=== PATIENT | female | born 1950 ===

== ENCOUNTER 2017-06-20 08:51 | Day surgery (SDC) | payer MEDICARE ==
[2016-10-31 09:17] VITALS: BMI 33.6
[2017-06-20] MEDS ORDERED: Lactated Ringer's 500 ML IV ONE (09:17)
[2017-06-20] MEDS ORDERED: Propofol 10 mg/ml Inj (20 ML) ONE (10:55)
[2017-06-20 11:13] VITALS: TEMP 96.9
[2017-06-20 11:24] VITALS: BP 120/70; PULSE 61; RESP 18; O2SAT 99
== END 2017-06-20 15:26 | disposition home or self-care (01) ==
LOC: H.ENDO 08:51
PROVIDERS: ATTEND Internal Medicine Gastroenterology
DX: K21.9 Gastro-esophageal reflux disease without esophagitis (principal); K29.50 Unspecified chronic gastritis without bleeding; K31.9 Disease of stomach and duodenum, unspecified; R10.13 Epigastric pain; R14.0 Abdominal distension (gaseous); E11.9 Type 2 diabetes mellitus without complications; I10 Essential (primary) hypertension
CPT/HCPCS: 43239; 82948; 88305; J2001; J2704; J7120

== ENCOUNTER 2017-07-04 09:11 | Day surgery (SDC) | payer MEDICARE, OTHER ==
[2016-10-31 09:17] VITALS: BMI 33.6
[2017-07-04] MEDS ORDERED: Lactated Ringer's 500 ML IV ONE (10:05)
[2017-07-04] MEDS ORDERED: Propofol 10 mg/ml Inj (20 ML) ONE (11:56)
[2017-07-04 12:29] VITALS: BP 89/48; PULSE 71; RESP 27; TEMP 97; O2SAT 96
== END 2017-07-04 23:00 | disposition home or self-care (01) ==
LOC: H.ENDO 09:11
PROVIDERS: ATTEND Internal Medicine Gastroenterology
DX: Z86.010 Personal history of colon polyps (principal); E78.5 Hyperlipidemia, unspecified; I10 Essential (primary) hypertension; F32.9 Major depressive disorder, single episode, unspecified; M06.9 Rheumatoid arthritis, unspecified; K31.9 Disease of stomach and duodenum, unspecified; R10.13 Epigastric pain
CPT/HCPCS: 43239; 88305; J2001; J2704; J7120

== ENCOUNTER 2018-05-23 14:36 | Inpatient (IN) | payer MEDICARE, OTHER ==
[2018-05-23] MEDS ORDERED: Iodixanol 320 MG/ML 100 ML BOTTLE IV ONE (14:44)
[2018-05-23] MEDS ORDERED: Sodium Chloride 0.9% 100 ML ONE (14:44)
[2018-05-23] MEDS ORDERED: Sodium Chloride 0.9% 1,000 ML IV SCH (14:45)
--- NOTE | 2018-05-23 14:46 | ED PDOC ---
HPI:STROKE - Time Time: 14:37 - Historian Historian: Family (nephew), EMS - Chief Complaint Chief Complaint: Weakness (right sided ), Slurred speech, Facial droop (right sided), Arm weakness (right), Leg weakness (right), Difficulty standing, Difficulty walking - Onset Date: 05/23/18 Time: 13:50 Onset: Hours (x1) - Location Location: Difficult to localize, Mental Status, Speech Locate right:: Face, Upper extremity, Lower extremity - Radiation Radiation: None (right sided) - TPA Positive for Contraindication: No - Notes: Notes:: 67 year old female with a past medical history of rheumatoid arthritis and CVA brought to the ED via EMS for possible stroke, onset one hour ago. According to nephew who lives in the same apartment, patient was doing well at baseline and then fell and screamed. Patient and nephew noticed she had weakness to her right side and slurred speech. Patient is a limited historian due to her physical impairment. History was obtained by EMS and nephew. Nephew reports patient had a CVA in 2017 and has been prescribed Asprin since then. As per nephew: - Business Process Analyst: Dr. Beth - PMD: Dr. Tracy Holbrook - Fur Coat Sewer: Dr. Diane NIHSS Stroke Scale - Date/Time Evaluation Performed Date Performed: 05/23/18 Time Performed: 14:37 When Was NIHSS Performed: Code Stroke - How Severe is the Stroke Level of Consciousness: 0=Alert LOC to Questions: 0=Both comments correct LOC to commands: 0=Obeys both correctly Best Gaze: 0=Normal Visual: 0=No visual loss Facial: 2=Partial (lower face paralysis) Motor Arm - Left: 0=No drift Motor Arm - Right: 3=No effort against gravity (falls immediately) Motor Leg - Left: 0=No drift Motor Leg - Right: 3=No effort against gravity (falls immediately) Limb Ataxia: 0=Absent Sensory: 1=Mild to moderate loss Best Language: 1=Mild to moderate aphasia Dysarthia: 1=Mild to moderate slurring Extinction & Inattention (Neglect): 0=Normal, no object Score: 11 Severity Of Stroke: 5-15 = Moderate Stroke rTPA Inclusion/Exclusion - Refusal of Treatment Patient Refused Treatment: No - Inclusion Criteria for Altepase Patient is 18 years or Older: Yes The Clinical Diagnosis of Ischemic Stroke That is Causing a Potentially Disabling Neurological Deficit: Yes Time of Onset is Well Established to be Less Than 270 Minute Before Treatment Would Begin: Yes Risk/Benefit Discussed With Patient/Family Member Present: Yes - Exclusion Criteria for Altepase Uncontrolled Hypertension at Time of Treatment (Systolic BP above 185 or Diastolic BP above 110 mmHg): No Active Internal Bleeding: No Known Bleeding Diathesis Including but Not Limited to: Platelets Below 100,000/ mm,PTT Above 40 sec After Heparin Use, Current Use of Oral Anitcoagulant With INR Greater Than 1.7 or PT Greater Than 15 secs: No Evidence of an Intracranial Hemorrhage: No Evidence of Major Acute Infarct With Signs Greater Than 1/3 MCA Territory: No Suspicion of Subarachnoid Hemorrhage on Pretreatment Evaluation Even if CT Head Negative For Hemorrhage: No Past Medical History Reviewed: Historical Data, Nursing Documentation, Vital Signs - Medical History PMH: CVA, Diabetes, HTN, Hypercholesterolemia, Rheumatoid Arthritis Denies: COPD (pt denies), Chronic Kidney Disease - Surgical History Surgical History: No Surg Hx - Family History Family History: States: Unknown Family Hx - Living Arrangements Living Arrangements: With Family (nephew) - Immunization History Hx Tetanus Toxoid Vaccination: No Hx Influenza Vaccination: Yes (3 days ago) Hx Pneumococcal Vaccination: Yes (3 days ago) - Home Medications Home Medications: Ambulatory Orders Medication Instructions Recorded Albuterol Sulfate [Ventolin Hfa] 2 puff IH Q12 PRN 05/23/18 Allopurinol [Zyloprim] 100 mg PO DAILY 05/23/18 Alprazolam [Xanax] 0.5 mg PO Q12 PRN 05/23/18 Amlodipine/Valsartan/Hcthiazid 1 tab PO DAILY 05/23/18 [Amiuh-Ifatr-Egzz 10-320-25 mg] Aspirin [Ecotrin] 81 mg PO DAILY 05/23/18 Carvedilol [Coreg] 25 mg PO Q12 05/23/18 Cholecalciferol (Vitamin D3) 2,000 unit PO DAILY 05/23/18 [Vitamin D3] Clopidogrel [Plavix] 75 mg PO DAILY 05/23/18 Colesevelam HCl [Welchol] 3.75 gm PO DAILY 05/23/18 Dulaglutide [Trulicity] 0.75 mg SC QWK 05/23/18 Etanercept [Enbrel] 50 mg SC WE 05/23/18 Gabapentin [Neurontin] 300 mg PO Q8 05/23/18 Montelukast [Singulair] 10 mg PO HS 05/23/18 Multivitamin/Iron/Folic Acid 1 tab PO DAILY 05/23/18 [Centrum Complete Multivit Tab] Eagir-5-Whfb Ethyl Esters 1 GM 1 gm PO DAILY 05/23/18 [Lovaza] Omeprazole [Omeprazole] 40 mg PO DAILY 05/23/18 Oxycodone HCl/Acetaminophen 1 tab PO Q6 PRN 05/23/18 [Endocet 5-325 Tablet] Simvastatin [Zocor] 20 mg PO HS 05/23/18 Sitagliptin Phos/Metformin HCl 1 tab PO BID 05/23/18 [Janumet 50-1,000 mg Tablet] cloNIDine [Catapres] 0.1 mg PO Q6 05/23/18 - Allergies Allergies/Adverse Reactions: Allergies Allergy/AdvReac Type Severity Reaction Status Date / Time No Known Allergies Allergy Verified 07/04/17 10:02 Review of Systems ROS Statement: Except As Marked, All Systems Reviewed And Found Negative Neurological: Positive for: Weakness (right sided weaknes ), Change in Speech ( slurred speech ), Other (right facial droop (possible stroke)) Physical Exam - Reviewed Nursing Documentation Reviewed: Yes Vital Signs Reviewed: Yes - Physical Exam Appears: Positive for: Non-toxic, No Acute Distress (comfortable ) Head Exam: Positive for: ATRAUMATIC, NORMAL INSPECTION, NORMOCEPHALIC Skin: Positive for: Normal Color, Warm, Dry Eye Exam: Positive for: Normal appearance, EOMI, PERRL ENT: Positive for: Normal ENT Inspection Neck: Positive for: Normal, Painless ROM, Supple Cardiovascular/Chest: Positive for: Regular Rate, Rhythm. Negative for: Murmur Respiratory: Positive for: Normal Breath Sounds. Negative for: Crackles, Rales , Rhonchi, Wheezing, Respiratory Distress Gastrointestinal/Abdominal: Positive for: Normal Exam, Soft. Negative for: Tenderness, Mass, Guarding, Rebound Back: Positive for: Normal Inspection. Negative for: L CVA Tenderness, R CVA Tenderness, Vertebral Tenderness Extremity: Positive for: Normal ROM, Swelling (right elbow swelling at the lateral aspect of arm and echhymosis ). Negative for: Pedal Edema, Deformity Neurologic/Psych: Positive for: Alert, Oriented (x3), Motor/Sensory Deficits ( in right arm and leg), Aphasia (present), Facial Droop (right sided, facial assymetry), Other (weakness of right arm and leg. ) - Laboratory Results Result Diagrams: 05/26/18 04:40 05/26/18 04:40 Medical Decision Making Medical Decision Making: Time: 1447 Impression: acute CVA, fall with R elbow injury Differentials ischemic stroke vs hemorrhagic stroke Plan: -- CTA Head/Neck CODE STROKE -- CT Head w/o (CODE STROKE) -- EKG -- Stroke Team Consult -- CXR Portable -- sodium Chloride IV 100 mls/hr -- Tail Worker -- IV Insertion -- Call Stroke Team Consult -- ED Obtain Labs STAT -- Glucose, Blood, POC -- Nursing Swallow Screen -- Vital Signs Q15MIN -- Upon arrival, code stroke was activated. Patient was sent directly to CT for scans. Time: 1447 Plan: -- At this time, neurologist, Dr. Hamilton, arrived at bedside. After discussion with Dr. Hamilton, patient is a TPA candidate. Time: [address] RESULTS FINDINGS: HEMORRHAGE: No intracranial hemorrhage. BRAIN: Good corticomedullary differentiation is seen. Proportional, minimal diffuse expansion of the ventriculosulcal and cisternal spaces is appreciated with white matter lucency compatible with diffuse cerebral atrophy and chronic microangiopathy. No suspicious extra-axial fluid collection is identified and the midline brain anatomy appears grossly nonfocal as imaged. There is no mass effect throughout. VENTRICLES: Unremarkable. No hydrocephalus. CALVARIUM: Unremarkable. PARANASAL SINUSES: Unremarkable as visualized. No significant inflammatory changes. MASTOID AIR CELLS: Unremarkable as visualized. No inflammatory changes. OTHER FINDINGS: None. IMPRESSION: Minimal age related neuro degenerative findings are encountered in this patient which appear age-appropriate. No definite acute intracranial findings are identified at this time to indicate an acute or subacute brain infarction, however, follow-up CT or MRI are available as clinically warranted. Findings discussed with Dr. Yang with written down and read back verification 05/23/2018, 2:47 p.m.. Time: 1500 Plan: -- CMP -- Hemoglobin A1C -- Lipid Panel -- Troponin I -- CBC with differentials -- Glucose, POC -- Labetalol [Trandate] 10 mg IVP Time: 1513 HEAD CTA RESULTS FINDINGS: INTERNAL CEREBRAL ARTERIES: Unremarkable. The skull base, petrous, cavernous and supraclinoid segments are bilaterally widely patent. ANTERIOR CEREBRAL ARTERIES: Unremarkable. A1 and A2 segments are widely patent. Smaller distal branches unremarkable, as visualized. MIDDLE CEREBRAL ARTERIES: Unremarkable. M1 and M2 segments are widely patent. Perisylvian branches grossly symmetric. POSTERIOR CIRCULATION: Basilar Artery: Unremarkable. Distal Vertebral Arteries: Unremarkable. Posterior Cerebral Arteries: Unremarkable. Posterior Inferior Cerebellar Arteries: Unremarkable. NECK CTA: Common Carotid arteries: The bilateral common carotid appear widely patent from their origins to their bifurcations with no significant stenosis appreciated. No evidence to suggest common carotid artery dissection. Limited bilateral carotid bulbar atherosclerosis appreciate without significant stenosis resulting. Internal Carotid arteries: No significant stenosis is appreciated throughout the cervical internal carotid artery segments bilaterally and there is no evidence of dissection either. External Carotid arteries: Appear unremarkable bilaterally. Vertebral arteries: The bilateral vertebral arteries appear normal in caliber from their origins to their junction with the basilar artery. No significant stenosis or definite pattern of dissection. ANEURYSM/ VASCULAR MALFORMATIONS: None. OTHER FINDINGS: None. IMPRESSION: Unremarkable CT Angiography of the Brain. CT angiography of the neck reveals limited bilateral carotid bulbar atherosclerosis without significant stenosis involving the bilateral common or internal carotid arteries. Time: 1515 Plan: -- First bolus of tPA administered at this time by me. -- Dr. Hamilton recommended patient to be admitted to ICU, blood pressure control, to hold off on any anti-platelet medications, and to order a Head CT for tomorrow morning. There are no indications for tramnsfer or endovascular treatment. Time: 152 Plan: -- Neuro Check Q15M -- [Activase 100 mg Inj] 74.9925 mg IV -- Tail Worker -- Vital Signs Q15M -- admit to hospital ICU -- Swallow Eval & Treatment Time: 1545 Plan: -- Upon re-evaluation, patient gained improvement in speech and able to lift limbs. Time: 160 Plan: -- Call Critical care Consult Discussed with Dr Vo for admission. to ICU Time: 161 Plan: -- Elbow XR Two Views 1750 Elbow xray reviewed. Possible epicondilar fracture. Discussed with with Robb. Scribe Attestation: Documented by Rajendra Jerez, acting as a scribe for Dr. Inez Yang MD. Provider Scribe Attestation: All medical record entries made by the Scribe were at my direction and personally dictated by me. I have reviewed the chart and agree that the record accurately reflects my personal performance of the history, physical exam, medical decision making, and the department course for this patient. I have also personally directed, reviewed, and agree with the discharge instructions and disposition. Disposition - Clinical Impression Clinical Impression: Ischemic stroke - Patient ED Disposition Is Patient to be Admitted: Yes Discussed With Dr.: Nicolas Palmer Doctor Will See Patient In The: ED Counseled Patient/Family Regarding: Studies Performed, Diagnosis - Disposition Disposition Time: 15:00 Condition: GUARDED - Pt Status Changed To: Hospital Disposition Of: Inpatient - Admit Certification Admit to Inpatient:: After my assessment, the patient will require hospitalization for at least two midnights. This is because of the severity of symptoms shown, intensity of services needed, and/or the medical risk in this patient being treated as an outpatient. - POA Present On Arrival: Falls Or Trauma Core Measure Indicators: Code Stroke Critical Care Time - Critical Care Note Total Time (in mins): 60 Documented critical care: time excludes all time spent performing seperately billable procedures.
--- NOTE | 2018-05-23 14:52 | CT ---
PROCEDURE: CT HEAD WITHOUT CONTRAST. HISTORY: code stroke COMPARISON: None available. TECHNIQUE: Axial computed tomography images were obtained through the head/brain without intravenous contrast. Radiation dose: Total exam DLP = 1151.34 mGy-cm. This CT exam was performed using one or more of the following dose reduction techniques: Automated exposure control, adjustment of the mA and/or kV according to patient size, and/or use of iterative reconstruction technique. FINDINGS: HEMORRHAGE: No intracranial hemorrhage. BRAIN: Good corticomedullary differentiation is seen. Proportional, minimal diffuse expansion of the ventriculosulcal and cisternal spaces is appreciated with white matter lucency compatible with diffuse cerebral atrophy and chronic microangiopathy. No suspicious extra-axial fluid collection is identified and the midline brain anatomy appears grossly nonfocal as imaged. There is no mass effect throughout. VENTRICLES: Unremarkable. No hydrocephalus. CALVARIUM: Unremarkable. PARANASAL SINUSES: Unremarkable as visualized. No significant inflammatory changes. MASTOID AIR CELLS: Unremarkable as visualized. No inflammatory changes. OTHER FINDINGS: None. IMPRESSION: Minimal age related neuro degenerative findings are encountered in this patient which appear age-appropriate. No definite acute intracranial findings are identified at this time to indicate an acute or subacute brain infarction, however, follow-up CT or MRI are available as clinically warranted. Findings discussed with Dr. Yang with written down and read back verification 05/23/2018, 2:47 p.m..
[2018-05-23] MEDS ORDERED: Labetalol 5 mg/ml Inj 20ML IVP STA (15:03)
--- NOTE | 2018-05-23 15:15 | CT ---
PROCEDURE: CT Angiography of the Brain and Neck. HISTORY: stroke COMPARISON: None available. TECHNIQUE: CT angiography of the intracranial and neck arteries was performed. Coronal and sagittal maximum intensity projection reformatted images were generated. Contrast Dose: Visipaque 320, 99 cc Radiation dose:Total exam DLP = 795.85 mGy-cm. This CT exam was performed using one or more of the following dose reduction techniques: Automated exposure control, adjustment of the mA and/or kV according to patient size, and/or use of iterative reconstruction technique. FINDINGS: INTERNAL CEREBRAL ARTERIES: Unremarkable. The skull base, petrous, cavernous and supraclinoid segments are bilaterally widely patent. ANTERIOR CEREBRAL ARTERIES: Unremarkable. A1 and A2 segments are widely patent. Smaller distal branches unremarkable, as visualized. MIDDLE CEREBRAL ARTERIES: Unremarkable. M1 and M2 segments are widely patent. Perisylvian branches grossly symmetric. POSTERIOR CIRCULATION: Basilar Artery: Unremarkable. Distal Vertebral Arteries: Unremarkable. Posterior Cerebral Arteries: Unremarkable. Posterior Inferior Cerebellar Arteries: Unremarkable. NECK CTA: Common Carotid arteries: The bilateral common carotid appear widely patent from their origins to their bifurcations with no significant stenosis appreciated. No evidence to suggest common carotid artery dissection. Limited bilateral carotid bulbar atherosclerosis appreciate without significant stenosis resulting. Internal Carotid arteries: No significant stenosis is appreciated throughout the cervical internal carotid artery segments bilaterally and there is no evidence of dissection either. External Carotid arteries: Appear unremarkable bilaterally. Vertebral arteries: The bilateral vertebral arteries appear normal in caliber from their origins to their junction with the basilar artery. No significant stenosis or definite pattern of dissection. ANEURYSM/ VASCULAR MALFORMATIONS: None. OTHER FINDINGS: None. IMPRESSION: Unremarkable CT Angiography of the Brain. CT angiography of the neck reveals limited bilateral carotid bulbar atherosclerosis without significant stenosis involving the bilateral common or internal carotid arteries.
[2018-05-23 15:18] LABS: BASO # 0.1 K/uL (0.0-0.2); EOS # 0.2 K/uL (0.0-0.7); EOS % 1.7 % (0.0-4.0); HEMOGLOBIN 12.3 g/dL (12.0-16.0); LYMPH # 1.8 K/uL (1.0-4.3); LYMPH % 15.1 % (20.0-40.0); MEAN CELL VOLUME 93.6 fl (81.0-99.0); MEAN CORPUSCULAR HEMOGLOBIN 32.2 pg (27.0-31.0); MEAN CORPUSCULAR HGB CONC 34.4 g/dL (33.0-37.0); MEAN PLATELET VOLUME 7.6 fl (7.2-11.7); MONO # 0.8 K/uL (0.0-0.8); MONO % 6.6 % (0.0-10.0); NEUT % 75.6 % (50.0-75.0); RBC 3.81 Mil/uL (3.80-5.20); RED CELL DISTRIBUTION WIDTH 14.3 % (11.5-14.5); WHITE BLOOD COUNT 11.9 K/uL (4.8-10.8)
[2018-05-23 15:22] LABS: ALB/GLOB RATIO 1.1 (1.0-2.1); ALBUMIN 4.3 g/dL (3.5-5.0); CALCIUM 9.8 mg/dL (8.4-10.2)
[2018-05-23 15:48] LABS: TROPONIN I 0.032 ng/mL (0.00-0.120)
--- NOTE | 2018-05-23 16:00 | CP.PCM.CON ---
History of Present Illness - History of Present Illness History of Present Illness: 67 yr old woman who was found by her nephew to be dysarthric, aphasic and with right sided weakness about an hour before presenting to the ER, at roughly 2:00 Pm. Patient came to hospital as code stroke, and was found to be unchanged from initial exam, slightly hypertensive at 180/100 and with no contraindications to tpa. Her NIH stroke scale was 8, and she was given tpA at 3 :11 pm, after labetalol 10 mg IV brought her bp down to 150/100. She was then transferred to the ICU and is now being monitored. MIss hurst has a pmh of rheumatoid arthritis, and prior stroke for which she is on aspirin. Patient improved after TPA was given minimally on my exam with minimal movement of right toes. PMH/PSH: as above. FH/SH: no tobacco, no etoh. All: nkda. On exam; Right sided facial droop. +ptosis. PERRL. EOMI. Appears to have right sided neglect. Cannot name objects, but does speak full sentences. Can follow commands. Right arm and leg are plegic. left arm is 5/5, left leg is 5/5. sensory exam; not accurate. +2 dtr ul and ll bl. Toes downgoing. no clonus. Past Patient History - Past Medical History & Family History Past Medical History?: Yes - Past Social History Smoking Status: Heavy Smoker > 10 Cigarettes Daily - CARDIAC Hx Hypercholesterolemia: Yes Hx Hypertension: Yes - PULMONARY Hx Chronic Obstructive Pulmonary Disease (COPD): No (pt denies) - NEUROLOGICAL Hx Neurological Disorder: No - HEENT Hx HEENT Problems: No - RENAL Hx Chronic Kidney Disease: No - ENDOCRINE/METABOLIC Hx Endocrine Disorders: Yes Hx Diabetes Mellitus Type 2: Yes - HEMATOLOGICAL/ONCOLOGICAL Hx Blood Disorders: No - INTEGUMENTARY Hx Dermatological Problems: No - MUSCULOSKELETAL/RHEUMATOLOGICAL Hx Rheumatoid Arthritis: Yes - GASTROINTESTINAL Hx Gastrointestinal Disorders: No - GENITOURINARY/GYNECOLOGICAL Hx Genitourinary Disorders: No - PSYCHIATRIC Hx Substance Use: No - SURGICAL HISTORY Hx Surgeries: Yes Hx Hysterectomy: Yes Hx Orthopedic Surgery: Yes - ANESTHESIA Hx Anesthesia: Yes Hx Anesthesia Reactions: No Hx Malignant Hyperthermia: No Meds Allergies/Adverse Reactions: Allergies Allergy/AdvReac Type Severity Reaction Status Date / Time No Known Allergies Allergy Verified 07/04/17 10:02 - Medications Medications: Current Medications Sodium Chloride (Sodium Chloride 0.9%) 1,000 mls @ 100 mls/hr IV .Q10H NATALIE Results - Vital Signs Recent Vital Signs: Last Vital Signs Temp Pulse 69 05/23/18 15:50 Resp 16 05/23/18 15:50 BP 141/91 H 05/23/18 15:50 Pulse Ox 98 05/23/18 15:50 - Labs Result Diagrams: 05/23/18 15:00 05/23/18 15:00 Labs: Laboratory Results - last 24 hr 05/23/18 05/23/18 05/23/18 15:00 15:00 15:02 WBC 11.9 H RBC 3.81 Hgb 12.3 Hct 35.7 MCV 93.6 MCH 32.2 H MCHC 34.4 RDW 14.3 Plt Count 368 MPV 7.6 Neut % (Auto) 75.6 H Lymph % (Auto) 15.1 L [place] % (Auto) 6.6 Eos % (Auto) 1.7 Baso % (Auto) 1.0 Neut # (Auto) 9.0 H Lymph # (Auto) 1.8 [place] # (Auto) 0.8 Eos # (Auto) 0.2 Baso # (Auto) 0.1 Sodium 138 Potassium 4.3 Chloride 99 Carbon Dioxide 28 Anion Gap 15 BUN 36 H Creatinine 1.6 H Est GFR ( Amer) 39 Est GFR (Non-Af Amer) 32 POC Glucose (mg/dL) 130 H Random Glucose 135 H Calcium 9.8 Total Bilirubin 0.7 AST 24 ALT 21 Alkaline Phosphatase 71 Troponin I 0.0320 Total Protein 8.2 Albumin 4.3 Globulin 3.9 Albumin/Globulin Ratio 1.1 Triglycerides 178 H Cholesterol 200 H LDL Cholesterol Direct 119 HDL Cholesterol 29 L - Imaging and Cardiology CT scan - head Status: Image reviewed by me, Report reviewed by me (ct and cta are normal without occlusion. ) Assessment & Plan - Assessment and Plan (Free Text) Assessment: 67 yr old woman who most likely has M1 distribution stroke, affecting Brocas area and internal capsule, now s/p TPA. plan: 1. Admit to ICU 2. Telemetry and neuro checks q 2 hours. 3. No antiplatelets. 4. CT head tonight. and tomorrow morning. 5. MRI Brain when stable. 6. DVT prophylaxis on SCDS 7. PLease keep bp within normal parameters, around 150/80 8. PT/ST/OT Thank you Dr. Hamilton
[2018-05-23] MEDS ORDERED: Albuterol HFA 90 mcg/actuation (8 g) IH PRN (16:08)
--- NOTE | 2018-05-23 16:46 | CP.PCM.HP ---
History of Present Illness - History of Present Illness History of Present Illness: CC: Acute CVA This is a 67 year old female with pmh of CVA in 2017, rheumatoid arthritis, hypertension, hypercholesterolemia, cellulitis of the right lower extremity in 2015, obesity, Type 2 diabetes mellitus, who presents to the ED today via EMS for stroke eval. The nephew, who lives with the patient, was noted to abruptly fall and scream at 13:50. She was noticed to have acute right sided upper and lower extremity weakness, slurred speech, and dysarthria. The patient was brought to the ED within an hour, Code stroke was called, and pt was administered tPA. Dr. Hamilton, neurologist, was at bedside and examined the patient. CT head was performed and revealed no definite acute intracranial findings. Similarly CTA head was also performed and showed no significant stenosis. The patient is being admitted to ICU post tPA and post CVA for close monitoring and further workup. Patient did improve after tPA with better cognition as well as regained the ability to left her right leg against gravity. She however is unable to give an accurate review of systems at this time as she is still confused. Present on Admission - Present on Admission Any Indicators Present on Admission: No History of DVT/PE: No Review of Systems - Review of Systems Systems not reviewed;Unavailable: Altered Mental Status Past Patient History - Infectious Disease Hx of Infectious Diseases: None - Past Medical History & Family History Past Medical History?: Yes Past Family History: Reviewed and not pertinent - Past Social History Smoking Status: Heavy Smoker > 10 Cigarettes Daily Alcohol: None Drugs: Denies Home Situation {Lives}: With Family - CARDIAC Hx Hypercholesterolemia: Yes Hx Hypertension: Yes - PULMONARY Hx Chronic Obstructive Pulmonary Disease (COPD): No (pt denies) - NEUROLOGICAL Hx Neurological Disorder: No - HEENT Hx HEENT Problems: No - RENAL Hx Chronic Kidney Disease: No - ENDOCRINE/METABOLIC Hx Endocrine Disorders: Yes Hx Diabetes Mellitus Type 2: Yes - HEMATOLOGICAL/ONCOLOGICAL Hx Blood Disorders: No - INTEGUMENTARY Hx Dermatological Problems: No - MUSCULOSKELETAL/RHEUMATOLOGICAL Hx Rheumatoid Arthritis: Yes - GASTROINTESTINAL Hx Gastrointestinal Disorders: No - GENITOURINARY/GYNECOLOGICAL Hx Genitourinary Disorders: No - PSYCHIATRIC Hx Psychophysiologic Disorder: No Hx Emotional Abuse: No Hx Physical Abuse: No Hx Substance Use: No - SURGICAL HISTORY Hx Surgeries: Yes Hx Hysterectomy: Yes Hx Orthopedic Surgery: Yes - ANESTHESIA Hx Anesthesia: Yes Hx Anesthesia Reactions: No Hx Malignant Hyperthermia: No Meds Allergies/Adverse Reactions: Allergies Allergy/AdvReac Type Severity Reaction Status Date / Time No Known Allergies Allergy Verified 07/04/17 10:02 Physical Exam - Additional Findings Additional findings: Physical exam: Constitutional- cooperative, awake, alert, but confused Head- NCAT, PERRL Eye- PERRL, EOMI ENT- + Right sided facial droop, MMM Neck- normal inspection, supple, no JVD Respiratory- CTAB, occ wheezing, no rales or rhonchi. Cardiovascular- RRR, +S1, +S2 no MRG GI/Abdominal- obese, normal bowel sounds, soft, no mass, no hsm Skin- warm, dry Extremities Exam- normal capillary refill, normal inspection Neurological Exam- alert, awake, oriented. + Right sided facial droop. 0/5 muscle strength to RUE, 5/5 muscle strength to LUE, 2/5 muscle strength to RLE, 5/5 muscle strength LLE Psych- not assessed. Results - Vital Signs Recent Vital Signs: Last Vital Signs Temp Pulse 73 05/23/18 15:55 Resp 16 05/23/18 15:55 BP 137/76 05/23/18 15:55 Pulse Ox 100 05/23/18 15:55 - Labs Result Diagrams: 05/23/18 15:00 05/23/18 15:00 Labs: Laboratory Results - last 24 hr 05/23/18 05/23/18 05/23/18 15:00 15:00 15:02 WBC 11.9 H RBC 3.81 Hgb 12.3 Hct 35.7 MCV 93.6 MCH 32.2 H MCHC 34.4 RDW 14.3 Plt Count 368 MPV 7.6 Neut % (Auto) 75.6 H Lymph % (Auto) 15.1 L [place] % (Auto) 6.6 Eos % (Auto) 1.7 Baso % (Auto) 1.0 Neut # (Auto) 9.0 H Lymph # (Auto) 1.8 [place] # (Auto) 0.8 Eos # (Auto) 0.2 Baso # (Auto) 0.1 Sodium 138 Potassium 4.3 Chloride 99 Carbon Dioxide 28 Anion Gap 15 BUN 36 H Creatinine 1.6 H Est GFR ( Amer) 39 Est GFR (Non-Af Amer) 32 POC Glucose (mg/dL) 130 H Random Glucose 135 H Calcium 9.8 Total Bilirubin 0.7 AST 24 ALT 21 Alkaline Phosphatase 71 Troponin I 0.0320 Total Protein 8.2 Albumin 4.3 Globulin 3.9 Albumin/Globulin Ratio 1.1 Triglycerides 178 H Cholesterol 200 H LDL Cholesterol Direct 119 HDL Cholesterol 29 L Assessment & Plan - Assessment and Plan (Free Text) Plan: ASSESSMENT/PLAN This is a 67 year old female with pmh of CVA in 2016, rheumatoid arthritis, hypertension, hypercholesterolemia, cellulitis of the right lower extremity in 2014, obesity, Type 2 diabetes mellitus, who presents to the ED today via EMS for stroke eval. The nephew, who lives with the patient, was noted to abruptly fall and scream at 13:50. She was noticed to have acute right sided upper and lower extremity weakness, slurred speech, and dysarthria. The patient was brought to the ED within an hour, Code stroke was called, and pt was administered tPA. Dr. Hamilton, neurologist, was at bedside and examined the patient. CT head was performed and revealed no definite acute intracranial findings. Similarly CTA head was also performed and showed no significant stenosis. The patient is being admitted to ICU post tPA and post CVA for close monitoring and further workup. 1) Acute CVA, s/p tPA - Admit to ICU - Critical care consultation with Dr. Vo appreciated - Neurology consultation with Dr. Hamilton appreciated - Neuro checks q hour - Elevate HOB - Echocardiogram - NPO status until former speech evaluation - PT eval - NS at 100 cc/hour - Allow permissive htn, but keep SBP < 180 and DBP < 105 due to tPA administration 2) Hypertension - Holding antihypertensives for now due to acute CVA - Will restart patients home BP medications when out of acute phase 3) Hypercholesterolemia - Lipitor 80 mg po HS advised when patient able to take PO - chronic 4) Type 2 DM - Lispro sliding scale with accuchecks q 4 hours 5) Asthma - Continue Albuterol PRN for SOB - chronic 6) GERD - Protonix 40 mg IV daily for prophylaxis - chronic 7) RA - restart Zyloprim when able to take po - chronic, no evidence of acute attack 8) CKD stage III - Given previous labwork, likely has Stage III chronic kidney disease most likely due to diabetic nephropathy and/or uncontrolled hypertension - NS at 100 cc/hour 9) DVT prophylaxis - SCDs (Holding anticoagulation due to tPA being given)
--- NOTE | 2018-05-23 17:27 | RAD ---
PROCEDURE: Radiographs of the right elbow. HISTORY: elbow injury pain COMPARISON: No prior. FINDINGS: BONES: No acute fracture. JOINTS: Unremarkable. SOFT TISSUES: Soft tissue injury/ possible hematoma along the posterolateral elbow. JOINT EFFUSION: None. OTHER FINDINGS: None. IMPRESSION: Soft tissue injury/ possible hematoma along the posterolateral elbow. No demonstrated fracture or dislocation.
--- NOTE | 2018-05-23 17:28 | RAD ---
HISTORY: Code Stroke COMPARISON: No prior. FINDINGS: LUNGS: No active pulmonary disease. PLEURA: No significant pleural effusion identified, no pneumothorax apparent. CARDIOVASCULAR: Atherosclerotic aortic calcifications. Cardiomediastinal silhouette enlarged. OSSEOUS STRUCTURES: Degenerative changes. VISUALIZED UPPER ABDOMEN: Normal. OTHER FINDINGS: None. IMPRESSION: No active disease.
--- NOTE | 2018-05-23 17:44 | CP.PCM.CON ---
<RinkuJaime - Last Filed: 05/23/18 18:02> History of Present Illness - History of Present Illness History of Present Illness: ICU Consult Note 67 y/o F with PMhx of HTN and NIDDM was brought with c/o R/side weakness and facial droop. As per patient's nephew, they were at home but in different rooms when he heard a noise and went to check her, only to find her lying in the floor and noticed a facial droop and R/side weakness. He moved her to a chair to call for help but she felt to the floor again to the right side and a new onset R/elbow swelling was noted at the time. Patient presented to ED approximately 1 hour after the event , CT and CTA were neg and patient was started on TPA. She was evaluated by Neurology and the patient is decided to transfer to ICU for further monitoring and treatment. At the time of exam patient is alert, responds to verbal commands, sleepy, denies CP, palpitations, SOB, headache. Review of Systems - Review of Systems All systems: reviewed and no additional remarkable complaints except (Those described on HPI) Past Patient History - Infectious Disease Hx of Infectious Diseases: None - Past Medical History & Family History Past Medical History?: Yes - Past Social History Smoking Status: Heavy Smoker > 10 Cigarettes Daily Alcohol: None Drugs: Denies - CARDIAC Hx Hypercholesterolemia: Yes Hx Hypertension: Yes - PULMONARY Hx Chronic Obstructive Pulmonary Disease (COPD): No (pt denies) - NEUROLOGICAL Hx Neurological Disorder: No - HEENT Hx HEENT Problems: No - RENAL Hx Chronic Kidney Disease: No - ENDOCRINE/METABOLIC Hx Endocrine Disorders: Yes Hx Diabetes Mellitus Type 2: Yes - HEMATOLOGICAL/ONCOLOGICAL Hx Blood Disorders: No - INTEGUMENTARY Hx Dermatological Problems: No - MUSCULOSKELETAL/RHEUMATOLOGICAL Hx Rheumatoid Arthritis: Yes - GASTROINTESTINAL Hx Gastrointestinal Disorders: No - GENITOURINARY/GYNECOLOGICAL Hx Genitourinary Disorders: No - PSYCHIATRIC Hx Substance Use: No - SURGICAL HISTORY Hx Surgeries: Yes Hx Hysterectomy: Yes Hx Orthopedic Surgery: Yes - ANESTHESIA Hx Anesthesia: Yes Hx Anesthesia Reactions: No Hx Malignant Hyperthermia: No Meds Allergies/Adverse Reactions: Allergies Allergy/AdvReac Type Severity Reaction Status Date / Time No Known Allergies Allergy Verified 07/04/17 10:02 - Medications Medications: Current Medications Albuterol (Ventolin Hfa 90 Mcg/Actuation (8 G)) 2 puff IH Q12 PRN PRN Reason: Shortness of Breath Sodium Chloride (Sodium Chloride 0.9%) 1,000 mls @ 100 mls/hr IV .Q10H [facility] Insulin Human Lispro (Humalog) 0 units SC Q4H NATALIE PRN Reason: Protocol Ondansetron HCl (Zofran Inj) 4 mg IVP Q6H PRN PRN Reason: Nausea/Vomiting Pantoprazole Sodium (Protonix Inj) [address] [facility] Physical Exam - Constitutional Appears: Confused - Head Exam Head Exam: ATRAUMATIC - Eye Exam Eye Exam: EOMI, PERRL - ENT Exam ENT Exam: Mucous Membranes Moist - Neck Exam Neck exam: Negative for: Lymphadenopathy, Tenderness - Respiratory Exam Respiratory Exam: Clear to Auscultation Bilateral, NORMAL BREATHING PATTERN. absent: Rales, Rhonchi, Wheezes, Respiratory Distress - Cardiovascular Exam Cardiovascular Exam: REGULAR RHYTHM, +S1, +S2. absent: Tachycardia, Gallop - GI/Abdominal Exam GI & Abdominal Exam: Normal Bowel Sounds, Soft. absent: Diminished Bowel Sounds , Guarding, Rebound, Rigid, Tenderness - Extremities Exam Extremities exam: Positive for: normal capillary refill. Negative for: pedal edema, tenderness - Neurological Exam Neurological exam: Alert, Motor Sensory Deficit Additional comments: R/side hemiplegia, R/side neglect. R/side sensation seems impaired. - Skin Skin Exam: Normal Color, Warm Results - Vital Signs Recent Vital Signs: Last Vital Signs Temp 98.0 F 05/23/18 15:05 Pulse 73 05/23/18 16:30 Resp 16 05/23/18 16:30 BP 137/76 05/23/18 16:30 Pulse Ox 100 05/23/18 15:55 - Labs Result Diagrams: 05/23/18 15:00 05/23/18 15:00 Labs: Laboratory Results - last 24 hr 05/23/18 05/23/18 05/23/18 15:00 15:00 15:02 WBC 11.9 H RBC 3.81 Hgb 12.3 Hct 35.7 MCV 93.6 MCH 32.2 H MCHC 34.4 RDW 14.3 Plt Count 368 MPV 7.6 Neut % (Auto) 75.6 H Lymph % (Auto) 15.1 L [place] % (Auto) 6.6 Eos % (Auto) 1.7 Baso % (Auto) 1.0 Neut # (Auto) 9.0 H Lymph # (Auto) 1.8 [place] # (Auto) 0.8 Eos # (Auto) 0.2 Baso # (Auto) 0.1 Sodium 138 Potassium 4.3 Chloride 99 Carbon Dioxide 28 Anion Gap 15 BUN 36 H Creatinine 1.6 H Est GFR ( Amer) 39 Est GFR (Non-Af Amer) 32 POC Glucose (mg/dL) 130 H Random Glucose 135 H Calcium 9.8 Total Bilirubin 0.7 AST 24 ALT 21 Alkaline Phosphatase 71 Troponin I 0.0320 Total Protein 8.2 Albumin 4.3 Globulin 3.9 Albumin/Globulin Ratio 1.1 Triglycerides 178 H Cholesterol 200 H LDL Cholesterol Direct 119 HDL Cholesterol 29 L Assessment & Plan - Assessment and Plan (Free Text) Assessment: 67 y/o F admitted for ischemic CVA Ischemic CVA Acute, suspected R/side hemiplegia S/P TPA given at ED Initial CT/CTA Head neg for hemorrhagic or ischemic infarct Neurology consulted Permissive hypertension: MAP <120 Neurochecks Q2h Consider swallow eval PT/OT R/elbow contusion XRay neg for Fx or dislocations. + for hematoma Monitor Fall Xray of elbow as above R/hip Xray ordered NIDDM Chronic Monitor accuchecks Rec hold PO meds for now Adjust as needed DVT prophylaxis SCDs for now <Neel Vo - Last Filed: 05/23/18 18:34> History of Present Illness - History of Present Illness History of Present Illness: Attestation: Patient seen and examined at the bedside with Resident Dr. Anderson Dobbs; and I agree with his outline of plans and management documented below, reflecting my review of all applicable clinical data, and participation in the care of the patient throughout the day in ICU; today, May 23, 2018. Results - Labs Result Diagrams: 05/23/18 15:00 05/23/18 15:00
[2018-05-23] MEDS: Insulin Lispro (humaLOG) 100 Units/ml Inj SC SCH (20:40)
[2018-05-23] MEDS: Labetalol 5 mg/ml Inj 20ML IVP PRN (22:02)
[2018-05-24] MEDS: Insulin Lispro (humaLOG) 100 Units/ml Inj SC SCH ×6 (00:10→21:24)
[2018-05-24] MEDS: Labetalol 5 mg/ml Inj 20ML IVP PRN ×2 (08:36→13:17)
--- NOTE | 2018-05-24 08:47 | CARD ---
APPROVED REPORT EKG Measurement Heart [id number] <Conclusion> Normal sinus rhythm Minimal voltage criteria for LVH, may be normal variant T wave abnormality, consider lateral ischemia Abnormal ECG
[2018-05-24 10:35] LABS: PARTIAL THROMBOPLASTIN TIME 25.7 Seconds (25.6-37.1); PROTHROMBIN TIME 10.8 Seconds (9.8-13.1)
[2018-05-24] MEDS: Omega-3-Acid Ethyl Esters 1 GM Cap PO SCH ×2 (11:39→12:45)
[2018-05-24] MEDS: Multivitamin With Minerals Tab PO SCH (11:49)
--- NOTE | 2018-05-24 12:49 | CP.PCM.PN ---
Subjective - Date & Time of Evaluation Date of Evaluation: 05/24/18 Time of Evaluation: 10:00 - Subjective Subjective: Pt seen and examined rpt CT of head shows Acute CVA, no bleed Pt passed swallow eval by Speech + Dysarthria , follows commands Right sided weakness Objective - Vital Signs/Intake and Output Vital Signs (last 24 hours): Temp Pulse Resp BP Pulse Ox 97.5 F L 79 20 181/80 H 94 L 05/24/18 00:00 05/24/18 06:00 05/24/18 06:00 05/24/18 06:00 05/24/18 06:00 - Medications Medications: Current Medications Albuterol (Ventolin Hfa 90 Mcg/Actuation (8 G)) 2 puff IH Q12 PRN PRN Reason: Shortness of Breath Allopurinol (Zyloprim) 100 mg PO DAILY [facility] Last Admin: 05/24/18 11:49 Dose: 100 mg Atorvastatin Calcium (Lipitor) 40 mg PO DAILY NATALIE Last Admin: 05/24/18 11:39 Dose: 40 mg Sodium Chloride (Sodium Chloride 0.9%) 1,000 mls @ 100 mls/hr IV .Q10H NATALIE Last Admin: 05/24/18 11:39 Dose: 100 mls/hr Insulin Human Lispro (Humalog) 0 units SC Q4H NATALIE PRN Reason: Protocol Last Admin: 05/24/18 08:48 Dose: Not Given Labetalol HCl (Trandate) 20 mg IVP Q6H PRN PRN Reason: sbp>170 Last Admin: 05/24/18 08:36 Dose: 20 mg Multivitamins/Minerals (Therapeutic-M Tab) 1 tab PO DAILY NATALIE Last Admin: 05/24/18 11:49 Dose: 1 tab [id number] Ethyl Esters (Lovaza) 1 gm PO DAILY [facility] Last Admin: 05/24/18 12:45 Dose: Not Given Ondansetron HCl (Zofran Inj) 4 mg IVP Q6H PRN PRN Reason: Nausea/Vomiting Pantoprazole Sodium (Protonix Inj) 40 mg IVP DAILY [facility] Last Admin: 05/24/18 08:35 Dose: 40 mg - Labs Labs: 05/23/18 15:00 05/23/18 15:00 PT 10.8 Seconds (9.8-13.1) 05/24/18 10:00 INR 1.0 (0.9-1.2) 05/24/18 10:00 APTT 25.7 Seconds (25.6-37.1) 05/24/18 10:00 - Constitutional Appears: No Acute Distress - Head Exam Head Exam: NORMAL INSPECTION, NORMOCEPHALIC - Eye Exam Eye Exam: EOMI, Normal appearance Pupil Exam: NORMAL ACCOMODATION - ENT Exam ENT Exam: Mucous Membranes Dry, Normal External Ear Exam - Neck Exam Neck Exam: Full ROM. absent: Meningismus - Respiratory Exam Respiratory Exam: NORMAL BREATHING PATTERN. absent: Wheezes, Respiratory Distress - Cardiovascular Exam Cardiovascular Exam: REGULAR RHYTHM, +S1, +S2 - GI/Abdominal Exam GI & Abdominal Exam: Soft, Normal Bowel Sounds. absent: Tenderness - Extremities Exam Extremities Exam: Normal Capillary Refill. absent: Pedal Edema Additional comments: right elbow with splint - Back Exam Back Exam: absent: CVA tenderness (L) - Neurological Exam Neurological Exam: Awake Neuro motor strength exam: Left Upper Extremity: 5, Right Upper Extremity: 0, Left Lower Extremity: 5, Right Lower Extremity: 0 Additional comments: oriented to person and place Facial droop Right hemiparesis - Psychiatric Exam Psychiatric exam: Flat Affect - Skin Skin Exam: Dry, Normal Color, Warm Assessment and Plan - Assessment and Plan (Free Text) Assessment: This is a 67 year old female with pmh of CVA in 2017, rheumatoid arthritis, hypertension, hypercholesterolemia, cellulitis of the right lower extremity in 2014, obesity, Type 2 diabetes mellitus, who presents to the ED today via EMS for stroke eval. The nephew, who lives with the patient, noted pt to abruptly fall and scream at 13:50. She was noticed to have acute right sided upper and lower extremity weakness, slurred speech, and dysarthria. The patient was brought to the ED within an hour, Code stroke was called, and pt was administered tPA. Dr. Hamilton, neurologist, was at bedside and examined the patient. CT head was performed and revealed no definite acute intracranial findings. Similarly CTA head was also performed and showed no significant stenosis. The patient is being admitted to ICU post tPA and post CVA for close monitoring and further workup. 1) Acute CVA, s/p tPA -Pt in ICU - Neurology consultation with Dr. Hamilton appreciated - Neuro checks q hour - Elevate HOB - Echocardiogram - PT eval - NS at 100 cc/hour - Allow permissive htn, but keep SBP < 180 and DBP < 105 due to tPA administration - no ASA , anticoag for now -start Statin -May start Pureed , Nectart thickened as rec by Speech 2) Hypertension - Holding antihypertensives for now due to acute CVA - Will restart patients home BP medications when out of acute phase 3) Hypercholesterolemia - start Lipitor 4) Type 2 DM - Lispro sliding scale with accuchecks q 4 hours 5) Asthma, mild intermittent - Continue Albuterol PRN for SOB - chronic 6) GERD - Protonix 40 mg IV daily for prophylaxis - chronic 7) RA - chronic, no evidence of acute attack 8) CKD stage III - Given previous labwork, likely has Stage III chronic kidney disease most likely due to diabetic nephropathy and/or uncontrolled hypertension - NS at 100 cc/hour 9. Fall some right sided trauma -Elbow xray : no fracture -Hip xray 10) DVT prophylaxis - SCDs (Holding anticoagulation due to tPA being given)
--- NOTE | 2018-05-24 12:59 | CT ---
PROCEDURE: CT HEAD WITHOUT CONTRAST. HISTORY: f/u acute CVA COMPARISON: None available. TECHNIQUE: Axial computed tomography images were obtained through the head/brain without intravenous contrast. Radiation dose: Total exam DLP = 813.66 mGy-cm. This CT exam was performed using one or more of the following dose reduction techniques: Automated exposure control, adjustment of the mA and/or kV according to patient size, and/or use of iterative reconstruction technique. FINDINGS: HEMORRHAGE: No intracranial hemorrhage. BRAIN: There is cytotoxic edema identified at the posterior left frontal temporal distribution abutting the margins of the anterior left parietal lobe. Limited local mass effect is identified with limited edema extending into the left basal ganglia as well. Limited rightward midline shift of 3 mm is encountered at this time. The remaining brain is normal in an density otherwise including the brainstem and posterior fossa contents. VENTRICLES: Unremarkable. No hydrocephalus. CALVARIUM: Unremarkable. PARANASAL SINUSES: Unremarkable as visualized. No significant inflammatory changes. MASTOID AIR CELLS: Unremarkable as visualized. No inflammatory changes. OTHER FINDINGS: None. IMPRESSION: Acute or subacute infarct now identified at the left frontal temporal distribution with basal ganglia also affected. Minimal rightward midline shift. Clinical and CT follow-up are advised. Findings discussed with Nurse Flores from ICU with written down and read back verification 05/24/2018 10:52 a.m..
[2018-05-24 13:10] LABS: CALCIUM 10.1 mg/dL (8.4-10.2)
--- NOTE | 2018-05-24 13:15 | CP.CCUPN ---
CCU Subjective - Physician Review Events Since Last Encounter (Free Text): 05/24/18 13:12 alert and awake, Rt arm is swallon, ortho following, CCU Objective - Physical Exam Narrative Physical Exam (Free Text): 05/24/18 13:12 P/E Neck: No JVD Neck: No JVD Lungs: no ronchi, crackles abdomen: soft, not tender Ext: Rt elbow , hematma, no Fx, perfusion and pulses intact, arm is warm - Medications Active Medications: Active Medications Generic Name Dose Route Start Last Admin Trade Name Freq PRN Reason Stop Dose Admin Albuterol 2 puff 05/23/18 16:08 Ventolin Hfa 90 Mcg/Actuation (8 G) IH Q12 PRN Shortness of Breath Allopurinol 100 mg 05/24/18 09:00 05/24/18 11:49 Zyloprim PO 100 mg DAILY NATALIE Administration Amlodipine Besylate 5 mg 05/24/18 13:15 Norvasc PO DAILY NATALIE Atorvastatin Calcium 40 mg 05/24/18 09:00 05/24/18 11:39 Lipitor PO 40 mg DAILY NATALIE Administration Sodium Chloride 1,000 mls @ 100 mls/hr 05/23/18 14:45 05/24/18 11:39 Sodium Chloride 0.9% IV 100 mls/hr .Q10H NATALIE Administration Insulin Human Lispro 0 units 05/23/18 16:15 05/24/18 08:48 Humalog SC Not Given Q4H NATALIE Protocol Labetalol HCl 20 mg 05/23/18 20:43 05/24/18 08:36 Trandate IVP 20 mg Q6H PRN Administration sbp>170 Multivitamins/Minerals 1 tab 05/24/18 09:00 05/24/18 11:49 Therapeutic-M Tab PO 1 tab DAILY NATALIE Administration Wnphs-4-Vuxt Ethyl Esters 1 gm 05/24/18 09:00 05/24/18 12:45 Lovaza PO Not Given DAILY NATALIE Ondansetron HCl 4 mg 05/23/18 16:01 Zofran Inj IVP Q6H PRN Nausea/Vomiting Pantoprazole Sodium 40 mg 05/24/18 09:00 05/24/18 08:35 Protonix Inj IVP 40 mg DAILY NATALIE Administration - Patient Studies Lab Studies: Lab Studies 05/24/18 05/24/18 05/24/18 Range/Units 10:33 10:00 10:00 WBC (4.8-10.8) K/uL RBC (3.80-5.20) Mil/uL Hgb (12.0-16.0) g/dL Hct (34.0-47.0) % MCV (81.0-99.0) fl MCH (27.0-31.0) pg MCHC (33.0-37.0) g/dL RDW (11.5-14.5) % Plt Count (130-400) K/uL MPV (7.2-11.7) fl Neut % (Auto) (50.0-75.0) % Lymph % (Auto) (20.0-40.0) % Parmer % (Auto) (0.0-10.0) % Eos % (Auto) (0.0-4.0) % Baso % (Auto) (0.0-2.0) % Neut # (Auto) (1.8-7.0) K/uL Lymph # (Auto) (1.0-4.3) K/uL Parmer # (Auto) (0.0-0.8) K/uL Eos # (Auto) (0.0-0.7) K/uL Baso # (Auto) (0.0-0.2) K/uL PT 10.8 (9.8-13.1) Seconds INR 1.0 (0.9-1.2) APTT 25.7 (25.6-37.1) Seconds Sodium 140 (132-148) mmol/l Potassium 3.9 (3.6-5.0) MMOL/L Chloride 101 (98-107) mmol/L Carbon Dioxide 25 (22-30) mmol/L Anion Gap 18 (10-20) BUN 31 H (7-17) mg/dl Creatinine 1.5 H (0.7-1.2) mg/dl Est GFR ( Amer) 42 Est GFR (Non-Af Amer) 35 POC Glucose (mg/dL) (65-110) mg/dL Random Glucose 157 H (65-105) mg/dL Hemoglobin A1c (4.2-6.5) % Calcium 10.1 (8.4-10.2) mg/dL Phosphorus (2.5-4.5) mg/dl Magnesium (1.6-2.3) MG/DL Total Bilirubin (0.2-1.3) mg/dl AST (14-36) U/L ALT (9-52) U/L Alkaline Phosphatase (38-126) U/L Troponin I (0.00-0.120) ng/mL Total Protein (6.3-8.2) G/DL Albumin (3.5-5.0) g/dL Globulin (2.2-3.9) gm/dL Albumin/Globulin Ratio (1.0-2.1) Triglycerides (0-149) mg/DL Cholesterol (0-199) mg/dL LDL Cholesterol Direct (0-129) mg/dL HDL Cholesterol (30-70) MG/DL TSH 3rd Generation (0.46-4.68) mIU/ML Blood Type Cancelled Antibody Screen Cancelled BBK History Checked Cancelled 05/24/18 05/24/18 05/24/18 Range/Units 10:00 08:46 03:59 WBC (4.8-10.8) K/uL RBC (3.80-5.20) Mil/uL Hgb (12.0-16.0) g/dL Hct (34.0-47.0) % MCV (81.0-99.0) fl MCH (27.0-31.0) pg MCHC (33.0-37.0) g/dL RDW (11.5-14.5) % Plt Count (130-400) K/uL MPV (7.2-11.7) fl Neut % (Auto) (50.0-75.0) % Lymph % (Auto) (20.0-40.0) % Parmer % (Auto) (0.0-10.0) % Eos % (Auto) (0.0-4.0) % Baso % (Auto) (0.0-2.0) % Neut # (Auto) (1.8-7.0) K/uL Lymph # (Auto) (1.0-4.3) K/uL Parmer # (Auto) (0.0-0.8) K/uL Eos # (Auto) (0.0-0.7) K/uL Baso # (Auto) (0.0-0.2) K/uL PT (9.8-13.1) Seconds INR (0.9-1.2) APTT (25.6-37.1) Seconds Sodium (132-148) mmol/l Potassium (3.6-5.0) MMOL/L Chloride (98-107) mmol/L Carbon Dioxide (22-30) mmol/L Anion Gap (10-20) BUN (7-17) mg/dl Creatinine (0.7-1.2) mg/dl Est GFR ( Amer) Est GFR (Non-Af Amer) POC Glucose (mg/dL) 166 H 160 H (65-110) mg/dL Random Glucose (65-105) mg/dL Hemoglobin A1c (4.2-6.5) % Calcium (8.4-10.2) mg/dL Phosphorus 4.0 (2.5-4.5) mg/dl Magnesium 1.9 (1.6-2.3) MG/DL Total Bilirubin (0.2-1.3) mg/dl AST (14-36) U/L ALT (9-52) U/L Alkaline Phosphatase (38-126) U/L Troponin I (0.00-0.120) ng/mL Total Protein (6.3-8.2) G/DL Albumin (3.5-5.0) g/dL Globulin (2.2-3.9) gm/dL Albumin/Globulin Ratio (1.0-2.1) Triglycerides (0-149) mg/DL Cholesterol (0-199) mg/dL LDL Cholesterol Direct (0-129) mg/dL HDL Cholesterol (30-70) MG/DL TSH 3rd Generation 1.82 (0.46-4.68) mIU/ML Blood Type Antibody Screen BBK History Checked 05/24/18 05/23/18 05/23/18 Range/Units 00:09 20:26 15:02 WBC (4.8-10.8) K/uL RBC (3.80-5.20) Mil/uL Hgb (12.0-16.0) g/dL Hct (34.0-47.0) % MCV (81.0-99.0) fl MCH (27.0-31.0) pg MCHC (33.0-37.0) g/dL RDW (11.5-14.5) % Plt Count (130-400) K/uL MPV (7.2-11.7) fl Neut % (Auto) (50.0-75.0) % Lymph % (Auto) (20.0-40.0) % Parmer % (Auto) (0.0-10.0) % Eos % (Auto) (0.0-4.0) % Baso % (Auto) (0.0-2.0) % Neut # (Auto) (1.8-7.0) K/uL Lymph # (Auto) (1.0-4.3) K/uL Parmer # (Auto) (0.0-0.8) K/uL Eos # (Auto) (0.0-0.7) K/uL Baso # (Auto) (0.0-0.2) K/uL PT (9.8-13.1) Seconds INR (0.9-1.2) APTT (25.6-37.1) Seconds Sodium (132-148) mmol/l Potassium (3.6-5.0) MMOL/L Chloride (98-107) mmol/L Carbon Dioxide (22-30) mmol/L Anion Gap (10-20) BUN (7-17) mg/dl Creatinine (0.7-1.2) mg/dl Est GFR ( Amer) Est GFR (Non-Af Amer) POC Glucose (mg/dL) 131 H 139 H 130 H (65-110) mg/dL Random Glucose (65-105) mg/dL Hemoglobin A1c (4.2-6.5) % Calcium (8.4-10.2) mg/dL Phosphorus (2.5-4.5) mg/dl Magnesium (1.6-2.3) MG/DL Total Bilirubin (0.2-1.3) mg/dl AST (14-36) U/L ALT (9-52) U/L Alkaline Phosphatase (38-126) U/L Troponin I (0.00-0.120) ng/mL Total Protein (6.3-8.2) G/DL Albumin (3.5-5.0) g/dL Globulin (2.2-3.9) gm/dL Albumin/Globulin Ratio (1.0-2.1) Triglycerides (0-149) mg/DL Cholesterol (0-199) mg/dL LDL Cholesterol Direct (0-129) mg/dL HDL Cholesterol (30-70) MG/DL TSH 3rd Generation (0.46-4.68) mIU/ML Blood Type Antibody Screen BBK History Checked 05/23/18 05/23/18 05/23/18 Range/Units 15:00 15:00 15:00 WBC 11.9 H (4.8-10.8) K/uL RBC 3.81 (3.80-5.20) Mil/uL Hgb 12.3 (12.0-16.0) g/dL Hct 35.7 (34.0-47.0) % MCV 93.6 (81.0-99.0) fl MCH 32.2 H (27.0-31.0) pg MCHC 34.4 (33.0-37.0) g/dL RDW 14.3 (11.5-14.5) % Plt Count 368 (130-400) K/uL MPV 7.6 (7.2-11.7) fl Neut % (Auto) 75.6 H (50.0-75.0) % Lymph % (Auto) 15.1 L (20.0-40.0) % Parmer % (Auto) 6.6 (0.0-10.0) % Eos % (Auto) 1.7 (0.0-4.0) % Baso % (Auto) 1.0 (0.0-2.0) % Neut # (Auto) 9.0 H (1.8-7.0) K/uL Lymph # (Auto) 1.8 (1.0-4.3) K/uL Parmer # (Auto) 0.8 (0.0-0.8) K/uL Eos # (Auto) 0.2 (0.0-0.7) K/uL Baso # (Auto) 0.1 (0.0-0.2) K/uL PT (9.8-13.1) Seconds INR (0.9-1.2) APTT (25.6-37.1) Seconds Sodium 138 (132-148) mmol/l Potassium 4.3 (3.6-5.0) MMOL/L Chloride 99 (98-107) mmol/L Carbon Dioxide 28 (22-30) mmol/L Anion Gap 15 (10-20) BUN 36 H (7-17) mg/dl Creatinine 1.6 H (0.7-1.2) mg/dl Est GFR ( Amer) 39 Est GFR (Non-Af Amer) 32 POC Glucose (mg/dL) (65-110) mg/dL Random Glucose 135 H (65-105) mg/dL Hemoglobin A1c 6.8 H (4.2-6.5) % Calcium 9.8 (8.4-10.2) mg/dL Phosphorus (2.5-4.5) mg/dl Magnesium (1.6-2.3) MG/DL Total Bilirubin 0.7 (0.2-1.3) mg/dl AST 24 (14-36) U/L ALT 21 (9-52) U/L Alkaline Phosphatase 71 (38-126) U/L Troponin I 0.0320 (0.00-0.120) ng/mL Total Protein 8.2 (6.3-8.2) G/DL Albumin 4.3 (3.5-5.0) g/dL Globulin 3.9 (2.2-3.9) gm/dL Albumin/Globulin Ratio 1.1 (1.0-2.1) Triglycerides 178 H (0-149) mg/DL Cholesterol 200 H (0-199) mg/dL LDL Cholesterol Direct 119 (0-129) mg/dL HDL Cholesterol 29 L (30-70) MG/DL TSH 3rd Generation (0.46-4.68) mIU/ML Blood Type Antibody Screen BBK History Checked Laboratory Results - last 24 hr 05/23/18 05/23/18 05/23/18 15:00 15:00 15:00 WBC 11.9 H RBC 3.81 Hgb 12.3 Hct 35.7 MCV 93.6 MCH 32.2 H MCHC 34.4 RDW 14.3 Plt Count 368 MPV 7.6 Neut % (Auto) 75.6 H Lymph % (Auto) 15.1 L Parmer % (Auto) 6.6 Eos % (Auto) 1.7 Baso % (Auto) 1.0 Neut # (Auto) 9.0 H Lymph # (Auto) 1.8 Parmer # (Auto) 0.8 Eos # (Auto) 0.2 Baso # (Auto) 0.1 PT INR APTT Sodium 138 Potassium 4.3 Chloride 99 Carbon Dioxide 28 Anion Gap 15 BUN 36 H Creatinine 1.6 H Est GFR ( Amer) 39 Est GFR (Non-Af Amer) 32 POC Glucose (mg/dL) Random Glucose 135 H Hemoglobin A1c 6.8 H Calcium 9.8 Phosphorus Magnesium Total Bilirubin 0.7 AST 24 ALT 21 Alkaline Phosphatase 71 Troponin I 0.0320 Total Protein 8.2 Albumin 4.3 Globulin 3.9 Albumin/Globulin Ratio 1.1 Triglycerides 178 H Cholesterol 200 H LDL Cholesterol Direct 119 HDL Cholesterol 29 L TSH 3rd Generation Blood Type Antibody Screen BBK History Checked 05/23/18 05/23/18 05/24/18 15:02 20:26 00:09 WBC RBC Hgb Hct MCV MCH MCHC RDW Plt Count MPV Neut % (Auto) Lymph % (Auto) Parmer % (Auto) Eos % (Auto) Baso % (Auto) Neut # (Auto) Lymph # (Auto) Parmer # (Auto) Eos # (Auto) Baso # (Auto) PT INR APTT Sodium Potassium Chloride Carbon Dioxide Anion Gap BUN Creatinine Est GFR ( Amer) Est GFR (Non-Af Amer) POC Glucose (mg/dL) 130 H 139 H 131 H Random Glucose Hemoglobin A1c Calcium Phosphorus Magnesium Total Bilirubin AST ALT Alkaline Phosphatase Troponin I Total Protein Albumin Globulin Albumin/Globulin Ratio Triglycerides Cholesterol LDL Cholesterol Direct HDL Cholesterol TSH 3rd Generation Blood Type Antibody Screen BBK History Checked 05/24/18 05/24/18 05/24/18 03:59 08:46 10:00 WBC RBC Hgb Hct MCV MCH MCHC RDW Plt Count MPV Neut % (Auto) Lymph % (Auto) Parmer % (Auto) Eos % (Auto) Baso % (Auto) Neut # (Auto) Lymph # (Auto) Parmer # (Auto) Eos # (Auto) Baso # (Auto) PT INR APTT Sodium Potassium Chloride Carbon Dioxide Anion Gap BUN Creatinine Est GFR ( Amer) Est GFR (Non-Af Amer) POC Glucose (mg/dL) 160 H 166 H Random Glucose Hemoglobin A1c Calcium Phosphorus 4.0 Magnesium 1.9 Total Bilirubin AST ALT Alkaline Phosphatase Troponin I Total Protein Albumin Globulin Albumin/Globulin Ratio Triglycerides Cholesterol LDL Cholesterol Direct HDL Cholesterol TSH 3rd Generation 1.82 Blood Type Antibody Screen BBK History Checked 05/24/18 05/24/18 05/24/18 10:00 10:00 10:33 WBC RBC Hgb Hct MCV MCH MCHC RDW Plt Count MPV Neut % (Auto) Lymph % (Auto) Parmer % (Auto) Eos % (Auto) Baso % (Auto) Neut # (Auto) Lymph # (Auto) Parmer # (Auto) Eos # (Auto) Baso # (Auto) PT 10.8 INR 1.0 APTT 25.7 Sodium 140 Potassium 3.9 Chloride 101 Carbon Dioxide 25 Anion Gap 18 BUN 31 H Creatinine 1.5 H Est GFR ( Amer) 42 Est GFR (Non-Af Amer) 35 POC Glucose (mg/dL) Random Glucose 157 H Hemoglobin A1c Calcium 10.1 Phosphorus Magnesium Total Bilirubin AST ALT Alkaline Phosphatase Troponin I Total Protein Albumin Globulin Albumin/Globulin Ratio Triglycerides Cholesterol LDL Cholesterol Direct HDL Cholesterol TSH 3rd Generation Blood Type Cancelled Antibody Screen Cancelled BBK History Checked Cancelled EKG/Cardiology Studies: Cardiology / EKG Studies 05/23/18 14:37 ELECTROCARDIOGRAM Stat Comment: Mode Of Transportation: Reason For Exam: stroke Fingerstick Blood Sugar Results: 160 Critical Care Progress Note - Nutrition Nutrition: Nutrition Category Date Time Status Dysphagia/Modified Consistency Diet [DIET] Diets 05/24/18 Lunch Active Assessment/Plan - Assessment and Plan (Free Text) Assessment: 67 y/o F admitted for ischemic CVA Acute Ischemic CVA R/side hemiplegia S/P TPA given at ED Initial CT/CTA Head neg for hemorrhagic or ischemic infarct Neurology following Will avoid SBO > 180, will start amlodipine 5 mg and Labetalol IV prn for SBP > 180 Neurochecks Q2h PT/OT R/elbow fall and hematma XRay neg for Fx or dislocations. + for hematoma Othro following Monitor NIDDM Chronic Monitor accuchecks Rec hold PO meds for now Adjust as needed DVT prophylaxis SCDs for now
[2018-05-24 13:46] LABS: MEAN CORPUSCULAR HEMOGLOBIN 31.9 pg (27.0-31.0); RBC 3.77 Mil/uL (3.80-5.20); RED CELL DISTRIBUTION WIDTH 14.6 % (11.5-14.5); WHITE BLOOD COUNT 11.4 K/uL (4.8-10.8)
--- NOTE | 2018-05-24 15:14 | CP.PCM.PN ---
Subjective - Date & Time of Evaluation Date of Evaluation: 05/24/18 Time of Evaluation: 15:00 - Subjective Subjective: 67 yr old woman s/p tpa day 1 who is still dysarthric and is eating puree diet. She has no headache, is responsive and following commands. PERRL. Cn 2-12 normal. Speech fluent, but still aphasic. Right sided plegia is slightly improved at 4/5, right leg is 4+/5 left arm and left leg 5/5 +2 dtr ul and ll bl. Toes downgoing. No clonus. Objective - Vital Signs/Intake and Output Vital Signs (last 24 hours): Temp Pulse Resp BP Pulse Ox 97.5 F L 68 20 189/101 H 94 L 05/24/18 00:00 05/24/18 13:21 05/24/18 06:00 05/24/18 13:21 05/24/18 06:00 - Medications Medications: Current Medications Albuterol (Ventolin Hfa 90 Mcg/Actuation (8 G)) 2 puff IH Q12 PRN PRN Reason: Shortness of Breath Allopurinol (Zyloprim) 100 mg PO DAILY [facility] Last Admin: 05/24/18 11:49 Dose: 100 mg Amlodipine Besylate (Norvasc) 5 mg PO DAILY [facility] Last Admin: 05/24/18 13:21 Dose: 5 mg Atorvastatin Calcium (Lipitor) 40 mg PO DAILY [facility] Last Admin: 05/24/18 11:39 Dose: 40 mg Sodium Chloride (Sodium Chloride 0.9%) 1,000 mls @ 100 mls/hr IV .Q10H [facility] Last Admin: 05/24/18 11:39 Dose: 100 mls/hr Insulin Human Lispro (Humalog) 0 units SC Q4H NATALIE PRN Reason: Protocol Last Admin: 05/24/18 14:49 Dose: Not Given Labetalol HCl (Trandate) 20 mg IVP Q6H PRN PRN Reason: sbp>170 Last Admin: 05/24/18 13:17 Dose: 20 mg Multivitamins/Minerals (Therapeutic-M Tab) 1 tab PO DAILY [facility] Last Admin: 05/24/18 11:49 Dose: 1 tab Magtk-7-Oqui Ethyl Esters (Lovaza) 1 gm PO DAILY [facility] Last Admin: 05/24/18 12:45 Dose: Not Given Ondansetron HCl (Zofran Inj) 4 mg IVP Q6H PRN PRN Reason: Nausea/Vomiting Pantoprazole Sodium (Protonix Inj) 40 mg IVP DAILY NATALIE Last Admin: 05/24/18 08:35 Dose: 40 mg - Labs Labs: 05/24/18 13:38 05/24/18 10:00 PT 10.8 Seconds (9.8-13.1) 05/24/18 10:00 INR 1.0 (0.9-1.2) 05/24/18 10:00 APTT 25.7 Seconds (25.6-37.1) 05/24/18 10:00 Assessment and Plan - Assessment and Plan (Free Text) Assessment: 67 yr old woman with new stroke left mca, s/p tpa and now stable, with improvement in level of consciousness, and now following commands and able to eat a pureed diet. Plan: 1. Start keppra at 500 mg iv bid. 2. repeat ct head am 3. continue stroke workup. Thank you dr. saldaña
--- NOTE | 2018-05-24 16:49 | CP.PCM.CON ---
History of Present Illness - History of Present Illness History of Present Illness: Consult note for Dr. Zamudio 67 yo patient with PMH of CVA, RA, hypertension, type 2 DM, presented to ED 05/23 after she fell. She sustained an injury to her right arm when she fell. X- rays were taken and there was no evidence of fracture or dislocation at the elbow. She presents in the ICU with limited cognitive abilities and cannot review systems. Her family is present bedside. She has a superficial blister present on the lateral aspect of the right elbow. PMH: CVA RA DM 2 cellulitis hypertension hypercholesterolemia PSH: hysterectomy orthopedic surgery All: NKDA Review of Systems - Review of Systems All systems: reviewed and no additional remarkable complaints except Review of Systems: as per HPI Past Patient History - Infectious Disease Hx of Infectious Diseases: None - Past Medical History & Family History Past Medical History?: Yes - Past Social History Smoking Status: Heavy Smoker > 10 Cigarettes Daily - CARDIAC Hx Cardiac Disorders: Yes Hx Hypercholesterolemia: Yes Hx Hypertension: Yes - PULMONARY Hx Chronic Obstructive Pulmonary Disease (COPD): No - NEUROLOGICAL Hx Neurological Disorder: No - HEENT Hx HEENT Problems: No - RENAL Hx Chronic Kidney Disease: No - ENDOCRINE/METABOLIC Hx Endocrine Disorders: Yes Hx Diabetes Mellitus Type 2: Yes - HEMATOLOGICAL/ONCOLOGICAL Hx Blood Disorders: No - INTEGUMENTARY Hx Dermatological Problems: No - MUSCULOSKELETAL/RHEUMATOLOGICAL Hx Musculoskeletal Disorders: Yes Hx Falls: Yes - GASTROINTESTINAL Hx Gastrointestinal Disorders: No - GENITOURINARY/GYNECOLOGICAL Hx Genitourinary Disorders: No - PSYCHIATRIC Hx Substance Use: No - SURGICAL HISTORY Hx Surgeries: Yes Hx Hysterectomy: Yes Hx Orthopedic Surgery: Yes (B/L foot) - ANESTHESIA Hx Anesthesia: Yes Hx Anesthesia Reactions: No Hx Malignant Hyperthermia: No Has any member of the family had a problem w/ anesthesia?: No Meds Allergies/Adverse Reactions: Allergies Allergy/AdvReac Type Severity Reaction Status Date / Time No Known Allergies Allergy Verified 07/04/17 10:02 - Medications Medications: Current Medications Albuterol (Ventolin Hfa 90 Mcg/Actuation (8 G)) 2 puff IH Q12 PRN PRN Reason: Shortness of Breath Allopurinol (Zyloprim) 100 mg PO DAILY [facility] Last Admin: 05/24/18 11:49 Dose: 100 mg Amlodipine Besylate (Norvasc) 5 mg PO DAILY [facility] Last Admin: 05/24/18 13:21 Dose: 5 mg Atorvastatin Calcium (Lipitor) 40 mg PO DAILY [facility] Last Admin: 05/24/18 11:39 Dose: 40 mg Sodium Chloride (Sodium Chloride 0.9%) 1,000 mls @ 100 mls/hr IV .Q10H [facility] Last Admin: 05/24/18 11:39 Dose: 100 mls/hr Levetiracetam 500 mg/ Sodium (Chloride) 105 mls @ 210 mls/hr IVPB Q12 [facility] Insulin Human Lispro (Humalog) 0 units SC Q4H NATALIE PRN Reason: Protocol Last Admin: 05/24/18 14:49 Dose: Not Given Labetalol HCl (Trandate) 20 mg IVP Q6H PRN PRN Reason: sbp>170 Last Admin: 05/24/18 13:17 Dose: 20 mg Multivitamins/Minerals (Therapeutic-M Tab) 1 tab PO DAILY [facility] Last Admin: 05/24/18 11:49 Dose: 1 tab Aolqw-3-Vpjy Ethyl Esters (Lovaza) 1 gm PO DAILY [facility] Last Admin: 05/24/18 12:45 Dose: Not Given Ondansetron HCl (Zofran Inj) 4 mg IVP Q6H PRN PRN Reason: Nausea/Vomiting Pantoprazole Sodium (Protonix Inj) 40 mg IVP DAILY [facility] Last Admin: 05/24/18 08:35 Dose: 40 mg Physical Exam - Constitutional Appears: Non-toxic, No Acute Distress, Confused - Head Exam Head Exam: ATRAUMATIC, NORMOCEPHALIC - Extremities Exam Additional comments: Vascular: status intact Neuro: unable to assess due to mental status Derm: hermatoma blister formation superficially at the lateral aspect of the elbow MSK: unable to move right arm or demonstrate results of physical examination due to mental status, mild edema present at the elbow joint. Results - Vital Signs Recent Vital Signs: Last Vital Signs Temp 98.8 F 05/24/18 08:00 Pulse 76 05/24/18 15:44 Resp 14 05/24/18 10:00 BP 176/89 H 05/24/18 15:44 Pulse Ox 100 05/24/18 10:00 - Labs Result Diagrams: 05/24/18 13:38 05/24/18 10:00 Labs: Laboratory Results - last 24 hr 05/23/18 05/23/18 05/24/18 15:00 20:26 00:09 WBC RBC Hgb Hct MCV MCH MCHC RDW Plt Count PT INR APTT Sodium Potassium Chloride Carbon Dioxide Anion Gap BUN Creatinine Est GFR ( Amer) Est GFR (Non-Af Amer) POC Glucose (mg/dL) 139 H 131 H Random Glucose Hemoglobin A1c 6.8 H Calcium Phosphorus Magnesium TSH 3rd Generation Blood Type Antibody Screen BBK History Checked 05/24/18 05/24/18 05/24/18 03:59 08:46 10:00 WBC RBC Hgb Hct MCV MCH MCHC RDW Plt Count PT INR APTT Sodium Potassium Chloride Carbon Dioxide Anion Gap BUN Creatinine Est GFR ( Amer) Est GFR (Non-Af Amer) POC Glucose (mg/dL) 160 H 166 H Random Glucose Hemoglobin A1c Calcium Phosphorus 4.0 Magnesium 1.9 TSH 3rd Generation 1.82 Blood Type Antibody Screen BBK History Checked 05/24/18 05/24/18 05/24/18 10:00 10:00 10:33 WBC RBC Hgb Hct MCV MCH MCHC RDW Plt Count PT 10.8 INR 1.0 APTT 25.7 Sodium 140 Potassium 3.9 Chloride 101 Carbon Dioxide 25 Anion Gap 18 BUN 31 H Creatinine 1.5 H Est GFR ( Amer) 42 Est GFR (Non-Af Amer) 35 POC Glucose (mg/dL) Random Glucose 157 H Hemoglobin A1c Calcium 10.1 Phosphorus Magnesium TSH 3rd Generation Blood Type Cancelled Antibody Screen Cancelled BBK History Checked Cancelled 05/24/18 05/24/18 05/24/18 13:09 13:20 13:38 WBC 11.4 H RBC 3.77 L Hgb 12.0 Hct 35.4 MCV 94.0 MCH 31.9 H MCHC 34.0 RDW 14.6 H Plt Count 358 PT INR APTT Sodium Potassium Chloride Carbon Dioxide Anion Gap BUN Creatinine Est GFR ( Amer) Est GFR (Non-Af Amer) POC Glucose (mg/dL) 170 H Random Glucose Hemoglobin A1c Calcium Phosphorus Magnesium TSH 3rd Generation Blood Type O POSITIVE Antibody Screen Negative BBK History Checked Patient has bt Assessment & Plan - Assessment and Plan (Free Text) Assessment: 67 yo patient with history of CVA and fall presents for examination and drainage of superficial blister on lateral right elbow Plan: Patient seen and examined Discussed with Dr. Zamudio X-ray reviewed - soft tissue injury/possible hematoma along posterolateral elbow ; no demonstrated fracture or dislocation Blister drained bedside with <1cc of clear fluid expressed DSD applied to blister site Will follow while patient in house - Date & Time Date: 05/24/18 Time: 16:59
--- NOTE | 2018-05-24 17:05 | RAD ---
PROCEDURE: RIGHT HIP WITH PELVIS RADIOGRAPHS HISTORY: Fall COMPARISON: None available. TECHNIQUE: Frontal views of the right hip and pelvis have been submitted frog-leg lateral right hip. FINDINGS: Pelvic ring appears intact without fracture or destructive bony lesion evident. The pubic symphysis is intact. There is no fracture dislocation of the right hip joint either. Symmetric bilateral sacroiliac and hip joint degenerative change are identified. Vascular calcifications seen the pelvic soft tissues. IMPRESSION: No acute fracture dislocation right hip or the pelvic ring. Degenerative change are symmetric in the bilateral hip and sacroiliac joints.
[2018-05-24] MEDS: levETIRAcetam 500 MG in Sodium Chloride 0.9% 100 ML IVPB SCH (21:27)
[2018-05-25] MEDS: Insulin Lispro (humaLOG) 100 Units/ml Inj SC SCH ×6 (04:35→20:45)
[2018-05-25 07:19] LABS: HEMOGLOBIN 11.2 g/dL (12.0-16.0); MEAN CELL VOLUME 93.9 fl (81.0-99.0); MEAN CORPUSCULAR HEMOGLOBIN 31.8 pg (27.0-31.0); MEAN CORPUSCULAR HGB CONC 33.9 g/dL (33.0-37.0); RBC 3.51 Mil/uL (3.80-5.20); RED CELL DISTRIBUTION WIDTH 14.9 % (11.5-14.5); WHITE BLOOD COUNT 12.6 K/uL (4.8-10.8)
[2018-05-25 07:21] LABS: CALCIUM 9.1 mg/dL (8.4-10.2)
--- NOTE | 2018-05-25 07:44 | CP.CCUPN ---
CCU Subjective - Physician Review Events Since Last Encounter (Free Text): 05/25/18 07:42 sleepy , but responsive BP has been controlled , high at the moment, will give IV hydralazine and will re-start PO Amlodipine Has very brief episode of 2nd degree HB after she was given IV Labetalol, now DCed and has been on Hydralzine a Rt elbow swelling is not increasing, stable / CCU Objective - Vital Signs / Intake & Output Vital Signs (Last 4 hours): Vital Signs Temp Pulse Resp BP Pulse Ox 05/25/18 06:00 76 20 121/93 H 100 05/25/18 04:18 79 216/101 H 05/25/18 04:00 97.9 F 111 H 29 H 216/101 H 100 Intake and Output (Last 8hrs): Intake & Output 05/24/18 05/25/18 05/25/18 22:59 06:59 14:59 Intake Total 850 800 Output Total 400 850 Balance 450 -50 Intake: IV 700 800 Intake, Piggyback 100 Oral 50 Output: Urine 400 850 Urethral (Pagan) 400 850 Other: # Bowel Movements 0 - Physical Exam Narrative Physical Exam (Free Text): 05/25/18 07:45 P/E Neck: No JVD Lungs: No ronch, crackles Abdomen: soft, non-tender Heart: no gallop Ext: Rt elbow hematmo: stable - Medications Active Medications: Active Medications Generic Name Dose Route Start Last Admin Trade Name Freq PRN Reason Stop Dose Admin Albuterol 2 puff 05/23/18 16:08 Ventolin Hfa 90 Mcg/Actuation (8 G) IH Q12 PRN Shortness of Breath Allopurinol 100 mg 05/24/18 09:00 05/24/18 11:49 Zyloprim PO 100 mg DAILY NATALIE Administration Aspirin 81 mg 05/25/18 09:00 Aspirin Chewable PO DAILY [facility] Atorvastatin Calcium 40 mg 05/24/18 09:00 05/24/18 11:39 Lipitor PO 40 mg DAILY NATALIE Administration Clopidogrel Bisulfate 75 mg 05/25/18 09:00 Plavix PO DAILY [facility] Hydralazine HCl 10 mg 05/24/18 16:55 05/25/18 04:18 Apresoline IV 10 mg Q4 PRN Administration for SBP > 170 Levetiracetam 500 mg/ Sodium 105 mls @ 210 mls/hr 05/24/18 21:00 05/24/18 21: 27 Chloride IVPB 210 mls/hr Q12 NATALIE Administration Sodium Chloride 1,000 mls @ 50 mls/hr 05/25/18 07:45 Sodium Chloride 0.9% IV .Q20H NATALIE Insulin Human Lispro 0 units 05/23/18 16:15 05/25/18 04:35 Humalog SC Not Given Q4H [facility] Protocol Multivitamins/Minerals 1 tab 05/24/18 09:00 05/24/18 11:49 Therapeutic-M Tab PO 1 tab DAILY NATALIE Administration [id number]-[id number] Ethyl Esters 1 gm 05/24/18 09:00 05/24/18 12:45 Lovaza PO Not Given DAILY NATALIE Ondansetron HCl 4 mg 05/23/18 16:01 Zofran Inj IVP Q6H PRN Nausea/Vomiting Pantoprazole Sodium 40 mg 05/24/18 09:00 05/24/18 08:35 Protonix Inj IVP 40 mg DAILY NATALIE Administration - Patient Studies Lab Studies: Lab Studies 05/25/18 05/25/18 05/25/18 Range/Units 07:00 07:00 04:27 WBC 12.6 H (4.8-10.8) K/uL RBC 3.51 L (3.80-5.20) Mil/uL Hgb 11.2 L (12.0-16.0) g/dL Hct 33.0 L (34.0-47.0) % MCV 93.9 (81.0-99.0) fl MCH 31.8 H (27.0-31.0) pg MCHC 33.9 (33.0-37.0) g/dL RDW 14.9 H (11.5-14.5) % Plt Count 341 (130-400) K/uL PT (9.8-13.1) Seconds INR (0.9-1.2) APTT (25.6-37.1) Seconds Sodium 145 (132-148) mmol/l Potassium 3.5 L (3.6-5.0) MMOL/L Chloride 107 (98-107) mmol/L Carbon Dioxide 26 (22-30) mmol/L Anion Gap 16 (10-20) BUN 30 H (7-17) mg/dl Creatinine 1.9 H (0.7-1.2) mg/dl Est GFR ( Amer) 32 Est GFR (Non-Af Amer) 27 POC Glucose (mg/dL) 138 H (65-110) mg/dL Random Glucose 141 H (65-105) mg/dL Calcium 9.1 (8.4-10.2) mg/dL Phosphorus (2.5-4.5) mg/dl Magnesium (1.6-2.3) MG/DL TSH 3rd Generation (0.46-4.68) mIU/ML Blood Type Antibody Screen BBK History Checked 05/24/18 05/24/18 05/24/18 Range/Units 20:50 17:08 13:38 WBC 11.4 H (4.8-10.8) K/uL RBC 3.77 L (3.80-5.20) Mil/uL Hgb 12.0 (12.0-16.0) g/dL Hct 35.4 (34.0-47.0) % MCV 94.0 (81.0-99.0) fl MCH 31.9 H (27.0-31.0) pg MCHC 34.0 (33.0-37.0) g/dL RDW 14.6 H (11.5-14.5) % Plt Count 358 (130-400) K/uL PT (9.8-13.1) Seconds INR (0.9-1.2) APTT (25.6-37.1) Seconds Sodium (132-148) mmol/l Potassium (3.6-5.0) MMOL/L Chloride (98-107) mmol/L Carbon Dioxide (22-30) mmol/L Anion Gap (10-20) BUN (7-17) mg/dl Creatinine (0.7-1.2) mg/dl Est GFR ( Amer) Est GFR (Non-Af Amer) POC Glucose (mg/dL) 175 H 150 H (65-110) mg/dL Random Glucose (65-105) mg/dL Calcium (8.4-10.2) mg/dL Phosphorus (2.5-4.5) mg/dl Magnesium (1.6-2.3) MG/DL TSH 3rd Generation (0.46-4.68) mIU/ML Blood Type Antibody Screen BBK History Checked 05/24/18 05/24/18 05/24/18 Range/Units 13:20 13:09 10:33 WBC (4.8-10.8) K/uL RBC (3.80-5.20) Mil/uL Hgb (12.0-16.0) g/dL Hct (34.0-47.0) % MCV (81.0-99.0) fl MCH (27.0-31.0) pg MCHC (33.0-37.0) g/dL RDW (11.5-14.5) % Plt Count (130-400) K/uL PT (9.8-13.1) Seconds INR (0.9-1.2) APTT (25.6-37.1) Seconds Sodium (132-148) mmol/l Potassium (3.6-5.0) MMOL/L Chloride (98-107) mmol/L Carbon Dioxide (22-30) mmol/L Anion Gap (10-20) BUN (7-17) mg/dl Creatinine (0.7-1.2) mg/dl Est GFR ( Amer) Est GFR (Non-Af Amer) POC Glucose (mg/dL) 170 H (65-110) mg/dL Random Glucose (65-105) mg/dL Calcium (8.4-10.2) mg/dL Phosphorus (2.5-4.5) mg/dl Magnesium (1.6-2.3) MG/DL TSH 3rd Generation (0.46-4.68) mIU/ML Blood Type O POSITIVE Cancelled Antibody Screen Negative Cancelled BBK History Checked Patient has bt Cancelled 05/24/18 05/24/18 05/24/18 Range/Units 10:00 10:00 10:00 WBC (4.8-10.8) K/uL RBC (3.80-5.20) Mil/uL Hgb (12.0-16.0) g/dL Hct (34.0-47.0) % MCV (81.0-99.0) fl MCH (27.0-31.0) pg MCHC (33.0-37.0) g/dL RDW (11.5-14.5) % Plt Count (130-400) K/uL PT 10.8 (9.8-13.1) Seconds INR 1.0 (0.9-1.2) APTT 25.7 (25.6-37.1) Seconds Sodium 140 (132-148) mmol/l Potassium 3.9 (3.6-5.0) MMOL/L Chloride 101 (98-107) mmol/L Carbon Dioxide 25 (22-30) mmol/L Anion Gap 18 (10-20) BUN 31 H (7-17) mg/dl Creatinine 1.5 H (0.7-1.2) mg/dl Est GFR ( Amer) 42 Est GFR (Non-Af Amer) 35 POC Glucose (mg/dL) (65-110) mg/dL Random Glucose 157 H (65-105) mg/dL Calcium 10.1 (8.4-10.2) mg/dL Phosphorus 4.0 (2.5-4.5) mg/dl Magnesium 1.9 (1.6-2.3) MG/DL TSH 3rd Generation 1.82 (0.46-4.68) mIU/ML Blood Type Antibody Screen BBK History Checked 05/24/18 05/24/18 05/24/18 Range/Units 08:46 03:59 00:09 WBC (4.8-10.8) K/uL RBC (3.80-5.20) Mil/uL Hgb (12.0-16.0) g/dL Hct (34.0-47.0) % MCV (81.0-99.0) fl MCH (27.0-31.0) pg MCHC (33.0-37.0) g/dL RDW (11.5-14.5) % Plt Count (130-400) K/uL PT (9.8-13.1) Seconds INR (0.9-1.2) APTT (25.6-37.1) Seconds Sodium (132-148) mmol/l Potassium (3.6-5.0) MMOL/L Chloride (98-107) mmol/L Carbon Dioxide (22-30) mmol/L Anion Gap (10-20) BUN (7-17) mg/dl Creatinine (0.7-1.2) mg/dl Est GFR ( Amer) Est GFR (Non-Af Amer) POC Glucose (mg/dL) 166 H 160 H 131 H (65-110) mg/dL Random Glucose (65-105) mg/dL Calcium (8.4-10.2) mg/dL Phosphorus (2.5-4.5) mg/dl Magnesium (1.6-2.3) MG/DL TSH 3rd Generation (0.46-4.68) mIU/ML Blood Type Antibody Screen BBK History Checked Laboratory Results - last 24 hr 05/24/18 05/24/18 05/24/18 00:09 03:59 08:46 WBC RBC Hgb Hct MCV MCH MCHC RDW Plt Count PT INR APTT Sodium Potassium Chloride Carbon Dioxide Anion Gap BUN Creatinine Est GFR ( Amer) Est GFR (Non-Af Amer) POC Glucose (mg/dL) 131 H 160 H 166 H Random Glucose Calcium Phosphorus Magnesium TSH 3rd Generation Blood Type Antibody Screen BBK History Checked 05/24/18 05/24/18 05/24/18 10:00 10:00 10:00 WBC RBC Hgb Hct MCV MCH MCHC RDW Plt Count PT 10.8 INR 1.0 APTT 25.7 Sodium 140 Potassium 3.9 Chloride 101 Carbon Dioxide 25 Anion Gap 18 BUN 31 H Creatinine 1.5 H Est GFR ( Amer) 42 Est GFR (Non-Af Amer) 35 POC Glucose (mg/dL) Random Glucose 157 H Calcium 10.1 Phosphorus 4.0 Magnesium 1.9 TSH 3rd Generation 1.82 Blood Type Antibody Screen BBK History Checked 05/24/18 05/24/18 05/24/18 10:33 13:09 13:20 WBC RBC Hgb Hct MCV MCH MCHC RDW Plt Count PT INR APTT Sodium Potassium Chloride Carbon Dioxide Anion Gap BUN Creatinine Est GFR ( Amer) Est GFR (Non-Af Amer) POC Glucose (mg/dL) 170 H Random Glucose Calcium Phosphorus Magnesium TSH 3rd Generation Blood Type Cancelled O POSITIVE Antibody Screen Cancelled Negative BBK History Checked Cancelled Patient has bt 05/24/18 05/24/18 05/24/18 13:38 17:08 20:50 WBC 11.4 H RBC 3.77 L Hgb 12.0 Hct 35.4 MCV 94.0 MCH 31.9 H MCHC 34.0 RDW 14.6 H Plt Count 358 PT INR APTT Sodium Potassium Chloride Carbon Dioxide Anion Gap BUN Creatinine Est GFR ( Amer) Est GFR (Non-Af Amer) POC Glucose (mg/dL) 150 H 175 H Random Glucose Calcium Phosphorus Magnesium TSH 3rd Generation Blood Type Antibody Screen BBK History Checked 05/25/18 05/25/18 05/25/18 04:27 07:00 07:00 WBC 12.6 H RBC 3.51 L Hgb 11.2 L Hct 33.0 L MCV 93.9 MCH 31.8 H MCHC 33.9 RDW 14.9 H Plt Count 341 PT INR APTT Sodium 145 Potassium 3.5 L Chloride 107 Carbon Dioxide 26 Anion Gap 16 BUN 30 H Creatinine 1.9 H Est GFR ( Amer) 32 Est GFR (Non-Af Amer) 27 POC Glucose (mg/dL) 138 H Random Glucose 141 H Calcium 9.1 Phosphorus Magnesium TSH 3rd Generation Blood Type Antibody Screen BBK History Checked Fingerstick Blood Sugar Results: 135 Critical Care Progress Note - Nutrition Nutrition: Nutrition Category Date Time Status Dysphagia/Modified Consistency Diet [DIET] Diets 05/24/18 Lunch Active Assessment/Plan - Assessment and Plan (Free Text) Assessment: 67 y/o F admitted for ischemic CVA Acute Ischemic CVA R/side hemiplegia S/P TPA given at ED Initial CT/CTA Head neg for hemorrhagic or ischemic infarct Neurology following Will avoid SBP > 180, Will restart Amlodipine 5 mg PO and Hydralzine 10 mg IV PRN Q 4 H for SBP > 170 Avoid BB Neurochecks Q2h Neuology starting dual ant-platles Rx, ASA and Plavix PT/OT R/elbow fall and hematma XRay neg for Fx or dislocations. + for hematoma Othro following Monitor SHONNA: Pre-renal/ATN from acute stroke: continue slow IVF NIDDM Chronic Monitor accuchecks Rec hold PO meds for now Adjust as needed DVT prophylaxis SCDs for now
--- NOTE | 2018-05-25 08:05 | CP.PCM.PN ---
Subjective - Date & Time of Evaluation Date of Evaluation: 05/25/18 Time of Evaluation: 07:58 - Subjective Subjective: Ms. Solo was seen and examined at the bedside ICU. She is awake, opens her eyes spontaneously, mumbles words, pupils are sluggish to react with 2 mm in size bilaterally. She remains with right facial droop, right paraplegia, asymmetrical sensation. She is able to follow few commands such as opening her mouth, and raising her left upper and lower extremities. Her systolic blood pressure has been above 160's. She has been receiving IV anti- hypertensive.There was a decline of mental status last night, which CT scan of the head was done. Objective - Vital Signs/Intake and Output Vital Signs (last 24 hours): Temp Pulse Resp BP Pulse Ox 97.9 F 76 20 121/93 H 100 05/25/18 04:00 05/25/18 06:00 05/25/18 06:00 05/25/18 06:00 05/25/18 06:00 Intake and Output: 05/25/18 05/25/18 06:59 18:59 Intake Total 1200 Output Total 850 Balance 350 - Medications Medications: Current Medications Albuterol (Ventolin Hfa 90 Mcg/Actuation (8 G)) 2 puff IH Q12 PRN PRN Reason: Shortness of Breath Allopurinol (Zyloprim) 100 mg PO DAILY [facility] Last Admin: 05/24/18 11:49 Dose: 100 mg Amlodipine Besylate (Norvasc) 5 mg PO DAILY [facility] Aspirin (Aspirin Chewable) 81 mg PO DAILY [facility] Atorvastatin Calcium (Lipitor) 40 mg PO DAILY [facility] Last Admin: 05/24/18 11:39 Dose: 40 mg Clopidogrel Bisulfate (Plavix) 75 mg PO DAILY [facility] Hydralazine HCl (Apresoline) 10 mg IV Q4 PRN PRN Reason: for SBP > 170 Last Admin: 05/25/18 04:18 Dose: 10 mg Hydralazine HCl (Apresoline) 10 mg IV ONCE ONE Stop: 05/25/18 07:55 Levetiracetam 500 mg/ Sodium (Chloride) 105 mls @ 210 mls/hr IVPB Q12 [facility] Last Admin: 05/24/18 21:27 Dose: 210 mls/hr Sodium Chloride (Sodium Chloride 0.9%) 1,000 mls @ 50 mls/hr IV .Q20H [facility] Insulin Human Lispro (Humalog) 0 units SC Q4H NATALIE PRN Reason: Protocol Last Admin: 05/25/18 04:35 Dose: Not Given Multivitamins/Minerals (Therapeutic-M Tab) 1 tab PO DAILY [facility] Last Admin: 05/24/18 11:49 Dose: 1 tab [id number] Ethyl Esters (Lovaza) 1 gm PO DAILY [facility] Last Admin: 05/24/18 12:45 Dose: Not Given Ondansetron HCl (Zofran Inj) 4 mg IVP Q6H PRN PRN Reason: Nausea/Vomiting Pantoprazole Sodium (Protonix Inj) 40 mg IVP DAILY [facility] Last Admin: 05/24/18 08:35 Dose: 40 mg - Labs Labs: 05/25/18 07:00 05/25/18 07:00 PT 10.8 Seconds (9.8-13.1) 05/24/18 10:00 INR 1.0 (0.9-1.2) 05/24/18 10:00 APTT 25.7 Seconds (25.6-37.1) 05/24/18 10:00 - Constitutional Appears: No Acute Distress - Head Exam Head Exam: NORMAL INSPECTION - Eye Exam Pupil Exam: Miosis, PERRL - Neurological Exam Neurological Exam: Awake Neuro motor strength exam: Left Upper Extremity: 3, Right Upper Extremity: 0, Left Lower Extremity: 3, Right Lower Extremity: 0 Additional comments: awake, with right facial droop, right paraplegia, asymmetrical sensation. Assessment and Plan (1) Ischemic stroke Assessment & Plan: Case discussed with Dr. Hamilton, continue all current medical, physical, occupational, and speech therapies. Pending CT scan of the head, echocardiogram results. Recommend hypercoagulability studies, to start aspirin 81 mg PO daily and plavix 75 mg PO daily, statin ( lipitor 40 mg PO daily) to keep LDL < 70, blood pressure control with parameters of 150/80, treat any electrolyte abnormalities, keep head of bed elevated at least 40 degrees, and acute rehab for discharge planning. Status: Acute
[2018-05-25] MEDS: levETIRAcetam 500 MG in Sodium Chloride 0.9% 100 ML IVPB SCH ×2 (08:39→21:52)
[2018-05-25] MEDS: Omega-3-Acid Ethyl Esters 1 GM Cap PO SCH (08:40)
[2018-05-25] MEDS: Sodium Chloride 0.9% 1,000 ML IV SCH (08:43)
[2018-05-25] MEDS: Multivitamin With Minerals Tab PO SCH (08:44)
[2018-05-25] MEDS ORDERED: Potassium Chloride 20 mEq ER Tab PO ONE (09:42)
--- NOTE | 2018-05-25 10:28 | CP.PCM.PN ---
Subjective - Date & Time of Evaluation Date of Evaluation: 05/25/18 Time of Evaluation: 10:15 - Subjective Subjective: Pt is more lethargic compared to yesterday but easily arousable - stat CT of head done shows no change per RN, tolerated PO diet With help of RN who speaks Kyrgyz -follows simple commands, answers simple question appropriately however speech is slurred Right facial droop and Right sided weakness no fever BP very labile- on IV Hydralazine Objective - Vital Signs/Intake and Output Vital Signs (last 24 hours): Temp Pulse Resp BP Pulse Ox 99.1 F 106 H 24 160/100 H 100 05/25/18 08:00 05/25/18 09:01 05/25/18 09:01 05/25/18 09:01 05/25/18 09:01 Intake and Output: 05/25/18 05/25/18 06:59 18:59 Intake Total 1200 100 Output Total 850 Balance 350 100 - Medications Medications: Current Medications Albuterol (Ventolin Hfa 90 Mcg/Actuation (8 G)) 2 puff IH Q12 PRN PRN Reason: Shortness of Breath Allopurinol (Zyloprim) 100 mg PO DAILY [facility] Last Admin: 05/25/18 08:44 Dose: 100 mg Amlodipine Besylate (Norvasc) 5 mg PO DAILY [facility] Last Admin: 05/25/18 08:40 Dose: 5 mg Aspirin (Aspirin Chewable) 81 mg PO DAILY [facility] Last Admin: 05/25/18 08:32 Dose: 81 mg Atorvastatin Calcium (Lipitor) 40 mg PO DAILY [facility] Last Admin: 05/25/18 08:39 Dose: 40 mg Clopidogrel Bisulfate (Plavix) 75 mg PO DAILY [facility] Last Admin: 05/25/18 08:41 Dose: 75 mg Hydralazine HCl (Apresoline) 10 mg IV Q4 PRN PRN Reason: for SBP > 170 Last Admin: 05/25/18 04:18 Dose: 10 mg Levetiracetam 500 mg/ Sodium (Chloride) 105 mls @ 210 mls/hr IVPB Q12 [facility] Last Admin: 05/25/18 08:39 Dose: 210 mls/hr Sodium Chloride (Sodium Chloride 0.9%) 1,000 mls @ 50 mls/hr IV .Q20H [facility] Last Admin: 06/24/18 08:43 Dose: 50 mls/hr Insulin Human Lispro (Humalog) 0 units SC Q4H NATALIE PRN Reason: Protocol Last Admin: 05/25/18 08:37 Dose: 2 units Multivitamins/Minerals (Therapeutic-M Tab) 1 tab PO DAILY [facility] Last Admin: 05/25/18 08:44 Dose: 1 tab [id number] Ethyl Esters (Lovaza) 1 gm PO DAILY [facility] Last Admin: 05/25/18 08:40 Dose: 1 gm Ondansetron HCl (Zofran Inj) 4 mg IVP Q6H PRN PRN Reason: Nausea/Vomiting Pantoprazole Sodium (Protonix Inj) 40 mg IVP DAILY [facility] Last Admin: 05/25/18 08:41 Dose: 40 mg - Labs Labs: 05/25/18 07:00 05/25/18 07:00 PT 10.8 Seconds (9.8-13.1) 05/24/18 10:00 INR 1.0 (0.9-1.2) 05/24/18 10:00 APTT 25.7 Seconds (25.6-37.1) 05/24/18 10:00 - Constitutional Appears: No Acute Distress - Head Exam Head Exam: NORMAL INSPECTION, NORMOCEPHALIC - Eye Exam Eye Exam: EOMI, Normal appearance Pupil Exam: NORMAL ACCOMODATION - ENT Exam ENT Exam: Mucous Membranes Dry, Normal External Ear Exam - Neck Exam Neck Exam: Full ROM. absent: Meningismus - Respiratory Exam Respiratory Exam: NORMAL BREATHING PATTERN. absent: Wheezes, Respiratory Distress - Cardiovascular Exam Cardiovascular Exam: REGULAR RHYTHM, +S1, +S2 - GI/Abdominal Exam GI & Abdominal Exam: Soft, Normal Bowel Sounds. absent: Tenderness - Extremities Exam Extremities Exam: Normal Capillary Refill. absent: Pedal Edema Additional comments: right arm swollen, noted small blister - Back Exam Back Exam: absent: CVA tenderness (L) - Neurological Exam Neurological Exam: Awake Neuro motor strength exam: Left Upper Extremity: 5, Right Upper Extremity: 0, Left Lower Extremity: 5, Right Lower Extremity: 0 Additional comments: lethargic but easily arousable oriented to person and place follows simple commands R Facial droop Right hemiparesis - Psychiatric Exam Psychiatric exam: Flat Affect - Skin Skin Exam: Dry, Normal Color, Warm Assessment and Plan - Assessment and Plan (Free Text) Assessment: This is a 67 year old female with pmh of CVA in 2017, rheumatoid arthritis, hypertension, hypercholesterolemia, Obesity, Type 2 diabetes mellitus, who presented to the ED via EMS for stroke eval. The nephew, who lives with the patient, noted pt to abruptly fall and scream and noticed acute right sided upper and lower extremity weakness, slurred speech, and dysarthria. The patient was brought to the ED within an hour, Code stroke was called, and TPA administered. Dr. Hamilton, neurologist, was at bedside and examined the patient. CT head was performed and revealed no definite acute intracranial findings. Similarly CTA head was also performed and showed no significant stenosis. The patient was admitted to ICU post tPA for close monitoring and further workup. Repeat CT of head done 05/25 at 1:00am did not show any hemorrhage. 1) Acute CVA, s/p TPA -Pt in ICU - Neurology consultation with Dr. Hamilton - following pt - Neuro checks q hour - Elevate HOB - Echocardiogram: normal - PT , OT and Speech consulted - NS at 100 cc/hour - Allow permissive HTN, but keep SBP < 180 and DBP < 105 due to tPA administration - ASA and Plavix was started by Neurology today 05/25 , Keppra also started -cont Statin -Tolerating Pureed , [place] thickened as rec by Speech 2) Hypertension - allow permissive HTN - HYdralazine IV for BP greater than 180 systolic 3) Hypercholesterolemia - start Lipitor 4) Type 2 DM - Lispro sliding scale with accuchecks q 4 hours 5) Asthma, mild intermittent - Continue Albuterol PRN for SOB - chronic 6) GERD - Protonix 40 mg IV daily for prophylaxis - chronic 7) RA - chronic, no evidence of acute attack 8) CKD stage III - Given previous labwork, likely has Stage III chronic kidney disease most likely due to diabetic nephropathy and/or uncontrolled hypertension - NS at 100 cc/hour 9. Fall some right sided trauma -Elbow xray : no fracture -Hip xray -Ortho consulted for R arm/elbow swelling 10) DVT prophylaxis - SCDs (Holding anticoagulation due to tPA being given)
--- NOTE | 2018-05-25 11:11 | CARD ---
APPROVED REPORT EXAM: Two-dimensional and M-mode echocardiogram with Doppler and color Doppler. Other Information Quality : FairRhythm : INDICATION Cardiac Disease: CVD 2D DIMENSIONS IVSd1.65 (0.7-1.1cm)LVDd4.42 (3.9-5.9cm) PWd1.48 (0.7-1.1cm)LVDs2.50 (2.5-4.0cm) FS (%) 43.4 % M-Mode DIMENSIONS Left Atrium (MM)4.13 (2.5-4.0cm)IVSd1.43 (0.7-1.1cm) Aortic Root2.30 (2.2-3.7cm)LVDd4.50 (4.0-5.6cm) Aortic Cusp Exc.2.00 (1.5-2.0cm)PWd1.23 (0.7-1.1cm) FS (%) 36 %LVDs2.90 (2.0-3.8cm) Mitral Valve MV E Cgqkmwpm24.3cm/sMV DECEL [id number] A Elhulhof36.8cm/s MV SPU98gvX/A ratio0.6MVA (PHT)3.13cm2 TDI Lateral E' Peak V5.21cm/sMedial E' Peak V6.36cm/sE/Lateral E'12.1 E/Medial E'10.0 Pulmonary Valve PV Peak Rodcegbc860.0cm/s Tricuspid Valve TR Peak Uiuckraw756qf/sTR Peak Gr.11mmHg LEFT VENTRICLE The left ventricle is normal size. There is mild to moderate concentric left ventricular hypertrophy. Left ventricle systolic function is normal. The Ejection Fraction is 65-70%. There is normal LV segmental wall motion. Transmitral Doppler flow pattern is Grade I-abnormal relaxation pattern. RIGHT VENTRICLE The right ventricle is normal size. There is normal right ventricular wall thickness. The right ventricular systolic function is normal. ATRIA The left atrium size is normal. The right atrium size is normal. AORTIC VALVE The aortic valve is normal in structure. No aortic regurgitation is present. There is no aortic valvular stenosis. MITRAL VALVE The mitral valve is normal in structure. There is no evidence of mitral valve prolapse. There is no mitral valve stenosis. There is no mitral valve regurgitation noted. TRICUSPID VALVE The tricuspid valve is normal in structure. There is no tricuspid valve regurgitation noted. PULMONIC VALVE The pulmonary valve is normal in structure. There is no pulmonic valvular regurgitation. GREAT VESSELS The aortic root is normal in size. The IVC is normal in size and collapses >50% with inspiration. PERICARDIAL EFFUSION The pericardium appears normal. <Conclusion> The left ventricle is normal size. There is mild to moderate concentric left ventricular hypertrophy. There is normal LV segmental wall motion. Left ventricle systolic function is normal. The Ejection Fraction is 65-70%. Transmitral Doppler flow pattern is Grade I-abnormal relaxation pattern.
--- NOTE | 2018-05-25 11:19 | CARD ---
APPROVED REPORT EKG Measurement Heart [id number] <Conclusion> Normal sinus rhythm Minimal voltage criteria for LVH, may be normal variant Nonspecific T wave abnormality Abnormal ECG
--- NOTE | 2018-05-25 11:45 | CT ---
PROCEDURE: CT HEAD WITHOUT CONTRAST. HISTORY: follow up cerebral infarct/ TPA COMPARISON: Noncontrast head CT 05/24/2018. TECHNIQUE: Axial computed tomography images were obtained through the head/brain without intravenous contrast. Radiation dose: Total exam DLP = 835.85 mGy-cm. This CT exam was performed using one or more of the following dose reduction techniques: Automated exposure control, adjustment of the mA and/or kV according to patient size, and/or use of iterative reconstruction technique. FINDINGS: HEMORRHAGE: No intracranial hemorrhage. BRAIN: There is been interval progression of cytotoxic edema in toe larger left middle cerebral artery distribution affecting the majority left temporal lobe now and extending into the inferior margins of the left parietal lobe as well. Left basal ganglia is further affected with a minimal rightward midline shift of 3 mm appreciated at this time. The left lateral ventricle is partially effaced but the basilar cisterns are not threatened at this time. The right cerebral hemisphere appears grossly nonfocal at this time as well as the cerebellum and brainstem. VENTRICLES: Unremarkable. No hydrocephalus. CALVARIUM: Unremarkable. PARANASAL SINUSES: Unremarkable as visualized. No significant inflammatory changes. MASTOID AIR CELLS: Unremarkable as visualized. No inflammatory changes. OTHER FINDINGS: None. IMPRESSION: Interval progression of the acute to subacute left-sided infarct now affecting a larger left middle cerebral artery distribution than previously identified without intracranial hemorrhage or affecting the basilar cisterns. Nevertheless, there is a minimal sub fall seen herniation toward the right of 3 mm and partial effacement of the left lateral ventricle. Mass effect attenuates most of the left cerebral sulci as well. Continued clinical and CT follow-up are advised. Concordant preliminary report from [facility], 05/25/2018.
[2018-05-26] MEDS: Insulin Lispro (humaLOG) 100 Units/ml Inj SC SCH ×6 (01:04→20:19)
[2018-05-26 06:13] LABS: ALB/GLOB RATIO 1.1 (1.0-2.1); ALBUMIN 4.3 g/dL (3.5-5.0); ALT/SGPT 22 U/L (9-52); AST/SGOT 31 U/L (14-36); BLOOD UREA NITROGEN 28 mg/dl (7-17); CALCIUM 9.7 mg/dL (8.4-10.2); GFR AFRICAN-AMERICAN 39; GFR NON-AFRICAN AMERICAN 32
[2018-05-26 06:17] LABS: BASO # 0.1 K/uL (0.0-0.2); BASO % 0.6 % (0.0-2.0); EOS # 0.1 K/uL (0.0-0.7); EOS % 0.4 % (0.0-4.0); HEMOGLOBIN 11.9 g/dL (12.0-16.0); LYMPH # 2.7 K/uL (1.0-4.3); LYMPH % 20.1 % (20.0-40.0); MEAN CELL VOLUME 94.4 fl (81.0-99.0); MEAN CORPUSCULAR HEMOGLOBIN 32.2 pg (27.0-31.0); MEAN CORPUSCULAR HGB CONC 34.1 g/dL (33.0-37.0); MEAN PLATELET VOLUME 8.2 fl (7.2-11.7); MONO # 1.1 K/uL (0.0-0.8); MONO % 8.3 % (0.0-10.0); NEUT # 9.6 K/uL (1.8-7.0); NEUT % 70.6 % (50.0-75.0); RBC 3.71 Mil/uL (3.80-5.20); WHITE BLOOD COUNT 13.5 K/uL (4.8-10.8)
[2018-05-26] MEDS: Omega-3-Acid Ethyl Esters 1 GM Cap PO SCH (08:16)
[2018-05-26] MEDS: levETIRAcetam 500 MG in Sodium Chloride 0.9% 100 ML IVPB SCH ×2 (08:16→20:22)
[2018-05-26] MEDS: Sodium Chloride 0.9% 1,000 ML IV SCH (08:18)
[2018-05-26] MEDS: Multivitamin With Minerals Tab PO SCH (08:18)
--- NOTE | 2018-05-26 09:33 | CP.PCM.PN ---
Subjective - Date & Time of Evaluation Date of Evaluation: 05/26/18 Time of Evaluation: 09:33 - Subjective Subjective: Ms. Solo was seen and examined at the bedside in ICU. She is more alert today in comparison from yesterday. She is able to tolerate PO intake with assistance. She has right facial droop and right side paraplegia. She is able to follow some commands such as raising her bilateral left extremities. She has bilateral lower SCD's. Her blood pressure is more control this morning.There was no untoward events overnight. Objective - Vital Signs/Intake and Output Vital Signs (last 24 hours): Temp Pulse Resp BP Pulse Ox 99 F 80 18 154/74 H 100 05/26/18 07:58 05/26/18 08:16 05/26/18 07:58 05/26/18 08:16 05/26/18 07:58 Intake and Output: 05/26/18 05/26/18 06:59 18:59 Intake Total 600 100 Output Total 1300 Balance -700 100 - Medications Medications: Current Medications Albuterol (Ventolin Hfa 90 Mcg/Actuation (8 G)) 2 puff IH Q12 PRN PRN Reason: Shortness of Breath Allopurinol (Zyloprim) 100 mg PO DAILY REPLACED BY [facility] Last Admin: 05/26/18 08:18 Dose: 100 mg Amlodipine Besylate (Norvasc) 5 mg PO DAILY REPLACED BY [facility] Last Admin: 05/26/18 08:16 Dose: 5 mg Aspirin (Aspirin Chewable) 81 mg PO DAILY REPLACED BY [facility] Last Admin: 05/26/18 08:15 Dose: 81 mg Atorvastatin Calcium (Lipitor) 40 mg PO DAILY REPLACED BY [facility] Last Admin: 05/26/18 08:16 Dose: 40 mg Clopidogrel Bisulfate (Plavix) 75 mg PO DAILY REPLACED BY [facility] Last Admin: 05/26/18 08:17 Dose: 75 mg Hydralazine HCl (Apresoline) 10 mg IV Q4 PRN PRN Reason: for SBP > 170 Last Admin: 05/26/18 05:27 Dose: 10 mg Levetiracetam 500 mg/ Sodium (Chloride) 105 mls @ 210 mls/hr IVPB Q12 REPLACED BY [facility] Last Admin: 05/26/18 08:16 Dose: 210 mls/hr Sodium Chloride (Sodium Chloride 0.9%) 1,000 mls @ 50 mls/hr IV .Q20H REPLACED BY [facility] Last Admin: 05/26/18 08:18 Dose: 50 mls/hr Insulin Human Lispro (Humalog) 0 units SC Q4H [facility] PRN Reason: Protocol Last Admin: 05/26/18 08:15 Dose: Not Given Multivitamins/Minerals (Therapeutic-M Tab) 1 tab PO DAILY REPLACED BY [facility] Last Admin: 05/26/18 08:18 Dose: 1 tab [id number]-[id number] Ethyl Esters (Lovaza) 1 gm PO DAILY REPLACED BY [facility] Last Admin: 05/26/18 08:16 Dose: 1 gm Ondansetron HCl (Zofran Inj) 4 mg IVP Q6H PRN PRN Reason: Nausea/Vomiting Pantoprazole Sodium (Protonix Inj) 40 mg IVP DAILY REPLACED BY [facility] Last Admin: 05/26/18 08:17 Dose: 40 mg - Labs Labs: 05/26/18 04:40 05/26/18 04:40 PT 10.8 Seconds (9.8-13.1) 05/24/18 10:00 INR 1.0 (0.9-1.2) 05/24/18 10:00 APTT 25.7 Seconds (25.6-37.1) 05/24/18 10:00 - Constitutional Appears: No Acute Distress - Head Exam Head Exam: NORMAL INSPECTION - Eye Exam Pupil Exam: Miosis - Neurological Exam Neurological Exam: Awake Neuro motor strength exam: Left Upper Extremity: 4, Right Upper Extremity: 0, Left Lower Extremity: 4, Right Lower Extremity: 0 Additional comments: awake, follows simple commands with right side paraplegia Assessment and Plan (1) Ischemic stroke Assessment & Plan: Case discussed with Dr. Brumfield, continue all current medical,physical, occupational, and speech therapies. Pending MRI of the brain without contrast. If MRI is not possible to do a repeat CT scan of the head without contrast. Recommend blood pressure and glycemic control, treat any electrolyte abnormalities, keep head of bed elevated at least 40 degrees, and acute rehab for discharge planning. Status: Acute
[2018-05-26] MEDS ORDERED: Potassium Chloride 20 MEQ in Sodium Chloride 0.45% 1,000 ML IV SCH (09:45)
--- NOTE | 2018-05-26 10:42 | CT ---
PROCEDURE: CT HEAD WITHOUT CONTRAST. HISTORY: CVA COMPARISON: Noncontrast head CT 05/25/2018. TECHNIQUE: Axial computed tomography images were obtained through the head/brain without intravenous contrast. Radiation dose: Total exam DLP = 783.53 mGy-cm. This CT exam was performed using one or more of the following dose reduction techniques: Automated exposure control, adjustment of the mA and/or kV according to patient size, and/or use of iterative reconstruction technique. FINDINGS: HEMORRHAGE: No intracranial hemorrhage. BRAIN: Increasing lucency is appreciated in the previously demonstrated large left MCA distribution infarct reflecting normal evolution. Mass-effect is only minimally increased to 4.2 mm as compared to 3 mm previously. No significant interval change in limited effacement of the left lateral ventricle is noted with the basilar cisterns remaining widely patent. There is a stable loss of sulcation at the majority of the left cerebral hemisphere. No definite new infarcted territory appreciable at this time. The remainder the brain appears unremarkable. VENTRICLES: Unremarkable. No hydrocephalus. CALVARIUM: Unremarkable. PARANASAL SINUSES: Unremarkable as visualized. No significant inflammatory changes. MASTOID AIR CELLS: Unremarkable as visualized. No inflammatory changes. OTHER FINDINGS: None. IMPRESSION: Large left MCA infarct in evolution with increasing lucency appreciated and a marginal increase in rightward midline shift up to 4.2 mm compared to 3 mm previously. No interval intracranial hemorrhage or separate acute or subacute infarct appreciable at this time. Basilar cisterns remain widely patent. No hydrocephalus.
--- NOTE | 2018-05-26 12:18 | CP.PCM.PN ---
Subjective - Date & Time of Evaluation Date of Evaluation: 05/26/18 Time of Evaluation: 11:30 - Subjective Subjective: Pt is mor awake today than yesterday looks weak and drowsy however responds to verbal stimuli Speech slurred but comprehensible Right hemiparesis tolerating PO diet denies CP, no SOB, no MILLAN Objective - Vital Signs/Intake and Output Vital Signs (last 24 hours): Temp Pulse Resp BP Pulse Ox 99 F 78 18 168/98 H 100 05/26/18 12:00 05/26/18 12:00 05/26/18 12:00 05/26/18 12:00 05/26/18 12:00 Intake and Output: 05/26/18 05/26/18 06:59 18:59 Intake Total 600 310 Output Total 1300 Balance -700 310 - Medications Medications: Current Medications Albuterol (Ventolin Hfa 90 Mcg/Actuation (8 G)) 2 puff IH Q12 PRN PRN Reason: Shortness of Breath Allopurinol (Zyloprim) 100 mg PO DAILY [facility] Last Admin: 05/26/18 08:18 Dose: 100 mg Amlodipine Besylate (Norvasc) 5 mg PO DAILY [facility] Last Admin: 05/26/18 08:16 Dose: 5 mg Aspirin (Aspirin Chewable) 81 mg PO DAILY [facility] Last Admin: 05/26/18 08:15 Dose: 81 mg Atorvastatin Calcium (Lipitor) 40 mg PO DAILY [facility] Last Admin: 05/26/18 08:16 Dose: 40 mg Clopidogrel Bisulfate (Plavix) 75 mg PO DAILY [facility] Last Admin: 05/26/18 08:17 Dose: 75 mg Hydralazine HCl (Apresoline) 10 mg IV Q4 PRN PRN Reason: for SBP > 170 Last Admin: 05/26/18 05:27 Dose: 10 mg Levetiracetam 500 mg/ Sodium (Chloride) 105 mls @ 210 mls/hr IVPB Q12 [facility] Last Admin: 05/26/18 08:16 Dose: 210 mls/hr Potassium Chloride 20 meq/ (Sodium Chloride) 1,010 mls @ 30 mls/hr IV .Q24H [facility] Stop: 05/27/18 09:41 Last Admin: 05/26/18 12:15 Dose: Not Given Insulin Human Lispro (Humalog) 0 units SC Q4H [facility] PRN Reason: Protocol Last Admin: 05/26/18 12:12 Dose: Not Given Multivitamins/Minerals (Therapeutic-M Tab) 1 tab PO DAILY [facility] Last Admin: 05/26/18 08:18 Dose: 1 tab [id number]-[id number] Ethyl Esters (Lovaza) 1 gm PO DAILY [facility] Last Admin: 05/26/18 08:16 Dose: 1 gm Ondansetron HCl (Zofran Inj) 4 mg IVP Q6H PRN PRN Reason: Nausea/Vomiting Pantoprazole Sodium (Protonix Inj) 40 mg IVP DAILY [facility] Last Admin: 05/26/18 08:17 Dose: 40 mg - Labs Labs: 05/26/18 04:40 05/26/18 04:40 PT 10.8 Seconds (9.8-13.1) 05/24/18 10:00 INR 1.0 (0.9-1.2) 05/24/18 10:00 APTT 25.7 Seconds (25.6-37.1) 05/24/18 10:00 - Constitutional Appears: No Acute Distress - Head Exam Head Exam: NORMAL INSPECTION, NORMOCEPHALIC - Eye Exam Eye Exam: EOMI, Normal appearance Pupil Exam: NORMAL ACCOMODATION - ENT Exam ENT Exam: Mucous Membranes Dry, Normal External Ear Exam - Neck Exam Neck Exam: Full ROM. absent: Meningismus - Respiratory Exam Respiratory Exam: NORMAL BREATHING PATTERN. absent: Wheezes, Respiratory Distress - Cardiovascular Exam Cardiovascular Exam: REGULAR RHYTHM, +S1, +S2 - GI/Abdominal Exam GI & Abdominal Exam: Soft, Normal Bowel Sounds. absent: Tenderness - Extremities Exam Extremities Exam: Normal Capillary Refill. absent: Pedal Edema Additional comments: right arm swollen, noted small blister - Back Exam Back Exam: absent: CVA tenderness (L) - Neurological Exam Neurological Exam: Awake Neuro motor strength exam: Left Upper Extremity: 5, Right Upper Extremity: 0, Left Lower Extremity: 5, Right Lower Extremity: 0 Additional comments: drowsy easily arousable- better than yesterday speech slurred oriented to person and place follows simple commands R Facial droop Right hemiparesis - Psychiatric Exam Psychiatric exam: Flat Affect - Skin Skin Exam: Dry, Normal Color, Warm Assessment and Plan - Assessment and Plan (Free Text) Assessment: This is a 67 year old female with pmh of CVA in 2017, rheumatoid arthritis, hypertension, hypercholesterolemia, Obesity, Type 2 diabetes mellitus, who presented to the ED via EMS for stroke eval. The nephew, who lives with the patient, noted pt to abruptly fall and scream and noticed acute right sided upper and lower extremity weakness, slurred speech, and dysarthria. The patient was brought to the ED within an hour, Code stroke was called, and TPA administered. Dr. Hamilton, neurologist, was at bedside and examined the patient. CT head was performed and revealed no definite acute intracranial findings. Similarly CTA head was also performed and showed no significant stenosis. The patient was admitted to ICU post tPA for close monitoring and further workup. Repeat CT of head done 05/25 at 1:00am did not show any hemorrhage. 1) Acute CVA, s/p TPA -Pt in ICU - Neurology consultation - following pt - Neuro checks q hour - Elevate HOB - Echocardiogram: normal - PT , OT and Speech consulted - Allow permissive HTN, but keep SBP < 180 and DBP < 105 due to tPA administration - ASA was started by Neurology 05/25 , Keppra also started -cont Statin -Tolerating Pureed , [place] thickened as rec by Speech - rpt CT of head and MRI of brain - done today - ff up result 2) Hypertension - allow permissive HTN - Hydralazine IV for BP greater than 180 systolic 3) Hypercholesterolemia - start Lipitor 4) Type 2 DM - Lispro sliding scale with accuchecks q 4 hours 5) Asthma, mild intermittent - Continue Albuterol PRN for SOB - chronic 6) GERD - Protonix 40 mg IV daily for prophylaxis - chronic 7) RA - chronic, no evidence of acute attack 8) CKD stage III - likely has Stage III chronic kidney disease most likely due to diabetic nephropathy and/or uncontrolled hypertension - IVF hydration 9. Fall - right sided trauma -Elbow xray : no fracture -Hip xray: no fracture -Ortho consulted for R arm/elbow swelling- rec CT scan of the RUE to r/o fracture 10) DVT prophylaxis - SCDs (Holding anticoagulation due to tPA being given)
[2018-05-26] MEDS ORDERED: Sodium Chloride 0.45% 1,000 ML IV SCH (12:30)
[2018-05-26 12:50] LABS: FOLATE > 20.0 ng/mL
[2018-05-26] MEDS: Potassium Chloride 10 mEq ER Tab PO SCH (13:12)
--- NOTE | 2018-05-26 14:16 | MRI ---
PROCEDURE: MRI BRAIN WITHOUT CONTRAST HISTORY: CVA COMPARISON: Noncontrast head CT 05/26/2018. TECHNIQUE: Multiplanar, multisequence MR images of the brain were obtained without intravenous contrast enhancement. FINDINGS: HEMORRHAGE: Trace hemosiderin is associated within the anterior left basal ganglia segment of the large left MCA infarct indicating limited hemorrhage. DWI: Restricted diffusion is identified defining the same left middle cerebral artery territory infarction as seen in the head CT 05/26/2018. There are smaller areas of restricted diffusion identified, however, seen more anteriorly at the same distribution in the left frontal lobe is slightly more poor posteriorly in the periphery of the upper right parietal lobe not is easily seen in the prior CT. BRAIN PARENCHYMA: Loss of sulcation of numerous left cerebral sulci is reiterated as well as partial effacement of the left lateral ventricle, particularly at the left frontal horn region. Rightward midline shift of approximately 4 mm is reiterated as well. Limited chronic microangiopathy is identified at the right cerebral subcortical white matter and centrum semiovale. Posterior fossa contents reflect a chronic lacune inferior right cerebellar hemisphere. Basilar cisterns remain widely patent. VENTRICLES: No hydrocephalus. CRANIUM: Unremarkable. ORBITS: Grossly unremarkable. PARANASAL SINUSES/MASTOIDS: Clear VASCULAR SYSTEM: Skull base flow voids intact. OTHER FINDINGS: None. IMPRESSION: 1. Large left MCA acute to subacute infarct is reiterated with small areas of restricted diffusion identified corresponding to the same distribution but more anteriorly at the left frontal lobe and more superiorly at the right parietal lobe. Stable mass effect. Trace hemorrhage is seen the left basal ganglia anteriorly potentially reflecting minimal hemorrhagic conversion. 2. Stable age related neuro degenerative change. Findings discussed with Dr. Akers 05/26/2018 1:45 p.m..
--- NOTE | 2018-05-26 15:55 | CP.PCM.PN ---
Subjective - Date & Time of Evaluation Date of Evaluation: 05/26/18 Time of Evaluation: 15:43 - Subjective Subjective: Patient seen and examined at bedside. Arousable and answers cues but drowsy. No complaints of pain to right elbow. Objective - Vital Signs/Intake and Output Vital Signs (last 24 hours): Temp Pulse Resp BP Pulse Ox 99 F 78 22 152/91 H 99 05/26/18 12:00 05/26/18 14:00 05/26/18 14:00 05/26/18 14:00 05/26/18 14:00 Intake and Output: 05/26/18 05/26/18 06:59 18:59 Intake Total 600 430 Output Total 1300 Balance -700 430 - Medications Medications: Current Medications Albuterol (Ventolin Hfa 90 Mcg/Actuation (8 G)) 2 puff IH Q12 PRN PRN Reason: Shortness of Breath Allopurinol (Zyloprim) 100 mg PO DAILY [facility] Last Admin: 05/26/18 08:18 Dose: 100 mg Amlodipine Besylate (Norvasc) 5 mg PO DAILY [facility] Last Admin: 05/26/18 08:16 Dose: 5 mg Aspirin (Aspirin Chewable) 81 mg PO DAILY [facility] Last Admin: 05/26/18 08:15 Dose: 81 mg Atorvastatin Calcium (Lipitor) 40 mg PO DAILY [facility] Last Admin: 05/26/18 08:16 Dose: 40 mg Clopidogrel Bisulfate (Plavix) 75 mg PO DAILY [facility] Last Admin: 05/26/18 08:17 Dose: 75 mg Hydralazine HCl (Apresoline) 10 mg IV Q4 PRN PRN Reason: for SBP > 170 Last Admin: 05/26/18 05:27 Dose: 10 mg Levetiracetam 500 mg/ Sodium (Chloride) 105 mls @ 210 mls/hr IVPB Q12 [facility] Last Admin: 05/26/18 08:16 Dose: 210 mls/hr Sodium Chloride (Sodium Chloride 0.45%) 1,000 mls @ 30 mls/hr IV .Q24H [facility] Stop: 05/27/18 12:19 Last Admin: 05/26/18 13:13 Dose: 30 mls/hr Insulin Human Lispro (Humalog) 0 units SC Q4H [facility] PRN Reason: Protocol Last Admin: 05/26/18 12:12 Dose: Not Given Multivitamins/Minerals (Therapeutic-M Tab) 1 tab PO DAILY [facility] Last Admin: 05/26/18 08:18 Dose: 1 tab Enqoe-1-Ejnt Ethyl Esters (Lovaza) 1 gm PO DAILY [facility] Last Admin: 05/26/18 08:16 Dose: 1 gm Ondansetron HCl (Zofran Inj) 4 mg IVP Q6H PRN PRN Reason: Nausea/Vomiting Pantoprazole Sodium (Protonix Inj) 40 mg IVP DAILY [facility] Last Admin: 05/26/18 08:17 Dose: 40 mg Potassium Chloride (Klor-Con 10) 10 meq PO DAILY [facility] Last Admin: 05/26/18 13:12 Dose: 10 meq - Labs Labs: 05/26/18 04:40 05/26/18 04:40 PT 10.8 Seconds (9.8-13.1) 05/24/18 10:00 INR 1.0 (0.9-1.2) 05/24/18 10:00 APTT 25.7 Seconds (25.6-37.1) 05/24/18 10:00 - Extremities Exam Additional comments: R elbow: moderate swelling, large blister laterally and healing blister posteriorly sensation intact MN/UN/RN radial pulse intact Assessment and Plan - Assessment and Plan (Free Text) Assessment: Right elbow contusion possible occult fracture of the radial head -recommend CT of R elbow to evaluate for fx -NWB, RUE placed in sling for immobilization -will follow -above d/w Dr. Zamudio in agreement
--- NOTE | 2018-05-27 01:46 | PN ---
DATE: 05/26/2018 CRITICAL CARE PROGRESS NOTE LOCATION: The patient in ICU bed 433. TIME SPENT: 35 minutes. The patient is seen and evaluated at the bedside. Case was discussed in ICU multidisciplinary rounds in the morning. Past medical, surgical, social and family history reviewed as noted in the H and P. SUBJECTIVE: A 67-year-old female with a history significant for rheumatoid arthritis, hypertension, hyperlipidemia, type 2 diabetes was admitted through emergency room on 05/23/2018 after she sustained weakness of her right arm, right leg with right facial droop. CT head on admission revealed no acute infarct; however, subsequent CT showed large left MCA infarct with slight midline shift, status post tPA, remains with hemiparesis involving the right arm and right leg and right facial droop. Overnight telemetry showed sinus rhythm, blood pressure fluctuating, improved and controlled on current antihypertensive medications. The patient was reportedly lethargic until yesterday. This morning, alert and awake, follows commands appropriate, able to communicate with sister with some slurring of speech. Denies previous history of CVA. Able to tolerate n.p.o. feeds. No sign of aspiration noted. Currently undergoing bedside PT evaluation. PHYSICAL EXAMINATION: VITAL SIGNS: Temperature 99, heart rate 80 and regular, blood pressure 157/91 oxygen saturation 100%. Intake 1420, output 2100,negative balance 680. Weight 183 pounds. HEAD, EYES, EARS, NOSE AND THROAT: Pupils are reactive. Conjunctivae are pink. Sclerae are white. Neck is supple. Trachea central. CHEST: Bilateral breath sounds. Clear to auscultation. HEART: Rhythm regular. S1, S2 normal intensity. No S3, S4 gallop. No audible murmur. ABDOMEN: Bowel sounds are present. Soft. Liver and spleen not palpable. Bladder not distended. EXTREMITIES: No clubbing, cyanosis. NEURO EXAMINATION: Right facial droop, right hemiparesis. Able to move left arm and left leg. DP palpable. SKIN: Without rash. No sacral breakdown. CURRENT MEDICATIONS: Include albuterol HFA two puffs every 12 hours p.r.n., Zyloprim 100 mg p.o. daily, Norvasc 5 mg p.o. daily, aspirin 81 mg daily, Lipitor 40 mg daily, Plavix 75 mg daily, hydralazine 10 mg IV every 4 hours p.r.n. for systolic pressure more than 170, Humalog 10 units subcu every 4 hours, Keppra 500 mg IV every 12 hours, multivitamin tablet daily, Lovaza 1 gm p.o. daily, Zofran 4 mg IV every 6 hours p.r.n., Protonix 40 IV daily, potassium chloride 10 mEq p.o. daily, half normal saline at 30 mL per hour. LABORATORY DATA: WBC 13.5, hemoglobin 11.9, hematocrit 35, platelet count 353, neutrophils 70.6, lymphocytes 20.1, monocytes 20.1. PT 10.8, INR 1, PTT 25.7. SMA-7: Sodium 146, potassium 3.8, chloride 109, CO2 of 27, blood urea nitrogen 28, creatinine 1.6, random glucose 126 to 145, calcium 9.7. Phosphorus 3.7, magnesium 2.4. Total bilirubin 0.7, AST 31, ALT 22, alkaline phosphatase 71, total protein 8.2, albumin 4.3, A/G ratio 1.1. Triglycerides to be repeated. Vitamin B12 is 918. MICROBIOLOGY: No growth reported. IMAGING: CAT scan of the chest repeated this morning shows large left MCA infarct in evolution with increasing lucency appreciated and a marginal increase in right toward midline shift up to 4.2 mm is compared to 3 mm previously. IMPRESSION: 1. Neuro: Admitted with large left middle cerebral artery infarct with mild midline shift. The patient is more wakeful than yesterday. Residual right hemiparesis, right facial droop. Status post swallow evaluation. Able to tolerate p.o. without signs, symptoms and aspiration. Currently being evaluated by Occupational Therapy and Physical Therapy. Status post thrombolysis. No significant improvement in right hemiparesis. Continue aspirin, Plavix, Lipitor 40 mg daily. Maintain systolic pressure 140 to 160. 2. Cardiac: History of hypertension, currently within acceptable range for immediate severe maintain. Continue Norvasc, hydralazine as needed. 3. Hyperlipidemia, on Lipitor. 4. History of diabetes mellitus type 2, currently continue maintenance Accu-Chek with regular insulin coverage. Blood sugar to keep below 180 mg. 5. Deep venous thrombosis and gastrointestinal prophylaxis. Potassium supplement. Continue to increase feeding as tolerated. Pollo Akers MD MTDD
[2018-05-27] MEDS: Insulin Lispro (humaLOG) 100 Units/ml Inj SC SCH ×3 (05:00→09:47)
[2018-05-27 05:40] LABS: HEMOGLOBIN 11.9 g/dL (12.0-16.0); MEAN CELL VOLUME 95.1 fl (81.0-99.0); MEAN CORPUSCULAR HGB CONC 33.7 g/dL (33.0-37.0); RBC 3.72 Mil/uL (3.80-5.20); RED CELL DISTRIBUTION WIDTH 15.3 % (11.5-14.5)
[2018-05-27 05:48] LABS: CALCIUM 9.8 mg/dL (8.4-10.2)
--- NOTE | 2018-05-27 09:01 | CP.PCM.PN ---
Subjective - Date & Time of Evaluation Date of Evaluation: 05/27/18 Time of Evaluation: 08:00 - Subjective Subjective: Patient seen and examined at bedside comfortable. Arousable and responds to cues. No acute events overnight. Objective - Vital Signs/Intake and Output Vital Signs (last 24 hours): Temp Pulse Resp BP Pulse Ox 98.5 F 85 28 H 166/95 H 100 05/27/18 08:00 05/27/18 08:00 05/27/18 08:00 05/27/18 08:00 05/27/18 08:00 Intake and Output: 05/27/18 05/27/18 06:59 18:59 Intake Total 460 Output Total 1400 Balance -940 - Medications Medications: Current Medications Albuterol (Ventolin Hfa 90 Mcg/Actuation (8 G)) 2 puff IH Q12 PRN PRN Reason: Shortness of Breath Allopurinol (Zyloprim) 100 mg PO DAILY [facility] Last Admin: 05/26/18 08:18 Dose: 100 mg Amlodipine Besylate (Norvasc) 5 mg PO DAILY [facility] Last Admin: 05/26/18 08:16 Dose: 5 mg Aspirin (Aspirin Chewable) 81 mg PO DAILY [facility] Last Admin: 05/26/18 08:15 Dose: 81 mg Atorvastatin Calcium (Lipitor) 40 mg PO DAILY [facility] Last Admin: 05/26/18 08:16 Dose: 40 mg Clopidogrel Bisulfate (Plavix) 75 mg PO DAILY [facility] Last Admin: 05/26/18 08:17 Dose: 75 mg Hydralazine HCl (Apresoline) 10 mg IV Q4 PRN PRN Reason: for SBP > 170 Last Admin: 05/26/18 16:14 Dose: 10 mg Levetiracetam 500 mg/ Sodium (Chloride) 105 mls @ 210 mls/hr IVPB Q12 [facility] Last Admin: 05/26/18 20:22 Dose: 210 mls/hr Sodium Chloride (Sodium Chloride 0.45%) 1,000 mls @ 30 mls/hr IV .Q24H [facility] Stop: 05/27/18 12:19 Last Admin: 05/26/18 13:13 Dose: 30 mls/hr Insulin Human Lispro (Humalog) 0 units SC Q4H [facility] PRN Reason: Protocol Last Admin: 05/27/18 05:00 Dose: Not Given Multivitamins/Minerals (Therapeutic-M Tab) 1 tab PO DAILY [facility] Last Admin: 05/26/18 08:18 Dose: 1 tab [id number] Ethyl Esters (Lovaza) 1 gm PO DAILY [facility] Last Admin: 05/26/18 08:16 Dose: 1 gm Ondansetron HCl (Zofran Inj) 4 mg IVP Q6H PRN PRN Reason: Nausea/Vomiting Pantoprazole Sodium (Protonix Inj) 40 mg IVP DAILY [facility] Last Admin: 05/26/18 08:17 Dose: 40 mg Potassium Chloride (Klor-Con 10) 10 meq PO DAILY [facility] Last Admin: 05/26/18 13:12 Dose: 10 meq - Labs Labs: 05/27/18 04:35 05/27/18 04:35 PT 10.8 Seconds (9.8-13.1) 05/24/18 10:00 INR 1.0 (0.9-1.2) 05/24/18 10:00 APTT 25.7 Seconds (25.6-37.1) 05/24/18 10:00 - Extremities Exam Additional comments: R elbow: moderate swelling, healing blister laterally and blister posteriorly sensation diminished MN/UN/RN due to past CVA no motor MN/UN/RN due to past CVA radial pulse intact Assessment and Plan (1) Elbow contusion Assessment & Plan: Patient is a 67 y/o F with right elbow contusion, CT negative for fracture/ dislocation -pain control -ice and elevate -d/c sling -OT WBAT, P/AROM as tolerated -orthopedically stable -please reconsult as needed -above d/w Dr. Zamudio in agreement Status: Acute - Assessment and Plan (Free Text) Assessment: Right elbow contusion possible occult fracture of the radial head Radiology Interpretation - Notes: Notes:: Accession No. : [id number] Patient Name / ID : CELSO JAY [id number] / [id number] Exam Date : 05/27/2018 08:39:03 ( Approved ) Study Comment : Sex / Age : F / 67Y Creator : John Calix MD Dictator : John Calix MD Brick Pointer : Senior Sustainability Consultant : John Calix MD Approver2 : Report Date : 05/27/2018 12:17:49 My Comment : PROCEDURE: RIGHT ELBOW CT WITHOUT CONTRAST HISTORY: possible right radial head occult fracture COMPARISON: Right elbow radiographs 05/23/2018. TECHNIQUE: A volumetric CT acquisition through the right elbow was performed without intravenous contrast as requested. Multiplanar reformatted datasets provided for interpretation. Contrast Dose: None Radiation dose:Total exam DLP = 428.07 mGy-cm. This CT exam was performed using one or more of the following dose reduction techniques: Automated exposure control, adjustment of the mA and/or kV according to patient size, and/or use of iterative reconstruction technique. FINDINGS: No fracture, subluxation or dislocation is appreciate throughout the right elbow osseous elements. Cortex is intact throughout. This includes the right radial head. No destructive bony lesion appreciated There is a likely hematoma in the dorsal lateral subcutaneous soft tissues of the elbow with additional potentially postoperative cellulitis overlying the olecranon process extending inferiorly into the upper forearm dorsal soft tissues IMPRESSION: No fracture, subluxation or dislocation at the right elbow. Posttraumatic cellulitis changes are appreciated well as a small hematoma in the subcutaneous soft tissues dorsal laterally. No retained radiodense foreign body or emphysema soft tissue change is encountered.
--- NOTE | 2018-05-27 09:25 | CP.PCM.PN ---
Subjective - Date & Time of Evaluation Date of Evaluation: 05/27/18 Time of Evaluation: 09:00 - Subjective Subjective: Patient responds to verbal stimuli. Tolerating po diet. Right sided hemiparesis. Patient still with slurred speech but is comprehensible. Denies chest pain, sob, headache. Objective - Vital Signs/Intake and Output Vital Signs (last 24 hours): Temp Pulse Resp BP Pulse Ox 98.5 F 85 28 H 166/95 H 100 05/27/18 08:00 05/27/18 08:00 05/27/18 08:00 05/27/18 08:00 05/27/18 08:00 Intake and Output: 05/27/18 05/27/18 06:59 18:59 Intake Total 460 Output Total 1400 Balance -940 - Medications Medications: Current Medications Albuterol (Ventolin Hfa 90 Mcg/Actuation (8 G)) 2 puff IH Q12 PRN PRN Reason: Shortness of Breath Allopurinol (Zyloprim) 100 mg PO DAILY [facility] Last Admin: 05/26/18 08:18 Dose: 100 mg Amlodipine Besylate (Norvasc) 5 mg PO DAILY [facility] Last Admin: 05/26/18 08:16 Dose: 5 mg Aspirin (Aspirin Chewable) 81 mg PO DAILY [facility] Last Admin: 05/26/18 08:15 Dose: 81 mg Atorvastatin Calcium (Lipitor) 40 mg PO DAILY [facility] Last Admin: 05/26/18 08:16 Dose: 40 mg Clopidogrel Bisulfate (Plavix) 75 mg PO DAILY [facility] Last Admin: 05/26/18 08:17 Dose: 75 mg Hydralazine HCl (Apresoline) 10 mg IV Q4 PRN PRN Reason: for SBP > 170 Last Admin: 05/26/18 16:14 Dose: 10 mg Levetiracetam 500 mg/ Sodium (Chloride) 105 mls @ 210 mls/hr IVPB Q12 [facility] Last Admin: 05/26/18 20:22 Dose: 210 mls/hr Sodium Chloride (Sodium Chloride 0.45%) 1,000 mls @ 30 mls/hr IV .Q24H [facility] Stop: 05/27/18 12:19 Last Admin: 05/26/18 13:13 Dose: 30 mls/hr Insulin Human Lispro (Humalog) 0 units SC Q4H [facility] PRN Reason: Protocol Last Admin: 05/27/18 05:00 Dose: Not Given Multivitamins/Minerals (Therapeutic-M Tab) 1 tab PO DAILY [facility] Last Admin: 05/26/18 08:18 Dose: 1 tab [id number] Ethyl Esters (Lovaza) 1 gm PO DAILY [facility] Last Admin: 05/26/18 08:16 Dose: 1 gm Ondansetron HCl (Zofran Inj) 4 mg IVP Q6H PRN PRN Reason: Nausea/Vomiting Pantoprazole Sodium (Protonix Inj) 40 mg IVP DAILY [facility] Last Admin: 05/26/18 08:17 Dose: 40 mg Potassium Chloride (Klor-Con 10) 10 meq PO DAILY [facility] Last Admin: 05/26/18 13:12 Dose: 10 meq - Labs Labs: 05/27/18 04:35 05/27/18 04:35 PT 10.8 Seconds (9.8-13.1) 05/24/18 10:00 INR 1.0 (0.9-1.2) 05/24/18 10:00 APTT 25.7 Seconds (25.6-37.1) 05/24/18 10:00 - Additional Findings Additional findings: Physical exam: Constitutional- cooperative, awake, alert Head- NCAT, PERRL Eye- PERRL, EOMI ENT- normal exam, MMM. Neck- normal inspection, supple, no JVD Respiratory- CTAB, no wheezes rales rhonchi Cardiovascular- RRR, +S1, +S2 no MRG GI/Abdominal- normal bowel sounds, soft, no mass, no hsm Skin- warm, dry Extremities Exam- normal capillary refill, normal inspection Neurological Exam- Easily arousable, neuro motor strength exam: LUE 5, RUE 0, LLE 5, RLE 0. + Right facial droop. + Right sided hemiparesis. Psych- normal mood, normal affect Assessment and Plan - Assessment and Plan (Free Text) Plan: This is a 67 year old female with pmh of CVA in 2017, rheumatoid arthritis, hypertension, hypercholesterolemia, Obesity, Type 2 diabetes mellitus, who presented to the ED via EMS for stroke eval. The nephew, who lives with the patient, noted pt to abruptly fall and scream and noticed acute right sided upper and lower extremity weakness, slurred speech, and dysarthria. The patient was brought to the ED within an hour, Code stroke was called, and TPA administered. Dr. Hamilton, neurologist, was at bedside and examined the patient. CT head was performed and revealed no definite acute intracranial findings. Similarly CTA head was also performed and showed no significant stenosis. The patient was admitted to ICU post tPA for close monitoring and further workup. Repeat CT of head done 05/25 at 1:00am did not show any hemorrhage. 1) Acute CVA, s/p TPA -Pt in ICU - Neurology consultation - following pt - Neuro checks q hour - Elevate HOB - Echocardiogram: normal - PT , OT and Speech consulted - Allow permissive HTN, but keep SBP < 180 and DBP < 105 due to tPA administration - ASA was started by Neurology 05/25 , Keppra also started -cont Statin -Tolerating Pureed , Crossnore thickened as rec by Speech - Repeat CT head done today, awaiting report. 2) Hypertension - allow permissive HTN - Hydralazine IV for BP greater than 180 systolic 3) Hypercholesterolemia - start Lipitor 4) Type 2 DM d/c accuchecks as patient has been well controlled since admission Monitor 5) Asthma, mild intermittent - Continue Albuterol PRN for SOB - chronic 6) GERD - Protonix 40 mg IV daily for prophylaxis - chronic 7) RA - chronic, no evidence of acute attack 8) CKD stage III - likely has Stage III chronic kidney disease most likely due to diabetic nephropathy and/or uncontrolled hypertension - IVF hydration 9. Fall - right sided trauma -Elbow xray : no fracture -Hip xray: no fracture -Ortho consulted for R arm/elbow swelling- rec CT scan of the RUE to r/o fracture, awaiting report 10) DVT prophylaxis - SCDs (Holding anticoagulation due to tPA being given)
[2018-05-27] MEDS: levETIRAcetam 500 MG in Sodium Chloride 0.9% 100 ML IVPB SCH ×2 (09:47→20:05)
[2018-05-27] MEDS: Potassium Chloride 10 mEq ER Tab PO SCH (09:48)
[2018-05-27] MEDS: Omega-3-Acid Ethyl Esters 1 GM Cap PO SCH (09:49)
[2018-05-27] MEDS: Multivitamin With Minerals Tab PO SCH (09:50)
--- NOTE | 2018-05-27 09:55 | CP.CCUPN ---
<RinkuJaime - Last Filed: 05/27/18 11:32> CCU Subjective - Physician Review Subjective (Free Text): 05/27/18 10:46 67 y/o F admitted for acute CVA, seen at bedside today. Patient is more alert than on admission. She responds to verbal commands and expresses concerns about unable to move her R/leg. She is tolerating PO pureed diet. Denies pain. Afebrile. Underwent repeat head CT and CT elbow this AM. CCU Objective - Vital Signs / Intake & Output Vital Signs (Last 4 hours): Vital Signs Temp Pulse Resp BP Pulse Ox 05/27/18 09:49 86 168/93 H 05/27/18 09:20 84 177/94 H 05/27/18 08:00 98.5 F 85 28 H 166/95 H 100 05/27/18 06:31 71 16 150/74 100 Intake and Output (Last 8hrs): Intake & Output 05/26/18 05/27/18 05/27/18 22:59 06:59 14:59 Intake Total 500 270 Output Total 800 1400 Balance -300 -1130 Intake: IV 270 270 Intake, Piggyback 100 Oral 130 0 Output: Urine 800 1400 Urethral (Pagan) 800 1400 - Physical Exam Head: Positive for: Atraumatic. Negative for: Tenderness, Contusion, Swelling Pupils: Positive for: PERRL Conjunctiva: Positive for: Normal Mouth: Positive for: Dry (Mild) Nose (Internal): Positive for: No Active Bleeding Neck: Positive for: Normal Range of Motion. Negative for: JVD, Lymphadenopathy Respiratory/Chest: Positive for: Clear to Auscultation. Negative for: Respiratory Distress, Accessory Muscle Use, Wheezes, Rales Cardiovascular: Positive for: Regular Rate and Rhythm, Normal S1, S2. Negative for: Gallop Abdomen: Positive for: Normal Bowel Sounds. Negative for: Tenderness, Distention, Rebound, Guarding Upper Extremity: Positive for: Swelling, Capillary Refill < 2s. Negative for: Normal Inspection (R/elbow swelling), Tenderness, Erythema Lower Extremity: Positive for: Capillary Refill < 2 s. Negative for: Edema, Swelling Neurological: Negative for: Speech Normal (slurred), Motor Func Grossly Intact ( R/side hemiplegia. R/side neglect.), Normal Sensory Function (R/side impaired sensation), Gait Normal Skin: Positive for: Warm. Negative for: Rashes Psychiatric: Positive for: Alert. Negative for: Oriented x 3 - Medications Active Medications: Active Medications Generic Name Dose Route Start Last Admin Trade Name Freq PRN Reason Stop Dose Admin Albuterol 2 puff 05/23/18 16:08 Ventolin Hfa 90 Mcg/Actuation (8 G) IH Q12 PRN Shortness of Breath Allopurinol 100 mg 05/24/18 09:00 05/27/18 09:50 Zyloprim PO 100 mg DAILY NATALIE Administration Amlodipine Besylate 5 mg 05/25/18 09:00 05/27/18 09:49 Norvasc PO 5 mg DAILY NATALIE Administration Aspirin 81 mg 05/25/18 09:00 05/27/18 09:46 Aspirin Chewable PO 81 mg DAILY NATALIE Administration Atorvastatin Calcium 40 mg 05/24/18 09:00 05/27/18 09:48 Lipitor PO 40 mg DAILY NATALIE Administration Clopidogrel Bisulfate 75 mg 05/25/18 09:00 05/26/18 08:17 Plavix PO 75 mg DAILY NATALIE Administration Hydralazine HCl 10 mg 05/24/18 16:55 05/27/18 09:20 Apresoline IV 10 mg Q4 PRN Administration for SBP > 170 Levetiracetam 500 mg/ Sodium 105 mls @ 210 mls/hr 05/24/18 21:00 05/27/18 09: 47 Chloride IVPB 210 mls/hr Q12 NATALIE Administration Sodium Chloride 1,000 mls @ 30 mls/hr 05/26/18 12:30 05/26/18 13:13 Sodium Chloride 0.45% IV 05/27/18 12:19 30 mls/hr .Q24H NATALIE Administration Insulin Human Lispro 0 units 05/23/18 16:15 05/27/18 09:47 Humalog SC Not Given Q4H [facility] Protocol Multivitamins/Minerals 1 tab 05/24/18 09:00 05/27/18 09:50 Therapeutic-M Tab PO 1 tab DAILY NATALIE Administration Cfxgb-2-Knea Ethyl Esters 1 gm 05/24/18 09:00 05/27/18 09:49 Lovaza PO 1 gm DAILY NATALIE Administration Ondansetron HCl 4 mg 05/23/18 16:01 Zofran Inj IVP Q6H PRN Nausea/Vomiting Pantoprazole Sodium 40 mg 05/24/18 09:00 05/27/18 09:49 Protonix Inj IVP 40 mg DAILY NATALIE Administration Potassium Chloride 10 meq 05/26/18 12:30 05/27/18 09:48 Klor-Con 10 PO 10 meq DAILY NATALIE Administration - Patient Studies Lab Studies: Microbiology Studies 05/23/18 23:45 MRSA Culture (Admit) - Final Naris MRSA NOT DETECTED Lab Studies 05/27/18 05/27/18 05/27/18 Range/Units 07:59 04:41 04:35 WBC (4.8-10.8) K/uL RBC (3.80-5.20) Mil/uL Hgb (12.0-16.0) g/dL Hct (34.0-47.0) % MCV (81.0-99.0) fl MCH (27.0-31.0) pg MCHC (33.0-37.0) g/dL RDW (11.5-14.5) % Plt Count (130-400) K/uL Sodium 145 (132-148) mmol/l Potassium 4.0 (3.6-5.0) MMOL/L Chloride 109 H (98-107) mmol/L Carbon Dioxide 22 (22-30) mmol/L Anion Gap 18 (10-20) BUN 31 H (7-17) mg/dl Creatinine 1.5 H (0.7-1.2) mg/dl Est GFR ( Amer) 42 Est GFR (Non-Af Amer) 35 POC Glucose (mg/dL) 135 H 143 H (65-110) mg/dL Random Glucose 154 H (65-105) mg/dL Calcium 9.8 (8.4-10.2) mg/dL C-React Prot High Sens (1.00-3.00) mg/L 25-OH Vitamin D Total (30.0-100.0) NG/ML Folate ng/mL 05/27/18 05/26/18 05/26/18 Range/Units 04:35 23:36 20:09 WBC 15.0 H (4.8-10.8) K/uL RBC 3.72 L (3.80-5.20) Mil/uL Hgb 11.9 L (12.0-16.0) g/dL Hct 35.4 (34.0-47.0) % MCV 95.1 (81.0-99.0) fl MCH 32.0 H (27.0-31.0) pg MCHC 33.7 (33.0-37.0) g/dL RDW 15.3 H (11.5-14.5) % Plt Count 341 (130-400) K/uL Sodium (132-148) mmol/l Potassium (3.6-5.0) MMOL/L Chloride (98-107) mmol/L Carbon Dioxide (22-30) mmol/L Anion Gap (10-20) BUN (7-17) mg/dl Creatinine (0.7-1.2) mg/dl Est GFR ( Amer) Est GFR (Non-Af Amer) POC Glucose (mg/dL) 122 H 187 H (65-110) mg/dL Random Glucose (65-105) mg/dL Calcium (8.4-10.2) mg/dL C-React Prot High Sens (1.00-3.00) mg/L 25-OH Vitamin D Total (30.0-100.0) NG/ML Folate ng/mL 05/26/18 05/26/18 05/26/18 Range/Units 16:12 11:56 04:40 WBC (4.8-10.8) K/uL RBC (3.80-5.20) Mil/uL Hgb (12.0-16.0) g/dL Hct (34.0-47.0) % MCV (81.0-99.0) fl MCH (27.0-31.0) pg MCHC (33.0-37.0) g/dL RDW (11.5-14.5) % Plt Count (130-400) K/uL Sodium (132-148) mmol/l Potassium (3.6-5.0) MMOL/L Chloride (98-107) mmol/L Carbon Dioxide (22-30) mmol/L Anion Gap (10-20) BUN (7-17) mg/dl Creatinine (0.7-1.2) mg/dl Est GFR ( Amer) Est GFR (Non-Af Amer) POC Glucose (mg/dL) 140 H 126 H (65-110) mg/dL Random Glucose (65-105) mg/dL Calcium (8.4-10.2) mg/dL C-React Prot High Sens (1.00-3.00) mg/L 25-OH Vitamin D Total 32.5 (30.0-100.0) NG/ML Folate ng/mL 05/26/18 05/26/18 Range/Units 04:40 04:40 WBC (4.8-10.8) K/uL RBC (3.80-5.20) Mil/uL Hgb (12.0-16.0) g/dL Hct (34.0-47.0) % MCV (81.0-99.0) fl MCH (27.0-31.0) pg MCHC (33.0-37.0) g/dL RDW (11.5-14.5) % Plt Count (130-400) K/uL Sodium (132-148) mmol/l Potassium (3.6-5.0) MMOL/L Chloride (98-107) mmol/L Carbon Dioxide (22-30) mmol/L Anion Gap (10-20) BUN (7-17) mg/dl Creatinine (0.7-1.2) mg/dl Est GFR ( Amer) Est GFR (Non-Af Amer) POC Glucose (mg/dL) (65-110) mg/dL Random Glucose (65-105) mg/dL Calcium (8.4-10.2) mg/dL C-React Prot High Sens > 15.00 H (1.00-3.00) mg/L 25-OH Vitamin D Total (30.0-100.0) NG/ML Folate > 20.0 ng/mL Laboratory Results - last 24 hr 05/26/18 05/26/18 05/26/18 04:40 04:40 04:40 WBC RBC Hgb Hct MCV MCH MCHC RDW Plt Count Sodium Potassium Chloride Carbon Dioxide Anion Gap BUN Creatinine Est GFR ( Amer) Est GFR (Non-Af Amer) POC Glucose (mg/dL) Random Glucose Calcium C-React Prot High Sens > 15.00 H 25-OH Vitamin D Total 32.5 Folate > 20.0 05/26/18 05/26/18 05/26/18 11:56 16:12 20:09 WBC RBC Hgb Hct MCV MCH MCHC RDW Plt Count Sodium Potassium Chloride Carbon Dioxide Anion Gap BUN Creatinine Est GFR ( Amer) Est GFR (Non-Af Amer) POC Glucose (mg/dL) 126 H 140 H 187 H Random Glucose Calcium C-React Prot High Sens 25-OH Vitamin D Total Folate 05/26/18 05/27/18 05/27/18 23:36 04:35 04:35 WBC 15.0 H RBC 3.72 L Hgb 11.9 L Hct 35.4 MCV 95.1 MCH 32.0 H MCHC 33.7 RDW 15.3 H Plt Count 341 Sodium 145 Potassium 4.0 Chloride 109 H Carbon Dioxide 22 Anion Gap 18 BUN 31 H Creatinine 1.5 H Est GFR ( Amer) 42 Est GFR (Non-Af Amer) 35 POC Glucose (mg/dL) 122 H Random Glucose 154 H Calcium 9.8 C-React Prot High Sens 25-OH Vitamin D Total Folate 05/27/18 05/27/18 04:41 07:59 WBC RBC Hgb Hct MCV MCH MCHC RDW Plt Count Sodium Potassium Chloride Carbon Dioxide Anion Gap BUN Creatinine Est GFR ( Amer) Est GFR (Non-Af Amer) POC Glucose (mg/dL) 143 H 135 H Random Glucose Calcium C-React Prot High Sens 25-OH Vitamin D Total Folate Fingerstick Blood Sugar Results: 135 Critical Care Progress Note - Extremities/Vascular Does the Patient have a Central Venous Catheter?: No Does the Patient need a Central Venous Catheter?: No Does the Patient have a Pagan Catheter?: Yes Does the Patient need a Pagan Catheter?: Yes Catheter Insertion Criteria: Patient requires prolonged immobilization - Prophylaxis GI Prophylaxis GI: PPI - Prophylaxis DVT Prophylaxis DVT: SCDs - Nutrition Nutrition: Nutrition Category Date Time Status Dysphagia/Modified Consistency Diet [DIET] Diets 05/24/18 Lunch Active Assessment/Plan - Assessment and Plan (Free Text) Assessment: 67 y/o F admitted for ischemic CVA Ischemic CVA Acute CT and MRI of the brain + for large left cerebral infarct R/side hemiplegia, impaired sensation, babinski and neglect S/P TPA given at ED Neurology consulted MRI + for suspected small BG bleeding. Plavix on hold C/W Keppra for Seizure prophylaxis as per Neuro Plavix held due to concerns about new onset BG bleeding on MRI F/U repeat Ct head done this AM PT/OT Pureed diet HTN Chronic 168/93 today Past 72 h after presenting to ED. C/W Current plan and modify as needed Monitor R/elbow contusion XRay neg for Fx or dislocations. + for hematoma Persistent swelling. Nontender likely due to patient's impaired sensation F/U Elbow CT done this AM Ortho on board NIDDM Chronic ACHS ISS DVT prophylaxis SCDs for now <LatefKaushal - Last Filed: 05/27/18 14:48> CCU Objective - Vital Signs / Intake & Output Vital Signs (Last 4 hours): Vital Signs Temp Pulse Resp BP Pulse Ox 05/27/18 12:44 98.5 F 103 H 25 H 129/95 H 100 Intake and Output (Last 8hrs): Intake & Output 05/26/18 05/27/18 05/27/18 22:59 06:59 14:59 Intake Total 500 270 60 Output Total 800 1400 Balance -300 -1130 60 Weight 178 lb Intake: IV 270 270 60 Intake, Piggyback 100 Oral 130 0 Output: Urine 800 1400 Urethral (Pagan) 800 1400 - Medications Active Medications: Active Medications Generic Name Dose Route Start Last Admin Trade Name Freq PRN Reason Stop Dose Admin Albuterol 2 puff 05/23/18 16:08 Ventolin Hfa 90 Mcg/Actuation (8 G) IH Q12 PRN Shortness of Breath Allopurinol 100 mg 05/24/18 09:00 05/27/18 09:50 Zyloprim PO 100 mg DAILY NATALIE Administration Amlodipine Besylate 5 mg 05/25/18 09:00 05/27/18 09:49 Norvasc PO 5 mg DAILY NATALIE Administration Aspirin 81 mg 05/25/18 09:00 05/27/18 09:46 Aspirin Chewable PO 81 mg DAILY NATALIE Administration Atorvastatin Calcium 40 mg 05/24/18 09:00 05/27/18 09:48 Lipitor PO 40 mg DAILY NATALIE Administration Clopidogrel Bisulfate 75 mg 05/25/18 09:00 05/26/18 08:17 Plavix PO 75 mg DAILY NATALIE Administration Hydralazine HCl 10 mg 05/24/18 16:55 05/27/18 09:20 Apresoline IV 10 mg Q4 PRN Administration for SBP > 170 Levetiracetam 500 mg/ Sodium 105 mls @ 210 mls/hr 05/24/18 21:00 05/27/18 09: 47 Chloride IVPB 210 mls/hr Q12 NATALIE Administration Multivitamins/Minerals 1 tab 05/24/18 09:00 05/27/18 09:50 Therapeutic-M Tab PO 1 tab DAILY NATALIE Administration Pqapb-7-Hstk Ethyl Esters 1 gm 05/24/18 09:00 05/27/18 09:49 Lovaza PO 1 gm DAILY NATALIE Administration Ondansetron HCl 4 mg 05/23/18 16:01 Zofran Inj IVP Q6H PRN Nausea/Vomiting Pantoprazole Sodium 40 mg 05/24/18 09:00 05/27/18 09:49 Protonix Inj IVP 40 mg DAILY NATALEI Administration Potassium Chloride 10 meq 05/26/18 12:30 05/27/18 09:48 Klor-Con 10 PO 10 meq DAILY NATALIE Administration - Patient Studies Lab Studies: Microbiology Studies 05/23/18 23:45 MRSA Culture (Admit) - Final Naris MRSA NOT DETECTED Lab Studies 05/27/18 05/27/18 05/27/18 Range/Units 07:59 04:41 04:35 WBC (4.8-10.8) K/uL RBC (3.80-5.20) Mil/uL Hgb (12.0-16.0) g/dL Hct (34.0-47.0) % MCV (81.0-99.0) fl MCH (27.0-31.0) pg MCHC (33.0-37.0) g/dL RDW (11.5-14.5) % Plt Count (130-400) K/uL Sodium 145 (132-148) mmol/l Potassium 4.0 (3.6-5.0) MMOL/L Chloride 109 H (98-107) mmol/L Carbon Dioxide 22 (22-30) mmol/L Anion Gap 18 (10-20) BUN 31 H (7-17) mg/dl Creatinine 1.5 H (0.7-1.2) mg/dl Est GFR ( Amer) 42 Est GFR (Non-Af Amer) 35 POC Glucose (mg/dL) 135 H 143 H (65-110) mg/dL Random Glucose 154 H (65-105) mg/dL Calcium 9.8 (8.4-10.2) mg/dL Homocysteine ( <10.4) umol/L 05/27/18 05/26/18 05/26/18 Range/Units 04:35 23:36 20:09 WBC 15.0 H (4.8-10.8) K/uL RBC 3.72 L (3.80-5.20) Mil/uL Hgb 11.9 L (12.0-16.0) g/dL Hct 35.4 (34.0-47.0) % MCV 95.1 (81.0-99.0) fl MCH 32.0 H (27.0-31.0) pg MCHC 33.7 (33.0-37.0) g/dL RDW 15.3 H (11.5-14.5) % Plt Count 341 (130-400) K/uL Sodium (132-148) mmol/l Potassium (3.6-5.0) MMOL/L Chloride (98-107) mmol/L Carbon Dioxide (22-30) mmol/L Anion Gap (10-20) BUN (7-17) mg/dl Creatinine (0.7-1.2) mg/dl Est GFR ( Amer) Est GFR (Non-Af Amer) POC Glucose (mg/dL) 122 H 187 H (65-110) mg/dL Random Glucose (65-105) mg/dL Calcium (8.4-10.2) mg/dL Homocysteine ( <10.4) umol/L 05/26/18 05/26/18 Range/Units 16:12 04:40 WBC (4.8-10.8) K/uL RBC (3.80-5.20) Mil/uL Hgb (12.0-16.0) g/dL Hct (34.0-47.0) % MCV (81.0-99.0) fl MCH (27.0-31.0) pg MCHC (33.0-37.0) g/dL RDW (11.5-14.5) % Plt Count (130-400) K/uL Sodium (132-148) mmol/l Potassium (3.6-5.0) MMOL/L Chloride (98-107) mmol/L Carbon Dioxide (22-30) mmol/L Anion Gap (10-20) BUN (7-17) mg/dl Creatinine (0.7-1.2) mg/dl Est GFR ( Amer) Est GFR (Non-Af Amer) POC Glucose (mg/dL) 140 H (65-110) mg/dL Random Glucose (65-105) mg/dL Calcium (8.4-10.2) mg/dL Homocysteine 20.3 H ( <10.4) umol/L Laboratory Results - last 24 hr 05/26/18 05/26/18 05/26/18 04:40 16:12 20:09 WBC RBC Hgb Hct MCV MCH MCHC RDW Plt Count Sodium Potassium Chloride Carbon Dioxide Anion Gap BUN Creatinine Est GFR ( Amer) Est GFR (Non-Af Amer) POC Glucose (mg/dL) 140 H 187 H Random Glucose Calcium Homocysteine 20.3 H 05/26/18 05/27/18 05/27/18 23:36 04:35 04:35 WBC 15.0 H RBC 3.72 L Hgb 11.9 L Hct 35.4 MCV 95.1 MCH 32.0 H MCHC 33.7 RDW 15.3 H Plt Count 341 Sodium 145 Potassium 4.0 Chloride 109 H Carbon Dioxide 22 Anion Gap 18 BUN 31 H Creatinine 1.5 H Est GFR ( Amer) 42 Est GFR (Non-Af Amer) 35 POC Glucose (mg/dL) 122 H Random Glucose 154 H Calcium 9.8 Homocysteine 05/27/18 05/27/18 04:41 07:59 WBC RBC Hgb Hct MCV MCH MCHC RDW Plt Count Sodium Potassium Chloride Carbon Dioxide Anion Gap BUN Creatinine Est GFR ( Amer) Est GFR (Non-Af Amer) POC Glucose (mg/dL) 143 H 135 H Random Glucose Calcium Homocysteine Critical Care Progress Note - Nutrition Nutrition: Nutrition Category Date Time Status Dysphagia/Modified Consistency Diet [DIET] Diets 05/24/18 Lunch Active Attending/Attestation - Attestation I have personally seen and examined this patient.: Yes I have fully participated in the care of the patient.: Yes I have reviewed all pertinent clinical information: Yes Notes (Text): 05/27/18 14:48 Today: Sunday, May 27, 2018 The patient was Seen/interviewed and examined by me at the bedside during ICU round, Medical records reviewed and Management issues were discussed and formulated with the house staff. Events reviewed I have reviewed all the relevant clinical, laboratory, hemodynamic, radiographic data and medications Pain issues, skin care, head of the bed elevation, glycemic control were addressed. I concur with resident's assessment and plan of care as transcribed in Dr. Griffith note.
--- NOTE | 2018-05-27 12:20 | CT ---
PROCEDURE: RIGHT ELBOW CT WITHOUT CONTRAST HISTORY: possible right radial head occult fracture COMPARISON: Right elbow radiographs 05/23/2018. TECHNIQUE: A volumetric CT acquisition through the right elbow was performed without intravenous contrast as requested. Multiplanar reformatted datasets provided for interpretation. Contrast Dose: None Radiation dose:Total exam DLP = 428.07 mGy-cm. This CT exam was performed using one or more of the following dose reduction techniques: Automated exposure control, adjustment of the mA and/or kV according to patient size, and/or use of iterative reconstruction technique. FINDINGS: No fracture, subluxation or dislocation is appreciate throughout the right elbow osseous elements. Cortex is intact throughout. This includes the right radial head. No destructive bony lesion appreciated There is a likely hematoma in the dorsal lateral subcutaneous soft tissues of the elbow with additional potentially postoperative cellulitis overlying the olecranon process extending inferiorly into the upper forearm dorsal soft tissues IMPRESSION: No fracture, subluxation or dislocation at the right elbow. Posttraumatic cellulitis changes are appreciated well as a small hematoma in the subcutaneous soft tissues dorsal laterally. No retained radiodense foreign body or emphysema soft tissue change is encountered.
--- NOTE | 2018-05-27 13:13 | CT ---
PROCEDURE: CT HEAD WITHOUT CONTRAST. HISTORY: cva COMPARISON: None available. TECHNIQUE: Axial computed tomography images were obtained through the head/brain without intravenous contrast. Radiation dose: Total exam DLP = 828.13 mGy-cm. This CT exam was performed using one or more of the following dose reduction techniques: Automated exposure control, adjustment of the mA and/or kV according to patient size, and/or use of iterative reconstruction technique. FINDINGS: HEMORRHAGE: No definitive evidence of acute intracranial hemorrhage. BRAIN: Large acute/subacute left MCA territory infarct again noted with involvement of the left anterolateral basal ganglia. There is overlying sulcal effacement and mild compression of the left lateral ventricle with mild midline shift septum pellucidum from left to right estimated at approximately 5.3 mm. There is also overlying sulcal effacement VENTRICLES: No obstructive hydrocephalus. CALVARIUM: Unremarkable. PARANASAL SINUSES: Unremarkable as visualized. No significant inflammatory changes. MASTOID AIR CELLS: Unremarkable as visualized. No inflammatory changes. OTHER FINDINGS: None. IMPRESSION: Re- demonstrated is large acute/subacute left MCA territory infarct of with mild surrounding mass effect as described. Definitive evidence of acute intracranial hemorrhage. No hydrocephalus.
[2018-05-28 05:46] LABS: HEMOGLOBIN 11.4 g/dL (12.0-16.0); MEAN CELL VOLUME 94.8 fl (81.0-99.0); MEAN CORPUSCULAR HEMOGLOBIN 32.2 pg (27.0-31.0); MEAN CORPUSCULAR HGB CONC 33.9 g/dL (33.0-37.0); RBC 3.56 Mil/uL (3.80-5.20); RED CELL DISTRIBUTION WIDTH 14.8 % (11.5-14.5); WHITE BLOOD COUNT 13.3 K/uL (4.8-10.8)
[2018-05-28 06:13] LABS: CALCIUM 9.7 mg/dL (8.4-10.2)
[2018-05-28] MEDS: levETIRAcetam 500 MG in Sodium Chloride 0.9% 100 ML IVPB SCH ×2 (08:30→20:33)
[2018-05-28] MEDS: Potassium Chloride 10 mEq ER Tab PO SCH (08:30)
[2018-05-28] MEDS: Omega-3-Acid Ethyl Esters 1 GM Cap PO SCH (08:31)
[2018-05-28] MEDS: Multivitamin With Minerals Tab PO SCH (08:32)
--- NOTE | 2018-05-28 09:04 | CP.PCM.PN ---
Subjective - Date & Time of Evaluation Date of Evaluation: 05/28/18 Time of Evaluation: 09:04 - Subjective Subjective: Ms. Solo was seen and examined at the bedside in ICU. She is more alert today. She is able to tolerate PO intake with assistance and with good appetite. She remains with right facial droop and right side paraplegia. She is able to follow some commands such as raising her bilateral left side extremities. She has bilateral lower SCD's. Repeat Ct scan of the head showed re -demonstration of a large acute/subacute left MCA territory infarct of with mild surrounding mass effect. There is no definitive evidence of acute intracranial hemorrhage.There was no untoward events overnight. Objective - Vital Signs/Intake and Output Vital Signs (last 24 hours): Temp Pulse Resp BP Pulse Ox 98.9 F 80 18 171/95 H 100 05/28/18 08:00 05/28/18 08:31 05/28/18 08:00 05/28/18 08:31 05/28/18 08:00 Intake and Output: 05/28/18 05/28/18 06:59 18:59 Intake Total 720 Output Total 2300 Balance -1580 - Medications Medications: Current Medications Albuterol (Ventolin Hfa 90 Mcg/Actuation (8 G)) 2 puff IH Q12 PRN PRN Reason: Shortness of Breath Allopurinol (Zyloprim) 100 mg PO DAILY [facility] Last Admin: 05/28/18 08:32 Dose: 100 mg Amlodipine Besylate (Norvasc) 10 mg PO DAILY [facility] Aspirin (Aspirin Chewable) 81 mg PO DAILY [facility] Last Admin: 05/28/18 08:29 Dose: 81 mg Atorvastatin Calcium (Lipitor) 40 mg PO DAILY [facility] Last Admin: 05/28/18 08:31 Dose: 40 mg Carvedilol (Coreg) 12.5 mg PO Q12 [facility] Clopidogrel Bisulfate (Plavix) 75 mg PO DAILY [facility] Last Admin: 05/26/18 08:17 Dose: 75 mg Hydralazine HCl (Apresoline) 10 mg IV Q4 PRN PRN Reason: for SBP > 170 Last Admin: 05/28/18 08:22 Dose: 10 mg Levetiracetam 500 mg/ Sodium (Chloride) 105 mls @ 210 mls/hr IVPB Q12 [facility] Last Admin: 05/28/18 08:30 Dose: 210 mls/hr Multivitamins/Minerals (Therapeutic-M Tab) 1 tab PO DAILY NATALIE Last Admin: 05/28/18 08:32 Dose: 1 tab Irsbk-5-Hung Ethyl Esters (Lovaza) 1 gm PO DAILY NATALIE Last Admin: 05/28/18 08:31 Dose: 1 gm Ondansetron HCl (Zofran Inj) 4 mg IVP Q6H PRN PRN Reason: Nausea/Vomiting Pantoprazole Sodium (Protonix Inj) 40 mg IVP DAILY NATALIE Last Admin: 05/28/18 08:31 Dose: 40 mg Potassium Chloride (Klor-Con 10) 10 meq PO DAILY NATALIE Last Admin: 05/28/18 08:30 Dose: 10 meq - Labs Labs: 05/28/18 04:30 05/28/18 04:30 PT 10.8 Seconds (9.8-13.1) 05/24/18 10:00 INR 1.0 (0.9-1.2) 05/24/18 10:00 APTT 25.7 Seconds (25.6-37.1) 05/24/18 10:00 - Constitutional Appears: No Acute Distress - Head Exam Head Exam: NORMAL INSPECTION - Eye Exam Pupil Exam: PERRL Additional comments: 3 mm brisk - Neurological Exam Neurological Exam: Alert, Awake, Oriented x3 Neuro motor strength exam: Left Upper Extremity: 4, Right Upper Extremity: 0, Left Lower Extremity: 4, Right Lower Extremity: 0 Additional comments: neurological unchanged from previous examination. Assessment and Plan (1) Ischemic stroke Assessment & Plan: Case discussed with Dr. Brumfield, continue all current medical including aspirin and continue plavix for now,physical, occupational, and speech therapies. Recommend blood pressure and glycemic control, treat any electrolyte abnormalities, keep head of bed elevated at least 40 degrees, and acute rehab for discharge planning. Status: Acute
--- NOTE | 2018-05-28 10:02 | CP.CCUPN ---
<RinkuJaime - Last Filed: 05/28/18 10:11> CCU Subjective - Physician Review Subjective (Free Text): 05/28/18 10:00 Patient seen at bedside this morning sleeping on bed. States she feels "ok". No acute events overnight. Elevated BPs noted. Eating and tolerating PO pureed diet. Successfully underwent PT Yesterday afternoon. Afebrile. Pagan in place, good diuresis CCU Objective - Vital Signs / Intake & Output Vital Signs (Last 4 hours): Vital Signs Temp Pulse Resp BP Pulse Ox 05/28/18 08:31 80 171/95 H 05/28/18 08:29 80 171/95 H 05/28/18 08:22 74 171/96 H 05/28/18 08:00 98.9 F 77 18 171/95 H 100 05/28/18 06:26 78 18 178/96 H 100 Intake and Output (Last 8hrs): Intake & Output 05/27/18 05/28/18 05/28/18 22:59 06:59 14:59 Intake Total 750 330 Output Total 900 2300 Balance -150 -1970 Intake: IV 210 330 Intake, Piggyback 100 Oral 440 Output: Urine 900 2300 Urethral (Pagan) 900 2300 Other: # Bowel Movements 0 0 - Physical Exam Head: Positive for: Atraumatic. Negative for: Tenderness, Contusion, Swelling Pupils: Positive for: PERRL Conjunctiva: Positive for: Normal Nose (Internal): Positive for: No Active Bleeding Neck: Positive for: Normal Range of Motion. Negative for: JVD, Lymphadenopathy Respiratory/Chest: Positive for: Clear to Auscultation. Negative for: Respiratory Distress, Accessory Muscle Use, Wheezes, Rales Cardiovascular: Positive for: Regular Rate and Rhythm, Normal S1, S2. Negative for: Gallop Abdomen: Positive for: Normal Bowel Sounds. Negative for: Tenderness, Distention, Rebound, Guarding Upper Extremity: Positive for: Swelling, Capillary Refill < 2s. Negative for: Normal Inspection (R/elbow swelling), Tenderness, Erythema Lower Extremity: Positive for: Capillary Refill < 2 s. Negative for: Edema, Swelling Neurological: Negative for: Speech Normal (slurred), Motor Func Grossly Intact ( R/side hemiplegia. R/side neglect.), Normal Sensory Function (R/side impaired sensation), Gait Normal Skin: Positive for: Warm. Negative for: Rashes Psychiatric: Positive for: Alert. Negative for: Oriented x 3 - Medications Active Medications: Active Medications Generic Name Dose Route Start Last Admin Trade Name Freq PRN Reason Stop Dose Admin Albuterol 2 puff 05/23/18 16:08 Ventolin Hfa 90 Mcg/Actuation (8 G) IH Q12 PRN Shortness of Breath Allopurinol 100 mg 05/24/18 09:00 05/28/18 08:32 Zyloprim PO 100 mg DAILY NATALIE Administration Amlodipine Besylate 10 mg 05/28/18 08:46 Norvasc PO DAILY NATALIE Aspirin 81 mg 05/25/18 09:00 05/28/18 08:29 Aspirin Chewable PO 81 mg DAILY NATALIE Administration Atorvastatin Calcium 40 mg 05/24/18 09:00 05/28/18 08:31 Lipitor PO 40 mg DAILY NATALIE Administration Carvedilol 12.5 mg 05/28/18 09:00 Coreg PO Q12 NATALIE Clopidogrel Bisulfate 75 mg 05/25/18 09:00 05/26/18 08:17 Plavix PO 75 mg DAILY NATALIE Administration Hydralazine HCl 10 mg 05/24/18 16:55 05/28/18 08:22 Apresoline IV 10 mg Q4 PRN Administration for SBP > 170 Levetiracetam 500 mg/ Sodium 105 mls @ 210 mls/hr 05/24/18 21:00 05/28/18 08: 30 Chloride IVPB 210 mls/hr Q12 NATALIE Administration Multivitamins/Minerals 1 tab 05/24/18 09:00 05/28/18 08:32 Therapeutic-M Tab PO 1 tab DAILY NATALIE Administration [id number]-[id number] Ethyl Esters 1 gm 05/24/18 09:00 05/28/18 08:31 Lovaza PO 1 gm DAILY NATALIE Administration Ondansetron HCl 4 mg 05/23/18 16:01 Zofran Inj IVP Q6H PRN Nausea/Vomiting Pantoprazole Sodium 40 mg 05/24/18 09:00 05/28/18 08:31 Protonix Inj IVP 40 mg DAILY NATALIE Administration Potassium Chloride 10 meq 05/26/18 12:30 05/28/18 08:30 Klor-Con 10 PO 10 meq DAILY NATALIE Administration - Patient Studies Lab Studies: Lab Studies 0605/28/18 05/26/18 Range/Units 04:30 04:30 04:40 WBC 13.3 H (4.8-10.8) K/uL RBC 3.56 L (3.80-5.20) Mil/uL Hgb 11.4 L (12.0-16.0) g/dL Hct 33.7 L (34.0-47.0) % MCV 94.8 (81.0-99.0) fl MCH 32.2 H (27.0-31.0) pg MCHC 33.9 (33.0-37.0) g/dL RDW 14.8 H (11.5-14.5) % Plt Count 336 (130-400) K/uL Sodium 144 (132-148) mmol/l Potassium 3.9 (3.6-5.0) MMOL/L Chloride 105 (98-107) mmol/L Carbon Dioxide 24 (22-30) mmol/L Anion Gap 19 (10-20) BUN 32 H (7-17) mg/dl Creatinine 1.5 H (0.7-1.2) mg/dl Est GFR ( Amer) 42 Est GFR (Non-Af Amer) 35 Random Glucose 152 H (65-105) mg/dL Calcium 9.7 (8.4-10.2) mg/dL Homocysteine 20.3 H ( <10.4) umol/L Laboratory Results - last 24 hr 05/26/18 05/28/18 05/28/18 04:40 04:30 04:30 WBC 13.3 H RBC 3.56 L Hgb 11.4 L Hct 33.7 L MCV 94.8 MCH 32.2 H MCHC 33.9 RDW 14.8 H Plt Count 336 Sodium 144 Potassium 3.9 Chloride 105 Carbon Dioxide 24 Anion Gap 19 BUN 32 H Creatinine 1.5 H Est GFR ( Amer) 42 Est GFR (Non-Af Amer) 35 Random Glucose 152 H Calcium 9.7 Homocysteine 20.3 H Fingerstick Blood Sugar Results: 135 Review of Systems - Review of Systems All systems: reviewed and no additional remarkable complaints except (right side weakness, dysarthria) Critical Care Progress Note - Extremities/Vascular Does the Patient have a Central Venous Catheter?: No Does the Patient need a Central Venous Catheter?: No Does the Patient have a Pagan Catheter?: Yes Does the Patient need a Pagan Catheter?: No - Prophylaxis GI Prophylaxis GI: PPI - Prophylaxis DVT Prophylaxis DVT: SCDs - Nutrition Nutrition: Nutrition Category Date Time Status Dysphagia/Modified Consistency Diet [DIET] Diets 05/24/18 Lunch Active Assessment/Plan - Assessment and Plan (Free Text) Assessment: 67 y/o F admitted for ischemic CVA Ischemic CVA Acute CT and MRI of the brain + for large left cerebral infarct R/side hemiplegia, impaired sensation, babinski and neglect S/P TPA given at ED Neurology consulted MRI + for suspected small BG bleeding. Plavix on hold Repeat CT no clear evidence of IC bleeding As per Nuero c/w Aspirin and Hold Plavix C/W Keppra for Seizure prophylaxis as per Neuro PT/OT Pureed diet DC Pagan Cath HTN Chronic MAP 120 Goal MAP <110 Increase Norvasc to 10 mg daily and Coreg to 12.5 mg Q12h Will Monitor and modify meds as needed R/elbow contusion XRay and CT neg for Fx or dislocations. Nontender/no pain, likely due to patient's impaired sensation Ortho on board NIDDM Chronic ACHS ISS DVT prophylaxis SCDs for now <Neel Vo - Last Filed: 05/28/18 16:41> CCU Subjective - Physician Review Subjective (Free Text): Attestation: Patient seen and examined at the bedside with Resident Dr. Anderson Dobbs; and I agree with his outline of plans and management documented below as discussed on AM rounds reflecting my review of all applicable clinical data, and participation in the care of the patient throughout the day in ICU; today, May 28, 2018.
[2018-05-28] MEDS: Insulin Lispro (humaLOG) 100 Units/ml Inj SC SCH ×3 (12:27→21:30)
--- NOTE | 2018-05-28 14:24 | CP.PCM.PN ---
Subjective - Date & Time of Evaluation Date of Evaluation: 05/28/18 Time of Evaluation: 10:00 - Subjective Subjective: Patient appears more awake today and is sitting up in bed. Speech still slurred but better than yesterday Able to eat Pureed diet with some assistance. No acute events overnight and no new complaints. For transfer to telemetry floor. Objective - Vital Signs/Intake and Output Vital Signs (last 24 hours): Temp Pulse Resp BP Pulse Ox 98.8 F 90 27 H 175/100 H 99 05/28/18 12:00 05/28/18 14:00 05/28/18 14:00 05/28/18 14:00 05/28/18 14:00 Intake and Output: 05/28/18 05/28/18 06:59 18:59 Intake Total 720 700 Output Total 2300 Balance -1580 700 - Medications Medications: Current Medications Albuterol (Ventolin Hfa 90 Mcg/Actuation (8 G)) 2 puff IH Q12 PRN PRN Reason: Shortness of Breath Allopurinol (Zyloprim) 100 mg PO DAILY [facility] Last Admin: 05/28/18 08:32 Dose: 100 mg Amlodipine Besylate (Norvasc) 10 mg PO DAILY [facility] Last Admin: 05/28/18 09:30 Dose: Not Given Aspirin (Aspirin Chewable) 81 mg PO DAILY [facility] Last Admin: 05/28/18 08:29 Dose: 81 mg Atorvastatin Calcium (Lipitor) 40 mg PO DAILY [facility] Last Admin: 05/28/18 08:31 Dose: 40 mg Carvedilol (Coreg) 12.5 mg PO Q12 [facility] Last Admin: 05/28/18 09:30 Dose: Not Given Clopidogrel Bisulfate (Plavix) 75 mg PO DAILY [facility] Last Admin: 05/26/18 08:17 Dose: 75 mg Hydralazine HCl (Apresoline) 10 mg IV Q4 PRN PRN Reason: for SBP > 170 Last Admin: 05/28/18 08:22 Dose: 10 mg Levetiracetam 500 mg/ Sodium (Chloride) 105 mls @ 210 mls/hr IVPB Q12 [facility] Last Admin: 05/28/18 08:30 Dose: 210 mls/hr Insulin Human Lispro (Humalog) 0 units SC QID [facility] PRN Reason: Protocol Last Admin: 06/27/18 12:27 Dose: 4 units Multivitamins/Minerals (Therapeutic-M Tab) 1 tab PO DAILY [facility] Last Admin: 05/28/18 08:32 Dose: 1 tab Rmeen-0-Egce Ethyl Esters (Lovaza) 1 gm PO DAILY [facility] Last Admin: 05/28/18 08:31 Dose: 1 gm Ondansetron HCl (Zofran Inj) 4 mg IVP Q6H PRN PRN Reason: Nausea/Vomiting Pantoprazole Sodium (Protonix Inj) 40 mg IVP DAILY [facility] Last Admin: 05/28/18 08:31 Dose: 40 mg Potassium Chloride (Klor-Con 10) 10 meq PO DAILY [facility] Last Admin: 05/28/18 08:30 Dose: 10 meq - Labs Labs: 05/28/18 04:30 05/28/18 04:30 PT 10.8 Seconds (9.8-13.1) 05/24/18 10:00 INR 1.0 (0.9-1.2) 05/24/18 10:00 APTT 25.7 Seconds (25.6-37.1) 05/24/18 10:00 - Additional Findings Additional findings: Physical exam: Constitutional- cooperative, awake, alert Head- NCAT, PERRL Eye- PERRL, EOMI ENT- normal exam, MMM. Neck- normal inspection, supple, no JVD Respiratory- CTAB, no wheezes rales rhonchi Cardiovascular- RRR, +S1, +S2 no MRG GI/Abdominal- normal bowel sounds, soft, no mass, no hsm Skin- warm, dry Extremities Exam- normal capillary refill, normal inspection Neurological Exam- Easily arousable, neuro motor strength exam: LUE 5, RUE 0, LLE 5, RLE 0. + Right facial droop. + Right sided hemiparesis. Assessment and Plan - Assessment and Plan (Free Text) Plan: This is a 67 year old female with pmh of CVA in 2017, rheumatoid arthritis, hypertension, hypercholesterolemia, Obesity, Type 2 diabetes mellitus, who presented to the ED via EMS for stroke eval. The nephew, who lives with the patient, noted pt to abruptly fall and scream and noticed acute right sided upper and lower extremity weakness, slurred speech, and dysarthria. The patient was brought to the ED within an hour, Code stroke was called, and TPA administered. Dr. Hamilton, neurologist, was at bedside and examined the patient. CT head was performed and revealed no definite acute intracranial findings. Similarly CTA head was also performed and showed no significant stenosis. The patient was admitted to ICU post tPA for close monitoring and further workup. 1) Acute CVA, s/p TPA, with hemorrhagic conversion on MRI - Transfer to telemetry today - Neurology consultation - following pt - Elevate HOB - Echocardiogram: normal - PT , OT and Speech consulted - ASA was started by Neurology 05/25 , Keppra also started - Plavix discontinued due to hemorrhage -cont Statin -Tolerating Pureed , [place] thickened as rec by Speech 2) Hypertension > 72 hours since tPA, restart antihypertensives - Norvasc 10 mg po daily - Coreg 12.5 mg po q 12 hours 3) Hypercholesterolemia - start Lipitor 4) Type 2 DM Lispro sliding scale 5) Asthma, mild intermittent - Continue Albuterol PRN for SOB - chronic 6) GERD - Protonix 40 mg IV daily for prophylaxis - chronic 7) RA - chronic, no evidence of acute attack 8) CKD stage III - likely has Stage III chronic kidney disease most likely due to diabetic nephropathy and/or uncontrolled hypertension - IVF hydration - stable 9. Fall - right sided trauma -Elbow xray : no fracture -Hip xray: no fracture -Ortho consulted for R arm/elbow swelling- CT scan shows no fracture 10) DVT prophylaxis - SCDs (Holding anticoagulation due to hemorrhagic conversion)
[2018-05-29 05:33] LABS: HEMOGLOBIN 10.7 g/dL (12.0-16.0); MEAN CELL VOLUME 94.5 fl (81.0-99.0); MEAN CORPUSCULAR HEMOGLOBIN 31.8 pg (27.0-31.0); MEAN CORPUSCULAR HGB CONC 33.7 g/dL (33.0-37.0); RBC 3.35 Mil/uL (3.80-5.20); RED CELL DISTRIBUTION WIDTH 14.8 % (11.5-14.5); WHITE BLOOD COUNT 12.4 K/uL (4.8-10.8)
[2018-05-29 06:38] LABS: CALCIUM 9.3 mg/dL (8.4-10.2)
[2018-05-29] MEDS: Omega-3-Acid Ethyl Esters 1 GM Cap PO SCH (08:13)
[2018-05-29] MEDS: Multivitamin With Minerals Tab PO SCH (08:13)
[2018-05-29] MEDS: Potassium Chloride 10 mEq ER Tab PO SCH (08:14)
[2018-05-29] MEDS: levETIRAcetam 500 MG in Sodium Chloride 0.9% 100 ML IVPB SCH ×2 (08:14→22:00)
--- NOTE | 2018-05-29 08:37 | CP.PCM.PN ---
Subjective - Date & Time of Evaluation Date of Evaluation: 05/29/18 Time of Evaluation: 08:36 - Subjective Subjective: pt states she feels improved from yesterday mild slurred speech continues to have R sided near complete weakness BP labile today, reinitiate Clonidine HD stable otherwise NAD Objective - Vital Signs/Intake and Output Vital Signs (last 24 hours): Temp Pulse Resp BP Pulse Ox 98.2 F 90 10 L 189/109 H 100 05/29/18 04:00 05/29/18 08:13 05/29/18 06:00 05/29/18 08:13 05/29/18 06:00 Intake and Output: 05/29/18 05/29/18 06:59 18:59 Intake Total 100 Balance 100 - Medications Medications: Current Medications Albuterol (Ventolin Hfa 90 Mcg/Actuation (8 G)) 2 puff IH Q12 PRN PRN Reason: Shortness of Breath Allopurinol (Zyloprim) 100 mg PO DAILY [facility] Last Admin: 05/29/18 08:13 Dose: 100 mg Amlodipine Besylate (Norvasc) 10 mg PO DAILY [facility] Last Admin: 05/29/18 08:13 Dose: 10 mg Aspirin (Aspirin Chewable) 81 mg PO DAILY [facility] Last Admin: 05/29/18 08:14 Dose: 81 mg Atorvastatin Calcium (Lipitor) 40 mg PO DAILY [facility] Last Admin: 05/29/18 08:13 Dose: 40 mg Carvedilol (Coreg) 12.5 mg PO Q12 [facility] Last Admin: 05/29/18 08:13 Dose: 12.5 mg Clopidogrel Bisulfate (Plavix) 75 mg PO DAILY [facility] Last Admin: 05/26/18 08:17 Dose: 75 mg Hydralazine HCl (Apresoline) 10 mg IV Q4 PRN PRN Reason: for SBP > 170 Last Admin: 05/28/18 08:22 Dose: 10 mg Levetiracetam 500 mg/ Sodium (Chloride) 105 mls @ 210 mls/hr IVPB Q12 [facility] Last Admin: 05/29/18 08:14 Dose: 210 mls/hr Insulin Human Lispro (Humalog) 0 units SC QID [facility] PRN Reason: Protocol Last Admin: 05/28/18 21:30 Dose: Not Given Multivitamins/Minerals (Therapeutic-M Tab) 1 tab PO DAILY [facility] Last Admin: 05/29/18 08:13 Dose: 1 tab [id number]-[id number] Ethyl Esters (Lovaza) 1 gm PO DAILY [facility] Last Admin: 05/29/18 08:13 Dose: 1 gm Ondansetron HCl (Zofran Inj) 4 mg IVP Q6H PRN PRN Reason: Nausea/Vomiting Pantoprazole Sodium (Protonix Inj) 40 mg IVP DAILY [facility] Last Admin: 05/29/18 08:15 Dose: 40 mg Potassium Chloride (Klor-Con 10) 10 meq PO DAILY [facility] Last Admin: 05/29/18 08:14 Dose: 10 meq - Labs Labs: 05/29/18 04:30 05/29/18 04:30 PT 10.8 Seconds (9.8-13.1) 05/24/18 10:00 INR 1.0 (0.9-1.2) 05/24/18 10:00 APTT 25.7 Seconds (25.6-37.1) 05/24/18 10:00 - Constitutional Appears: Non-toxic, No Acute Distress - Head Exam Head Exam: ATRAUMATIC, NORMOCEPHALIC - Eye Exam Eye Exam: EOMI, Normal appearance, PERRL Pupil Exam: NORMAL ACCOMODATION - ENT Exam ENT Exam: Mucous Membranes Moist, Normal Oropharynx - Respiratory Exam Respiratory Exam: Clear to Ausculation Bilateral, NORMAL BREATHING PATTERN - Cardiovascular Exam Cardiovascular Exam: RRR, +S1, +S2 - GI/Abdominal Exam GI & Abdominal Exam: Soft, Normal Bowel Sounds - Extremities Exam Extremities Exam: Normal Capillary Refill, Normal Inspection - Back Exam Back Exam: absent: CVA tenderness (L), CVA tenderness (R) - Neurological Exam Neurological Exam: Alert, Awake - Psychiatric Exam Psychiatric exam: Normal Affect, Normal Mood - Skin Skin Exam: Dry, Warm Assessment and Plan - Assessment and Plan (Free Text) Plan: 67 year old female with pmh of CVA in 2017, rheumatoid arthritis, hypertension , hypercholesterolemia, Obesity, Type 2 diabetes mellitus, who presented to the ED via EMS for stroke eval. The nephew, who lives with the patient, noted pt to abruptly fall and scream and noticed acute right sided upper and lower extremity weakness, slurred speech, and dysarthria. The patient was brought to the ED within an hour, Code stroke was called, and TPA administered. Dr. Hamilton, neurologist, was at bedside and examined the patient. CT head was performed and revealed no definite acute intracranial findings. Similarly CTA head was also performed and showed no significant stenosis. The patient was admitted to ICU post tPA for close monitoring and further workup. 1) Acute CVA, s/p TPA, with hemorrhagic conversion on MRI - Transfer to telemetry, IMPROVING today - Neurology consultation - following pt - Elevate HOB - Echocardiogram: normal - PT , OT and Speech consulted - ASA was started by Neurology 05/25 , Keppra also started - Plavix discontinued due to hemorrhage -cont Statin -Tolerating Pureed , [place] thickened as rec by Speech 2) Hypertension > 72 hours since tPA, restart antihypertensives - Norvasc 10 mg po daily - Coreg 12.5 mg po q 12 hours - reinitiate Clonidine 0.1 mg Q8 3) Hypercholesterolemia - start Lipitor 4) Type 2 DM Lispro sliding scale 5) Asthma, mild intermittent - Continue Albuterol PRN for SOB - chronic 6) GERD - Protonix 40 mg IV daily for prophylaxis - chronic 7) RA - chronic, no evidence of acute attack 8) CKD stage III - likely has Stage III chronic kidney disease most likely due to diabetic nephropathy and/or uncontrolled hypertension - IVF hydration - stable 9. Fall - right sided trauma -Elbow xray : no fracture -Hip xray: no fracture -Ortho consulted for R arm/elbow swelling- CT scan shows no fracture 10) DVT prophylaxis - SCDs (Holding anticoagulation due to hemorrhagic conversion)
[2018-05-29] MEDS: Insulin Lispro (humaLOG) 100 Units/ml Inj SC SCH ×4 (09:00→22:00)
--- NOTE | 2018-05-29 10:27 | CP.PCM.PN ---
Subjective - Date & Time of Evaluation Date of Evaluation: 05/29/18 Time of Evaluation: 10:26 - Subjective Subjective: Ms. Solo was seen and examined at the bedside in ICU. She is more alert today. She is able to tolerate PO intake with assistance and with good appetite. She remains with right facial droop and right side paraplegia. She is able to follow some commands such as raising her bilateral left side extremities. She has bilateral lower SCD's. There was no untoward events overnight. Objective - Vital Signs/Intake and Output Vital Signs (last 24 hours): Temp Pulse Resp BP Pulse Ox 98.6 F 89 13 180/121 H 100 05/29/18 08:00 05/29/18 08:39 05/29/18 08:00 05/29/18 08:39 05/29/18 08:00 Intake and Output: 05/29/18 05/29/18 06:59 18:59 Intake Total 100 Balance 100 - Medications Medications: Current Medications Albuterol (Ventolin Hfa 90 Mcg/Actuation (8 G)) 2 puff IH Q12 PRN PRN Reason: Shortness of Breath Allopurinol (Zyloprim) 100 mg PO DAILY [facility] Last Admin: 05/29/18 08:13 Dose: 100 mg Amlodipine Besylate (Norvasc) 10 mg PO DAILY [facility] Last Admin: 05/29/18 08:13 Dose: 10 mg Aspirin (Aspirin Chewable) 81 mg PO DAILY [facility] Last Admin: 05/29/18 08:14 Dose: 81 mg Atorvastatin Calcium (Lipitor) 40 mg PO DAILY [facility] Last Admin: 05/29/18 08:13 Dose: 40 mg Carvedilol (Coreg) 12.5 mg PO Q12 [facility] Last Admin: 05/29/18 08:13 Dose: 12.5 mg Clopidogrel Bisulfate (Plavix) 75 mg PO DAILY [facility] Last Admin: 05/26/18 08:17 Dose: 75 mg Hydralazine HCl (Apresoline) 10 mg IV Q4 PRN PRN Reason: for SBP > 170 Last Admin: 05/29/18 08:39 Dose: 10 mg Levetiracetam 500 mg/ Sodium (Chloride) 105 mls @ 210 mls/hr IVPB Q12 [facility] Last Admin: 05/29/18 08:14 Dose: 210 mls/hr Insulin Human Lispro (Humalog) 0 units SC QID [facility] PRN Reason: Protocol Last Admin: 05/28/18 21:30 Dose: Not Given Multivitamins/Minerals (Therapeutic-M Tab) 1 tab PO DAILY [facility] Last Admin: 05/29/18 08:13 Dose: 1 tab Spwjy-4-[id number] Ethyl Esters (Lovaza) 1 gm PO DAILY [facility] Last Admin: 05/29/18 08:13 Dose: 1 gm Ondansetron HCl (Zofran Inj) 4 mg IVP Q6H PRN PRN Reason: Nausea/Vomiting Pantoprazole Sodium (Protonix Inj) 40 mg IVP DAILY [facility] Last Admin: 05/29/18 08:15 Dose: 40 mg Potassium Chloride (Klor-Con 10) 10 meq PO DAILY [facility] Last Admin: 05/29/18 08:14 Dose: 10 meq - Labs Labs: 05/29/18 04:30 05/29/18 04:30 PT 10.8 Seconds (9.8-13.1) 05/24/18 10:00 INR 1.0 (0.9-1.2) 05/24/18 10:00 APTT 25.7 Seconds (25.6-37.1) 05/24/18 10:00 - Constitutional Appears: No Acute Distress - Head Exam Head Exam: NORMAL INSPECTION - Eye Exam Pupil Exam: PERRL - Neurological Exam Neurological Exam: Alert, Awake, Oriented x3 Neuro motor strength exam: Left Upper Extremity: 5, Right Upper Extremity: 0, Left Lower Extremity: 5, Right Lower Extremity: 0 Additional comments: neurological unchanged from previous examination Assessment and Plan (1) Ischemic stroke Assessment & Plan: Case discussed with Dr. Brumfield, continue all current medical including aspirin and continue plavix for now,physical, occupational, and speech therapies. Recommend blood pressure and glycemic control, treat any electrolyte abnormalities, keep head of bed elevated at least 40 degrees, and acute rehab for discharge planning. Status: Acute
--- NOTE | 2018-05-29 11:19 | CP.CCUPN ---
<Jaime Dobbs - Last Filed: 05/29/18 12:08> CCU Subjective - Physician Review Subjective (Free Text): 05/29/18 11:14 Seen at bedside today. No acute events overnight. Tolerating PO pureed diet. PT started. Afebrile. Intermittent episodes of HBP. Patient states she feels "ok". Easily arousable and responds to verbal commands but sleepy. CCU Objective - Vital Signs / Intake & Output Vital Signs (Last 4 hours): Vital Signs Temp Pulse Resp BP Pulse Ox 05/29/18 11:08 92 H 10 L 155/88 H 98 05/29/18 10:00 111 H 33 H 199/117 H 98 05/29/18 08:39 89 180/121 H 05/29/18 08:13 90 189/109 H 05/29/18 08:00 98.6 F 89 13 189/109 H 100 Intake and Output (Last 8hrs): Intake & Output 05/28/18 05/29/18 05/29/18 22:59 06:59 14:59 Intake Total 460 Balance 460 Weight 181 lb Intake: Intake, Piggyback 100 Oral 360 - Physical Exam Head: Positive for: Atraumatic. Negative for: Tenderness, Contusion, Swelling Pupils: Positive for: PERRL Conjunctiva: Positive for: Normal Mouth: Positive for: Dry (Mild) Nose (Internal): Positive for: No Active Bleeding Neck: Positive for: Normal Range of Motion. Negative for: JVD, Lymphadenopathy Respiratory/Chest: Positive for: Clear to Auscultation. Negative for: Respiratory Distress, Accessory Muscle Use, Wheezes, Rales Cardiovascular: Positive for: Regular Rate and Rhythm, Normal S1, S2. Negative for: Gallop Abdomen: Positive for: Normal Bowel Sounds. Negative for: Tenderness, Distention, Rebound, Guarding Upper Extremity: Positive for: Swelling, Capillary Refill < 2s. Negative for: Normal Inspection (R/elbow swelling), Tenderness, Erythema Lower Extremity: Positive for: Capillary Refill < 2 s. Negative for: Edema, Swelling Neurological: Negative for: Speech Normal (slurred), Motor Func Grossly Intact ( R/side hemiplegia. R/side neglect.), Normal Sensory Function (R/side impaired sensation), Gait Normal Skin: Positive for: Warm. Negative for: Rashes Psychiatric: Positive for: Alert. Negative for: Oriented x 3 - Medications Active Medications: Active Medications Generic Name Dose Route Start Last Admin Trade Name Freq PRN Reason Stop Dose Admin Albuterol 2 puff 05/23/18 16:08 Ventolin Hfa 90 Mcg/Actuation (8 G) IH Q12 PRN Shortness of Breath Allopurinol 100 mg 05/24/18 09:00 05/29/18 08:13 Zyloprim PO 100 mg DAILY NATALIE Administration Amlodipine Besylate 10 mg 05/28/18 08:46 05/29/18 08:13 Norvasc PO 10 mg DAILY NATALIE Administration Aspirin 81 mg 05/25/18 09:00 05/29/18 08:14 Aspirin Chewable PO 81 mg DAILY NATALIE Administration Atorvastatin Calcium 40 mg 05/24/18 09:00 05/29/18 08:13 Lipitor PO 40 mg DAILY NATALIE Administration Carvedilol 12.5 mg 05/28/18 09:00 05/29/18 08:13 Coreg PO 12.5 mg Q12 NATALIE Administration Clonidine HCl 0.1 mg 05/29/18 11:15 Catapres PO Q8 NATALIE Clopidogrel Bisulfate 75 mg 05/25/18 09:00 05/26/18 08:17 Plavix PO 75 mg DAILY [facility] Administration Hydralazine HCl 10 mg 05/24/18 16:55 05/29/18 08:39 Apresoline IV 10 mg Q4 PRN Administration for SBP > 170 Levetiracetam 500 mg/ Sodium 105 mls @ 210 mls/hr 05/24/18 21:00 05/29/18 08: 14 Chloride IVPB 210 mls/hr Q12 NATALIE Administration Insulin Human Lispro 0 units 05/28/18 13:00 05/28/18 21:30 Humalog SC Not Given QID [facility] Protocol Multivitamins/Minerals 1 tab 05/24/18 09:00 05/29/18 08:13 Therapeutic-M Tab PO 1 tab DAILY NATALIE Administration Jynfr-5-Fpox Ethyl Esters 1 gm 05/24/18 09:00 05/29/18 08:13 Lovaza PO 1 gm DAILY NATALIE Administration Ondansetron HCl 4 mg 05/23/18 16:01 Zofran Inj IVP Q6H PRN Nausea/Vomiting Pantoprazole Sodium 40 mg 05/24/18 09:00 05/29/18 08:15 Protonix Inj IVP 40 mg DAILY NATALIE Administration Potassium Chloride 10 meq 05/26/18 12:30 05/29/18 08:14 Klor-Con 10 PO 10 meq DAILY NATALIE Administration - Patient Studies Lab Studies: Lab Studies 05/29/18 05/29/18 05/29/18 Range/Units 05:38 04:30 04:30 WBC 12.4 H (4.8-10.8) K/uL RBC 3.35 L (3.80-5.20) Mil/uL Hgb 10.7 L (12.0-16.0) g/dL Hct 31.7 L (34.0-47.0) % MCV 94.5 (81.0-99.0) fl MCH 31.8 H (27.0-31.0) pg MCHC 33.7 (33.0-37.0) g/dL RDW 14.8 H (11.5-14.5) % Plt Count 319 (130-400) K/uL Lupus Anticoagulant LA PTT Screen (<=40) sec dRVVT Mixing Study (<=45) sec dRVVT Mix Interpret Hexagonal Phase Confirm (Negative) Sodium 143 (132-148) mmol/l Potassium 4.0 (3.6-5.0) MMOL/L Chloride 105 (98-107) mmol/L Carbon Dioxide 26 (22-30) mmol/L Anion Gap 16 (10-20) BUN 40 H (7-17) mg/dl Creatinine 1.5 H (0.7-1.2) mg/dl Est GFR ( Amer) 42 Est GFR (Non-Af Amer) 35 POC Glucose (mg/dL) 140 H (65-110) mg/dL Random Glucose 152 H (65-105) mg/dL Calcium 9.3 (8.4-10.2) mg/dL 05/28/18 05/28/18 05/28/18 Range/Units 21:02 16:48 11:31 WBC (4.8-10.8) K/uL RBC (3.80-5.20) Mil/uL Hgb (12.0-16.0) g/dL Hct (34.0-47.0) % MCV (81.0-99.0) fl MCH (27.0-31.0) pg MCHC (33.0-37.0) g/dL RDW (11.5-14.5) % Plt Count (130-400) K/uL Lupus Anticoagulant LA PTT Screen (<=40) sec dRVVT Mixing Study (<=45) sec dRVVT Mix Interpret Hexagonal Phase Confirm (Negative) Sodium (132-148) mmol/l Potassium (3.6-5.0) MMOL/L Chloride (98-107) mmol/L Carbon Dioxide (22-30) mmol/L Anion Gap (10-20) BUN (7-17) mg/dl Creatinine (0.7-1.2) mg/dl Est GFR ( Amer) Est GFR (Non-Af Amer) POC Glucose (mg/dL) 210 H 189 H 296 H (65-110) mg/dL Random Glucose (65-105) mg/dL Calcium (8.4-10.2) mg/dL 05/26/18 Range/Units 04:40 WBC (4.8-10.8) K/uL RBC (3.80-5.20) Mil/uL Hgb (12.0-16.0) g/dL Hct (34.0-47.0) % MCV (81.0-99.0) fl MCH (27.0-31.0) pg MCHC (33.0-37.0) g/dL RDW (11.5-14.5) % Plt Count (130-400) K/uL Lupus Anticoagulant see note LA PTT Screen 41 H (<=40) sec dRVVT Mixing Study 42 (<=45) sec dRVVT Mix Interpret Not indicated Hexagonal Phase Confirm Negative (Negative) Sodium (132-148) mmol/l Potassium (3.6-5.0) MMOL/L Chloride (98-107) mmol/L Carbon Dioxide (22-30) mmol/L Anion Gap (10-20) BUN (7-17) mg/dl Creatinine (0.7-1.2) mg/dl Est GFR ( Amer) Est GFR (Non-Af Amer) POC Glucose (mg/dL) (65-110) mg/dL Random Glucose (65-105) mg/dL Calcium (8.4-10.2) mg/dL Laboratory Results - last 24 hr 05/26/18 05/28/18 05/28/18 04:40 11:31 16:48 WBC RBC Hgb Hct MCV MCH MCHC RDW Plt Count Lupus Anticoagulant see note LA PTT Screen 41 H dRVVT Mixing Study 42 dRVVT Mix Interpret Not indicated Hexagonal Phase Confirm Negative Sodium Potassium Chloride Carbon Dioxide Anion Gap BUN Creatinine Est GFR ( Amer) Est GFR (Non-Af Amer) POC Glucose (mg/dL) 296 H 189 H Random Glucose Calcium 05/28/18 05/29/18 05/29/18 21:02 04:30 04:30 WBC 12.4 H RBC 3.35 L Hgb 10.7 L Hct 31.7 L MCV 94.5 MCH 31.8 H MCHC 33.7 RDW 14.8 H Plt Count 319 Lupus Anticoagulant LA PTT Screen dRVVT Mixing Study dRVVT Mix Interpret Hexagonal Phase Confirm Sodium 143 Potassium 4.0 Chloride 105 Carbon Dioxide 26 Anion Gap 16 BUN 40 H Creatinine 1.5 H Est GFR ( Amer) 42 Est GFR (Non-Af Amer) 35 POC Glucose (mg/dL) 210 H Random Glucose 152 H Calcium 9.3 05/29/18 05:38 WBC RBC Hgb Hct MCV MCH MCHC RDW Plt Count Lupus Anticoagulant LA PTT Screen dRVVT Mixing Study dRVVT Mix Interpret Hexagonal Phase Confirm Sodium Potassium Chloride Carbon Dioxide Anion Gap BUN Creatinine Est GFR ( Amer) Est GFR (Non-Af Amer) POC Glucose (mg/dL) 140 H Random Glucose Calcium Fingerstick Blood Sugar Results: 210 Review of Systems - Review of Systems All systems: reviewed and no additional remarkable complaints except - Neurological Neurological: Focal Weakness, Sensory Deficit, Weakness Critical Care Progress Note - Extremities/Vascular Does the Patient have a Central Venous Catheter?: No Does the Patient need a Central Venous Catheter?: No Does the Patient have a Pagan Catheter?: No Does the Patient need a Pagan Catheter?: No - Prophylaxis GI Prophylaxis GI: PPI - Prophylaxis DVT Prophylaxis DVT: SCDs - Nutrition Nutrition: Nutrition Category Date Time Status Dysphagia/Modified Consistency Diet [DIET] Diets 05/24/18 Lunch Active Assessment/Plan - Assessment and Plan (Free Text) Assessment: 67 y/o F admitted for ischemic CVA Ischemic CVA Acute Stable No progress on neurological deficit CT and MRI of the brain + for large left cerebral infarct R/side hemiplegia, impaired sensation, babinski and neglect Neurology consulted MRI + for suspected small BG bleeding. Plavix on hold Repeat CT no clear evidence of IC bleeding As per Nuero c/w Aspirin and Hold Plavix C/W Keppra for Seizure prophylaxis as per Neuro PT/OT Pureed diet HTN Chronic Uncontrolled Goal MAP <110 C/W Current meds Clonidine 0.1 Q8h started by primary care team Will Monitor and modify meds as needed R/elbow contusion XRay and CT neg for Fx or dislocations. Nontender/no pain, likely due to patient's impaired sensation Ortho on board NIDDM Chronic ACHS ISS DVT prophylaxis SCDs for now <Neel Vo - Last Filed: 05/29/18 15:23> CCU Subjective - Physician Review Subjective (Free Text): Attestation: Patient seen and examined at the bedside with Resident Dr. Anderson Dobbs; and I agree with his outline of plans and management documented below as discussed on AM rounds reflecting my review of all applicable clinical data, and participation in the care of the patient throughout the day in ICU; today, May 29, 2018.
[2018-05-30 05:33] LABS: BASO # 0.1 K/uL (0.0-0.2); BASO % 0.7 % (0.0-2.0); EOS # 0.2 K/uL (0.0-0.7); EOS % 2.2 % (0.0-4.0); HEMOGLOBIN 10.4 g/dL (12.0-16.0); LYMPH # 2.2 K/uL (1.0-4.3); LYMPH % 19.9 % (20.0-40.0); MEAN CELL VOLUME 94.7 fl (81.0-99.0); MEAN CORPUSCULAR HEMOGLOBIN 31.9 pg (27.0-31.0); MEAN CORPUSCULAR HGB CONC 33.7 g/dL (33.0-37.0); MEAN PLATELET VOLUME 7.8 fl (7.2-11.7); MONO # 0.9 K/uL (0.0-0.8); MONO % 8.4 % (0.0-10.0); NEUT # 7.7 K/uL (1.8-7.0); NEUT % 68.8 % (50.0-75.0); RBC 3.26 Mil/uL (3.80-5.20); RED CELL DISTRIBUTION WIDTH 14.4 % (11.5-14.5); WHITE BLOOD COUNT 11.1 K/uL (4.8-10.8)
[2018-05-30 05:35] LABS: CALCIUM 9.1 mg/dL (8.4-10.2)
[2018-05-30] MEDS: levETIRAcetam 500 MG in Sodium Chloride 0.9% 100 ML IVPB SCH ×2 (08:38→21:45)
[2018-05-30] MEDS: Insulin Lispro (humaLOG) 100 Units/ml Inj SC SCH ×4 (08:40→21:09)
[2018-05-30] MEDS: Potassium Chloride 10 mEq ER Tab PO SCH (08:42)
[2018-05-30] MEDS: Omega-3-Acid Ethyl Esters 1 GM Cap PO SCH (08:43)
[2018-05-30] MEDS: Multivitamin With Minerals Tab PO SCH (08:45)
--- NOTE | 2018-05-30 08:53 | CP.PCM.PN ---
Subjective - Date & Time of Evaluation Date of Evaluation: 05/30/18 Time of Evaluation: 08:52 - Subjective Subjective: Ms. Solo was seen and examined at the bedside in ICU. She is more alert today. She is able to tolerate PO intake with assistance and with good appetite. She remains with right facial droop and right side paraplegia. She is able to follow some commands such as raising her bilateral left side extremities. She has bilateral lower SCD's. There was no untoward events overnight. Objective - Vital Signs/Intake and Output Vital Signs (last 24 hours): Temp Pulse Resp BP Pulse Ox 99.5 F 77 24 171/89 H 99 05/30/18 08:00 05/30/18 08:00 05/30/18 08:00 05/30/18 08:00 05/30/18 08:00 Intake and Output: 05/30/18 05/30/18 06:59 18:59 Intake Total 100 Balance 100 - Medications Medications: Current Medications Albuterol (Ventolin Hfa 90 Mcg/Actuation (8 G)) 2 puff IH Q12 PRN PRN Reason: Shortness of Breath Allopurinol (Zyloprim) 100 mg PO DAILY REPLACED BY [facility] Last Admin: 05/29/18 08:13 Dose: 100 mg Amlodipine Besylate (Norvasc) 10 mg PO DAILY REPLACED BY [facility] Last Admin: 05/29/18 08:13 Dose: 10 mg Aspirin (Aspirin Chewable) 81 mg PO DAILY REPLACED BY [facility] Last Admin: 05/29/18 08:14 Dose: 81 mg Atorvastatin Calcium (Lipitor) 40 mg PO DAILY REPLACED BY [facility] Last Admin: 05/29/18 08:13 Dose: 40 mg Carvedilol (Coreg) 12.5 mg PO Q12 REPLACED BY [facility] Last Admin: 05/29/18 22:00 Dose: 12.5 mg Clonidine HCl (Catapres) 0.1 mg PO Q8 REPLACED BY [facility] Last Admin: 05/30/18 02:00 Dose: 0.1 mg Clopidogrel Bisulfate (Plavix) 75 mg PO DAILY REPLACED BY [facility] Last Admin: 05/26/18 08:17 Dose: 75 mg Hydralazine HCl (Apresoline) 10 mg IV Q4 PRN PRN Reason: for SBP > 170 Last Admin: 05/29/18 08:39 Dose: 10 mg Levetiracetam 500 mg/ Sodium (Chloride) 105 mls @ 210 mls/hr IVPB Q12 REPLACED BY [facility] Last Admin: 05/29/18 22:00 Dose: 210 mls/hr Insulin Human Lispro (Humalog) 0 units SC QID NATALIE PRN Reason: Protocol Last Admin: 05/29/18 22:00 Dose: Not Given Multivitamins/Minerals (Therapeutic-M Tab) 1 tab PO DAILY REPLACED BY [facility] Last Admin: 05/29/18 08:13 Dose: 1 tab Rhrzw-6-Opfq Ethyl Esters (Lovaza) 1 gm PO DAILY REPLACED BY [facility] Last Admin: 05/29/18 08:13 Dose: 1 gm Ondansetron HCl (Zofran Inj) 4 mg IVP Q6H PRN PRN Reason: Nausea/Vomiting Pantoprazole Sodium (Protonix Inj) 40 mg IVP DAILY REPLACED BY [facility] Last Admin: 05/29/18 08:15 Dose: 40 mg Potassium Chloride (Klor-Con 10) 10 meq PO DAILY REPLACED BY [facility] Last Admin: 05/29/18 08:14 Dose: 10 meq - Labs Labs: 05/30/18 04:35 05/30/18 04:35 PT 10.8 Seconds (9.8-13.1) 05/24/18 10:00 INR 1.0 (0.9-1.2) 05/24/18 10:00 APTT 25.7 Seconds (25.6-37.1) 05/24/18 10:00 - Constitutional Appears: No Acute Distress - Head Exam Head Exam: NORMAL INSPECTION - Eye Exam Pupil Exam: PERRL - Neurological Exam Neurological Exam: Alert, Awake, Oriented x3 Neuro motor strength exam: Left Upper Extremity: 4, Right Upper Extremity: 0, Left Lower Extremity: 4, Right Lower Extremity: 0 Additional comments: neuro status unchanged from previous examination. Assessment and Plan (1) Ischemic stroke Assessment & Plan: Case discussed with Dr. Brumfield, continue all current medical including aspirin and continue plavix for now,physical, occupational, and speech therapies. Recommend blood pressure and glycemic control, treat any electrolyte abnormalities, keep head of bed elevated at least 40 degrees, and acute rehab for discharge planning. Status: Acute
--- NOTE | 2018-05-30 09:37 | CP.PCM.DIS ---
Provider - Provider Date of Admission: 05/23/18 15:37 Attending physician: Brandon Palmer DO Time Spent in preparation of Discharge (in minutes): 30 Diagnosis - Discharge Diagnosis (1) Hemorrhagic cerebrovascular accident (CVA) Status: Acute Hospital Course - Lab Results Lab Results: Micro Results 05/23/18 23:45 Naris MRSA Culture (Admit) - Final MRSA NOT DETECTED Most Recent Lab Values WBC 11.1 K/uL (4.8-10.8) H 05/30/18 04:35 RBC 3.26 Mil/uL (3.80-5.20) L 05/30/18 04:35 Hgb 10.4 g/dL (12.0-16.0) L 05/30/18 04:35 Hct 30.9 % (34.0-47.0) L 05/30/18 04:35 MCV 94.7 fl (81.0-99.0) 05/30/18 04:35 MCH 31.9 pg (27.0-31.0) H 05/30/18 04:35 MCHC 33.7 g/dL (33.0-37.0) 05/30/18 04:35 RDW 14.4 % (11.5-14.5) 05/30/18 04:35 Plt Count 319 K/uL (130-400) 05/30/18 04:35 MPV 7.8 fl (7.2-11.7) 05/30/18 04:35 Neut % (Auto) 68.8 % (50.0-75.0) 05/30/18 04:35 Lymph % (Auto) 19.9 % (20.0-40.0) L 05/30/18 04:35 [place] % (Auto) 8.4 % (0.0-10.0) 05/30/18 04:35 Eos % (Auto) 2.2 % (0.0-4.0) 05/30/18 04:35 Baso % (Auto) 0.7 % (0.0-2.0) 05/30/18 04:35 Neut # (Auto) 7.7 K/uL (1.8-7.0) H 05/30/18 04:35 Lymph # (Auto) 2.2 K/uL (1.0-4.3) 05/30/18 04:35 [place] # (Auto) 0.9 K/uL (0.0-0.8) H 05/30/18 04:35 Eos # (Auto) 0.2 K/uL (0.0-0.7) 05/30/18 04:35 Baso # (Auto) 0.1 K/uL (0.0-0.2) 05/30/18 04:35 ESR 105 mm/hr (0-30) H 05/26/18 04:40 PT 10.8 Seconds (9.8-13.1) 05/24/18 10:00 INR 1.0 (0.9-1.2) 05/24/18 10:00 APTT 25.7 Seconds (25.6-37.1) 05/24/18 10:00 Lupus Anticoagulant see note 05/26/18 04:40 LA PTT Screen 41 sec (<=40) H 05/26/18 04:40 dRVVT Mixing Study 42 sec (<=45) 05/26/18 04:40 dRVVT Mix Interpret Not indicated 05/26/18 04:40 Hexagonal Phase Confirm Negative (Negative) 05/26/18 04:40 Sodium 140 mmol/l (132-148) 05/30/18 04:35 Potassium 4.3 MMOL/L (3.6-5.0) 05/30/18 04:35 Chloride 104 mmol/L (98-107) 05/30/18 04:35 Carbon Dioxide 23 mmol/L (22-30) 05/30/18 04:35 Anion Gap 17 (10-20) 05/30/18 04:35 BUN 48 mg/dl (7-17) H 05/30/18 04:35 Creatinine 1.6 mg/dl (0.7-1.2) H 05/30/18 04:35 Est GFR ( Amer) 39 05/30/18 04:35 Est GFR (Non-Af Amer) 32 05/30/18 04:35 POC Glucose (mg/dL) 197 mg/dL (65-110) H 05/30/18 08:37 Random Glucose 165 mg/dL (65-105) H 05/30/18 04:35 Hemoglobin A1c 6.8 % (4.2-6.5) H 05/23/18 15:00 Calcium 9.1 mg/dL (8.4-10.2) 05/30/18 04:35 Phosphorus 3.7 mg/dl (2.5-4.5) 05/26/18 04:40 Magnesium 2.4 MG/DL (1.6-2.3) H 05/26/18 04:40 Total Bilirubin 0.7 mg/dl (0.2-1.3) 05/26/18 04:40 AST 31 U/L (14-36) 05/26/18 04:40 ALT 22 U/L (9-52) 05/26/18 04:40 Alkaline Phosphatase 71 U/L (38-126) 05/26/18 04:40 Troponin I 0.0320 ng/mL (0.00-0.120) 05/23/18 15:00 C-React Prot High Sens > 15.00 mg/L (1.00-3.00) H 05/26/18 04:40 Total Protein 8.2 G/DL (6.3-8.2) 05/26/18 04:40 Albumin 4.3 g/dL (3.5-5.0) 05/26/18 04:40 Globulin 3.9 gm/dL (2.2-3.9) 05/26/18 04:40 Albumin/Globulin Ratio 1.1 (1.0-2.1) 05/26/18 04:40 Triglycerides 178 mg/DL (0-149) H 05/23/18 15:00 Cholesterol 200 mg/dL (0-199) H 05/23/18 15:00 LDL Cholesterol Direct 119 mg/dL (0-129) 05/23/18 15:00 HDL Cholesterol 29 MG/DL (30-70) L 05/23/18 15:00 Vitamin B12 918 pg/mL (239-931) 05/26/18 04:40 25-OH Vitamin D Total 32.5 NG/ML (30.0-100.0) 05/26/18 04:40 Folate > 20.0 ng/mL 05/26/18 04:40 Homocysteine 20.3 umol/L ( <10.4) H 05/26/18 04:40 TSH 3rd Generation 1.82 mIU/ML (0.46-4.68) 05/24/18 10:00 Prothrombin Mut Interp see note 05/26/18 04:40 Prothrombin Gene Mutate see note 05/26/18 04:40 Prothromb Gene Review see note 05/26/18 04:40 Blood Type O POSITIVE 05/24/18 13:20 Antibody Screen Negative 05/24/18 13:20 BBK History Checked Patient has bt 05/24/18 13:20 - Hospital Course Hospital Course: 67 year old female with pmh of CVA in 2017, rheumatoid arthritis, hypertension , hypercholesterolemia, Obesity, Type 2 diabetes mellitus, who presented to the ED via EMS for stroke eval. The nephew, who lives with the patient, noted pt to abruptly fall and scream and noticed acute right sided upper and lower extremity weakness, slurred speech, and dysarthria. The patient was brought to the ED within an hour, Code stroke was called, and TPA administered. Dr. Hamilton, neurologist, was at bedside and examined the patient. CT head was performed and revealed no definite acute intracranial findings. Similarly CTA head was also performed and showed no significant stenosis. The patient was admitted to ICU post tPA for close monitoring and further workup. Patient seen by PT, BP stabilized, patient now stable for discharge to Acute Rehab for further PT Speech OT. 1) Acute CVA, s/p TPA, with hemorrhagic conversion on MRI - Neurology consultation - following pt - Elevate HOB - Echocardiogram: normal - PT , OT and Speech consulted - ASA was started by Neurology 05/25 , Keppra also started - Plavix discontinued due to hemorrhage -cont Statin -Tolerating Pureed , [place] thickened as rec by Speech 2) Hypertension > 72 hours since tPA, restart antihypertensives - Norvasc 10 mg po daily - Coreg 12.5 mg po q 12 hours - reinitiate Clonidine 0.1 mg Q8 3) Hypercholesterolemia - start Lipitor 4) Type 2 DM Lispro sliding scale 5) Asthma, mild intermittent - Continue Albuterol PRN for SOB - chronic 6) GERD - Protonix 40 mg IV daily for prophylaxis - chronic 7) RA - chronic, no evidence of acute attack 8) CKD stage III - likely has Stage III chronic kidney disease most likely due to diabetic nephropathy and/or uncontrolled hypertension - IVF hydration - stable 9. Fall - right sided trauma -Elbow xray : no fracture -Hip xray: no fracture -Ortho consulted for R arm/elbow swelling- CT scan shows no fracture 10) DVT prophylaxis - SCDs (Holding anticoagulation due to hemorrhagic conversion) Discharge Exam - Head Exam Additional comments: GEN: WDWN, ALERT, COOPERATIVE HEENT: NCAT, PERRL, EOMI HEART: +S1+S2, RRR NO MRG LUNG: CTAB, NO WRR ABD: SOFT BSX4 NT ND NO HSM NO MASS EXT: WARM, WELL PERFUSED NEURO: [id number], STRENGTH AND SENSATION EQUAL AND BILATERAL SKIN: WARM DRY PSYCH: NORMAL MOOD NORMAL AFFECT Discharge Plan - Discharge Medications Prescriptions: Valsartan [Diovan] 160 mg PO DAILY #30 tab - Follow Up Plan Condition: GUARDED Disposition: REHAB FACILITY/REHAB UNIT
--- NOTE | 2018-05-30 16:54 | CP.PCM.PN ---
Subjective - Date & Time of Evaluation Date of Evaluation: 05/30/18 Time of Evaluation: 16:53 - Subjective Subjective: pt doing well improving hd [place] nad awaiting auth or rehab Objective - Vital Signs/Intake and Output Vital Signs (last 24 hours): Temp Pulse Resp BP Pulse Ox 98.8 F 76 26 H 158/80 H 99 05/30/18 16:00 05/30/18 16:00 05/30/18 16:00 05/30/18 16:00 05/30/18 16:00 Intake and Output: 05/30/18 05/30/18 06:59 18:59 Intake Total 100 Balance 100 - Medications Medications: Current Medications Albuterol (Ventolin Hfa 90 Mcg/Actuation (8 G)) 2 puff IH Q12 PRN PRN Reason: Shortness of Breath Allopurinol (Zyloprim) 100 mg PO DAILY [facility] Last Admin: 05/30/18 08:45 Dose: 100 mg Amlodipine Besylate (Norvasc) 10 mg PO DAILY [facility] Last Admin: 05/30/18 08:43 Dose: 10 mg Aspirin (Aspirin Chewable) 81 mg PO DAILY [facility] Last Admin: 05/30/18 08:31 Dose: 81 mg Atorvastatin Calcium (Lipitor) 40 mg PO DAILY [facility] Last Admin: 05/30/18 08:43 Dose: 40 mg Carvedilol (Coreg) 12.5 mg PO Q12 [facility] Last Admin: 05/30/18 08:33 Dose: 12.5 mg Clonidine HCl (Catapres) 0.1 mg PO Q8 [facility] Last Admin: 05/30/18 08:31 Dose: 0.1 mg Clopidogrel Bisulfate (Plavix) 75 mg PO DAILY [facility] Last Admin: 05/26/18 08:17 Dose: 75 mg Hydralazine HCl (Apresoline) 10 mg IV Q4 PRN PRN Reason: for SBP > 170 Last Admin: 05/29/18 08:39 Dose: 10 mg Levetiracetam 500 mg/ Sodium (Chloride) 105 mls @ 210 mls/hr IVPB Q12 [facility] Last Admin: 05/30/18 08:38 Dose: 210 mls/hr Insulin Human Lispro (Humalog) 0 units SC QID [facility] PRN Reason: Protocol Last Admin: 05/30/18 13:34 Dose: 6 units Montelukast Sodium (Singulair) 10 mg PO [facility] Multivitamins/Minerals (Therapeutic-M Tab) 1 tab PO DAILY [facility] Last Admin: 05/30/18 08:45 Dose: 1 tab Eixug-6-Ijpb Ethyl Esters (Lovaza) 1 gm PO DAILY [facility] Last Admin: 05/30/18 08:43 Dose: 1 gm Ondansetron HCl (Zofran Inj) 4 mg IVP Q6H PRN PRN Reason: Nausea/Vomiting Pantoprazole Sodium (Protonix Inj) 40 mg IVP DAILY [facility] Last Admin: 05/30/18 08:44 Dose: 40 mg Potassium Chloride (Klor-Con 10) 10 meq PO DAILY [facility] Last Admin: 05/30/18 08:42 Dose: 10 meq - Labs Labs: 05/30/18 04:35 05/30/18 04:35 PT 10.8 Seconds (9.8-13.1) 05/24/18 10:00 INR 1.0 (0.9-1.2) 05/24/18 10:00 APTT 25.7 Seconds (25.6-37.1) 05/24/18 10:00 - Constitutional Appears: Non-toxic, No Acute Distress - Head Exam Head Exam: ATRAUMATIC, NORMOCEPHALIC - Eye Exam Eye Exam: EOMI, Normal appearance, PERRL Pupil Exam: NORMAL ACCOMODATION - ENT Exam ENT Exam: Mucous Membranes Moist, Normal Oropharynx - Respiratory Exam Respiratory Exam: Clear to Ausculation Bilateral, NORMAL BREATHING PATTERN - Cardiovascular Exam Cardiovascular Exam: RRR, +S1, +S2 - GI/Abdominal Exam GI & Abdominal Exam: Soft, Normal Bowel Sounds. absent: Tenderness, Organomegaly - Extremities Exam Extremities Exam: Normal Capillary Refill. absent: Pedal Edema - Back Exam Back Exam: absent: CVA tenderness (L), CVA tenderness (R) - Neurological Exam Neurological Exam: Alert, Awake - Psychiatric Exam Psychiatric exam: Normal Affect, Normal Mood - Skin Skin Exam: Dry, Warm Assessment and Plan (1) Hemorrhagic cerebrovascular accident (CVA) Status: Acute - Assessment and Plan (Free Text) Plan: 67 year old female with pmh of CVA in 2017, rheumatoid arthritis, hypertension , hypercholesterolemia, Obesity, Type 2 diabetes mellitus, who presented to the ED via EMS for stroke eval. The nephew, who lives with the patient, noted pt to abruptly fall and scream and noticed acute right sided upper and lower extremity weakness, slurred speech, and dysarthria. The patient was brought to the ED within an hour, Code stroke was called, and TPA administered. Dr. Hamilton, neurologist, was at bedside and examined the patient. CT head was performed and revealed no definite acute intracranial findings. Similarly CTA head was also performed and showed no significant stenosis. The patient was admitted to ICU post tPA for close monitoring and further workup. Patient seen by PT, BP stabilized, patient now stable for discharge to Acute Rehab for further PT Speech OT. 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 - Neurology consultation - following pt - Elevate HOB - Echocardiogram: normal - PT , OT and Speech consulted - ASA was started by Neurology 05/25 , Keppra also started - Plavix discontinued due to hemorrhage -cont Statin -Tolerating Pureed , [place] thickened as rec by Speech, changed to thin liquid 2) Hypertension > 72 hours since tPA, restart antihypertensives - Norvasc 10 mg po daily - Coreg 12.5 mg po q 12 hours - reinitiate Clonidine 0.1 mg Q8 3) Hypercholesterolemia - start Lipitor 4) Type 2 DM Lispro sliding scale 5) Asthma, mild intermittent - Continue Albuterol PRN for SOB - chronic 6) GERD - Protonix 40 mg IV daily for prophylaxis - chronic 7) RA - chronic, no evidence of acute attack 8) CKD stage III - likely has Stage III chronic kidney disease most likely due to diabetic nephropathy and/or uncontrolled hypertension - IVF hydration - stable 9. Fall - right sided trauma -Elbow xray : no fracture -Hip xray: no fracture -Ortho consulted for R arm/elbow swelling- CT scan shows no fracture 10) DVT prophylaxis - SCDs (Holding anticoagulation due to hemorrhagic conversion)
--- NOTE | 2018-05-31 07:36 | CP.PCM.PN ---
Subjective - Date & Time of Evaluation Date of Evaluation: 05/31/18 Time of Evaluation: 07:35 - Subjective Subjective: feels slightly improved participating with PT well awaiting auth for transfer to [place] hd stable nad Objective - Vital Signs/Intake and Output Vital Signs (last 24 hours): Temp Pulse Resp BP Pulse Ox 98.7 F 75 20 172/85 H 97 05/31/18 05:00 05/31/18 05:00 05/31/18 05:00 05/31/18 05:00 05/31/18 05:00 Vitals Reviewed GEN: WDWN, alert, cooperative HEENT: NCAT, PERRL, EOMI +facial droop HEART: RRR, +S1S2, NO MRG LUNG: CTAB, NO WRR ABD: soft, NT, ND, No HSM, No masses EXT: normal pedal pulses, normal capillary refill NEURO: awake, alert, R sided weakness SKIN: warm, dry PSYCH: normal mood, normal affect - Medications Medications: Current Medications Albuterol (Ventolin Hfa 90 Mcg/Actuation (8 G)) 2 puff IH Q12 PRN PRN Reason: Shortness of Breath Allopurinol (Zyloprim) 100 mg PO DAILY [facility] Last Admin: 05/30/18 08:45 Dose: 100 mg Amlodipine Besylate (Norvasc) 10 mg PO DAILY [facility] Last Admin: 05/30/18 08:43 Dose: 10 mg Aspirin (Aspirin Chewable) 81 mg PO DAILY [facility] Last Admin: 05/30/18 08:31 Dose: 81 mg Atorvastatin Calcium (Lipitor) 40 mg PO DAILY [facility] Last Admin: 05/30/18 08:43 Dose: 40 mg Carvedilol (Coreg) 12.5 mg PO Q12 [facility] Last Admin: 05/30/18 21:08 Dose: 12.5 mg Clonidine HCl (Catapres) 0.1 mg PO Q8 [facility] Last Admin: 05/31/18 01:00 Dose: 0.1 mg Clopidogrel Bisulfate (Plavix) 75 mg PO DAILY [facility] Last Admin: 05/26/18 08:17 Dose: 75 mg Hydralazine HCl (Apresoline) 10 mg IV Q4 PRN PRN Reason: for SBP > 170 Last Admin: 05/29/18 08:39 Dose: 10 mg Levetiracetam 500 mg/ Sodium (Chloride) 105 mls @ 210 mls/hr IVPB Q12 [facility] Last Admin: 05/30/18 21:45 Dose: 210 mls/hr Insulin Human Lispro (Humalog) 0 units SC QID [facility] PRN Reason: Protocol Last Admin: 05/30/18 21:09 Dose: 4 units Montelukast Sodium (Singulair) 10 mg PO HS [facility] Last Admin: 05/30/18 21:09 Dose: 10 mg Multivitamins/Minerals (Therapeutic-M Tab) 1 tab PO DAILY [facility] Last Admin: 05/30/18 08:45 Dose: 1 tab Stfjb-6-Txgh Ethyl Esters (Lovaza) 1 gm PO DAILY [facility] Last Admin: 05/30/18 08:43 Dose: 1 gm Ondansetron HCl (Zofran Inj) 4 mg IVP Q6H PRN PRN Reason: Nausea/Vomiting Pantoprazole Sodium (Protonix Inj) 40 mg IVP DAILY [facility] Last Admin: 05/30/18 08:44 Dose: 40 mg Potassium Chloride (Klor-Con 10) 10 meq PO DAILY [facility] Last Admin: 05/30/18 08:42 Dose: 10 meq - Labs Labs: 05/30/18 04:35 05/30/18 04:35 PT 10.8 Seconds (9.8-13.1) 05/24/18 10:00 INR 1.0 (0.9-1.2) 05/24/18 10:00 APTT 25.7 Seconds (25.6-37.1) 05/24/18 10:00 Assessment and Plan (1) Hemorrhagic cerebrovascular accident (CVA) Status: Acute - Assessment and Plan (Free Text) Plan: 67 year old female with pmh of CVA in 2017, rheumatoid arthritis, hypertension , hypercholesterolemia, Obesity, Type 2 diabetes mellitus, who presented to the ED via EMS for stroke eval. The nephew, who lives with the patient, noted pt to abruptly fall and scream and noticed acute right sided upper and lower extremity weakness, slurred speech, and dysarthria. The patient was brought to the ED within an hour, Code stroke was called, and TPA administered. Dr. Hamilton, neurologist, was at bedside and examined the patient. CT head was performed and revealed no definite acute intracranial findings. Similarly CTA head was also performed and showed no significant stenosis. The patient was admitted to ICU post tPA for close monitoring and further workup. Patient seen by PT, BP stabilized, patient now stable for discharge to Acute Rehab for further PT Speech OT. 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 - Neurology consultation - following pt - Elevate [facility] - Echocardiogram: normal - PT , OT and Speech consulted - ASA was started by Neurology 05/25 , Keppra also started - Plavix discontinued due to hemorrhage -cont Statin -Tolerating Pureed , [place] thickened as rec by Speech, changed to thin liquid 2) Hypertension > 72 hours since tPA, restart antihypertensives - Norvasc 10 mg po daily - Coreg 12.5 mg po q 12 hours - reinitiate Clonidine 0.1 mg Q8 3) Hypercholesterolemia - start Lipitor 4) Type 2 DM Lispro sliding scale 5) Asthma, mild intermittent - Continue Albuterol PRN for SOB - chronic 6) GERD - Protonix 40 mg IV daily for prophylaxis - chronic 7) RA - chronic, no evidence of acute attack 8) CKD stage III - likely has Stage III chronic kidney disease most likely due to diabetic nephropathy and/or uncontrolled hypertension - IVF hydration - stable 9. Fall - right sided trauma -Elbow xray : no fracture -Hip xray: no fracture -Ortho consulted for R arm/elbow swelling- CT scan shows no fracture 10) DVT prophylaxis - SCDs (Holding anticoagulation due to hemorrhagic conversion)
[2018-05-31] MEDS: Potassium Chloride 10 mEq ER Tab PO SCH (09:00)
[2018-05-31] MEDS: Omega-3-Acid Ethyl Esters 1 GM Cap PO SCH (09:25)
[2018-05-31] MEDS: Multivitamin With Minerals Tab PO SCH (09:26)
[2018-05-31] MEDS: Insulin Lispro (humaLOG) 100 Units/ml Inj SC SCH ×4 (11:45→21:57)
--- NOTE | 2018-06-01 06:59 | CP.PCM.PN ---
Subjective - Date & Time of Evaluation Date of Evaluation: 06/01/18 Time of Evaluation: 06:58 - Subjective Subjective: Ms. Solo was seen and examined at the bedside. She is alert, denies any headache, dizziness. She remains with right facial droop and right side paraplegia. She is able to follow some commands such as raising her bilateral left side extremities. There was no untoward events overnight. Objective - Vital Signs/Intake and Output Vital Signs (last 24 hours): Temp Pulse Resp BP Pulse Ox 98.5 F 55 L 18 152/88 H 94 L 06/01/18 05:01 06/01/18 05:01 06/01/18 05:01 06/01/18 05:01 06/01/18 05:01 - Medications Medications: Current Medications Albuterol (Ventolin Hfa 90 Mcg/Actuation (8 G)) 2 puff IH Q12 PRN PRN Reason: Shortness of Breath Allopurinol (Zyloprim) 100 mg PO DAILY [facility] Last Admin: 05/31/18 09:26 Dose: 100 mg Amlodipine Besylate (Norvasc) 10 mg PO DAILY [facility] Last Admin: 05/31/18 09:26 Dose: 10 mg Aspirin (Aspirin Chewable) 81 mg PO DAILY [facility] Last Admin: 05/31/18 09:22 Dose: 81 mg Atorvastatin Calcium (Lipitor) 40 mg PO DAILY [facility] Last Admin: 05/31/18 09:25 Dose: 40 mg Carvedilol (Coreg) 12.5 mg PO Q12 [facility] Last Admin: 05/31/18 21:56 Dose: 12.5 mg Clonidine HCl (Catapres) 0.1 mg PO Q8 [facility] Last Admin: 06/01/18 01:19 Dose: 0.1 mg Clopidogrel Bisulfate (Plavix) 75 mg PO DAILY [facility] Last Admin: 05/26/18 08:17 Dose: 75 mg Hydralazine HCl (Apresoline) 10 mg IV Q4 PRN PRN Reason: for SBP > 170 Last Admin: 05/29/18 08:39 Dose: 10 mg Insulin Human Lispro (Humalog) 0 units SC QID [facility] PRN Reason: Protocol Last Admin: 05/31/18 21:57 Dose: 3 units Levetiracetam (Keppra) 500 mg PO Q12 [facility] Last Admin: 05/31/18 21:57 Dose: 500 mg Montelukast Sodium (Singulair) 10 mg PO HS [facility] Last Admin: 05/31/18 21:57 Dose: 10 mg Multivitamins/Minerals (Therapeutic-M Tab) 1 tab PO DAILY [facility] Last Admin: 05/31/18 09:26 Dose: 1 tab Syhzi-8-[id number] Ethyl Esters (Lovaza) 1 gm PO DAILY [facility] Last Admin: 05/31/18 09:25 Dose: 1 gm Ondansetron HCl (Zofran Inj) 4 mg IVP Q6H PRN PRN Reason: Nausea/Vomiting Pantoprazole Sodium (Protonix Ec Tab) 40 mg PO DAILY [facility] Potassium Chloride (Klor-Con 10) 10 meq PO DAILY [facility] Last Admin: 05/31/18 09:00 Dose: 10 meq - Labs Labs: 05/30/18 04:35 05/30/18 04:35 PT 10.8 Seconds (9.8-13.1) 05/24/18 10:00 INR 1.0 (0.9-1.2) 05/24/18 10:00 APTT 25.7 Seconds (25.6-37.1) 05/24/18 10:00 - Constitutional Appears: No Acute Distress - Head Exam Head Exam: NORMAL INSPECTION - Eye Exam Pupil Exam: PERRL - Neurological Exam Neuro motor strength exam: Left Upper Extremity: 4, Right Upper Extremity: 0, Left Lower Extremity: 4, Right Lower Extremity: 0 Additional comments: Neurological unchanged from previous examination Assessment and Plan (1) Ischemic stroke Assessment & Plan: Case discussed with Dr. Brumfield, continue all current medical,physical, occupational, and speech therapies. Recommend blood pressure and glycemic control, treat any electrolyte abnormalities, keep head of bed elevated at least 40 degrees, and acute rehab for discharge planning. Status: Acute
[2018-06-01] MEDS: Pantoprazole 40 mg EC Tab PO SCH (09:09)
[2018-06-01] MEDS: Potassium Chloride 10 mEq ER Tab PO SCH (09:09)
[2018-06-01] MEDS: Multivitamin With Minerals Tab PO SCH (09:11)
[2018-06-01] MEDS: Omega-3-Acid Ethyl Esters 1 GM Cap PO SCH (09:12)
[2018-06-01] MEDS: Insulin Lispro (humaLOG) 100 Units/ml Inj SC SCH ×4 (09:14→21:19)
--- NOTE | 2018-06-01 11:12 | CP.PCM.PN ---
Subjective - Date & Time of Evaluation Date of Evaluation: 06/01/18 Time of Evaluation: 11:00 - Subjective Subjective: Pt is more awake , alert oriented to person and place follows commands Right sided weakness tolerating PO diet Plan for d/c to Acute Rehab once insurance approves Objective - Vital Signs/Intake and Output Vital Signs (last 24 hours): Temp Pulse Resp BP Pulse Ox 98.5 F 64 20 152/77 H 94 L 06/01/18 08:00 06/01/18 09:13 06/01/18 08:00 06/01/18 09:13 06/01/18 08:00 - Medications Medications: Current Medications Albuterol (Ventolin Hfa 90 Mcg/Actuation (8 G)) 2 puff IH Q12 PRN PRN Reason: Shortness of Breath Allopurinol (Zyloprim) 100 mg PO DAILY [facility] Last Admin: 06/01/18 09:12 Dose: 100 mg Amlodipine Besylate (Norvasc) 10 mg PO DAILY [facility] Last Admin: 06/01/18 09:13 Dose: 10 mg Aspirin (Aspirin Chewable) 81 mg PO DAILY [facility] Last Admin: 06/01/18 09:12 Dose: 81 mg Atorvastatin Calcium (Lipitor) 40 mg PO DAILY [facility] Last Admin: 06/01/18 09:12 Dose: 40 mg Carvedilol (Coreg) 12.5 mg PO Q12 [facility] Last Admin: 06/01/18 09:09 Dose: 12.5 mg Clonidine HCl (Catapres) 0.1 mg PO Q8 [facility] Last Admin: 06/01/18 09:09 Dose: 0.1 mg Clopidogrel Bisulfate (Plavix) 75 mg PO DAILY [facility] Last Admin: 05/26/18 08:17 Dose: 75 mg Hydralazine HCl (Apresoline) 10 mg IV Q4 PRN PRN Reason: for SBP > 170 Last Admin: 05/29/18 08:39 Dose: 10 mg Insulin Detemir (Levemir) 10 units SC [facility] Insulin Human Lispro (Humalog) 0 units SC QID [facility] PRN Reason: Protocol Last Admin: 06/01/18 09:14 Dose: 2 units Levetiracetam (Keppra) 500 mg PO Q12 [facility] Last Admin: 06/01/18 09:09 Dose: 500 mg Montelukast Sodium (Singulair) 10 mg PO HS [facility] Last Admin: 05/31/18 21:57 Dose: 10 mg Multivitamins/Minerals (Therapeutic-M Tab) 1 tab PO DAILY [facility] Last Admin: 06/01/18 09:11 Dose: 1 tab Fynhe-3-Clkc Ethyl Esters (Lovaza) 1 gm PO DAILY [facility] Last Admin: 06/01/18 09:12 Dose: 1 gm Ondansetron HCl (Zofran Inj) 4 mg IVP Q6H PRN PRN Reason: Nausea/Vomiting Pantoprazole Sodium (Protonix Ec Tab) 40 mg PO DAILY [facility] Last Admin: 06/01/18 09:09 Dose: 40 mg Potassium Chloride (Klor-Con 10) 10 meq PO DAILY [facility] Last Admin: 06/01/18 09:09 Dose: 10 meq - Labs Labs: 05/30/18 04:35 05/30/18 04:35 PT 10.8 Seconds (9.8-13.1) 05/24/18 10:00 INR 1.0 (0.9-1.2) 05/24/18 10:00 APTT 25.7 Seconds (25.6-37.1) 05/24/18 10:00 - Constitutional Appears: No Acute Distress - Head Exam Head Exam: NORMAL INSPECTION, NORMOCEPHALIC - Eye Exam Eye Exam: EOMI, Normal appearance Pupil : 2-3 mm reactive to light - ENT Exam ENT Exam: Mucous Membranes Dry, Normal External Ear Exam - Neck Exam Neck Exam: Full ROM. absent: Meningismus - Respiratory Exam Respiratory Exam: NORMAL BREATHING PATTERN. absent: Wheezes, Respiratory Distress - Cardiovascular Exam Cardiovascular Exam: REGULAR RHYTHM, +S1, +S2 - GI/Abdominal Exam GI & Abdominal Exam: Soft, Normal Bowel Sounds. absent: Tenderness - Extremities Exam Extremities Exam: Normal Capillary Refill. absent: Pedal Edema Additional comments: right arm swollen - Back Exam Back Exam: absent: CVA tenderness (L) - Neurological Exam Neurological Exam: Awake Neuro motor strength exam: Left Upper Extremity: 5, Right Upper Extremity: 0, Left Lower Extremity: 5, Right Lower Extremity: 0 Additional comments: speech slurred oriented to person and place follows simple commands R Facial droop Right hemiparesis - Psychiatric Exam Psychiatric exam: Flat Affect - Skin Skin Exam: Dry, Normal Color, Warm Assessment and Plan - Assessment and Plan (Free Text) Assessment: This is a 67 year old female with pmh of CVA in 2017, rheumatoid arthritis, hypertension, hypercholesterolemia, Obesity, Type 2 diabetes mellitus, who presented to the ED via EMS for stroke eval. The nephew, who lives with the patient, noted pt to abruptly fall and scream and noticed acute right sided upper and lower extremity weakness, slurred speech, and dysarthria. The patient was brought to the ED within an hour, Code stroke was called, and TPA administered. Dr. Hamilton, neurologist, was at bedside and examined the patient. CT head was performed and revealed no definite acute intracranial findings. Similarly CTA head was also performed and showed no significant stenosis. The patient was admitted to ICU post tPA for close monitoring and further workup. MRI of Brain :1. Large left MCA acute to subacute infarct is reiterated with small areas of restricted diffusion identified corresponding to the same distribution but more anteriorly at the left frontal lobe and more superiorly at the right parietal lobe. Stable mass effect. Trace hemorrhage is seen the left basal ganglia anteriorly potentially reflecting minimal hemorrhagic conversion. 1) Acute CVA, s/p TPA - Neurology consulted - following pt - Neuro checks q hour - Elevate HOB - Echocardiogram: normal - PT , OT and Speech consulted - cont ASA, Statin and Keppra - restart Plavix as rec by Neurology -Tolerating Pureed , Thin as rec bu Speech Tx - awaiting Insurance Authorization for d/c to Acute Rehab 2) Hypertension -cont Clonidine, Coreg, Norvasc - Hydralazine IV for BP greater than 180 systolic 3) Hypercholesterolemia - cont Lipitor 4) Type 2 DM - Lispro sliding scale with accuchecks q 4 hours - start Levemir 5) Asthma, mild intermittent - Continue Albuterol PRN for SOB - chronic 6) GERD - Protonix 40 mg IV daily for prophylaxis - chronic 7) RA - chronic, no evidence of acute attack 8) CKD stage III - likely has Stage III chronic kidney disease most likely due to diabetic nephropathy and/or uncontrolled hypertension - IVF hydration 9. Fall - right sided trauma -Elbow xray : no fracture -Hip xray: no fracture -Ortho consulted for R arm/elbow swelling- CT of the R upper Ext : no fracture 10) DVT prophylaxis - will discuss with Neuro if Lovenox can now be started ( trace hemorrhage basal ganglia seen on MRI )
[2018-06-01 16:34] VITALS: RESP 18
[2018-06-01] MEDS ORDERED: Insulin Detemir 100 Units/ml Inj SC SCH (22:00)
[2018-06-02 06:07] LABS: HEMOGLOBIN 10.2 g/dL (12.0-16.0); MEAN CELL VOLUME 93.8 fl (81.0-99.0); MEAN CORPUSCULAR HEMOGLOBIN 31.8 pg (27.0-31.0); MEAN CORPUSCULAR HGB CONC 33.9 g/dL (33.0-37.0); RBC 3.21 Mil/uL (3.80-5.20); RED CELL DISTRIBUTION WIDTH 14.2 % (11.5-14.5); WHITE BLOOD COUNT 12.3 K/uL (4.8-10.8)
[2018-06-02 06:08] LABS: CALCIUM 9.1 mg/dL (8.4-10.2)
--- NOTE | 2018-06-02 07:58 | CP.PCM.PN ---
Subjective - Date & Time of Evaluation Date of Evaluation: 06/02/18 Time of Evaluation: 07:58 - Subjective Subjective: Ms. Solo was seen and examined at the bedside. She further claims of experiencing headache early this morning, described at mild 2/10 ,located in her left parietal area, non radiating.She is alert, denies any headache, dizziness. She remains with right facial droop and right side paraplegia. She is able to follow some commands such as raising her bilateral left side extremities. She has the bilateral lower extremities SCD's. There was no untoward events overnight. Objective - Vital Signs/Intake and Output Vital Signs (last 24 hours): Temp Pulse Resp BP Pulse Ox 99 F 61 18 156/79 H 94 L 06/02/18 04:51 06/02/18 04:51 06/02/18 04:51 06/02/18 04:51 06/02/18 04:51 - Medications Medications: Current Medications Albuterol (Ventolin Hfa 90 Mcg/Actuation (8 G)) 2 puff IH Q12 PRN PRN Reason: Shortness of Breath Allopurinol (Zyloprim) 100 mg PO DAILY [facility] Last Admin: 06/01/18 09:12 Dose: 100 mg Amlodipine Besylate (Norvasc) 10 mg PO DAILY [facility] Last Admin: 06/01/18 09:13 Dose: 10 mg Aspirin (Aspirin Chewable) 81 mg PO DAILY [facility] Last Admin: 06/01/18 09:12 Dose: 81 mg Atorvastatin Calcium (Lipitor) 40 mg PO DAILY [facility] Last Admin: 06/01/18 09:12 Dose: 40 mg Carvedilol (Coreg) 12.5 mg PO Q12 [facility] Last Admin: 06/01/18 21:18 Dose: 12.5 mg Clonidine HCl (Catapres) 0.1 mg PO Q8 [facility] Last Admin: 06/02/18 00:42 Dose: 0.1 mg Clopidogrel Bisulfate (Plavix) 75 mg PO DAILY [facility] Last Admin: 05/26/18 08:17 Dose: 75 mg Hydralazine HCl (Apresoline) 10 mg IV Q4 PRN PRN Reason: for SBP > 170 Last Admin: 05/29/18 08:39 Dose: 10 mg Hydralazine HCl (Apresoline) 10 mg PO TID [facility] Insulin Detemir (Levemir) 10 units SC HS [facility] Last Admin: 06/01/18 21:19 Dose: 10 units Insulin Human Lispro (Humalog) 0 units SC QID [facility] PRN Reason: Protocol Last Admin: 06/01/18 21:19 Dose: Not Given Levetiracetam (Keppra) 500 mg PO Q12 [facility] Last Admin: 06/01/18 21:19 Dose: 500 mg Montelukast Sodium (Singulair) 10 mg PO HS [facility] Last Admin: 06/01/18 21:18 Dose: 10 mg Multivitamins/Minerals (Therapeutic-M Tab) 1 tab PO DAILY [facility] Last Admin: 06/01/18 09:11 Dose: 1 tab Iwrmm-6-Pryh Ethyl Esters (Lovaza) 1 gm PO DAILY [facility] Last Admin: 06/01/18 09:12 Dose: 1 gm Ondansetron HCl (Zofran Inj) 4 mg IVP Q6H PRN PRN Reason: Nausea/Vomiting Pantoprazole Sodium (Protonix Ec Tab) 40 mg PO DAILY [facility] Last Admin: 06/01/18 09:09 Dose: 40 mg Potassium Chloride (Klor-Con 10) 10 meq PO DAILY [facility] Last Admin: 06/01/18 09:09 Dose: 10 meq - Labs Labs: 06/02/18 04:20 06/02/18 04:20 PT 10.8 Seconds (9.8-13.1) 05/24/18 10:00 INR 1.0 (0.9-1.2) 05/24/18 10:00 APTT 25.7 Seconds (25.6-37.1) 05/24/18 10:00 - Constitutional Appears: No Acute Distress - Head Exam Head Exam: NORMAL INSPECTION - Neurological Exam Neurological Exam: Alert, Awake, Oriented x3 Neuro motor strength exam: Left Upper Extremity: 5, Right Upper Extremity: 0, Left Lower Extremity: 5, Right Lower Extremity: 0 Additional comments: neurological unchanged from previous examination. Assessment and Plan (1) Ischemic stroke Assessment & Plan: Case discussed with Dr. Brumfield, continue all current medical including aspirin, hold plavix for now,physical, occupational, and speech therapies. Recommend repeat CT scan of the head without contrast to monitor CVA, blood pressure and glycemic control, treat any electrolyte abnormalities, keep head of bed elevated at least 40 degrees, and acute rehab for discharge planning. Status: Acute
--- NOTE | 2018-06-02 08:52 | CP.PCM.PN ---
Objective - Vital Signs/Intake and Output Vital Signs (last 24 hours): Temp Pulse Resp BP Pulse Ox 98.6 F 68 18 156/81 H 96 06/02/18 08:22 06/02/18 08:22 06/02/18 08:22 06/02/18 08:22 06/02/18 08:22 - Medications Medications: Current Medications Albuterol (Ventolin Hfa 90 Mcg/Actuation (8 G)) 2 puff IH Q12 PRN PRN Reason: Shortness of Breath Allopurinol (Zyloprim) 100 mg PO DAILY [facility] Last Admin: 06/01/18 09:12 Dose: 100 mg Amlodipine Besylate (Norvasc) 10 mg PO DAILY [facility] Last Admin: 06/01/18 09:13 Dose: 10 mg Aspirin (Aspirin Chewable) 81 mg PO DAILY [facility] Last Admin: 06/01/18 09:12 Dose: 81 mg Atorvastatin Calcium (Lipitor) 40 mg PO DAILY [facility] Last Admin: 06/01/18 09:12 Dose: 40 mg Carvedilol (Coreg) 12.5 mg PO Q12 [facility] Last Admin: 06/01/18 21:18 Dose: 12.5 mg Clonidine HCl (Catapres) 0.1 mg PO Q8 [facility] Last Admin: 06/02/18 00:42 Dose: 0.1 mg Clopidogrel Bisulfate (Plavix) 75 mg PO DAILY [facility] Last Admin: 05/26/18 08:17 Dose: 75 mg Hydralazine HCl (Apresoline) 10 mg IV Q4 PRN PRN Reason: for SBP > 170 Last Admin: 05/29/18 08:39 Dose: 10 mg Hydralazine HCl (Apresoline) 10 mg PO TID [facility] Insulin Detemir (Levemir) 10 units SC [facility] Last Admin: 06/01/18 21:19 Dose: 10 units Insulin Human Lispro (Humalog) 0 units SC QID [facility] PRN Reason: Protocol Last Admin: 06/01/18 21:19 Dose: Not Given Levetiracetam (Keppra) 500 mg PO Q12 [facility] Last Admin: 06/01/18 21:19 Dose: 500 mg Montelukast Sodium (Singulair) 10 mg PO [facility] Last Admin: 06/01/18 21:18 Dose: 10 mg Multivitamins/Minerals (Therapeutic-M Tab) 1 tab PO DAILY [facility] Last Admin: 06/01/18 09:11 Dose: 1 tab Spezp-0-Ruid Ethyl Esters (Lovaza) 1 gm PO DAILY [facility] Last Admin: 06/01/18 09:12 Dose: 1 gm Ondansetron HCl (Zofran Inj) 4 mg IVP Q6H PRN PRN Reason: Nausea/Vomiting Pantoprazole Sodium (Protonix Ec Tab) 40 mg PO DAILY [facility] Last Admin: 06/01/18 09:09 Dose: 40 mg Potassium Chloride (Klor-Con 10) 10 meq PO DAILY [facility] Last Admin: 06/01/18 09:09 Dose: 10 meq - Labs Labs: 06/02/18 04:20 06/02/18 04:20 PT 10.8 Seconds (9.8-13.1) 05/24/18 10:00 INR 1.0 (0.9-1.2) 05/24/18 10:00 APTT 25.7 Seconds (25.6-37.1) 05/24/18 10:00
--- NOTE | 2018-06-02 10:29 | CT ---
PROCEDURE: CT HEAD WITHOUT CONTRAST. HISTORY: follow up small hemorrhage, CVA COMPARISON: CT head dated 05/27/2018. TECHNIQUE: Axial computed tomography images were obtained through the head/brain without intravenous contrast. Radiation dose: Total exam DLP = 1657.1 mGy-cm. This CT exam was performed using one or more of the following dose reduction techniques: Automated exposure control, adjustment of the mA and/or kV according to patient size, and/or use of iterative reconstruction technique. FINDINGS: HEMORRHAGE: No definite acute intracranial hemorrhage. BRAIN: Evolving large subacute left MCA territory infarction with decreased edema/mass effect and resolution of rightward subfalcine herniation. VENTRICLES: Mild mass-effect on the left anterior frontal and. No obstructive hydrocephalus. CALVARIUM: Unremarkable. PARANASAL SINUSES: Unremarkable as visualized. No significant inflammatory changes. MASTOID AIR CELLS: Unremarkable as visualized. No inflammatory changes. OTHER FINDINGS: None. IMPRESSION: Evolving large left subacute MCA territory infarction with decreased edema/mass effect and resolution of rightward subfalcine herniation.
[2018-06-02] MEDS: Potassium Chloride 10 mEq ER Tab PO SCH (10:54)
[2018-06-02] MEDS: Pantoprazole 40 mg EC Tab PO SCH (10:54)
[2018-06-02] MEDS: Multivitamin With Minerals Tab PO SCH (10:54)
[2018-06-02] MEDS: Omega-3-Acid Ethyl Esters 1 GM Cap PO SCH (10:56)
[2018-06-02] MEDS ORDERED: Insulin Detemir 100 Units/ml Inj SC SCH (11:32)
--- NOTE | 2018-06-02 11:35 | CP.PCM.DIS ---
Provider - Provider Date of Admission: 05/23/18 15:37 Attending physician: Brandon Palmer DO Primary care physician: Dr Holbrook Consults: Neurology : DR Hamilton/Octaviano Time Spent in preparation of Discharge (in minutes): 30 Diagnosis - Discharge Diagnosis (1) Ischemic stroke Status: Acute (2) Elbow contusion Status: Acute (3) Diabetes mellitus Status: Chronic (4) Hypertension Status: Chronic Hospital Course - Lab Results Lab Results: Micro Results 05/30/18 07:33 Naris MRSA Culture (Admit) - Final MRSA NOT DETECTED 05/23/18 23:45 Naris MRSA Culture (Admit) - Final MRSA NOT DETECTED Most Recent Lab Values WBC 12.3 K/uL (4.8-10.8) H 06/02/18 04:20 RBC 3.21 Mil/uL (3.80-5.20) L 06/02/18 04:20 Hgb 10.2 g/dL (12.0-16.0) L 06/02/18 04:20 Hct 30.1 % (34.0-47.0) L 06/02/18 04:20 MCV 93.8 fl (81.0-99.0) 06/02/18 04:20 MCH 31.8 pg (27.0-31.0) H 06/02/18 04:20 MCHC 33.9 g/dL (33.0-37.0) 06/02/18 04:20 RDW 14.2 % (11.5-14.5) 06/02/18 04:20 Plt Count 399 K/uL (130-400) 06/02/18 04:20 MPV 7.8 fl (7.2-11.7) 05/30/18 04:35 Neut % (Auto) 68.8 % (50.0-75.0) 05/30/18 04:35 Lymph % (Auto) 19.9 % (20.0-40.0) L 05/30/18 04:35 [place] % (Auto) 8.4 % (0.0-10.0) 05/30/18 04:35 Eos % (Auto) 2.2 % (0.0-4.0) 05/30/18 04:35 Baso % (Auto) 0.7 % (0.0-2.0) 05/30/18 04:35 Neut # (Auto) 7.7 K/uL (1.8-7.0) H 05/30/18 04:35 Lymph # (Auto) 2.2 K/uL (1.0-4.3) 05/30/18 04:35 [place] # (Auto) 0.9 K/uL (0.0-0.8) H 05/30/18 04:35 Eos # (Auto) 0.2 K/uL (0.0-0.7) 05/30/18 04:35 Baso # (Auto) 0.1 K/uL (0.0-0.2) 05/30/18 04:35 ESR 105 mm/hr (0-30) H 05/26/18 04:40 PT 10.8 Seconds (9.8-13.1) 05/24/18 10:00 INR 1.0 (0.9-1.2) 05/24/18 10:00 APTT 25.7 Seconds (25.6-37.1) 05/24/18 10:00 Lupus Anticoagulant see note 05/26/18 04:40 LA PTT Screen 41 sec (<=40) H 05/26/18 04:40 dRVVT Mixing Study 42 sec (<=45) 05/26/18 04:40 dRVVT Mix Interpret Not indicated 05/26/18 04:40 Hexagonal Phase Confirm Negative (Negative) 05/26/18 04:40 Sodium 139 mmol/l (132-148) 06/02/18 04:20 Potassium 4.1 MMOL/L (3.6-5.0) 06/02/18 04:20 Chloride 99 mmol/L (98-107) 06/02/18 04:20 Carbon Dioxide 29 mmol/L (22-30) 06/02/18 04:20 Anion Gap 15 (10-20) 06/02/18 04:20 BUN 39 mg/dl (7-17) H 06/02/18 04:20 Creatinine 1.5 mg/dl (0.7-1.2) H 06/02/18 04:20 Est GFR ( Amer) 42 06/02/18 04:20 Est GFR (Non-Af Amer) 35 06/02/18 04:20 POC Glucose (mg/dL) 310 mg/dL (65-110) H 06/02/18 11:08 Random Glucose 158 mg/dL (65-105) H 06/02/18 04:20 Hemoglobin A1c 6.8 % (4.2-6.5) H 05/23/18 15:00 Calcium 9.1 mg/dL (8.4-10.2) 06/02/18 04:20 Phosphorus 3.7 mg/dl (2.5-4.5) 05/26/18 04:40 Magnesium 2.4 MG/DL (1.6-2.3) H 05/26/18 04:40 Total Bilirubin 0.7 mg/dl (0.2-1.3) 05/26/18 04:40 AST 31 U/L (14-36) 05/26/18 04:40 ALT 22 U/L (9-52) 05/26/18 04:40 Alkaline Phosphatase 71 U/L (38-126) 05/26/18 04:40 Troponin I 0.0320 ng/mL (0.00-0.120) 05/23/18 15:00 C-React Prot High Sens > 15.00 mg/L (1.00-3.00) H 05/26/18 04:40 Total Protein 8.2 G/DL (6.3-8.2) 05/26/18 04:40 Albumin 4.3 g/dL (3.5-5.0) 05/26/18 04:40 Globulin 3.9 gm/dL (2.2-3.9) 05/26/18 04:40 Albumin/Globulin Ratio 1.1 (1.0-2.1) 05/26/18 04:40 Triglycerides 178 mg/DL (0-149) H 05/23/18 15:00 Cholesterol 200 mg/dL (0-199) H 05/23/18 15:00 LDL Cholesterol Direct 119 mg/dL (0-129) 05/23/18 15:00 HDL Cholesterol 29 MG/DL (30-70) L 05/23/18 15:00 Vitamin B12 918 pg/mL (239-931) 05/26/18 04:40 25-OH Vitamin D Total 32.5 NG/ML (30.0-100.0) 05/26/18 04:40 Folate > 20.0 ng/mL 05/26/18 04:40 Homocysteine 20.3 umol/L ( <10.4) H 05/26/18 04:40 TSH 3rd Generation 1.82 mIU/ML (0.46-4.68) 05/24/18 10:00 Prothrombin Mut Interp see note 05/26/18 04:40 Prothrombin Gene Mutate see note 05/26/18 04:40 Prothromb Gene Review see note 05/26/18 04:40 Blood Type O POSITIVE 05/24/18 13:20 Antibody Screen Negative 05/24/18 13:20 BBK History Checked Patient has bt 05/24/18 13:20 - Hospital Course Hospital Course: This is a 67 year old female with pmh of CVA in 2017, rheumatoid arthritis, hypertension, hypercholesterolemia, Obesity, Type 2 diabetes mellitus, who presented to the ED via EMS for stroke eval. The nephew, who lives with the patient, noted pt to abruptly fall and scream and noticed acute right sided upper and lower extremity weakness, slurred speech, and dysarthria. The patient was brought to the ED within an hour, Code stroke was called, and TPA administered. Dr. Hamilton, neurologist, was at bedside and examined the patient. CT head was performed and revealed no definite acute intracranial findings. Similarly CTA head was also performed and showed no significant stenosis. The patient was admitted to ICU post tPA for close monitoring and further workup. MRI of Brain :1. Large left MCA acute to subacute infarct is reiterated with small areas of restricted diffusion identified corresponding to the same distribution but more anteriorly at the left frontal lobe and more superiorly at the right parietal lobe. Stable mass effect. Trace hemorrhage is seen the left basal ganglia anteriorly potentially reflecting minimal hemorrhagic conversion. 1) Acute CVA, s/p TPA - Neurology consulted - Neuro checks q hour - Elevate HOB - Echocardiogram: normal - PT , OT and Speech consulted - cont ASA, Statin and Keppra - Hold Plavix as rec by Neurology -Tolerating Pureed , Thin as rec bu Speech Tx - d/c to Acute Rehab 2) Hypertension -cont Clonidine, Coreg, Norvasc - add Po Hydralazine 10 mg tid - Hydralazine IV for BP greater than 180 systolic 3) Hypercholesterolemia - cont Lipitor 4) Type 2 DM - Lispro sliding scale with accuchecks q ACHS - Increase Levemir 15 q hs 5) Asthma, mild intermittent - Continue Albuterol PRN for SOB - chronic 6) GERD - Protonix 40 mg IV daily for prophylaxis - chronic 7) RA - chronic, no evidence of acute attack 8) CKD stage III - likely has Stage III chronic kidney disease most likely due to diabetic nephropathy and/or uncontrolled hypertension - IVF hydration 9. Fall - right sided trauma -Elbow xray : no fracture -Hip xray: no fracture -Ortho consulted for R arm/elbow swelling- CT of the R upper Ext : no fracture 10) DVT prophylaxis - hold for now as discussed with Neuro ( trace hemorrhage basal ganglia seen on MRI ) Discharge Exam - Head Exam Head Exam: NORMAL INSPECTION, NORMOCEPHALIC - Eye Exam Additional comments: pupils 2-3 mll RTL - ENT Exam ENT Exam: Mucous Membranes Moist, Normal External Ear Exam - Neck Exam Neck exam: Full Rom - Respiratory Exam Respiratory Exam: NORMAL BREATHING PATTERN. absent: Respiratory Distress - Cardiovascular Exam Cardiovascular Exam: REGULAR RHYTHM, +S1, +S2 - GI/Abdominal Exam GI & Abdominal Exam: Normal Bowel Sounds, Soft. absent: Tenderness - Extremities Exam Extremities exam: normal capillary refill, pedal pulses present Additional comments: RUE edema - Back Exam Back exam: absent: CVA tenderness (L), CVA tenderness (R) - Neurological Exam Neurological exam: Alert, Oriented x3 Additional comments: Right sided weakness speech slurred but comprehensible - Psychiatric Exam Psychiatric exam: Flat Affect - Skin Skin Exam: Dry, Normal Color, Warm Discharge Plan - Follow Up Plan Condition: STABLE Disposition: REHAB FACILITY/REHAB UNIT Additional Instructions: d/c pt to Acute Rehab Clinical Quality Measures - CQM - Stroke Antithrombotic Prescribed: Yes Anticoagulation Prescribed for Atrial Flutter, Atrial Fibrillation and History of:: Not Applicable Statin prescribed: Yes
[2018-06-02 12:35] VITALS: O2SAT 95
[2018-06-02] MEDS: Insulin Lispro (humaLOG) 100 Units/ml Inj SC SCH ×3 (14:51→17:45)
[2018-06-02 16:56] VITALS: BP 141/77; PULSE 76; TEMP 98.6
== END 2018-06-02 18:30 | DRG 62 ==
LOC: H.ER 14:36 → H.ERHOLD 15:37 → H.ICU/CCU 19:11 → H.TEL 05-30 18:37
PROVIDERS: ADMIT Internal Medicine; ATTEND Internal Medicine
PROC: 3E03317 Introduction of Other Thrombolytic into Peripheral Vein, Percutaneous Approach (ICD-10-PCS; principal; 2018-05-23)
PROC: 0T9B70Z Drainage of Bladder with Drainage Device, Via Natural or Artificial Opening (ICD-10-PCS; 2018-05-23)
DX: I63.512 Cerebral infarction due to unspecified occlusion or stenosis of left middle cerebral artery (principal); G81.91 Hemiplegia, unspecified affecting right dominant side; N17.9 Acute kidney failure, unspecified; L03.90 Cellulitis, unspecified; Z79.82 Long term (current) use of aspirin; M06.9 Rheumatoid arthritis, unspecified; E78.00 Pure hypercholesterolemia, unspecified; S50.01XA Contusion of right elbow, initial encounter; W19.XXXA Unspecified fall, initial encounter; Z90.710 Acquired absence of both cervix and uterus; F17.210 Nicotine dependence, cigarettes, uncomplicated; Z86.73 Personal history of transient ischemic attack (TIA), and cerebral infarction without residual deficits; E66.9 Obesity, unspecified; I12.9 Hypertensive chronic kidney disease with stage 1 through stage 4 chronic kidney disease, or unspecified chronic kidney disease; E11.22 Type 2 diabetes mellitus with diabetic chronic kidney disease; N18.3 Chronic kidney disease, stage 3 (moderate); Z79.02 Long term (current) use of antithrombotics/antiplatelets; Z79.84 Long term (current) use of oral hypoglycemic drugs; Z79.899 Other long term (current) drug therapy; J45.20 Mild intermittent asthma, uncomplicated; K21.9 Gastro-esophageal reflux disease without esophagitis; R47.01 Aphasia

== ENCOUNTER 2018-06-02 18:51 | Inpatient (IN) | payer MEDICARE, OTHER ==
[2018-06-02 18:53] VITALS: BMI 32.3
--- NOTE | 2018-06-02 19:03 | CP.PCM.CON ---
History of Present Illness - History of Present Illness History of Present Illness: Dr Kothari PMR consultation on Alexus Solo, born 1950, who has been admitted to [facility] for acute inpatient rehabilitation following a left CVA with right HP. Right facial droop. Multiple risk factors including smoking. +HTN, CRI, HLD, DM. She is right hand dominant Review of Systems - Constitutional Constitutional: absent: Anorexia - EENT Eyes: absent: Change in Vision Ears: absent: Decreased Hearing Nose/Mouth/Throat: absent: Nasal Congestion - Cardiovascular Cardiovascular: absent: Chest Pain - Respiratory Respiratory: absent: Dyspnea - Gastrointestinal Gastrointestinal: absent: Abdominal Pain Past Patient History - Infectious Disease Hx of Infectious Diseases: None - Past Medical History & Family History Past Medical History?: Yes - Past Social History Smoking Status: Heavy Smoker > 10 Cigarettes Daily Drugs: Denies Home Situation {Lives}: With Family (+ steps) - CARDIAC Hx Hypercholesterolemia: Yes Hx Hypertension: Yes - PULMONARY Hx Chronic Obstructive Pulmonary Disease (COPD): No (pt denies) - NEUROLOGICAL Hx Neurological Disorder: No - HEENT Hx HEENT Problems: No - RENAL Hx Chronic Kidney Disease: No - ENDOCRINE/METABOLIC Hx Endocrine Disorders: Yes Hx Diabetes Mellitus Type 2: Yes - HEMATOLOGICAL/ONCOLOGICAL Hx Blood Disorders: No - INTEGUMENTARY Hx Dermatological Problems: No - MUSCULOSKELETAL/RHEUMATOLOGICAL Hx Rheumatoid Arthritis: Yes - GASTROINTESTINAL Hx Gastrointestinal Disorders: No - GENITOURINARY/GYNECOLOGICAL Hx Genitourinary Disorders: No - PSYCHIATRIC Hx Substance Use: No - SURGICAL HISTORY Hx Surgeries: Yes Hx Hysterectomy: Yes Hx Orthopedic Surgery: Yes (B/L foot) - ANESTHESIA Hx Anesthesia: Yes Hx Anesthesia Reactions: No Hx Malignant Hyperthermia: No Meds Allergies/Adverse Reactions: Allergies Allergy/AdvReac Type Severity Reaction Status Date / Time No Known Allergies Allergy Verified 07/04/17 10:02 Physical Exam - Constitutional Appears: Non-toxic - Head Exam Head Exam: ATRAUMATIC, NORMAL INSPECTION, NORMOCEPHALIC (right facial droop) - Eye Exam Eye Exam: EOMI - ENT Exam ENT Exam: Mucous Membranes Moist - Respiratory Exam Respiratory Exam: NORMAL BREATHING PATTERN - Cardiovascular Exam Cardiovascular Exam: REGULAR RHYTHM - Neurological Exam Neurological exam: Alert, Oriented x3 - Psychiatric Exam Psychiatric exam: Flat Affect, Normal Mood - Skin Skin Exam: Dry, Warm Assessment & Plan - Assessment and Plan (Free Text) Assessment: left CVA right HP multiple risk factors including tobacco use PT/OT to continue to help increase functional independence Team conference for d/c planning Pain: controlled Vascular: no evidence of DVT GI: No evidence of constipation or diarrhea Patient is an excellent acute rehabilitation candidate and will have focused speech, PT, OT and recreational therapy to help facilitate a safe and appropriate d/c plan Impairment code 01.2
--- NOTE | 2018-06-02 19:12 | PCM.OPOC ---
Physiatry Overall Plan of Care - Overall Plan of Care Estimated Length of Stay in Weeks: 3 Rehab Impairment: Mobility, Gait, Speech, Balance, Coordination Etiologic Diagnosis: Cerebrovascular Accident Rehab/Medical Prognosis: Guarded - Anticipated Interventions Physical Therapy:: Yes Occupational Therapy:: Yes Speech Therapy:: Yes Recreational Therapy:: Yes - Therapy Goals Bed Mobility: Contact Guard Ambulation: Minimal Assistance Functional Positional Changes:: Contact Guard - Discharge Plan Identification of Barriers to Discharge: Home Situation Discharge Destination: Subacute
[2018-06-02] MEDS: Insulin Detemir 100 Units/ml Inj SC SCH (21:45)
[2018-06-02] MEDS: Insulin Lispro (humaLOG) 100 Units/ml Inj SC SCH (21:46)
[2018-06-03 06:33] LABS: BASO # 0.1 K/uL (0.0-0.2); BASO % 0.9 % (0.0-2.0); EOS # 0.3 K/uL (0.0-0.7); EOS % 2.2 % (0.0-4.0); HEMOGLOBIN 10.4 g/dL (12.0-16.0); LYMPH # 2.4 K/uL (1.0-4.3); LYMPH % 19.5 % (20.0-40.0); MEAN CELL VOLUME 92.6 fl (81.0-99.0); MEAN CORPUSCULAR HEMOGLOBIN 31.8 pg (27.0-31.0); MEAN CORPUSCULAR HGB CONC 34.3 g/dL (33.0-37.0); MEAN PLATELET VOLUME 7.8 fl (7.2-11.7); MONO # 1.4 K/uL (0.0-0.8); MONO % 11.4 % (0.0-10.0); NEUT # 8.2 K/uL (1.8-7.0); RBC 3.27 Mil/uL (3.80-5.20); RED CELL DISTRIBUTION WIDTH 14.1 % (11.5-14.5); WHITE BLOOD COUNT 12.4 K/uL (4.8-10.8)
[2018-06-03 06:37] LABS: CALCIUM 9.1 mg/dL (8.4-10.2)
[2018-06-03] MEDS: Insulin Lispro (humaLOG) 100 Units/ml Inj SC SCH ×4 (07:20→21:25)
[2018-06-03] MEDS ORDERED: Patient's Own Med (Multivitamin/Iron/Folic Acid [Centrum Complete Multivit Tab] 1 TAB) PO SCH (09:00)
[2018-06-03] MEDS: Albuterol HFA 90 mcg/actuation (8 g) IH PRN (09:07)
[2018-06-03] MEDS: Multivitamin With Minerals Tab PO SCH (09:10)
[2018-06-03] MEDS: Omega-3-Acid Ethyl Esters 1 GM Cap PO SCH (09:12)
[2018-06-03] MEDS: Pantoprazole 40 mg EC Tab PO SCH (12:15)
--- NOTE | 2018-06-03 12:46 | CP.PCM.HP ---
History of Present Illness - History of Present Illness History of Present Illness: 67 yo female with history of RA, HTN HLD, DM2 and previous CVA was brought to the ER following a fall and right sided weakness accompanied with slurred speech. Code stroke was called and TPA administered. Initial CT scan did not show any significant findings. Patient was admitted in ICU where MRI done later showed large left MCA infarct. Hemorrhagic conversion also noted on the left basal ganglia. She was later transferred to Acute Rehab for further management and therapy. Present on Admission - Present on Admission Any Indicators Present on Admission: No History of DVT/PE: No History of Uncontrolled Diabetes: No Urinary Catheter: No Decubitus Ulcer Present: No Review of Systems - Review of Systems All systems: reviewed and no additional remarkable complaints except (aside from those mentioned above, 12 point system review were negative by me) Past Patient History - Infectious Disease Hx of Infectious Diseases: None - Tetanus Immunizations Tetanus Immunization: Unknown - Past Medical History & Family History Past Medical History?: Yes - Past Social History Smoking Status: Heavy Smoker > 10 Cigarettes Daily Chewing Tobacco Use: No Cigar Use: No Alcohol: None Drugs: Denies Home Situation {Lives}: With Family - CARDIAC Hx Hypercholesterolemia: Yes Hx Hypertension: Yes - PULMONARY Hx Respiratory Disorders: Yes Hx Asthma: Yes - NEUROLOGICAL Hx Neurological Disorder: Yes HX Cerebrovascular Accident: Yes (Hx. CVA 2016) - HEENT Hx HEENT Problems: No Other/Comment: wear glasses for reading - RENAL Hx Chronic Kidney Disease: Yes Other/Comment: Hx. CKD stage 3 - ENDOCRINE/METABOLIC Hx Diabetes Mellitus Type 2: Yes - HEMATOLOGICAL/ONCOLOGICAL Hx Blood Disorders: No - INTEGUMENTARY Hx Dermatological Problems: No - MUSCULOSKELETAL/RHEUMATOLOGICAL Hx Rheumatoid Arthritis: Yes - GASTROINTESTINAL Hx Gastrointestinal Disorders: No - GENITOURINARY/GYNECOLOGICAL Hx Genitourinary Disorders: No - PSYCHIATRIC Hx Substance Use: No - SURGICAL HISTORY Hx Surgeries: Yes Hx Hysterectomy: Yes Hx Orthopedic Surgery: Yes (B/L foot) - ANESTHESIA Hx Anesthesia: Yes Hx Anesthesia Reactions: No Hx Malignant Hyperthermia: No Meds Allergies/Adverse Reactions: Allergies Allergy/AdvReac Type Severity Reaction Status Date / Time No Known Allergies Allergy Verified 07/04/17 10:02 Physical Exam - Constitutional Appears: No Acute Distress - Head Exam Head Exam: ATRAUMATIC - Eye Exam Eye Exam: absent: Scleral icterus - ENT Exam ENT Exam: Mucous Membranes Moist - Neck Exam Neck exam: Negative for: Meningismus - Respiratory Exam Respiratory Exam: absent: Rales, Rhonchi, Wheezes, Respiratory Distress - Cardiovascular Exam Cardiovascular Exam: REGULAR RHYTHM, +S1, +S2 - GI/Abdominal Exam GI & Abdominal Exam: Soft. absent: Tenderness - Rectal Exam Rectal Exam: Deferred - Neurological Exam Neurological exam: Altered (lethargic but easily arousable and responsive to verbal questions) - Psychiatric Exam Psychiatric exam: Normal Affect - Skin Skin Exam: Dry, Intact Results - Vital Signs Recent Vital Signs: Last Vital Signs Temp 97.2 F L 06/03/18 09:54 Pulse 72 06/03/18 09:54 Resp 20 06/03/18 09:54 BP 144/70 06/03/18 09:54 Pulse Ox 98 06/03/18 09:54 - Labs Result Diagrams: 06/03/18 05:15 06/03/18 05:15 Labs: Laboratory Results - last 24 hr 06/03/18 06/03/18 06/03/18 05:15 05:15 05:38 WBC 12.4 H RBC 3.27 L Hgb 10.4 L Hct 30.3 L MCV 92.6 MCH 31.8 H MCHC 34.3 RDW 14.1 Plt Count 441 H MPV 7.8 Neut % (Auto) 66.0 Lymph % (Auto) 19.5 L [place] % (Auto) 11.4 H Eos % (Auto) 2.2 Baso % (Auto) 0.9 Neut # (Auto) 8.2 H Lymph # (Auto) 2.4 [place] # (Auto) 1.4 H Eos # (Auto) 0.3 Baso # (Auto) 0.1 Sodium 139 Potassium 3.9 Chloride 98 Carbon Dioxide 31 H Anion Gap 14 BUN 41 H Creatinine 1.4 H Est GFR ( Amer) 46 Est GFR (Non-Af Amer) 38 POC Glucose (mg/dL) 163 H Random Glucose 153 H Calcium 9.1 06/03/18 11:29 WBC RBC Hgb Hct MCV MCH MCHC RDW Plt Count MPV Neut % (Auto) Lymph % (Auto) [place] % (Auto) Eos % (Auto) Baso % (Auto) Neut # (Auto) Lymph # (Auto) [place] # (Auto) Eos # (Auto) Baso # (Auto) Sodium Potassium Chloride Carbon Dioxide Anion Gap BUN Creatinine Est GFR ( Amer) Est GFR (Non-Af Amer) POC Glucose (mg/dL) 244 H Random Glucose Calcium Assessment & Plan - Assessment and Plan (Free Text) Assessment: 67 yo female with history of RA, HTN HLD, DM2 and previous CVA was brought to the ER following a fall and right sided weakness accompanied with slurred speech. Code stroke was called and TPA administered. Initial CT scan did not show any significant findings. Patient was admitted in ICU where MRI done later showed large left MCA infarct. Hemorrhagic conversion also noted on the left basal ganglia. She was later transferred to Acute Rehab for further management and therapy. 1. Acute CVA, s/p TPA had hemorrhagic conversion continue PT/OT/ST continue ASA, statin and Keppra appeared sleepy 2. Hypertension DC Clonidine because of sleepiness continue Coreg, Norvasc and Hydralazine 3. Hypercholesterolemia cont Lipitor 4. Type 2 DM Lispro sliding scale with accuchecks on Levemir 15 units SC HS 5. Asthma, mild intermittent Continue Albuterol PRN for SOB chronic 7. CKD stage III likely due to diabetic nephropathy and/or uncontrolled hypertension renal consult
--- NOTE | 2018-06-03 13:09 | PSY.TMCNF ---
Nursing - Vital Signs Vital Signs (Last 8 hours): Vital Signs 06/03/18 06/03/18 06/03/18 05:50 06:30 09:00 Temperature Pulse Rate 69 68 78 Respiratory Rate Blood Pressure 150/70 145/70 159/70 H O2 Sat by Pulse Oximetry 06/03/18 06/03/18 06/03/18 09:07 09:09 09:54 Temperature 97.2 F L Pulse Rate 78 78 72 Respiratory 20 Rate Blood Pressure 156/70 H 159/70 H 144/70 O2 Sat by Pulse 98 Oximetry - Medications/Other Issues Comment: Pt is at moderate nutrition risk. Goals-. 1: Tolerate diet and consume >75% of meals. 2: Maintain wt within 2-3 lbs. of current wt. Follow- up assessment due by 06/10/2018. - Bladder Management Bladder Pattern: Incontinent - Bowel Management Bowel Pattern: Incontinent - Patient/Family Teaching Comments: N/A Physical Therapy - Assessment/Plan Assessment: Alexus Solo presents with 1.) moderate dysarthria characterized by R facial weakness resulting in impaired articulatory precision and intelligibility; 2.) mild-moderate receptive/expressive aphasia characterized by impaired direction following, ability to answer more complex yes/no and open ended questions, and impaired word retrieval; 3.) moderate cognitive deficits characterized by impaired temporal orientation, short-term recall, problem solving, and insight; and 4.) moderate oral dysphagia characterized by R facial droop with impaired labial seal resulting in anterior spillage of thin liquids via cup (though much improved oral containment observed with straw sips) and impaired mastication and bolus transit of solids with R oral pocketing of finely chopped solids (pt unaware of oral stasis); pt with impaired bolus formation with bite-sized solids with need for manual removal from oral cavity. Pharyngeally, pt demonstrated timely swallow initiation with appropriate laryngeal elevation and no overt s/s aspiration on PO trials tested; however, pt is at risk for aspiration secondary to oral deficits. Recommend diet advancement to pureed solids and thin liquids; maintain aspiration precautions; 1:1 supervision with meals to enforce pt compliance with safe swallow strategies. Pt would benefit from speech and dysphagia tx with VitalStim (NMES) modality 3-5x/week for improved swallow function and communicative effectiveness. - Provider License Number: [id number] Occupational Therapy - Arousal/Attention/Orientation Patient Orientation: Person, Place, Appropriate to Age - ADL/IADL Self Feeding: Minimal Assistance Grooming: Maximum Assistance Bathing-Upper Extremity: Dependent Bathing-Lower Extremity: Dependent Dressing-Upper Extremity: Dependent Dressing-Lower Extremity: Dependent - Assessment/Plan Assessment: Alexus Solo presents with 1.) moderate dysarthria characterized by R facial weakness resulting in impaired articulatory precision and intelligibility; 2.) mild-moderate receptive/expressive aphasia characterized by impaired direction following, ability to answer more complex yes/no and open ended questions, and impaired word retrieval; 3.) moderate cognitive deficits characterized by impaired temporal orientation, short-term recall, problem solving, and insight; and 4.) moderate oral dysphagia characterized by R facial droop with impaired labial seal resulting in anterior spillage of thin liquids via cup (though much improved oral containment observed with straw sips) and impaired mastication and bolus transit of solids with R oral pocketing of finely chopped solids (pt unaware of oral stasis); pt with impaired bolus formation with bite-sized solids with need for manual removal from oral cavity. Pharyngeally, pt demonstrated timely swallow initiation with appropriate laryngeal elevation and no overt s/s aspiration on PO trials tested; however, pt is at risk for aspiration secondary to oral deficits. Recommend diet advancement to pureed solids and thin liquids; maintain aspiration precautions; 1:1 supervision with meals to enforce pt compliance with safe swallow strategies. Pt would benefit from speech and dysphagia tx with VitalStim (NMES) modality 3-5x/week for improved swallow function and communicative effectiveness. Speech Therapy - Consult Information Patient on Program: Yes Medical Diagnosis: CVA Treatment Diagnosis: -moderate dysarthria. -mild-moderate receptive/expressive aphasia. -moderate cognitive deficits. -moderate oral dysphagia - Assessment Expressive Language Impairment: Moderate Receptive Language Impairment: Moderate Problem Solving Impairment: Mild Memory Impairment: Moderate Speech/Articulation Impairment: Moderate Dysphagia/Swallowing Impairment: Moderate - Plan Assessment: Alexus Solo presents with 1.) moderate dysarthria characterized by R facial weakness resulting in impaired articulatory precision and intelligibility; 2.) mild-moderate receptive/expressive aphasia characterized by impaired direction following, ability to answer more complex yes/no and open ended questions, and impaired word retrieval; 3.) moderate cognitive deficits characterized by impaired temporal orientation, short-term recall, problem solving, and insight; and 4.) moderate oral dysphagia characterized by R facial droop with impaired labial seal resulting in anterior spillage of thin liquids via cup (though much improved oral containment observed with straw sips) and impaired mastication and bolus transit of solids with R oral pocketing of finely chopped solids (pt unaware of oral stasis); pt with impaired bolus formation with bite-sized solids with need for manual removal from oral cavity. Pharyngeally, pt demonstrated timely swallow initiation with appropriate laryngeal elevation and no overt s/s aspiration on PO trials tested; however, pt is at risk for aspiration secondary to oral deficits. Recommend diet advancement to pureed solids and thin liquids; maintain aspiration precautions; 1:1 supervision with meals to enforce pt compliance with safe swallow strategies. Pt would benefit from speech and dysphagia tx with VitalStim (NMES) modality 3-5x/week for improved swallow function and communicative effectiveness. Plan: Continue Dysphagia Therapy, Continue Speech/Language Therapy Frequency: 3-5 times per week Duration: 1 week Goals/Timeframe: Please see IE dated 06/03/18 for complete goals/POC Recommendations: -Speech and dysphagia tx 3-5x/week with VitalStim. -puree diet with thin liquids - Provider Therapist: Emani Tee License Number: [id number] Recreational Therapy - Assessment Assessment/Plan: Alexus Solo presents with 1.) moderate dysarthria characterized by R facial weakness resulting in impaired articulatory precision and intelligibility; 2.) mild-moderate receptive/expressive aphasia characterized by impaired direction following, ability to answer more complex yes/no and open ended questions, and impaired word retrieval; 3.) moderate cognitive deficits characterized by impaired temporal orientation, short-term recall, problem solving, and insight; and 4.) moderate oral dysphagia characterized by R facial droop with impaired labial seal resulting in anterior spillage of thin liquids via cup (though much improved oral containment observed with straw sips) and impaired mastication and bolus transit of solids with R oral pocketing of finely chopped solids (pt unaware of oral stasis); pt with impaired bolus formation with bite-sized solids with need for manual removal from oral cavity. Pharyngeally, pt demonstrated timely swallow initiation with appropriate laryngeal elevation and no overt s/s aspiration on PO trials tested; however, pt is at risk for aspiration secondary to oral deficits. Recommend diet advancement to pureed solids and thin liquids; maintain aspiration precautions; 1:1 supervision with meals to enforce pt compliance with safe swallow strategies. Pt would benefit from speech and dysphagia tx with VitalStim (NMES) modality 3-5x/week for improved swallow function and communicative effectiveness. Nutrition - Current Diet Current Diet/ Supplement/ Feedings: Moderate consistent CHO, heart healthy, pureed diet with thin liquids. - Appetite Percent Meal Consumed: 75-100% - Comments Comments: N/A - Assessment/Goals/Time Frame Assessment/Goals/Time Frame: Pt is at moderate nutrition risk. Goals-. 1: Tolerate diet and consume >75% of meals. 2: Maintain wt within 2-3 lbs. of current wt. Follow-up assessment due by 06/10/2018. - Provider Provider: Addie De La Fuente MS, RD Rehabilitation Plan - Treatment Plan Treatment Plan: Physical Therapy, Occupational Therapy, Speech, Dietary, Patient /Family Education - Discharge Plan Discharge to: Subacute
--- NOTE | 2018-06-03 13:42 | CP.PCM.PN ---
Subjective - Date & Time of Evaluation Date of Evaluation: 06/03/18 Time of Evaluation: 13:41 - Subjective Subjective: Patient seen in the room with family present denies sob/cp + facial droop dense HP getting evals done in therapies today will re-evaluate next week Objective - Vital Signs/Intake and Output Vital Signs (last 24 hours): Temp Pulse Resp BP Pulse Ox 97.2 F L 72 20 144/70 98 06/03/18 09:54 06/03/18 09:54 06/03/18 09:54 06/03/18 09:54 06/03/18 09:54 - Medications Medications: Current Medications Albuterol (Ventolin Hfa 90 Mcg/Actuation (8 G)) 2 puff IH Q12 PRN PRN Reason: Shortness of Breath Last Admin: 06/03/18 09:07 Dose: 2 puff Allopurinol (Zyloprim) 100 mg PO DAILY [facility] Last Admin: 06/03/18 09:10 Dose: 100 mg Amlodipine Besylate (Norvasc) 10 mg PO DAILY [facility] Last Admin: 06/03/18 09:07 Dose: 10 mg Aspirin (Aspirin Chewable) 81 mg PO DAILY [facility] Last Admin: 06/03/18 09:11 Dose: 81 mg Atorvastatin Calcium (Lipitor) 40 mg PO DAILY [facility] Last Admin: 06/03/18 09:10 Dose: 40 mg Carvedilol (Coreg) 25 mg PO Q12 [facility] Last Admin: 06/03/18 09:09 Dose: 25 mg Hydralazine HCl (Apresoline) 25 mg PO Q8 [facility] Insulin Detemir (Levemir) 15 units SC [facility] Last Admin: 06/02/18 21:45 Dose: 15 units Insulin Human Lispro (Humalog) [address] [facility] PRN Reason: Protocol Last Admin: 06/03/18 12:12 Dose: 2 unit Levetiracetam (Keppra) 500 mg PO Q12 [facility] Last Admin: 06/03/18 09:08 Dose: 500 mg Montelukast Sodium (Singulair) 10 mg PO HS [facility] Last Admin: 06/02/18 21:44 Dose: 10 mg Multivitamins/Minerals (Therapeutic-M Tab) 1 tab PO DAILY [facility] Last Admin: 06/03/18 09:10 Dose: 1 tab [id number] Ethyl Esters (Lovaza) 1 gm PO DAILY [facility] Last Admin: 06/03/18 09:12 Dose: 1 gm Pantoprazole Sodium (Protonix Ec Tab) 40 mg PO DAILY [facility] Last Admin: 06/03/18 12:15 Dose: 40 mg - Labs Labs: 06/03/18 05:15 06/03/18 05:15
[2018-06-03 17:14] LABS: SQUAMOUS EPITHIAL 4 /hpf (0-5); URINE BILIRUBIN NEGATIVE (NEGATIVE); URINE BLOOD MODERATE (NEGATIVE); URINE CLARITY TURBID (Clear); URINE COLOR YELLOW (YELLOW); URINE GLUCOSE (UA) NEG (Normal); URINE LEUKOCYTE ESTERASE LARGE Leu/uL (Negative); URINE PROTEIN 100 mg/dL (NEGATIVE); URINE UROBILINOGEN 0.2-1.0 mg/dL (0.2-1.0); WBC CLUMPS MANY /hpf
[2018-06-03] MEDS: Insulin Detemir 100 Units/ml Inj SC SCH (22:23)
[2018-06-04 06:22] LABS: BASO # 0.1 K/uL (0.0-0.2); BASO % 0.6 % (0.0-2.0); EOS # 0.2 K/uL (0.0-0.7); EOS % 1.5 % (0.0-4.0); HEMOGLOBIN 10.5 g/dL (12.0-16.0); LYMPH # 2.1 K/uL (1.0-4.3); LYMPH % 14.3 % (20.0-40.0); MEAN CELL VOLUME 91.6 fl (81.0-99.0); MEAN CORPUSCULAR HEMOGLOBIN 32.4 pg (27.0-31.0); MEAN CORPUSCULAR HGB CONC 35.3 g/dL (33.0-37.0); MEAN PLATELET VOLUME 7.9 fl (7.2-11.7); MONO # 1.4 K/uL (0.0-0.8); MONO % 9.6 % (0.0-10.0); NEUT # 10.8 K/uL (1.8-7.0); RBC 3.23 Mil/uL (3.80-5.20); RED CELL DISTRIBUTION WIDTH 13.9 % (11.5-14.5); WHITE BLOOD COUNT 14.6 K/uL (4.8-10.8)
[2018-06-04] MEDS: Insulin Lispro (humaLOG) 100 Units/ml Inj SC SCH ×4 (07:00→21:24)
[2018-06-04] MEDS: Multivitamin With Minerals Tab PO SCH (08:26)
[2018-06-04] MEDS: Pantoprazole 40 mg EC Tab PO SCH (08:26)
[2018-06-04] MEDS: Omega-3-Acid Ethyl Esters 1 GM Cap PO SCH (08:27)
[2018-06-04] MEDS: Albuterol HFA 90 mcg/actuation (8 g) IH PRN (08:34)
--- NOTE | 2018-06-04 11:46 | CP.PCM.CON ---
History of Present Illness - History of Present Illness History of Present Illness: REASONS FOR CONSULT : CKD STAGE 3 WITH eGFR 38 ML/M PROBABLE UTI ANEMIA OF CKD .. R/O OTHER ETIOLOGIES ALL EMR WERE REVIEWED .. LABS REVIEWED .. PT WAS SEEN AND EXAMINED PT IS WELL KNOWN TO ME FROM OFFICE SUSTAINED CVA .. WAS TRANSFERED TO [facility] .. REHAB MMP THAT INCLUDE DM , HTN , CKD , HYPERURECEMIA .. Past Patient History - Infectious Disease Hx of Infectious Diseases: None - Tetanus Immunizations Tetanus Immunization: Unknown - Past Medical History & Family History Past Medical History?: Yes - Past Social History Smoking Status: Heavy Smoker > 10 Cigarettes Daily Chewing Tobacco Use: No Cigar Use: No Alcohol: None Drugs: Denies Home Situation {Lives}: With Family - CARDIAC Hx Hypercholesterolemia: Yes Hx Hypertension: Yes - PULMONARY Hx Respiratory Disorders: Yes Hx Asthma: Yes - NEUROLOGICAL HX Cerebrovascular Accident: Yes (Hx. CVA 2016) - HEENT Hx HEENT Problems: No Other/Comment: wear glasses for reading - RENAL Hx Chronic Kidney Disease: Yes Other/Comment: Hx. CKD stage 3 - ENDOCRINE/METABOLIC Hx Diabetes Mellitus Type 2: Yes - HEMATOLOGICAL/ONCOLOGICAL Hx Blood Disorders: No - INTEGUMENTARY Hx Dermatological Problems: No - MUSCULOSKELETAL/RHEUMATOLOGICAL Hx Rheumatoid Arthritis: Yes - GASTROINTESTINAL Hx Gastrointestinal Disorders: No - GENITOURINARY/GYNECOLOGICAL Hx Genitourinary Disorders: No - PSYCHIATRIC Hx Substance Use: No - SURGICAL HISTORY Hx Surgeries: Yes Hx Hysterectomy: Yes Hx Orthopedic Surgery: Yes (B/L foot) - ANESTHESIA Hx Anesthesia: Yes Hx Anesthesia Reactions: No Hx Malignant Hyperthermia: No Meds Allergies/Adverse Reactions: Allergies Allergy/AdvReac Type Severity Reaction Status Date / Time No Known Allergies Allergy Verified 07/04/17 10:02 - Medications Medications: Current Medications Albuterol (Ventolin Hfa 90 Mcg/Actuation (8 G)) 2 puff IH Q12 PRN PRN Reason: Shortness of Breath Last Admin: 06/04/18 08:34 Dose: 2 puff Allopurinol (Zyloprim) 100 mg PO DAILY [facility] Last Admin: 06/04/18 08:26 Dose: 100 mg Amlodipine Besylate (Norvasc) 10 mg PO DAILY [facility] Last Admin: 06/04/18 08:27 Dose: 10 mg Aspirin (Aspirin Chewable) 81 mg PO DAILY [facility] Last Admin: 06/04/18 08:27 Dose: 81 mg Atorvastatin Calcium (Lipitor) 40 mg PO DAILY [facility] Last Admin: 06/03/18 09:10 Dose: 40 mg Carvedilol (Coreg) 25 mg PO Q12 [facility] Last Admin: 06/04/18 08:28 Dose: 25 mg Hydralazine HCl (Apresoline) 25 mg PO Q8 [facility] Last Admin: 06/04/18 06:01 Dose: 25 mg Insulin Detemir (Levemir) 15 units SC [facility] Last Admin: 06/03/18 22:23 Dose: 15 units Insulin Human Lispro (Humalog) 0 units SC [facility] PRN Reason: Protocol Last Admin: 06/04/18 07:00 Dose: Not Given Levetiracetam (Keppra) 500 mg PO Q12 [facility] Last Admin: 06/04/18 08:27 Dose: 500 mg Levofloxacin (Levaquin) 250 mg PO DAILY [facility] PRN Reason: Protocol Stop: 06/09/18 09:01 Losartan Potassium (Cozaar) 50 mg PO DAILY [facility] Montelukast Sodium (Singulair) 10 mg PO [facility] Last Admin: 06/03/18 21:08 Dose: 10 mg Multivitamins/Minerals (Therapeutic-M Tab) 1 tab PO DAILY [facility] Last Admin: 06/04/18 08:26 Dose: 1 tab Nitrofurantoin Macrocrystals (Macrobid) 100 mg PO Q12 [facility] PRN Reason: Protocol Last Admin: 06/04/18 08:26 Dose: 100 mg Zmxwy-4-[id number] Ethyl Esters (Lovaza) 1 gm PO DAILY [facility] Last Admin: 06/04/18 08:27 Dose: 1 gm Pantoprazole Sodium (Protonix Ec Tab) 40 mg PO DAILY [facility] Last Admin: 06/04/18 08:26 Dose: 40 mg Results - Vital Signs Recent Vital Signs: Last Vital Signs Temp 99.9 F H 06/03/18 20:00 Pulse 76 06/04/18 10:37 Resp 20 06/03/18 20:00 BP 126/69 06/04/18 10:37 Pulse Ox 98 06/04/18 10:37 - Labs Result Diagrams: 06/04/18 05:10 06/03/18 05:15 Labs: Laboratory Results - last 24 hr 06/03/18 06/03/18 06/03/18 16:33 16:36 21:19 WBC RBC Hgb Hct MCV MCH MCHC RDW Plt Count MPV Neut % (Auto) Lymph % (Auto) [place] % (Auto) Eos % (Auto) Baso % (Auto) Neut # (Auto) Lymph # (Auto) [place] # (Auto) Eos # (Auto) Baso # (Auto) POC Glucose (mg/dL) 130 H 135 H Urine Color Yellow Urine Clarity Turbid Urine pH 6.0 Ur Specific [place] 1.013 Urine Protein 100 Urine Glucose (UA) Neg Urine Ketones Negative Urine Blood Moderate Urine Nitrate Negative Urine Bilirubin Negative Urine Urobilinogen 0.2-1.0 Ur Leukocyte Esterase Large Urine RBC (Auto) 32 H Urine WBC Clumps (Auto) Many H Urine Microscopic WBC 362 H Ur Squamous Epith Cells 4 06/04/18 06/04/18 05:10 05:51 WBC 14.6 H RBC 3.23 L Hgb 10.5 L Hct 29.6 L MCV 91.6 MCH 32.4 H MCHC 35.3 RDW 13.9 Plt Count 451 H MPV 7.9 Neut % (Auto) 74.0 Lymph % (Auto) 14.3 L [place] % (Auto) 9.6 Eos % (Auto) 1.5 Baso % (Auto) 0.6 Neut # (Auto) 10.8 H Lymph # (Auto) 2.1 [place] # (Auto) 1.4 H Eos # (Auto) 0.2 Baso # (Auto) 0.1 POC Glucose (mg/dL) 148 H Urine Color Urine Clarity Urine pH Ur Specific [place] Urine Protein Urine Glucose (UA) Urine Ketones Urine Blood Urine Nitrate Urine Bilirubin Urine Urobilinogen Ur Leukocyte Esterase Urine RBC (Auto) Urine WBC Clumps (Auto) Urine Microscopic WBC Ur Squamous Epith Cells Assessment & Plan - Assessment and Plan (Free Text) Assessment: CKD .. STAGE 3 .. RENAL FUNCTION IS AT BASELINE .. ANEMIA OF CKD .. TO R/O OTHER ETIOLOGIES PROBABLE UTI MMP P: RENAL AND DIABETIC DIET .. 2 GM NA .. 2 GM K .. 50 GM PROTIEN .. 1800 DEX ADA C/O CURRENT MEDS ADD LOSARTAN .. FOR RENAL PROTECTION ADD LEVAQIUN 250 PO DAILY X 5 FOR UTI WILL F/U CLOSELY ALONG WITH YOU - Date & Time Date: 06/04/18 Time: 12:00
--- NOTE | 2018-06-04 13:59 | CP.PCM.PN ---
Subjective - Date & Time of Evaluation Date of Evaluation: 06/04/18 Time of Evaluation: 11:00 - Subjective Subjective: Patient seen and examined. Appeared more alert today and responsive to verbal conversation. Still with difficulty of talking. Objective - Vital Signs/Intake and Output Vital Signs (last 24 hours): Temp Pulse Resp BP Pulse Ox 96 F L 76 20 126/69 98 06/04/18 10:00 06/04/18 10:37 06/04/18 10:00 06/04/18 10:37 06/04/18 10:37 - Medications Medications: Current Medications Albuterol (Ventolin Hfa 90 Mcg/Actuation (8 G)) 2 puff IH Q12 PRN PRN Reason: Shortness of Breath Last Admin: 06/04/18 08:34 Dose: 2 puff Allopurinol (Zyloprim) 100 mg PO DAILY [facility] Last Admin: 06/04/18 08:26 Dose: 100 mg Amlodipine Besylate (Norvasc) 10 mg PO DAILY [facility] Last Admin: 06/04/18 08:27 Dose: 10 mg Aspirin (Aspirin Chewable) 81 mg PO DAILY [facility] Last Admin: 06/04/18 08:27 Dose: 81 mg Atorvastatin Calcium (Lipitor) 40 mg PO DAILY [facility] Last Admin: 06/03/18 09:10 Dose: 40 mg Carvedilol (Coreg) 25 mg PO Q12 [facility] Last Admin: 06/04/18 08:28 Dose: 25 mg Hydralazine HCl (Apresoline) 25 mg PO Q8 [facility] Last Admin: 06/04/18 06:01 Dose: 25 mg Insulin Detemir (Levemir) 15 units SC [facility] Last Admin: 06/03/18 22:23 Dose: 15 units Insulin Human Lispro (Humalog) 0 units SC [facility] PRN Reason: Protocol Last Admin: 06/04/18 11:30 Dose: 1 unit Levetiracetam (Keppra) 500 mg PO Q12 [facility] Last Admin: 06/04/18 08:27 Dose: 500 mg Levofloxacin (Levaquin) 250 mg PO DAILY [facility] PRN Reason: Protocol Stop: 06/09/18 09:01 Losartan Potassium (Cozaar) 50 mg PO DAILY [facility] Montelukast Sodium (Singulair) 10 mg PO [facility] Last Admin: 07/03/18 21:08 Dose: 10 mg Multivitamins/Minerals (Therapeutic-M Tab) 1 tab PO DAILY [facility] Last Admin: 06/04/18 08:26 Dose: 1 tab Nystatin (Nystatin Oral Susp) 5 ml PO QID [facility] [id number]-[id number] Ethyl Esters (Lovaza) 1 gm PO DAILY [facility] Last Admin: 06/04/18 08:27 Dose: 1 gm Pantoprazole Sodium (Protonix Ec Tab) 40 mg PO DAILY [facility] Last Admin: 06/04/18 08:26 Dose: 40 mg - Labs Labs: 06/04/18 05:10 06/03/18 05:15 - Constitutional Appears: No Acute Distress - Head Exam Head Exam: ATRAUMATIC - Eye Exam Eye Exam: PERRL. absent: Scleral icterus - ENT Exam ENT Exam: Mucous Membranes Moist - Neck Exam Neck Exam: absent: Meningismus - Respiratory Exam Respiratory Exam: absent: Rales, Rhonchi, Wheezes, Respiratory Distress - Cardiovascular Exam Cardiovascular Exam: REGULAR RHYTHM, +S1, +S2 - GI/Abdominal Exam GI & Abdominal Exam: Soft. absent: Tenderness - Rectal Exam Rectal Exam: Deferred - Neurological Exam Neurological Exam: Alert - Psychiatric Exam Psychiatric exam: Flat Affect - Skin Skin Exam: Dry, Intact Assessment and Plan - Assessment and Plan (Free Text) Assessment: 67 yo female with history of RA, HTN HLD, DM2 and previous CVA was brought to the ER following a fall and right sided weakness accompanied with slurred speech. Code stroke was called and TPA administered. Initial CT scan did not show any significant findings. Patient was admitted in ICU where MRI done later showed large left MCA infarct. Hemorrhagic conversion also noted on the left basal ganglia. She was later transferred to Acute Rehab for further management and therapy. 1. Acute CVA, s/p TPA had hemorrhagic conversion continue PT/OT/ST continue ASA, statin and Keppra more alert today 2. Hypertension BP stable off Clonidine continue Coreg, Norvasc and Hydralazine 3. Hypercholesterolemia cont Lipitor 4. Type 2 DM Lispro sliding scale with accuchecks BS controlled on Levemir 15 units SC [facility] 5. Asthma, mild intermittent Continue Albuterol PRN for SOB chronic 7. CKD stage III likely due to diabetic nephropathy and/or uncontrolled hypertension renal consult
[2018-06-04] MEDS ORDERED: levoFLOXacin 500 MG TAB PO SCH (14:00)
[2018-06-04] MEDS: Nystatin 100,000 Units/ml Oral Susp 5 ml UD PO SCH ×2 (17:14→22:18)
[2018-06-04] MEDS: Bacitracin OINT 15GM TOP SCH (21:22)
[2018-06-04] MEDS: Insulin Detemir 100 Units/ml Inj SC SCH (21:33)
[2018-06-05] MEDS: Insulin Lispro (humaLOG) 100 Units/ml Inj SC SCH ×4 (07:15→21:39)
[2018-06-05] MEDS: Bacitracin OINT 15GM TOP SCH ×2 (08:50→17:41)
[2018-06-05] MEDS: Multivitamin With Minerals Tab PO SCH (08:51)
[2018-06-05] MEDS: Omega-3-Acid Ethyl Esters 1 GM Cap PO SCH (08:51)
[2018-06-05] MEDS: Pantoprazole 40 mg EC Tab PO SCH (08:51)
[2018-06-05] MEDS: Nystatin 100,000 Units/ml Oral Susp 5 ml UD PO SCH ×4 (08:51→21:40)
--- NOTE | 2018-06-05 09:41 | CP.PCM.CON ---
History of Present Illness - History of Present Illness History of Present Illness: Mr. Solo is a 67 yo female with history of RA, HTN HLD, DM2 and previous CVA was brought to the ER following a fall and right sided weakness accompanied with slurred speech. Code stroke was called and TPA administered. Initial CT scan did not show any significant findings. Patient was admitted in ICU where MRI done later showed large left MCA infarct. Hemorrhagic conversion also noted on the left basal ganglia was seen in MRI. She was later transferred to Acute Rehab for further management and therapy. Review of Systems - Review of Systems All systems: reviewed and no additional remarkable complaints except Past Patient History - Infectious Disease Hx of Infectious Diseases: None - Tetanus Immunizations Tetanus Immunization: Unknown - Past Medical History & Family History Past Medical History?: Yes - Past Social History Smoking Status: Heavy Smoker > 10 Cigarettes Daily Chewing Tobacco Use: No Cigar Use: No Alcohol: None Drugs: Denies Home Situation {Lives}: With Family - CARDIAC Hx Hypercholesterolemia: Yes Hx Hypertension: Yes - PULMONARY Hx Respiratory Disorders: Yes Hx Asthma: Yes - NEUROLOGICAL HX Cerebrovascular Accident: Yes (Hx. CVA 2016) - HEENT Hx HEENT Problems: No Other/Comment: wear glasses for reading - RENAL Hx Chronic Kidney Disease: Yes Other/Comment: Hx. CKD stage 3 - ENDOCRINE/METABOLIC Hx Diabetes Mellitus Type 2: Yes - HEMATOLOGICAL/ONCOLOGICAL Hx Blood Disorders: No - INTEGUMENTARY Hx Dermatological Problems: No - MUSCULOSKELETAL/RHEUMATOLOGICAL Hx Rheumatoid Arthritis: Yes - GASTROINTESTINAL Hx Gastrointestinal Disorders: No - GENITOURINARY/GYNECOLOGICAL Hx Genitourinary Disorders: No - PSYCHIATRIC Hx Substance Use: No - SURGICAL HISTORY Hx Surgeries: Yes Hx Hysterectomy: Yes Hx Orthopedic Surgery: Yes (B/L foot) - ANESTHESIA Hx Anesthesia: Yes Hx Anesthesia Reactions: No Hx Malignant Hyperthermia: No Meds Allergies/Adverse Reactions: Allergies Allergy/AdvReac Type Severity Reaction Status Date / Time No Known Allergies Allergy Verified 07/04/17 10:02 - Medications Medications: Current Medications Albuterol (Ventolin Hfa 90 Mcg/Actuation (8 G)) 2 puff IH Q12 PRN PRN Reason: Shortness of Breath Last Admin: 06/04/18 08:34 Dose: 2 puff Allopurinol (Zyloprim) 100 mg PO DAILY [facility] Last Admin: 06/05/18 08:51 Dose: 100 mg Amlodipine Besylate (Norvasc) 10 mg PO DAILY [facility] Last Admin: 06/05/18 08:51 Dose: 10 mg Aspirin (Aspirin Chewable) 81 mg PO DAILY [facility] Last Admin: 06/05/18 08:51 Dose: 81 mg Atorvastatin Calcium (Lipitor) 40 mg PO DAILY@2100 [facility] Last Admin: 06/04/18 21:13 Dose: 40 mg Bacitracin (Bacitracin Oint) 1 applic TOP BID [facility] Last Admin: 06/05/18 08:50 Dose: 1 applic Carvedilol (Coreg) 25 mg PO Q12 [facility] Last Admin: 06/05/18 08:50 Dose: 25 mg Hydralazine HCl (Apresoline) 25 mg PO Q8 [facility] Last Admin: 06/05/18 06:30 Dose: 25 mg Insulin Detemir (Levemir) 15 units SC [facility] Last Admin: 06/04/18 21:33 Dose: 15 units Insulin Human Lispro (Humalog) 0 units SC [facility] PRN Reason: Protocol Last Admin: 06/05/18 07:15 Dose: 1 unit Levetiracetam (Keppra) 500 mg PO Q12 [facility] Last Admin: 06/05/18 08:51 Dose: 500 mg Levofloxacin (Levaquin) 250 mg PO DAILY [facility] PRN Reason: Protocol Stop: 06/09/18 09:01 Last Admin: 06/05/18 08:51 Dose: 250 mg Losartan Potassium (Cozaar) 50 mg PO DAILY [facility] Last Admin: 06/05/18 08:51 Dose: 50 mg Montelukast Sodium (Singulair) 10 mg PO HS [facility] Last Admin: 06/04/18 21:13 Dose: 10 mg Multivitamins/Minerals (Therapeutic-M Tab) 1 tab PO DAILY [facility] Last Admin: 06/05/18 08:51 Dose: 1 tab Nystatin (Nystatin Oral Susp) 5 ml PO QID [facility] Last Admin: 06/05/18 08:51 Dose: 5 ml Hyjhs-6-Hhye Ethyl Esters (Lovaza) 1 gm PO DAILY [facility] Last Admin: 06/05/18 08:51 Dose: 1 gm Pantoprazole Sodium (Protonix Ec Tab) 40 mg PO DAILY [facility] Last Admin: 06/05/18 08:51 Dose: 40 mg Physical Exam - Constitutional Appears: No Acute Distress - Head Exam Head Exam: NORMAL INSPECTION - Eye Exam Eye Exam: PERRL - Respiratory Exam Respiratory Exam: Clear to Auscultation Bilateral, NORMAL BREATHING PATTERN - Cardiovascular Exam Cardiovascular Exam: +S1, +S2 - GI/Abdominal Exam GI & Abdominal Exam: Normal Bowel Sounds, Soft. absent: Tenderness Additional comments: has an excellent appetite - Neurological Exam Neurological exam: Alert, Oriented x3 - Expanded Neurological Exam Expanded Patient oriented to: person, place, time Speech: Slurred Speech Cranial nerves: Facial Palsey w/Forehead Movement: Abnormal Right, Facial Sensation: Abnormal Right, Gag Reflex: Normal, Nystagmus: Normal, Tongue Deviation: Abnormal Right Cerebellar Function: Finger to Nose: Abnormal Right (right arm has minimal movement), Heel to Van: Abnormal Right Upper motor neuron: Pronator Drift: Abnormal Right (minimal movement of right upper arm) Neuro motor strength exam: Left Upper Extremity: 5, Right Upper Extremity: 0, Left Lower Extremity: 5, Right Lower Extremity: 0 Coma Scale Verbal: Oriented Results - Vital Signs Recent Vital Signs: Last Vital Signs Temp 98.8 F 06/05/18 09:09 Pulse 71 06/05/18 09:09 Resp 22 06/05/18 09:09 BP 139/71 06/05/18 09:09 Pulse Ox 94 L 06/05/18 09:09 - Labs Result Diagrams: 06/04/18 05:10 06/03/18 05:15 Labs: Laboratory Results - last 24 hr 06/04/18 06/04/18 06/04/18 11:57 17:08 20:46 POC Glucose (mg/dL) 195 H 196 H 119 H 06/05/18 05:28 POC Glucose (mg/dL) 174 H Assessment & Plan (1) Ischemic stroke Assessment and Plan: 67 yo female with history of RA, HTN HLD, DM2 and previous CVA was brought to the ER following a fall and right sided weakness accompanied with slurred speech. Case discussed with Dr. Brumfield, recommend the followin. PT, OT, ST eval and treat 2. Continue aspirin 81 mg PO daily and restart plavix 75 mg PO daily 3. Blood pressure and glycemic control. 4. DVT prophylaxis may start with lovenox 30 mg SQ daily. 5. Case management Thank you. Status: Acute
[2018-06-05] MEDS: Enoxaparin 30 mg Syringe SC SCH (12:26)
[2018-06-05] MEDS: Insulin Detemir 100 Units/ml Inj SC SCH (21:40)
--- NOTE | 2018-06-05 22:05 | CP.PCM.PN ---
Subjective - Date & Time of Evaluation Date of Evaluation: 06/05/18 Time of Evaluation: 15:00 - Subjective Subjective: SEEN ON RENAL F/U STILL WITH SLURED SPEACH RENAL FUNCTION STABLE Objective - Vital Signs/Intake and Output Vital Signs (last 24 hours): Temp Pulse Resp BP Pulse Ox 98.8 F 70 22 153/84 H 94 L 06/05/18 09:09 06/05/18 21:38 06/05/18 09:09 06/05/18 21:38 06/05/18 09:09 - Medications Medications: Current Medications Albuterol (Ventolin Hfa 90 Mcg/Actuation (8 G)) 2 puff IH Q12 PRN PRN Reason: Shortness of Breath Last Admin: 06/04/18 08:34 Dose: 2 puff Allopurinol (Zyloprim) 100 mg PO DAILY [facility] Last Admin: 06/05/18 08:51 Dose: 100 mg Amlodipine Besylate (Norvasc) 10 mg PO DAILY [facility] Last Admin: 06/05/18 08:51 Dose: 10 mg Aspirin (Aspirin Chewable) 81 mg PO DAILY [facility] Last Admin: 06/05/18 08:51 Dose: 81 mg Atorvastatin Calcium (Lipitor) 40 mg PO DAILY@2100 [facility] Last Admin: 06/05/18 21:37 Dose: 40 mg Bacitracin (Bacitracin Oint) 1 applic TOP BID [facility] Last Admin: 06/05/18 17:41 Dose: Not Given Carvedilol (Coreg) 25 mg PO Q12 [facility] Last Admin: 06/05/18 21:38 Dose: 25 mg Clopidogrel Bisulfate (Plavix) 75 mg PO DAILY [facility] Last Admin: 06/05/18 12:26 Dose: 75 mg Enoxaparin Sodium (Lovenox) 30 mg SC DAILY [facility] PRN Reason: Protocol Last Admin: 06/05/18 12:26 Dose: 30 mg Hydralazine HCl (Apresoline) 25 mg PO Q8 [facility] Last Admin: 06/05/18 21:38 Dose: 25 mg Insulin Detemir (Levemir) 15 units SC [facility] Last Admin: 06/05/18 21:40 Dose: 15 units Insulin Human Lispro (Humalog) 0 units SC [facility] PRN Reason: Protocol Last Admin: 06/05/18 21:39 Dose: Not Given Levetiracetam (Keppra) 500 mg PO Q12 [facility] Last Admin: 06/05/18 21:37 Dose: 500 mg Levofloxacin (Levaquin) 250 mg PO DAILY [facility] PRN Reason: Protocol Stop: 06/09/18 09:01 Last Admin: 06/05/18 08:51 Dose: 250 mg Losartan Potassium (Cozaar) 50 mg PO DAILY [facility] Last Admin: 06/05/18 08:51 Dose: 50 mg Montelukast Sodium (Singulair) 10 mg PO HS [facility] Last Admin: 06/05/18 21:32 Dose: 10 mg Multivitamins/Minerals (Therapeutic-M Tab) 1 tab PO DAILY [facility] Last Admin: 06/05/18 08:51 Dose: 1 tab Nystatin (Nystatin Oral Susp) 5 ml PO QID [facility] Last Admin: 06/05/18 21:40 Dose: 5 ml [id number] Ethyl Esters (Lovaza) 1 gm PO DAILY [facility] Last Admin: 06/05/18 08:51 Dose: 1 gm Pantoprazole Sodium (Protonix Ec Tab) 40 mg PO DAILY [facility] Last Admin: 06/05/18 08:51 Dose: 40 mg - Labs Labs: 06/04/18 05:10 06/03/18 05:15 Assessment and Plan - Assessment and Plan (Free Text) Assessment: CKD .. STAGE 3 .. eGFR 38 ML/M .. STABLE ANEMIA OF CKD .. R/O OTHER ETIOLOGIES CVA MMP P : C/O CURRENT CARE C/O PRESENT MEDS PT .. OT .. ST
[2018-06-06] MEDS: Insulin Lispro (humaLOG) 100 Units/ml Inj SC SCH ×4 (06:32→21:59)
[2018-06-06] MEDS: Bacitracin OINT 15GM TOP SCH ×2 (08:34→16:53)
[2018-06-06] MEDS: Omega-3-Acid Ethyl Esters 1 GM Cap PO SCH (08:34)
[2018-06-06] MEDS: Nystatin 100,000 Units/ml Oral Susp 5 ml UD PO SCH ×4 (08:35→22:01)
[2018-06-06] MEDS: Enoxaparin 30 mg Syringe SC SCH (08:35)
[2018-06-06] MEDS: Multivitamin With Minerals Tab PO SCH (08:35)
[2018-06-06] MEDS: Pantoprazole 40 mg EC Tab PO SCH (08:36)
--- NOTE | 2018-06-06 09:57 | CP.PCM.PN ---
Subjective - Date & Time of Evaluation Date of Evaluation: 06/06/18 Time of Evaluation: 09:56 - Subjective Subjective: pt doing well no complaints no cp sob pain hd stable nad Objective - Vital Signs/Intake and Output Vital Signs (last 24 hours): Temp Pulse Resp BP Pulse Ox 98.4 F 80 20 148/79 96 06/06/18 08:02 06/06/18 08:36 06/06/18 08:02 06/06/18 08:36 06/06/18 08:02 - Medications Medications: Current Medications Albuterol (Ventolin Hfa 90 Mcg/Actuation (8 G)) 2 puff IH Q12 PRN PRN Reason: Shortness of Breath Last Admin: 06/04/18 08:34 Dose: 2 puff Allopurinol (Zyloprim) 100 mg PO DAILY [facility] Last Admin: 06/06/18 08:37 Dose: 100 mg Amlodipine Besylate (Norvasc) 10 mg PO DAILY [facility] Last Admin: 06/06/18 08:36 Dose: 10 mg Aspirin (Aspirin Chewable) 81 mg PO DAILY [facility] Last Admin: 06/06/18 08:37 Dose: 81 mg Atorvastatin Calcium (Lipitor) 40 mg PO DAILY@2100 [facility] Bacitracin (Bacitracin Oint) 1 applic TOP BID [facility] Last Admin: 06/06/18 08:34 Dose: 1 applic Carvedilol (Coreg) 25 mg PO Q12 [facility] Last Admin: 06/06/18 08:36 Dose: 25 mg Clopidogrel Bisulfate (Plavix) 75 mg PO DAILY [facility] Last Admin: 06/06/18 08:36 Dose: 75 mg Enoxaparin Sodium (Lovenox) 30 mg SC DAILY [facility] PRN Reason: Protocol Last Admin: 06/06/18 08:35 Dose: 30 mg Hydralazine HCl (Apresoline) 25 mg PO Q8 [facility] Last Admin: 06/06/18 06:27 Dose: 25 mg Insulin Detemir (Levemir) 15 units SC HS [facility] Last Admin: 06/05/18 21:40 Dose: 15 units Insulin Human Lispro (Humalog) 0 units SC [facility] PRN Reason: Protocol Last Admin: 06/06/18 06:32 Dose: Not Given Levetiracetam (Keppra) 500 mg PO Q12 [facility] Last Admin: 06/06/18 08:35 Dose: 500 mg Levofloxacin (Levaquin) 250 mg PO DAILY [facility] PRN Reason: Protocol Stop: 06/09/18 09:01 Last Admin: 06/06/18 08:35 Dose: 250 mg Losartan Potassium (Cozaar) 50 mg PO DAILY [facility] Last Admin: 06/06/18 08:35 Dose: 50 mg Montelukast Sodium (Singulair) 10 mg PO HS [facility] Last Admin: 06/05/18 21:32 Dose: 10 mg Multivitamins/Minerals (Therapeutic-M Tab) 1 tab PO DAILY [facility] Last Admin: 06/06/18 08:35 Dose: 1 tab Nystatin (Nystatin Oral Susp) 5 ml PO QID [facility] Last Admin: 06/06/18 08:35 Dose: 5 ml Oliee-2-Mjxa Ethyl Esters (Lovaza) 1 gm PO DAILY [facility] Last Admin: 06/06/18 08:34 Dose: 1 gm Pantoprazole Sodium (Protonix Ec Tab) 40 mg PO DAILY [facility] Last Admin: 06/06/18 08:36 Dose: 40 mg - Labs Labs: 06/04/18 05:10 06/03/18 05:15 - Constitutional Appears: Well, No Acute Distress - Head Exam Head Exam: ATRAUMATIC, NORMAL INSPECTION, NORMOCEPHALIC - Eye Exam Eye Exam: EOMI, Normal appearance, PERRL - Respiratory Exam Respiratory Exam: Clear to Ausculation Bilateral, NORMAL BREATHING PATTERN - Cardiovascular Exam Cardiovascular Exam: REGULAR RHYTHM, +S1, +S2. absent: Murmur - GI/Abdominal Exam GI & Abdominal Exam: Soft, Normal Bowel Sounds. absent: Tenderness, Organomegaly - Back Exam Back Exam: absent: CVA tenderness (L), CVA tenderness (R), paraspinal tenderness - Neurological Exam Neurological Exam: Alert, Awake - Psychiatric Exam Psychiatric exam: Normal Affect, Normal Mood - Skin Skin Exam: Dry, Warm Assessment and Plan - Assessment and Plan (Free Text) Plan: 67 yo female with history of RA, HTN HLD, DM2 and previous CVA was brought to the ER following a fall and right sided weakness accompanied with slurred speech. Code stroke was called and TPA administered. Initial CT scan did not show any significant findings. Patient was admitted in ICU where MRI done later showed large left MCA infarct. Hemorrhagic conversion also noted on the left basal ganglia. She was later transferred to Acute Rehab for further management and therapy. 1. Acute CVA, s/p TPA had hemorrhagic conversion continue PT/OT/ST continue ASA, statin and Keppra - restart plavix and lovenox for DVT more alert today 2. Hypertension BP stable off Clonidine continue Coreg, Norvasc and Hydralazine 3. Hypercholesterolemia cont Lipitor 4. Type 2 DM Lispro sliding scale with accuchecks BS controlled on Levemir 15 units SC HS 5. Asthma, mild intermittent Continue Albuterol PRN for SOB chronic 7. CKD stage III likely due to diabetic nephropathy and/or uncontrolled hypertension renal consult
--- NOTE | 2018-06-06 11:13 | CP.PCM.PN ---
Subjective - Date & Time of Evaluation Date of Evaluation: 06/06/18 Time of Evaluation: 11:13 - Subjective Subjective: Ms. Solo was seen and examined during the therapy session. She is alert, awake, but claims of sleepiness. She further states of having a few minutes naps in between therapy session. She denies any headache, lightheadedness, nausea, or vomiting. She further states of not having enough food. She is able to follow simple commands and tolerating therapy session. There was no untoward events overnight. Objective - Vital Signs/Intake and Output Vital Signs (last 24 hours): Temp Pulse Resp BP Pulse Ox 98.4 F 80 20 148/79 96 06/06/18 08:02 06/06/18 08:36 06/06/18 08:02 06/06/18 08:36 06/06/18 08:02 - Medications Medications: Current Medications Albuterol (Ventolin Hfa 90 Mcg/Actuation (8 G)) 2 puff IH Q12 PRN PRN Reason: Shortness of Breath Last Admin: 06/04/18 08:34 Dose: 2 puff Allopurinol (Zyloprim) 100 mg PO DAILY [facility] Last Admin: 06/06/18 08:37 Dose: 100 mg Amantadine HCl (Amantadine 100 Mg Cap) 100 mg PO DAILY [facility] Amlodipine Besylate (Norvasc) 10 mg PO DAILY [facility] Last Admin: 06/06/18 08:36 Dose: 10 mg Aspirin (Aspirin Chewable) 81 mg PO DAILY [facility] Last Admin: 06/06/18 08:37 Dose: 81 mg Atorvastatin Calcium (Lipitor) 40 mg PO DAILY@2100 [facility] Bacitracin (Bacitracin Oint) 1 applic TOP BID [facility] Last Admin: 06/06/18 08:34 Dose: 1 applic Carvedilol (Coreg) 25 mg PO Q12 [facility] Last Admin: 06/06/18 08:36 Dose: 25 mg Clopidogrel Bisulfate (Plavix) 75 mg PO DAILY [facility] Last Admin: 06/06/18 08:36 Dose: 75 mg Enoxaparin Sodium (Lovenox) 30 mg SC DAILY [facility] PRN Reason: Protocol Last Admin: 06/06/18 08:35 Dose: 30 mg Hydralazine HCl (Apresoline) 25 mg PO Q8 [facility] Last Admin: 06/06/18 06:27 Dose: 25 mg Insulin Detemir (Levemir) 15 units SC HS [facility] Last Admin: 06/05/18 21:40 Dose: 15 units Insulin Human Lispro (Humalog) 0 units SC [facility] PRN Reason: Protocol Last Admin: 06/06/18 06:32 Dose: Not Given Lactobacillus Acidophilus (Bacid Acidophilus) 1 cap PO BID [facility] Levetiracetam (Keppra) 500 mg PO Q12 [facility] Last Admin: 06/06/18 08:35 Dose: 500 mg Levofloxacin (Levaquin) 250 mg PO DAILY [facility] PRN Reason: Protocol Stop: 06/09/18 09:01 Last Admin: 06/06/18 08:35 Dose: 250 mg Losartan Potassium (Cozaar) 50 mg PO DAILY [facility] Last Admin: 06/06/18 08:35 Dose: 50 mg Montelukast Sodium (Singulair) 10 mg PO HS [facility] Last Admin: 06/05/18 21:32 Dose: 10 mg Multivitamins/Minerals (Therapeutic-M Tab) 1 tab PO DAILY [facility] Last Admin: 06/06/18 08:35 Dose: 1 tab Nystatin (Nystatin Oral Susp) 5 ml PO QID [facility] Last Admin: 06/06/18 08:35 Dose: 5 ml Lvmzi-2-Znvx Ethyl Esters (Lovaza) 1 gm PO DAILY [facility] Last Admin: 06/06/18 08:34 Dose: 1 gm Pantoprazole Sodium (Protonix Ec Tab) 40 mg PO DAILY [facility] Last Admin: 06/06/18 08:36 Dose: 40 mg - Labs Labs: 06/04/18 05:10 06/03/18 05:15 - Constitutional Appears: No Acute Distress - Head Exam Head Exam: NORMAL INSPECTION - Eye Exam Pupil Exam: PERRL - Neurological Exam Neurological Exam: Alert, Awake, Oriented x3 Neuro motor strength exam: Left Upper Extremity: 5, Right Upper Extremity: 0, Left Lower Extremity: 5, Right Lower Extremity: 2/1 Additional comments: alert, oriented, but has episodes of sleepiness, follows commands. Assessment and Plan (1) Ischemic stroke Assessment & Plan: Case discussed with Dr. Brumfield, continue all current medical, physical, occupational, and speech therapies. Recommend Amantadine 100 mg PO daily to aid with patient sleepiness, hydration, keep head of bed elevated at least 30 degrees while in bed, blood pressure and glycemic control. Status: Acute
[2018-06-06] MEDS: Lactobacillus Acidophilus 500 MU Cap PO SCH ×2 (12:17→16:52)
--- NOTE | 2018-06-06 14:27 | CP.PCM.PN ---
Subjective - Date & Time of Evaluation Date of Evaluation: 06/06/18 Time of Evaluation: 14:26 - Subjective Subjective: Patient seen in the room right arm wrapped in [place] to control swelling a little more lethargic. Poor communication PT/OT and speech to continue Objective - Vital Signs/Intake and Output Vital Signs (last 24 hours): Temp Pulse Resp BP Pulse Ox 98.4 F 67 20 132/72 96 06/06/18 08:02 06/06/18 13:43 06/06/18 08:02 06/06/18 13:43 06/06/18 08:02 - Medications Medications: Current Medications Albuterol (Ventolin Hfa 90 Mcg/Actuation (8 G)) 2 puff IH Q12 PRN PRN Reason: Shortness of Breath Last Admin: 06/04/18 08:34 Dose: 2 puff Allopurinol (Zyloprim) 100 mg PO DAILY [facility] Last Admin: 06/06/18 08:37 Dose: 100 mg Amantadine HCl (Amantadine 100 Mg Cap) 100 mg PO DAILY [facility] Amlodipine Besylate (Norvasc) 10 mg PO DAILY [facility] Last Admin: 06/06/18 08:36 Dose: 10 mg Aspirin (Aspirin Chewable) 81 mg PO DAILY [facility] Last Admin: 06/06/18 08:37 Dose: 81 mg Atorvastatin Calcium (Lipitor) 40 mg PO DAILY@2100 [facility] Bacitracin (Bacitracin Oint) 1 applic TOP BID [facility] Last Admin: 06/06/18 08:34 Dose: 1 applic Carvedilol (Coreg) 25 mg PO Q12 [facility] Last Admin: 06/06/18 08:36 Dose: 25 mg Clopidogrel Bisulfate (Plavix) 75 mg PO DAILY [facility] Last Admin: 06/06/18 08:36 Dose: 75 mg Enoxaparin Sodium (Lovenox) 30 mg SC DAILY [facility] PRN Reason: Protocol Last Admin: 06/06/18 08:35 Dose: 30 mg Hydralazine HCl (Apresoline) 25 mg PO Q8 [facility] Last Admin: 06/06/18 13:43 Dose: 25 mg Insulin Detemir (Levemir) 15 units SC HS [facility] Last Admin: 06/05/18 21:40 Dose: 15 units Insulin Human Lispro (Humalog) 0 units SC [facility] PRN Reason: Protocol Last Admin: 06/06/18 11:45 Dose: 2 unit Lactobacillus Acidophilus (Bacid Acidophilus) 1 cap PO BID [facility] Last Admin: 06/06/18 12:17 Dose: 1 cap Levetiracetam (Keppra) 500 mg PO Q12 [facility] Last Admin: 06/06/18 08:35 Dose: 500 mg Levofloxacin (Levaquin) 250 mg PO DAILY [facility] PRN Reason: Protocol Stop: 06/09/18 09:01 Last Admin: 06/06/18 08:35 Dose: 250 mg Losartan Potassium (Cozaar) 50 mg PO DAILY [facility] Last Admin: 06/06/18 08:35 Dose: 50 mg Montelukast Sodium (Singulair) 10 mg PO HS [facility] Last Admin: 06/05/18 21:32 Dose: 10 mg Multivitamins/Minerals (Therapeutic-M Tab) 1 tab PO DAILY [facility] Last Admin: 06/06/18 08:35 Dose: 1 tab Nystatin (Nystatin Oral Susp) 5 ml PO QID [facility] Last Admin: 06/06/18 12:17 Dose: 5 ml Npvht-3-Yvxi Ethyl Esters (Lovaza) 1 gm PO DAILY [facility] Last Admin: 06/06/18 08:34 Dose: 1 gm Pantoprazole Sodium (Protonix Ec Tab) 40 mg PO DAILY [facility] Last Admin: 06/06/18 08:36 Dose: 40 mg - Labs Labs: 06/04/18 05:10 06/03/18 05:15
[2018-06-06] MEDS: Insulin Detemir 100 Units/ml Inj SC SCH (22:01)
[2018-06-07 06:46] LABS: HEMOGLOBIN 10.4 g/dL (12.0-16.0); MEAN CELL VOLUME 91.8 fl (81.0-99.0); MEAN CORPUSCULAR HGB CONC 34.9 g/dL (33.0-37.0); RBC 3.24 Mil/uL (3.80-5.20); WHITE BLOOD COUNT 11.5 K/uL (4.8-10.8)
[2018-06-07 06:54] LABS: CALCIUM 9.5 mg/dL (8.4-10.2)
[2018-06-07] MEDS: Insulin Lispro (humaLOG) 100 Units/ml Inj SC SCH ×4 (07:37→21:28)
[2018-06-07] MEDS: Lactobacillus Acidophilus 500 MU Cap PO SCH ×2 (08:52→16:56)
[2018-06-07] MEDS: Omega-3-Acid Ethyl Esters 1 GM Cap PO SCH (08:52)
[2018-06-07] MEDS: Pantoprazole 40 mg EC Tab PO SCH (08:52)
[2018-06-07] MEDS: Nystatin 100,000 Units/ml Oral Susp 5 ml UD PO SCH ×4 (08:53→21:28)
[2018-06-07] MEDS: Enoxaparin 30 mg Syringe SC SCH (08:53)
[2018-06-07] MEDS: Multivitamin With Minerals Tab PO SCH (08:53)
[2018-06-07] MEDS: Bacitracin OINT 15GM TOP SCH ×2 (08:53→16:56)
[2018-06-07] MEDS: Insulin Detemir 100 Units/ml Inj SC SCH (21:29)
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
[2018-06-08] MEDS: Insulin Lispro (humaLOG) 100 Units/ml Inj SC SCH ×4 (07:06→21:23)
[2018-06-08] MEDS: Omega-3-Acid Ethyl Esters 1 GM Cap PO SCH (09:36)
[2018-06-08] MEDS: Bacitracin OINT 15GM TOP SCH ×2 (09:36→17:18)
[2018-06-08] MEDS: Enoxaparin 30 mg Syringe SC SCH (09:36)
[2018-06-08] MEDS: Nystatin 100,000 Units/ml Oral Susp 5 ml UD PO SCH ×4 (09:36→21:22)
[2018-06-08] MEDS: Pantoprazole 40 mg EC Tab PO SCH (09:37)
[2018-06-08] MEDS: Multivitamin With Minerals Tab PO SCH (09:37)
[2018-06-08] MEDS: Lactobacillus Acidophilus 500 MU Cap PO SCH ×2 (09:38→17:18)
[2018-06-08] MEDS ORDERED: Bisacodyl 5mg EC Tab PO ONE (13:00)
[2018-06-08] MEDS: Insulin Detemir 100 Units/ml Inj SC SCH (21:23)
[2018-06-09] MEDS: Insulin Lispro (humaLOG) 100 Units/ml Inj SC SCH ×4 (07:06→21:33)
[2018-06-09] MEDS: Bacitracin OINT 15GM TOP SCH ×2 (08:25→16:57)
[2018-06-09] MEDS: Nystatin 100,000 Units/ml Oral Susp 5 ml UD PO SCH ×4 (08:27→21:28)
[2018-06-09] MEDS: Enoxaparin 30 mg Syringe SC SCH (08:27)
[2018-06-09] MEDS: Omega-3-Acid Ethyl Esters 1 GM Cap PO SCH (08:27)
[2018-06-09] MEDS: Pantoprazole 40 mg EC Tab PO SCH (08:28)
[2018-06-09] MEDS: Multivitamin With Minerals Tab PO SCH (08:28)
[2018-06-09] MEDS: Lactobacillus Acidophilus 500 MU Cap PO SCH ×2 (08:29→17:06)
--- NOTE | 2018-06-09 10:41 | CP.PCM.PN ---
Subjective - Date & Time of Evaluation Date of Evaluation: 06/09/18 Time of Evaluation: 10:41 - Subjective Subjective: Ms. Solo was seen and examined during the therapy session. She is alert, awake, but claims of sleepiness. She further states of more alert in comparison from previous examination. She denies any headache, lightheadedness, nausea, or vomiting. She further states of not having enough food. She is able to follow simple commands and tolerating therapy session. There was no untoward events overnight. Objective - Vital Signs/Intake and Output Vital Signs (last 24 hours): Temp Pulse Resp BP Pulse Ox 97.7 F 74 20 136/61 96 06/09/18 09:50 06/09/18 09:50 06/09/18 09:50 06/09/18 09:50 06/09/18 09:50 - Medications Medications: Current Medications Albuterol (Ventolin Hfa 90 Mcg/Actuation (8 G)) 2 puff IH Q12 PRN PRN Reason: Shortness of Breath Last Admin: 06/04/18 08:34 Dose: 2 puff Allopurinol (Zyloprim) 100 mg PO DAILY [facility] Last Admin: 06/09/18 08:28 Dose: 100 mg Amantadine HCl (Amantadine 100 Mg Cap) 100 mg PO DAILY@1800 [facility] Last Admin: 06/08/18 17:18 Dose: 100 mg Amlodipine Besylate (Norvasc) 10 mg PO DAILY [facility] Last Admin: 06/09/18 08:28 Dose: 10 mg Aspirin (Aspirin Chewable) 81 mg PO DAILY [facility] Last Admin: 06/09/18 08:25 Dose: 81 mg Atorvastatin Calcium (Lipitor) 40 mg PO DAILY@2100 [facility] Last Admin: 06/08/18 21:21 Dose: 40 mg Bacitracin (Bacitracin Oint) 1 applic TOP BID [facility] Last Admin: 06/09/18 08:25 Dose: 1 applic Carvedilol (Coreg) 25 mg PO Q12 [facility] Last Admin: 06/09/18 08:25 Dose: 25 mg Clopidogrel Bisulfate (Plavix) 75 mg PO DAILY [facility] Last Admin: 06/09/18 08:28 Dose: 75 mg Enoxaparin Sodium (Lovenox) 30 mg SC DAILY [facility] PRN Reason: Protocol Last Admin: 06/09/18 08:27 Dose: 30 mg Hydralazine HCl (Apresoline) 25 mg PO Q8 [facility] Last Admin: 06/09/18 07:03 Dose: 25 mg Insulin Detemir (Levemir) 15 units SC HS [facility] Last Admin: 06/08/18 21:23 Dose: 15 units Insulin Human Lispro (Humalog) 0 units SC ACHS [facility] PRN Reason: Protocol Last Admin: 06/09/18 07:06 Dose: 1 unit Lactobacillus Acidophilus (Bacid Acidophilus) 1 cap PO BID [facility] Last Admin: 06/09/18 08:29 Dose: 1 cap Levetiracetam (Keppra) 500 mg PO Q12 [facility] Last Admin: 06/09/18 08:26 Dose: 500 mg Levofloxacin (Levaquin) 250 mg PO DAILY [facility] PRN Reason: Protocol Last Admin: 06/09/18 08:27 Dose: 250 mg Losartan Potassium (Cozaar) 50 mg PO DAILY [facility] Last Admin: 06/09/18 08:26 Dose: 50 mg Montelukast Sodium (Singulair) 10 mg PO [facility] Last Admin: 06/08/18 21:22 Dose: 10 mg Multivitamins/Minerals (Therapeutic-M Tab) 1 tab PO DAILY [facility] Last Admin: 06/09/18 08:28 Dose: 1 tab Nystatin (Nystatin Oral Susp) 5 ml PO QID [facility] Last Admin: 06/09/18 08:27 Dose: 5 ml [id number] Ethyl Esters (Lovaza) 1 gm PO DAILY [facility] Last Admin: 06/09/18 08:27 Dose: 1 gm Pantoprazole Sodium (Protonix Ec Tab) 40 mg PO DAILY [facility] Last Admin: 06/09/18 08:28 Dose: 40 mg - Labs Labs: 06/07/18 06:10 06/07/18 06:10 - Constitutional Appears: No Acute Distress - Head Exam Head Exam: NORMAL INSPECTION - Eye Exam Pupil Exam: PERRL - Neurological Exam Neurological Exam: Alert, Awake, Oriented x3 Neuro motor strength exam: Left Upper Extremity: 5, Right Upper Extremity: 0, Left Lower Extremity: 5, Right Lower Extremity: 0 Additional comments: neurological unchanged from previous examination. Assessment and Plan (1) Ischemic stroke Assessment & Plan: Case discussed with Dr. Hamilton, continue all current medical, physical, occupational, and speech therapies. Recommend hydration, keep head of bed elevated at least 30 degrees while in bed, blood pressure and glycemic control. Status: Acute
--- NOTE | 2018-06-09 11:07 | CP.PCM.PN ---
Subjective - Date & Time of Evaluation Date of Evaluation: 06/09/18 Time of Evaluation: 10:00 - Subjective Subjective: Patient seen and examined. Denied any complaint. Objective - Vital Signs/Intake and Output Vital Signs (last 24 hours): Temp Pulse Resp BP Pulse Ox 97.7 F 74 20 136/61 96 06/09/18 09:50 06/09/18 09:50 06/09/18 09:50 06/09/18 09:50 06/09/18 09:50 - Medications Medications: Current Medications Albuterol (Ventolin Hfa 90 Mcg/Actuation (8 G)) 2 puff IH Q12 PRN PRN Reason: Shortness of Breath Last Admin: 06/04/18 08:34 Dose: 2 puff Allopurinol (Zyloprim) 100 mg PO DAILY [facility] Last Admin: 06/09/18 08:28 Dose: 100 mg Amantadine HCl (Amantadine 100 Mg Cap) 100 mg PO DAILY@1800 [facility] Last Admin: 06/08/18 17:18 Dose: 100 mg Amlodipine Besylate (Norvasc) 10 mg PO DAILY [facility] Last Admin: 06/09/18 08:28 Dose: 10 mg Aspirin (Aspirin Chewable) 81 mg PO DAILY [facility] Last Admin: 06/09/18 08:25 Dose: 81 mg Atorvastatin Calcium (Lipitor) 40 mg PO DAILY@2100 [facility] Last Admin: 06/08/18 21:21 Dose: 40 mg Bacitracin (Bacitracin Oint) 1 applic TOP BID [facility] Last Admin: 06/09/18 08:25 Dose: 1 applic Carvedilol (Coreg) 25 mg PO Q12 [facility] Last Admin: 06/09/18 08:25 Dose: 25 mg Clopidogrel Bisulfate (Plavix) 75 mg PO DAILY [facility] Last Admin: 06/09/18 08:28 Dose: 75 mg Enoxaparin Sodium (Lovenox) 30 mg SC DAILY [facility] PRN Reason: Protocol Last Admin: 06/09/18 08:27 Dose: 30 mg Hydralazine HCl (Apresoline) 25 mg PO Q8 [facility] Last Admin: 06/09/18 07:03 Dose: 25 mg Insulin Detemir (Levemir) 15 units SC HS [facility] Last Admin: 06/08/18 21:23 Dose: 15 units Insulin Human Lispro (Humalog) 0 units SC ACHS [facility] PRN Reason: Protocol Last Admin: 06/09/18 07:06 Dose: 1 unit Lactobacillus Acidophilus (Bacid Acidophilus) 1 cap PO BID [facility] Last Admin: 06/09/18 08:29 Dose: 1 cap Levetiracetam (Keppra) 500 mg PO Q12 [facility] Last Admin: 06/09/18 08:26 Dose: 500 mg Levofloxacin (Levaquin) 250 mg PO DAILY [facility] PRN Reason: Protocol Last Admin: 06/09/18 08:27 Dose: 250 mg Losartan Potassium (Cozaar) 50 mg PO DAILY [facility] Last Admin: 06/09/18 08:26 Dose: 50 mg Montelukast Sodium (Singulair) 10 mg PO HS [facility] Last Admin: 06/08/18 21:22 Dose: 10 mg Multivitamins/Minerals (Therapeutic-M Tab) 1 tab PO DAILY [facility] Last Admin: 06/09/18 08:28 Dose: 1 tab Nystatin (Nystatin Oral Susp) 5 ml PO QID [facility] Last Admin: 06/09/18 08:27 Dose: 5 ml [id number]-[id number] Ethyl Esters (Lovaza) 1 gm PO DAILY [facility] Last Admin: 06/09/18 08:27 Dose: 1 gm Pantoprazole Sodium (Protonix Ec Tab) 40 mg PO DAILY [facility] Last Admin: 06/09/18 08:28 Dose: 40 mg - Labs Labs: 06/07/18 06:10 06/07/18 06:10 - Constitutional Appears: No Acute Distress - Head Exam Head Exam: ATRAUMATIC - Eye Exam Eye Exam: absent: Scleral icterus - ENT Exam ENT Exam: Mucous Membranes Moist - Neck Exam Neck Exam: absent: Meningismus - Respiratory Exam Respiratory Exam: absent: Rales, Rhonchi, Wheezes, Respiratory Distress - Cardiovascular Exam Cardiovascular Exam: REGULAR RHYTHM, +S1, +S2 - GI/Abdominal Exam GI & Abdominal Exam: Soft. absent: Tenderness - Rectal Exam Rectal Exam: Deferred - Neurological Exam Neurological Exam: Alert, Oriented x3 - Psychiatric Exam Psychiatric exam: Flat Affect - Skin Skin Exam: Dry, Intact Assessment and Plan - Assessment and Plan (Free Text) Assessment: 67 yo female with history of RA, HTN HLD, DM2 and previous CVA was brought to the ER following a fall and right sided weakness accompanied with slurred speech. Code stroke was called and TPA administered. Initial CT scan did not show any significant findings. Patient was admitted in ICU where MRI done later showed large left MCA infarct. Hemorrhagic conversion also noted on the left basal ganglia. She was later transferred to Acute Rehab for further management and therapy. 1. Acute CVA, s/p TPA had hemorrhagic conversion continue PT/OT/ST continue ASA, Plavix, statin and Keppra 2. Hypertension BP stable continue Coreg, Norvasc and Hydralazine 3. Hypercholesterolemia continue Lipitor 4. Type 2 DM Lispro sliding scale with accuchecks BS controlled continue Levemir 15 units SC HS 5. Asthma, mild intermittent Continue Albuterol PRN for SOB chronic 7. CKD stage III likely due to diabetic nephropathy and/or uncontrolled hypertension renal function remain stable renal consult with Dr Julio byrnes 8. DVT prophylaxis Lovenox 40mg SC daily
--- NOTE | 2018-06-09 16:39 | CP.PCM.PN ---
Subjective - Date & Time of Evaluation Date of Evaluation: 06/09/18 Time of Evaluation: 16:38 - Subjective Subjective: Patient seen in the room doing ok right facial drop and HP denies pain or sob limited function, ambulating only 5' with mod/max A continue current care Objective - Vital Signs/Intake and Output Vital Signs (last 24 hours): Temp Pulse Resp BP Pulse Ox 97.7 F 70 20 121/74 96 06/09/18 09:50 06/09/18 14:32 06/09/18 09:50 06/09/18 14:32 06/09/18 09:50 - Medications Medications: Current Medications Albuterol (Ventolin Hfa 90 Mcg/Actuation (8 G)) 2 puff IH Q12 PRN PRN Reason: Shortness of Breath Last Admin: 06/04/18 08:34 Dose: 2 puff Allopurinol (Zyloprim) 100 mg PO DAILY [facility] Last Admin: 06/09/18 08:28 Dose: 100 mg Amantadine HCl (Amantadine 100 Mg Cap) 100 mg PO DAILY@1800 [facility] Last Admin: 06/08/18 17:18 Dose: 100 mg Amlodipine Besylate (Norvasc) 10 mg PO DAILY [facility] Last Admin: 06/09/18 08:28 Dose: 10 mg Aspirin (Aspirin Chewable) 81 mg PO DAILY [facility] Last Admin: 06/09/18 08:25 Dose: 81 mg Atorvastatin Calcium (Lipitor) 40 mg PO DAILY@2100 [facility] Last Admin: 06/08/18 21:21 Dose: 40 mg Bacitracin (Bacitracin Oint) 1 applic TOP BID [facility] Last Admin: 06/09/18 08:25 Dose: 1 applic Carvedilol (Coreg) 25 mg PO Q12 [facility] Last Admin: 06/09/18 08:25 Dose: 25 mg Clopidogrel Bisulfate (Plavix) 75 mg PO DAILY [facility] Last Admin: 06/09/18 08:28 Dose: 75 mg Enoxaparin Sodium (Lovenox) 30 mg SC DAILY [facility] PRN Reason: Protocol Last Admin: 06/09/18 08:27 Dose: 30 mg Hydralazine HCl (Apresoline) 25 mg PO Q8 [facility] Last Admin: 06/09/18 14:32 Dose: 25 mg Insulin Detemir (Levemir) 15 units SC [facility] Last Admin: 06/08/18 21:23 Dose: 15 units Insulin Human Lispro (Humalog) 0 units SC ACHS [facility] PRN Reason: Protocol Last Admin: 06/09/18 12:36 Dose: 1 unit Lactobacillus Acidophilus (Bacid Acidophilus) 1 cap PO BID [facility] Last Admin: 06/09/18 08:29 Dose: 1 cap Levetiracetam (Keppra) 500 mg PO Q12 [facility] Last Admin: 06/09/18 08:26 Dose: 500 mg Levofloxacin (Levaquin) 250 mg PO DAILY [facility] PRN Reason: Protocol Last Admin: 06/09/18 08:27 Dose: 250 mg Losartan Potassium (Cozaar) 50 mg PO DAILY [facility] Last Admin: 06/09/18 08:26 Dose: 50 mg Montelukast Sodium (Singulair) 10 mg PO HS [facility] Last Admin: 06/08/18 21:22 Dose: 10 mg Multivitamins/Minerals (Therapeutic-M Tab) 1 tab PO DAILY [facility] Last Admin: 06/09/18 08:28 Dose: 1 tab Nystatin (Nystatin Oral Susp) 5 ml PO QID [facility] Last Admin: 06/09/18 12:36 Dose: 5 ml Bbmec-5-Cifz Ethyl Esters (Lovaza) 1 gm PO DAILY [facility] Last Admin: 06/09/18 08:27 Dose: 1 gm Pantoprazole Sodium (Protonix Ec Tab) 40 mg PO DAILY [facility] Last Admin: 06/09/18 08:28 Dose: 40 mg - Labs Labs: 06/07/18 06:10 06/07/18 06:10
[2018-06-09] MEDS: Insulin Detemir 100 Units/ml Inj SC SCH (21:35)
--- NOTE | 2018-06-10 00:12 | CP.PCM.PN ---
Subjective - Date & Time of Evaluation Date of Evaluation: 06/09/18 Time of Evaluation: 16:00 - Subjective Subjective: SEEN ON RENAL F/U IN BED RESTING FULLY A@O .. STILL WITH MUMBLING SPEACH RENAL FUNCTION REMAINS STABLE Objective - Vital Signs/Intake and Output Vital Signs (last 24 hours): Temp Pulse Resp BP Pulse Ox 98.2 F 71 20 144/77 100 06/09/18 20:00 06/09/18 21:32 06/09/18 20:00 06/09/18 21:32 06/09/18 20:00 - Medications Medications: Current Medications Albuterol (Ventolin Hfa 90 Mcg/Actuation (8 G)) 2 puff IH Q12 PRN PRN Reason: Shortness of Breath Last Admin: 06/04/18 08:34 Dose: 2 puff Allopurinol (Zyloprim) 100 mg PO DAILY [facility] Last Admin: 06/09/18 08:28 Dose: 100 mg Amantadine HCl (Amantadine 100 Mg Cap) 100 mg PO DAILY@1800 [facility] Last Admin: 06/09/18 17:06 Dose: 100 mg Amlodipine Besylate (Norvasc) 10 mg PO DAILY [facility] Last Admin: 06/09/18 08:28 Dose: 10 mg Aspirin (Aspirin Chewable) 81 mg PO DAILY [facility] Last Admin: 06/09/18 08:25 Dose: 81 mg Atorvastatin Calcium (Lipitor) 40 mg PO DAILY@2100 [facility] Last Admin: 06/09/18 21:27 Dose: 40 mg Bacitracin (Bacitracin Oint) 1 applic TOP BID [facility] Last Admin: 06/09/18 16:57 Dose: 1 applic Carvedilol (Coreg) 25 mg PO Q12 [facility] Last Admin: 06/09/18 21:31 Dose: 25 mg Clopidogrel Bisulfate (Plavix) 75 mg PO DAILY [facility] Last Admin: 06/09/18 08:28 Dose: 75 mg Enoxaparin Sodium (Lovenox) 30 mg SC DAILY [facility] PRN Reason: Protocol Last Admin: 06/09/18 08:27 Dose: 30 mg Hydralazine HCl (Apresoline) 25 mg PO Q8 [facility] Last Admin: 06/09/18 21:32 Dose: 25 mg Insulin Detemir (Levemir) 15 units SC [facility] Last Admin: 06/09/18 21:35 Dose: 15 units Insulin Human Lispro (Humalog) 0 units SC ACHS [facility] PRN Reason: Protocol Last Admin: 06/09/18 21:33 Dose: Not Given Lactobacillus Acidophilus (Bacid Acidophilus) 1 cap PO BID [facility] Last Admin: 06/09/18 17:06 Dose: 1 cap Levetiracetam (Keppra) 500 mg PO Q12 [facility] Last Admin: 06/09/18 21:27 Dose: 500 mg Levofloxacin (Levaquin) 250 mg PO DAILY [facility] PRN Reason: Protocol Last Admin: 06/09/18 08:27 Dose: 250 mg Losartan Potassium (Cozaar) 50 mg PO DAILY [facility] Last Admin: 06/09/18 08:26 Dose: 50 mg Montelukast Sodium (Singulair) 10 mg PO HS [facility] Last Admin: 06/09/18 21:27 Dose: 10 mg Multivitamins/Minerals (Therapeutic-M Tab) 1 tab PO DAILY [facility] Last Admin: 06/09/18 08:28 Dose: 1 tab Nystatin (Nystatin Oral Susp) 5 ml PO QID [facility] Last Admin: 06/09/18 21:28 Dose: 5 ml [id number]-6-Kftb Ethyl Esters (Lovaza) 1 gm PO DAILY [facility] Last Admin: 06/09/18 08:27 Dose: 1 gm Pantoprazole Sodium (Protonix Ec Tab) 40 mg PO DAILY [facility] Last Admin: 06/09/18 08:28 Dose: 40 mg - Labs Labs: 06/07/18 06:10 06/07/18 06:10 Assessment and Plan - Assessment and Plan (Free Text) Assessment: CKD .. RENAL FUNCTION STABLE CVA .. MMP P : C/O CURRENT CARE C/O PRESENT MEDS
[2018-06-10] MEDS: Insulin Lispro (humaLOG) 100 Units/ml Inj SC SCH ×4 (06:50→22:30)
[2018-06-10 08:10] LABS: MEAN CELL VOLUME 91.2 fl (81.0-99.0); MEAN CORPUSCULAR HEMOGLOBIN 32.4 pg (27.0-31.0); MEAN CORPUSCULAR HGB CONC 35.5 g/dL (33.0-37.0); RBC 3.1 Mil/uL (3.80-5.20); RED CELL DISTRIBUTION WIDTH 13.8 % (11.5-14.5); WHITE BLOOD COUNT 10.1 K/uL (4.8-10.8)
[2018-06-10] MEDS: Pantoprazole 40 mg EC Tab PO SCH (08:54)
[2018-06-10] MEDS: Enoxaparin 30 mg Syringe SC SCH (08:54)
[2018-06-10] MEDS: Omega-3-Acid Ethyl Esters 1 GM Cap PO SCH (08:55)
[2018-06-10] MEDS: Nystatin 100,000 Units/ml Oral Susp 5 ml UD PO SCH ×4 (08:56→22:30)
[2018-06-10 08:57] LABS: CALCIUM 9.4 mg/dL (8.4-10.2)
[2018-06-10] MEDS: Multivitamin With Minerals Tab PO SCH (08:57)
[2018-06-10] MEDS: Lactobacillus Acidophilus 500 MU Cap PO SCH ×2 (08:59→17:10)
[2018-06-10] MEDS: Bacitracin OINT 15GM TOP SCH ×2 (08:59→17:09)
--- NOTE | 2018-06-10 13:15 | PSY.TMCNF ---
Nursing - Vital Signs Vital Signs (Last 8 hours): Vital Signs 06/10/18 06/10/18 06/10/18 06:42 07:30 08:56 Temperature 98.1 F Pulse Rate 66 68 68 Respiratory 18 Rate Blood Pressure 133/72 136/72 136/72 O2 Sat by Pulse 100 Oximetry 06/10/18 06/10/18 06/10/18 08:57 08:58 10:17 Temperature Pulse Rate 68 68 68 Respiratory Rate Blood Pressure 136/72 136/72 O2 Sat by Pulse Oximetry 06/10/18 12:39 Temperature 98.1 F Pulse Rate 68 Respiratory 18 Rate Blood Pressure 136/72 O2 Sat by Pulse Oximetry Pain: 0 - Precautions: Precautions: Fall Prevention, Aspiration, Seizure - Medications/Other Issues Comment: Pt at moderate nutritional risk. Goals: 1: Tolerate diet and consume > 75% of meals. 2: Maintain wt within 2-3 lbs. of current wt. Follow-up due on 06/10/2018 - Consults Comment: Dr Teixeira,Dr Brumfield,Dr Kim, - Wound Right Elbow Wound Type: Abrasion Wound Bed Greatest Portion: Blanched/Dull Periwound: Intact Wound Drainage Amount: None Wound Drainage Odor: None/Absent Wound General Appearance: Clean/Dry Wound Dressing Status: Changed Dressing Changed: Yes Wound Packing Type: Gauze Pads Wound Secondary Dressing Type: Gauze Roll/Wrap Comment: bacitracin dressing applied as ordered - Toileting Toileting: Dependent - Bladder Management Bladder Pattern: Incontinent Voiding Method: Bedpan, Diaper Bladder Management: Moderate Assistance Frequency of Accidents: less than5 - Bowel Management Bowel Pattern: Incontinent Comment: less than 5 Bowel Management: Dependent - Transfers Transfers: Maximal Assistance - ADL's ADL's: Maximal Assistance - Pain Management Comments: denies any pain - Patient/Family Teaching Comments: post cva ,seizure precaution ,aspiration precaution ,fall and safety medication teachings - Goals/Time Frame Comments: as per multidiciplinary plan of care - Provider Provider: Kenton myles Physical Therapy - Bed Mobility Bed Mobility: Maximum Assistance - Transfers Sit to Stand: Verbal Cues, Moderate Assistance, Maximum Assistance - Ambulation Level of Assistance: Maximum Assistance Distance (ft.): 18 Assistive Devices: Wide base quad cane (DF wrap) - Stair Negotiation Stairs: Level of Assistance: Not Tested - Standing Balance Static Stand: Moderate Assistance Dynamic Stand: Maximal Assistance - Pain Pain (assessed during therapy session): 0 - Insight/Carryover Insight/Carryover: Fair - Patient/Family Education Comment: Pt education provided for CVA Recovery, safety, plan of care - Assessment/Plan Assessment: Pt is agreeable to participate in recreation therapy sessions. Pt is engaged in tasks related to number recognition and identification. visual scanning to the R side, and direction following tasks. Pt has demonstrated minimal improvement throughout all sessions. Pt presents with decrease carryover of task rules, number recognition and identification when asked to verbalize, and decrease R side visual scanning. Pt requires max A throughout identification tasks. Pt requires mod A with dom[employer]es task for initiation and for visual scanning. Pt will continue to benefit from participating in leisure tasks. - Goals Timeframe: 3 weeks Goals: Sit < > supine wit min A. Min A for all functional transfers. Pt will ambulate 100 ft with WBQC min A. Pt will negotiate 8 steps with handrail and min A - Provider Therapist: Maribel Faith PT, DPT License Number: [id number] Occupational Therapy - Arousal/Attention/Orientation Patient Orientation: Person, Place, Time, Appropriate to Age, Appropriate to Situation - ADL/IADL Self Feeding: Supervision, Verbal Cues, Set-up Help Grooming: Verbal Cues, Set-up Help, Minimal Assistance Bathing-Upper Extremity: Verbal Cues, Set-up Help, Maximum Assistance Bathing-Lower Extremity: Verbal Cues, Set-up Help, Dependent Dressing-Upper Extremity: Verbal Cues, Set-up Help, Maximum Assistance Dressing-Lower Extremity: Dependent - Sitting Balance Static Sitting: Minimal Assistance Dynamic Sitting: Reaches across midline, Reaches out of base of support, Reaches within base of support, Moderate Assistance - Transfers Wheelchair to Bed Transfers: Verbal Cues, Set-up Help, Moderate Assistance, Maximum Assistance Toilet Transfers: Verbal Cues, Set-up Help, Moderate Assistance, Maximum Assistance - Wheelchair Management Level of Assistance: Dependent - Upper Extremity Status Right Upper Extremity Comment: PROM IN WFLS, but no AROM noted at this time Left Upper Extremity Comment: AROM is WFLs, strength at least 4-/5 unable to complete formal assessment due to impaired cognition-based on functional movements during purposeful tasks - Pain Pain (assessed during therapy session): 0 - Insight/Carryover Insight/Carryover: Fair - Patient/Family Education Comment: Pt education provided for CVA Recovery, safety, plan of care - Assessment/Plan Assessment: Pt is agreeable to participate in recreation therapy sessions. Pt is engaged in tasks related to number recognition and identification. visual scanning to the R side, and direction following tasks. Pt has demonstrated minimal improvement throughout all sessions. Pt presents with decrease carryover of task rules, number recognition and identification when asked to verbalize, and decrease R side visual scanning. Pt requires max A throughout identification tasks. Pt requires mod A with dominoes task for initiation and for visual scanning. Pt will continue to benefit from participating in leisure tasks. - Goals Timeframe: 3 weeks Goals: Sit < > supine wit min A. Min A for all functional transfers. Pt will ambulate 100 ft with WBQC min A. Pt will negotiate 8 steps with handrail and min A - Provider Therapist: Joanna Martinez, OTR/L Speech Therapy - Consult Information Patient on Program: Yes Medical Diagnosis: CVA Treatment Diagnosis: -moderate dysarthria. -mild-moderate receptive/expressive aphasia. -moderate cognitive deficits. -moderate oral dysphagia - Assessment Expressive Language Impairment: Moderate Receptive Language Impairment: Moderate Problem Solving Impairment: Mild Memory Impairment: Moderate Speech/Articulation Impairment: Moderate Dysphagia/Swallowing Impairment: Moderate - Plan Assessment: Pt is agreeable to participate in recreation therapy sessions. Pt is engaged in tasks related to number recognition and identification. visual scanning to the R side, and direction following tasks. Pt has demonstrated minimal improvement throughout all sessions. Pt presents with decrease carryover of task rules, number recognition and identification when asked to verbalize, and decrease R side visual scanning. Pt requires max A throughout identification tasks. Pt requires mod A with dominoes task for initiation and for visual scanning. Pt will continue to benefit from participating in leisure tasks. Plan: Continue Dysphagia Therapy - Provider Therapist: Emani Tee License Number: [id number] Recreational Therapy - Participation Participation: Participates in Individual and/or Group Sessions - Attendance Attendance: 3-5 times per week - Activities Leisure Activities: Cards and Games - Socialization Level of Socialization: Initiates/interacts with caregivers but not with peer, Responds freely, but does not initiate - Assessment Assessment/Plan: Pt is agreeable to participate in recreation therapy sessions. Pt is engaged in tasks related to number recognition and identification. visual scanning to the R side, and direction following tasks. Pt has demonstrated minimal improvement throughout all sessions. Pt presents with decrease carryover of task rules, number recognition and identification when asked to verbalize, and decrease R side visual scanning. Pt requires max A throughout identification tasks. Pt requires mod A with dominoes task for initiation and for visual scanning. Pt will continue to benefit from participating in leisure tasks. Problems Currently Limiting Participation: R side weakness, R side visual inattention, slurred/mumbled speech, fatigue, decrease leisure awareness level, decrease direction following Goals and Time Frame: Pt will be encouraged to participate in 1:1 and group recreation therapy sessions 3-5x week to improve word naming and finding, attention to task, arousal level, direction following, command folloiwng, and overall mood state. - Provider Therapist: Tabby Sin, [employer] #[id number] Nutrition - Current Diet Current Diet/ Supplement/ Feedings: Renal non-dialysis 2 gram Na 2 gram K+ 60 gram protein moderate consistent CHO pureed thin liquids - Appetite Percent Meal Consumed: 75-100% - Comments Comments: post cva ,seizure precaution ,aspiration precaution ,fall and safety medication teachings - Assessment/Goals/Time Frame Assessment/Goals/Time Frame: Pt at moderate nutritional risk. Goals: 1: Tolerate diet and consume >75% of meals. 2: Maintain wt within 2-3 lbs. of current wt. Follow-up due on 06/10/2018 - Provider Provider: Maddie Barber RD Rehabilitation Plan - Treatment Plan Treatment Plan: Physical Therapy, Occupational Therapy, Speech, Dietary, Patient /Family Education - Discharge Plan Estimated Date of Discharge: 06/26/18 Discharge to: Subacute
--- NOTE | 2018-06-10 13:45 | CP.PCM.PN ---
Subjective - Date & Time of Evaluation Date of Evaluation: 06/10/18 Time of Evaluation: 13:44 - Subjective Subjective: Patient seen in room with POA present he is not going to be able to care for her at home and will be planning a PERRY d/ c when ready continue current care Objective - Vital Signs/Intake and Output Vital Signs (last 24 hours): Temp Pulse Resp BP Pulse Ox 98.1 F 68 18 136/72 100 06/10/18 12:39 06/10/18 12:39 06/10/18 12:39 06/10/18 12:39 06/10/18 07:30 - Medications Medications: Current Medications Albuterol (Ventolin Hfa 90 Mcg/Actuation (8 G)) 2 puff IH Q12 PRN PRN Reason: Shortness of Breath Last Admin: 06/04/18 08:34 Dose: 2 puff Allopurinol (Zyloprim) 100 mg PO DAILY [facility] Last Admin: 06/10/18 08:56 Dose: 100 mg Amantadine HCl (Amantadine 100 Mg Cap) 100 mg PO DAILY@1800 [facility] Last Admin: 06/09/18 17:06 Dose: 100 mg Amlodipine Besylate (Norvasc) 10 mg PO DAILY [facility] Last Admin: 06/10/18 08:57 Dose: 10 mg Aspirin (Aspirin Chewable) 81 mg PO DAILY [facility] Last Admin: 06/10/18 08:55 Dose: 81 mg Atorvastatin Calcium (Lipitor) 40 mg PO DAILY@2100 [facility] Last Admin: 06/09/18 21:27 Dose: 40 mg Bacitracin (Bacitracin Oint) 1 applic TOP BID [facility] Last Admin: 06/10/18 08:59 Dose: 1 applic Carvedilol (Coreg) 25 mg PO Q12 [facility] Last Admin: 06/10/18 08:58 Dose: 25 mg Clopidogrel Bisulfate (Plavix) 75 mg PO DAILY [facility] Last Admin: 06/10/18 08:56 Dose: 75 mg Enoxaparin Sodium (Lovenox) 30 mg SC DAILY [facility] PRN Reason: Protocol Last Admin: 06/10/18 08:54 Dose: 30 mg Hydralazine HCl (Apresoline) 25 mg PO Q8 [facility] Last Admin: 06/10/18 06:42 Dose: 25 mg Insulin Detemir (Levemir) 15 units SC HS [facility] Last Admin: 06/09/18 21:35 Dose: 15 units Insulin Human Lispro (Humalog) 0 units SC ACHS [facility] PRN Reason: Protocol Last Admin: 06/10/18 12:07 Dose: 2 unit Lactobacillus Acidophilus (Bacid Acidophilus) 1 cap PO BID [facility] Last Admin: 06/10/18 08:59 Dose: 1 cap Levetiracetam (Keppra) 500 mg PO Q12 [facility] Last Admin: 06/10/18 08:56 Dose: 500 mg Levofloxacin (Levaquin) 250 mg PO DAILY [facility] PRN Reason: Protocol Last Admin: 06/10/18 08:55 Dose: 250 mg Losartan Potassium (Cozaar) 50 mg PO DAILY [facility] Last Admin: 06/10/18 08:56 Dose: 50 mg Montelukast Sodium (Singulair) 10 mg PO HS [facility] Last Admin: 06/09/18 21:27 Dose: 10 mg Multivitamins/Minerals (Therapeutic-M Tab) 1 tab PO DAILY [facility] Last Admin: 06/10/18 08:57 Dose: 1 tab Nystatin (Nystatin Oral Susp) 5 ml PO QID [facility] Last Admin: 06/10/18 13:24 Dose: 5 ml Jxzxs-2-Davv Ethyl Esters (Lovaza) 1 gm PO DAILY [facility] Last Admin: 06/10/18 08:55 Dose: 1 gm Pantoprazole Sodium (Protonix Ec Tab) 40 mg PO DAILY [facility] Last Admin: 06/10/18 08:54 Dose: 40 mg - Labs Labs: 06/10/18 07:32 06/10/18 07:52
[2018-06-10] MEDS: Insulin Detemir 100 Units/ml Inj SC SCH (22:26)
[2018-06-11] MEDS: Insulin Lispro (humaLOG) 100 Units/ml Inj SC SCH ×4 (07:00→21:00)
[2018-06-11] MEDS: Bacitracin OINT 15GM TOP SCH ×2 (08:19→17:03)
[2018-06-11] MEDS: Nystatin 100,000 Units/ml Oral Susp 5 ml UD PO SCH ×4 (08:19→21:32)
[2018-06-11] MEDS: Enoxaparin 30 mg Syringe SC SCH (08:20)
[2018-06-11] MEDS: Lactobacillus Acidophilus 500 MU Cap PO SCH ×2 (08:21→17:02)
[2018-06-11] MEDS: Multivitamin With Minerals Tab PO SCH (08:22)
[2018-06-11] MEDS: Pantoprazole 40 mg EC Tab PO SCH (08:23)
[2018-06-11] MEDS: Omega-3-Acid Ethyl Esters 1 GM Cap PO SCH (08:23)
--- NOTE | 2018-06-11 14:26 | CP.PCM.PN ---
Subjective - Date & Time of Evaluation Date of Evaluation: 06/11/18 Time of Evaluation: 11:00 - Subjective Subjective: Patient was seen and examined OOB to chair. No new complaints. States she is feeling well. Objective - Vital Signs/Intake and Output Vital Signs (last 24 hours): Temp Pulse Resp BP Pulse Ox 97.9 F 70 22 142/66 96 06/11/18 08:38 06/11/18 13:11 06/11/18 08:38 06/11/18 13:11 06/11/18 08:38 - Medications Medications: Current Medications Albuterol (Ventolin Hfa 90 Mcg/Actuation (8 G)) 2 puff IH Q12 PRN PRN Reason: Shortness of Breath Last Admin: 06/04/18 08:34 Dose: 2 puff Allopurinol (Zyloprim) 100 mg PO DAILY [facility] Last Admin: 06/11/18 08:23 Dose: 100 mg Amantadine HCl (Amantadine 100 Mg Cap) 100 mg PO DAILY@1800 [facility] Last Admin: 06/10/18 17:08 Dose: 100 mg Amlodipine Besylate (Norvasc) 10 mg PO DAILY [facility] Last Admin: 06/11/18 08:22 Dose: 10 mg Aspirin (Aspirin Chewable) 81 mg PO DAILY [facility] Last Admin: 06/11/18 08:20 Dose: 81 mg Atorvastatin Calcium (Lipitor) 40 mg PO DAILY@2100 [facility] Last Admin: 06/10/18 21:56 Dose: 40 mg Bacitracin (Bacitracin Oint) 1 applic TOP BID [facility] Last Admin: 06/11/18 08:19 Dose: 1 applic Carvedilol (Coreg) 25 mg PO Q12 [facility] Last Admin: 06/11/18 08:21 Dose: 25 mg Clopidogrel Bisulfate (Plavix) 75 mg PO DAILY [facility] Last Admin: 06/11/18 08:22 Dose: 75 mg Enoxaparin Sodium (Lovenox) 30 mg SC DAILY [facility] PRN Reason: Protocol Last Admin: 06/11/18 08:20 Dose: 30 mg Hydralazine HCl (Apresoline) 25 mg PO Q8 [facility] Last Admin: 06/11/18 13:11 Dose: 25 mg Insulin Detemir (Levemir) 15 units SC HS [facility] Last Admin: 06/10/18 22:26 Dose: 15 units Insulin Human Lispro (Humalog) 0 units SC ACHS [facility] PRN Reason: Protocol Last Admin: 06/11/18 11:45 Dose: 2 unit Lactobacillus Acidophilus (Bacid Acidophilus) 1 cap PO BID [facility] Last Admin: 06/11/18 08:21 Dose: 1 cap Levetiracetam (Keppra) 500 mg PO Q12 [facility] Last Admin: 06/11/18 08:22 Dose: 500 mg Levofloxacin (Levaquin) 250 mg PO DAILY [facility] PRN Reason: Protocol Last Admin: 06/11/18 08:23 Dose: 250 mg Losartan Potassium (Cozaar) 50 mg PO DAILY [facility] Last Admin: 06/11/18 08:23 Dose: 50 mg Montelukast Sodium (Singulair) 10 mg PO HS [facility] Last Admin: 06/10/18 21:56 Dose: 10 mg Multivitamins/Minerals (Therapeutic-M Tab) 1 tab PO DAILY [facility] Last Admin: 06/11/18 08:22 Dose: 1 tab Nystatin (Nystatin Oral Susp) 5 ml PO QID [facility] Last Admin: 06/11/18 13:11 Dose: 5 ml Wlfkx-8-Misp Ethyl Esters (Lovaza) 1 gm PO DAILY [facility] Last Admin: 06/11/18 08:23 Dose: 1 gm Pantoprazole Sodium (Protonix Ec Tab) 40 mg PO DAILY [facility] Last Admin: 06/11/18 08:23 Dose: 40 mg - Labs Labs: 06/10/18 07:32 06/10/18 07:52 - Additional Findings Additional findings: Physical exam: Constitutional- cooperative, awake, alert Head- NCAT, PERRL Eye- PERRL, EOMI ENT- normal exam, MMM. Neck- normal inspection, supple, no JVD Respiratory- CTAB, no wheezes rales rhonchi Cardiovascular- RRR, +S1, +S2 no MRG GI/Abdominal- normal bowel sounds, soft, no mass, no hsm Skin- warm, dry Extremities Exam- normal capillary refill, normal inspection Neurological Exam- alert, awake, oriented Psych- normal mood, flat affect Assessment and Plan - Assessment and Plan (Free Text) Plan: 67 yo female with history of RA, HTN HLD, DM2 and previous CVA was brought to the ER following a fall and right sided weakness accompanied with slurred speech. Code stroke was called and TPA administered. Initial CT scan did not show any significant findings. Patient was admitted in ICU where MRI done later showed large left MCA infarct. Hemorrhagic conversion also noted on the left basal ganglia. She was later transferred to Acute Rehab for further management and therapy. 1. Acute CVA, s/p TPA had hemorrhagic conversion continue PT/OT/ST continue ASA, Plavix, statin and Keppra 2. Hypertension BP stable continue Coreg, Norvasc and Hydralazine 3. Hypercholesterolemia continue Lipitor 4. Type 2 DM Lispro sliding scale with accuchecks BS controlled continue Levemir 15 units SC HS 5. Asthma, mild intermittent Continue Albuterol PRN for SOB chronic 7. CKD stage III likely due to diabetic nephropathy and/or uncontrolled hypertension renal function remain stable renal consult with Dr Julio byrnes 8. DVT prophylaxis Lovenox 40mg SC daily
--- NOTE | 2018-06-11 18:11 | CP.PCM.PN ---
Subjective - Date & Time of Evaluation Date of Evaluation: 06/11/18 Time of Evaluation: 12:10 - Subjective Subjective: Patient seen in the room denies sob/cp or MILLAN still with significant assist in activities right HP, dense continue current care Objective - Vital Signs/Intake and Output Vital Signs (last 24 hours): Temp Pulse Resp BP Pulse Ox 97.9 F 70 22 142/66 96 06/11/18 08:38 06/11/18 13:11 06/11/18 08:38 06/11/18 13:11 06/11/18 08:38 - Medications Medications: Current Medications Albuterol (Ventolin Hfa 90 Mcg/Actuation (8 G)) 2 puff IH Q12 PRN PRN Reason: Shortness of Breath Last Admin: 06/04/18 08:34 Dose: 2 puff Allopurinol (Zyloprim) 100 mg PO DAILY [facility] Last Admin: 06/11/18 08:23 Dose: 100 mg Amantadine HCl (Amantadine 100 Mg Cap) 100 mg PO DAILY@1800 [facility] Last Admin: 06/11/18 17:03 Dose: 100 mg Amlodipine Besylate (Norvasc) 10 mg PO DAILY [facility] Last Admin: 06/11/18 08:22 Dose: 10 mg Aspirin (Aspirin Chewable) 81 mg PO DAILY [facility] Last Admin: 06/11/18 08:20 Dose: 81 mg Atorvastatin Calcium (Lipitor) 40 mg PO DAILY@2100 [facility] Last Admin: 06/10/18 21:56 Dose: 40 mg Bacitracin (Bacitracin Oint) 1 applic TOP BID [facility] Last Admin: 06/11/18 17:03 Dose: 1 applic Carvedilol (Coreg) 25 mg PO Q12 [facility] Last Admin: 06/11/18 08:21 Dose: 25 mg Clopidogrel Bisulfate (Plavix) 75 mg PO DAILY [facility] Last Admin: 06/11/18 08:22 Dose: 75 mg Enoxaparin Sodium (Lovenox) 30 mg SC DAILY [facility] PRN Reason: Protocol Last Admin: 06/11/18 08:20 Dose: 30 mg Hydralazine HCl (Apresoline) 25 mg PO Q8 [facility] Last Admin: 06/11/18 13:11 Dose: 25 mg Insulin Detemir (Levemir) 15 units SC [facility] Last Admin: 06/10/18 22:26 Dose: 15 units Insulin Human Lispro (Humalog) 0 units SC ACHS [facility] PRN Reason: Protocol Last Admin: 06/11/18 17:03 Dose: 1 unit Lactobacillus Acidophilus (Bacid Acidophilus) 1 cap PO BID [facility] Last Admin: 06/11/18 17:02 Dose: 1 cap Levetiracetam (Keppra) 500 mg PO Q12 [facility] Last Admin: 06/11/18 08:22 Dose: 500 mg Levofloxacin (Levaquin) 250 mg PO DAILY [facility] PRN Reason: Protocol Last Admin: 06/11/18 08:23 Dose: 250 mg Losartan Potassium (Cozaar) 50 mg PO DAILY [facility] Last Admin: 06/11/18 08:23 Dose: 50 mg Montelukast Sodium (Singulair) 10 mg PO HS [facility] Last Admin: 06/10/18 21:56 Dose: 10 mg Multivitamins/Minerals (Therapeutic-M Tab) 1 tab PO DAILY [facility] Last Admin: 06/11/18 08:22 Dose: 1 tab Nystatin (Nystatin Oral Susp) 5 ml PO QID [facility] Last Admin: 06/11/18 17:04 Dose: 5 ml Faksm-4-Qups Ethyl Esters (Lovaza) 1 gm PO DAILY [facility] Last Admin: 06/11/18 08:23 Dose: 1 gm Pantoprazole Sodium (Protonix Ec Tab) 40 mg PO DAILY [facility] Last Admin: 06/11/18 08:23 Dose: 40 mg - Labs Labs: 06/10/18 07:32 06/10/18 07:52
[2018-06-11] MEDS: Insulin Detemir 100 Units/ml Inj SC SCH (21:32)
[2018-06-12] MEDS: Insulin Lispro (humaLOG) 100 Units/ml Inj SC SCH ×4 (06:30→21:00)
[2018-06-12] MEDS: Nystatin 100,000 Units/ml Oral Susp 5 ml UD PO SCH ×4 (08:02→21:46)
[2018-06-12] MEDS: Enoxaparin 30 mg Syringe SC SCH (08:03)
[2018-06-12] MEDS: Omega-3-Acid Ethyl Esters 1 GM Cap PO SCH (08:03)
[2018-06-12] MEDS: Lactobacillus Acidophilus 500 MU Cap PO SCH ×2 (08:04→16:54)
[2018-06-12] MEDS: Bacitracin OINT 15GM TOP SCH ×2 (08:04→16:55)
[2018-06-12] MEDS: Pantoprazole 40 mg EC Tab PO SCH (08:06)
[2018-06-12] MEDS: Multivitamin With Minerals Tab PO SCH (08:06)
--- NOTE | 2018-06-12 09:45 | CP.PCM.PN ---
Subjective - Date & Time of Evaluation Date of Evaluation: 06/12/18 Time of Evaluation: 09:42 - Subjective Subjective: Ms. Solo was seen and examined at the bedside. She is alert, awake. She denies any headache, dizziness, nausea, or vomiting. She is able to follow simple commands, able to stand at her bedside with moderate assistance, brush her teeth, and tolerating therapy session. There was no untoward events overnight. Objective - Vital Signs/Intake and Output Vital Signs (last 24 hours): Temp Pulse Resp BP Pulse Ox 97.3 F L 70 20 144/78 98 06/12/18 08:47 06/12/18 08:47 06/12/18 08:47 06/12/18 08:47 06/12/18 08:47 - Medications Medications: Current Medications Albuterol (Ventolin Hfa 90 Mcg/Actuation (8 G)) 2 puff IH Q12 PRN PRN Reason: Shortness of Breath Last Admin: 06/04/18 08:34 Dose: 2 puff Allopurinol (Zyloprim) 100 mg PO DAILY [facility] Last Admin: 06/12/18 08:03 Dose: 100 mg Amlodipine Besylate (Norvasc) 10 mg PO DAILY [facility] Last Admin: 06/12/18 08:03 Dose: 10 mg Aspirin (Aspirin Chewable) 81 mg PO DAILY [facility] Last Admin: 06/12/18 08:04 Dose: 81 mg Atorvastatin Calcium (Lipitor) 40 mg PO DAILY@2100 [facility] Last Admin: 06/11/18 21:31 Dose: 40 mg Bacitracin (Bacitracin Oint) 1 applic TOP BID [facility] Last Admin: 06/12/18 08:04 Dose: 1 applic Carvedilol (Coreg) 25 mg PO Q12 [facility] Last Admin: 06/12/18 08:05 Dose: 25 mg Clopidogrel Bisulfate (Plavix) 75 mg PO DAILY [facility] Last Admin: 06/12/18 08:06 Dose: 75 mg Enoxaparin Sodium (Lovenox) 30 mg SC DAILY [facility] PRN Reason: Protocol Last Admin: 06/12/18 08:03 Dose: 30 mg Hydralazine HCl (Apresoline) 25 mg PO Q8 [facility] Last Admin: 06/12/18 05:44 Dose: 25 mg Insulin Detemir (Levemir) [address] [facility] Last Admin: 06/11/18 21:32 Dose: 15 units Insulin Human Lispro (Humalog) 0 units SC ACHS [facility] PRN Reason: Protocol Last Admin: 06/12/18 06:30 Dose: Not Given Lactobacillus Acidophilus (Bacid Acidophilus) 1 cap PO BID [facility] Last Admin: 06/12/18 08:04 Dose: 1 cap Levetiracetam (Keppra) 500 mg PO Q12 [facility] Last Admin: 06/12/18 08:06 Dose: 500 mg Levofloxacin (Levaquin) 250 mg PO DAILY [facility] PRN Reason: Protocol Last Admin: 06/12/18 08:06 Dose: 250 mg Losartan Potassium (Cozaar) 50 mg PO DAILY [facility] Last Admin: 06/12/18 08:04 Dose: 50 mg Montelukast Sodium (Singulair) 10 mg PO HS [facility] Last Admin: 06/11/18 21:32 Dose: 10 mg Multivitamins/Minerals (Therapeutic-M Tab) 1 tab PO DAILY [facility] Last Admin: 06/12/18 08:06 Dose: 1 tab Nystatin (Nystatin Oral Susp) 5 ml PO QID [facility] Last Admin: 06/12/18 08:02 Dose: 5 ml Yblpu-5-Eesb Ethyl Esters (Lovaza) 1 gm PO DAILY [facility] Last Admin: 06/12/18 08:03 Dose: 1 gm Pantoprazole Sodium (Protonix Ec Tab) 40 mg PO DAILY [facility] Last Admin: 06/12/18 08:06 Dose: 40 mg - Labs Labs: 06/10/18 07:32 06/10/18 07:52 - Constitutional Appears: No Acute Distress - Head Exam Head Exam: NORMAL INSPECTION - Eye Exam Pupil Exam: PERRL - Neurological Exam Neurological Exam: Alert, Awake Neuro motor strength exam: Left Upper Extremity: 2/1, Right Upper Extremity: 5, Left Lower Extremity: 2/1, Right Lower Extremity: 5 Additional comments: neurological improved from previous examination. Assessment and Plan (1) Ischemic stroke Assessment & Plan: Continue all current medical, physical, occupational, and speech therapies. Recommend hydration, keep head of bed elevated at least 30 degrees while in bed , blood pressure and glycemic control. Status: Acute
--- NOTE | 2018-06-12 16:56 | CP.PCM.PN ---
Subjective - Date & Time of Evaluation Date of Evaluation: 06/12/18 Time of Evaluation: 16:00 - Subjective Subjective: SEEN ON RENAL F/U IN BED RESTING FEELING BETTER RENAL FUNCTION IMPROVED D/W NURSE IN CHARGE Objective - Vital Signs/Intake and Output Vital Signs (last 24 hours): Temp Pulse Resp BP Pulse Ox 97.3 F L 70 20 144/70 98 06/12/18 08:47 06/12/18 14:00 06/12/18 08:47 06/12/18 14:00 06/12/18 08:47 - Medications Medications: Current Medications Albuterol (Ventolin Hfa 90 Mcg/Actuation (8 G)) 2 puff IH Q12 PRN PRN Reason: Shortness of Breath Last Admin: 06/04/18 08:34 Dose: 2 puff Allopurinol (Zyloprim) 100 mg PO DAILY [facility] Last Admin: 06/12/18 08:03 Dose: 100 mg Amlodipine Besylate (Norvasc) 10 mg PO DAILY [facility] Last Admin: 06/12/18 08:03 Dose: 10 mg Aspirin (Aspirin Chewable) 81 mg PO DAILY [facility] Last Admin: 06/12/18 08:04 Dose: 81 mg Atorvastatin Calcium (Lipitor) 40 mg PO DAILY@2100 [facility] Last Admin: 06/11/18 21:31 Dose: 40 mg Bacitracin (Bacitracin Oint) 1 applic TOP BID [facility] Last Admin: 06/12/18 08:04 Dose: 1 applic Carvedilol (Coreg) 25 mg PO Q12 [facility] Last Admin: 06/12/18 08:05 Dose: 25 mg Clopidogrel Bisulfate (Plavix) 75 mg PO DAILY [facility] Last Admin: 06/12/18 08:06 Dose: 75 mg Enoxaparin Sodium (Lovenox) 30 mg SC DAILY [facility] PRN Reason: Protocol Last Admin: 06/12/18 08:03 Dose: 30 mg Hydralazine HCl (Apresoline) 25 mg PO Q8 [facility] Last Admin: 06/12/18 14:00 Dose: 25 mg Insulin Detemir (Levemir) 15 units SC [facility] Last Admin: 06/11/18 21:32 Dose: 15 units Insulin Human Lispro (Humalog) 0 units SC [facility] PRN Reason: Protocol Last Admin: 06/12/18 12:37 Dose: 2 unit Lactobacillus Acidophilus (Bacid Acidophilus) 1 cap PO BID [facility] Last Admin: 06/12/18 08:04 Dose: 1 cap Levetiracetam (Keppra) 500 mg PO Q12 [facility] Last Admin: 06/12/18 08:06 Dose: 500 mg Losartan Potassium (Cozaar) 50 mg PO DAILY [facility] Last Admin: 06/12/18 08:04 Dose: 50 mg Montelukast Sodium (Singulair) 10 mg PO HS [facility] Last Admin: 06/11/18 21:32 Dose: 10 mg Multivitamins/Minerals (Therapeutic-M Tab) 1 tab PO DAILY [facility] Last Admin: 06/12/18 08:06 Dose: 1 tab Nystatin (Nystatin Oral Susp) 5 ml PO QID [facility] Last Admin: 06/12/18 12:38 Dose: 5 ml Qnpvw-2-Wipl Ethyl Esters (Lovaza) 1 gm PO DAILY [facility] Last Admin: 06/12/18 08:03 Dose: 1 gm Pantoprazole Sodium (Protonix Ec Tab) 40 mg PO DAILY [facility] Last Admin: 06/12/18 08:06 Dose: 40 mg - Labs Labs: 06/10/18 07:32 06/10/18 07:52 Assessment and Plan - Assessment and Plan (Free Text) Assessment: CKD .. RENAL FUNCTION STABLE ANEMIA OF CKD .. MILD CVA .. GETTING PT OT ST MMP P: C/O CURRENT CARE C/O PRESENT MEDS
[2018-06-12] MEDS: Insulin Detemir 100 Units/ml Inj SC SCH (21:46)
[2018-06-13 06:26] LABS: HEMOGLOBIN 10.2 g/dL (12.0-16.0); MEAN CELL VOLUME 92.7 fl (81.0-99.0); MEAN CORPUSCULAR HGB CONC 34.5 g/dL (33.0-37.0); RBC 3.19 Mil/uL (3.80-5.20); RED CELL DISTRIBUTION WIDTH 14.2 % (11.5-14.5); WHITE BLOOD COUNT 7.8 K/uL (4.8-10.8)
[2018-06-13] MEDS: Insulin Lispro (humaLOG) 100 Units/ml Inj SC SCH ×5 (06:30→21:29)
[2018-06-13 06:31] LABS: CALCIUM 9.7 mg/dL (8.4-10.2)
[2018-06-13] MEDS: Enoxaparin 30 mg Syringe SC SCH (08:17)
[2018-06-13] MEDS: Omega-3-Acid Ethyl Esters 1 GM Cap PO SCH (08:18)
[2018-06-13] MEDS: Multivitamin With Minerals Tab PO SCH (08:18)
[2018-06-13] MEDS: Nystatin 100,000 Units/ml Oral Susp 5 ml UD PO SCH ×4 (08:19→21:29)
[2018-06-13] MEDS: Pantoprazole 40 mg EC Tab PO SCH (08:20)
[2018-06-13] MEDS: Bacitracin OINT 15GM TOP SCH ×2 (08:21→17:48)
[2018-06-13] MEDS: Lactobacillus Acidophilus 500 MU Cap PO SCH ×2 (08:23→17:50)
--- NOTE | 2018-06-13 09:10 | CP.PCM.PN ---
Subjective - Date & Time of Evaluation Date of Evaluation: 06/13/18 Time of Evaluation: 09:06 - Subjective Subjective: Ms. Solo was seen and examined at the bedside. She is alert, oriented with her speech getting more clearer. She denies any headache, dizziness, nausea, or vomiting. She is able to follow simple commands, actively participating with her speech therapy. Today, its her first time to eat finely chopped food, and feed herself which she is able to tolerate it with no s/s of aspiration. She remains with right facial droop, right upper extremity flaccidity, and lower extremities weakness. There was no untoward events overnight. Objective - Vital Signs/Intake and Output Vital Signs (last 24 hours): Temp Pulse Resp BP Pulse Ox 97.5 F L 60 18 139/60 96 06/13/18 07:23 06/13/18 08:21 06/13/18 07:23 06/13/18 08:21 06/13/18 07:23 - Medications Medications: Current Medications Albuterol (Ventolin Hfa 90 Mcg/Actuation (8 G)) 2 puff IH Q12 PRN PRN Reason: Shortness of Breath Last Admin: 06/04/18 08:34 Dose: 2 puff Allopurinol (Zyloprim) 100 mg PO DAILY [facility] Last Admin: 06/13/18 08:19 Dose: 100 mg Amlodipine Besylate (Norvasc) 10 mg PO DAILY [facility] Last Admin: 06/13/18 08:18 Dose: 10 mg Aspirin (Aspirin Chewable) 81 mg PO DAILY [facility] Last Admin: 06/13/18 08:19 Dose: 81 mg Atorvastatin Calcium (Lipitor) 40 mg PO DAILY@2100 [facility] Last Admin: 06/12/18 21:45 Dose: 40 mg Bacitracin (Bacitracin Oint) 1 applic TOP BID [facility] Last Admin: 06/13/18 08:21 Dose: 1 applic Carvedilol (Coreg) 25 mg PO Q12 [facility] Last Admin: 06/13/18 08:21 Dose: 25 mg Clopidogrel Bisulfate (Plavix) 75 mg PO DAILY [facility] Last Admin: 06/13/18 08:20 Dose: 75 mg Enoxaparin Sodium (Lovenox) 30 mg SC DAILY [facility] PRN Reason: Protocol Last Admin: 06/13/18 08:17 Dose: 30 mg Hydralazine HCl (Apresoline) 25 mg PO Q8 [facility] Last Admin: 06/13/18 06:01 Dose: 25 mg Insulin Detemir (Levemir) 15 units SC [facility] Last Admin: 06/12/18 21:46 Dose: 15 units Insulin Human Lispro (Humalog) 0 units SC [facility] PRN Reason: Protocol Last Admin: 06/13/18 06:30 Dose: Not Given Lactobacillus Acidophilus (Bacid Acidophilus) 1 cap PO BID [facility] Last Admin: 06/13/18 08:23 Dose: 1 cap Levetiracetam (Keppra) 500 mg PO Q12 [facility] Last Admin: 06/13/18 08:20 Dose: 500 mg Losartan Potassium (Cozaar) 50 mg PO DAILY [facility] Last Admin: 06/13/18 08:20 Dose: 50 mg Montelukast Sodium (Singulair) 10 mg PO HS [facility] Last Admin: 06/12/18 21:46 Dose: 10 mg Multivitamins/Minerals (Therapeutic-M Tab) 1 tab PO DAILY [facility] Last Admin: 06/13/18 08:18 Dose: 1 tab Nystatin (Nystatin Oral Susp) 5 ml PO QID [facility] Last Admin: 06/13/18 08:19 Dose: 5 ml Vyxrc-9-Etaw Ethyl Esters (Lovaza) 1 gm PO DAILY [facility] Last Admin: 06/13/18 08:18 Dose: 1 gm Pantoprazole Sodium (Protonix Ec Tab) 40 mg PO DAILY [facility] Last Admin: 06/13/18 08:20 Dose: 40 mg - Labs Labs: 06/13/18 05:15 06/13/18 05:15 - Constitutional Appears: No Acute Distress - Head Exam Head Exam: NORMAL INSPECTION - Eye Exam Pupil Exam: PERRL - Neurological Exam Neurological Exam: Alert, Awake, Oriented x3 Neuro motor strength exam: Left Upper Extremity: 0, Right Upper Extremity: 5, Left Lower Extremity: 2/1, Right Lower Extremity: 5 Additional comments: neurological unchanged from previous examination. Assessment and Plan (1) Ischemic stroke Assessment & Plan: Continue all current medical, physical, occupational, and speech therapies. Recommend hydration, keep head of bed elevated at least 30 degrees while in bed , blood pressure and glycemic control. Status: Acute
--- NOTE | 2018-06-13 11:35 | CP.PCM.PN ---
Subjective - Date & Time of Evaluation Date of Evaluation: 06/13/18 Time of Evaluation: 11:00 - Subjective Subjective: Patient was seen and examined Tolerating therapies well. No new complaints. More alert today. Denies cp, sob, weakness, n/v/d. Objective - Vital Signs/Intake and Output Vital Signs (last 24 hours): Temp Pulse Resp BP Pulse Ox 97.5 F L 60 18 139/60 96 06/13/18 07:23 06/13/18 08:21 06/13/18 07:23 06/13/18 08:21 06/13/18 07:23 - Medications Medications: Current Medications Albuterol (Ventolin Hfa 90 Mcg/Actuation (8 G)) 2 puff IH Q12 PRN PRN Reason: Shortness of Breath Last Admin: 06/04/18 08:34 Dose: 2 puff Allopurinol (Zyloprim) 100 mg PO DAILY [facility] Last Admin: 06/13/18 08:19 Dose: 100 mg Amlodipine Besylate (Norvasc) 10 mg PO DAILY [facility] Last Admin: 06/13/18 08:18 Dose: 10 mg Aspirin (Aspirin Chewable) 81 mg PO DAILY [facility] Last Admin: 06/13/18 08:19 Dose: 81 mg Atorvastatin Calcium (Lipitor) 40 mg PO DAILY@2100 [facility] Last Admin: 06/12/18 21:45 Dose: 40 mg Bacitracin (Bacitracin Oint) 1 applic TOP BID [facility] Last Admin: 06/13/18 08:21 Dose: 1 applic Carvedilol (Coreg) 25 mg PO Q12 [facility] Last Admin: 06/13/18 08:21 Dose: 25 mg Clopidogrel Bisulfate (Plavix) 75 mg PO DAILY [facility] Last Admin: 06/13/18 08:20 Dose: 75 mg Enoxaparin Sodium (Lovenox) 30 mg SC DAILY [facility] PRN Reason: Protocol Last Admin: 06/13/18 08:17 Dose: 30 mg Hydralazine HCl (Apresoline) 25 mg PO Q8 [facility] Last Admin: 06/13/18 06:01 Dose: 25 mg Insulin Detemir (Levemir) 15 units SC HS [facility] Last Admin: 06/12/18 21:46 Dose: 15 units Insulin Human Lispro (Humalog) 0 units SC [facility] PRN Reason: Protocol Last Admin: 06/13/18 06:30 Dose: Not Given Lactobacillus Acidophilus (Bacid Acidophilus) 1 cap PO BID [facility] Last Admin: 06/13/18 08:23 Dose: 1 cap Levetiracetam (Keppra) 500 mg PO Q12 [facility] Last Admin: 06/13/18 08:20 Dose: 500 mg Losartan Potassium (Cozaar) 50 mg PO DAILY [facility] Last Admin: 06/13/18 08:20 Dose: 50 mg Montelukast Sodium (Singulair) 10 mg PO HS [facility] Last Admin: 06/12/18 21:46 Dose: 10 mg Multivitamins/Minerals (Therapeutic-M Tab) 1 tab PO DAILY [facility] Last Admin: 06/13/18 08:18 Dose: 1 tab Nystatin (Nystatin Oral Susp) 5 ml PO QID [facility] Last Admin: 06/13/18 08:19 Dose: 5 ml Bewns-9-Cnac Ethyl Esters (Lovaza) 1 gm PO DAILY [facility] Last Admin: 06/13/18 08:18 Dose: 1 gm Pantoprazole Sodium (Protonix Ec Tab) 40 mg PO DAILY [facility] Last Admin: 06/13/18 08:20 Dose: 40 mg - Labs Labs: 06/13/18 05:15 06/13/18 05:15 - Additional Findings Additional findings: Physical exam: Constitutional- Cooperative, more alert today Head- NCAT, PERRL Eye- PERRL, EOMI ENT- normal exam, MMM. Neck- normal inspection, supple, no JVD Respiratory- CTAB, no wheezes rales rhonchi Cardiovascular- RRR, +S1, +S2 no MRG GI/Abdominal- normal bowel sounds, soft, no mass, no hsm Skin- warm, dry Extremities Exam- normal capillary refill, normal inspection Neurological Exam- alert, awake, oriented Psych- normal mood, normal affect Assessment and Plan - Assessment and Plan (Free Text) Plan: 67 yo female with history of RA, HTN HLD, DM2 and previous CVA was brought to the ER following a fall and right sided weakness accompanied with slurred speech. Code stroke was called and TPA administered. Initial CT scan did not show any significant findings. Patient was admitted in ICU where MRI done later showed large left MCA infarct. Hemorrhagic conversion also noted on the left basal ganglia. She was later transferred to Acute Rehab for further management and therapy. 1. Acute CVA, s/p TPA had hemorrhagic conversion continue PT/OT/ST continue ASA, Plavix, statin and Keppra 2. Hypertension BP stable continue Coreg, Norvasc and Hydralazine 3. Hypercholesterolemia continue Lipitor 4. Type 2 DM Lispro sliding scale with accuchecks BS controlled continue Levemir 15 units SC HS 5. Asthma, mild intermittent Continue Albuterol PRN for SOB chronic 7. CKD stage III likely due to diabetic nephropathy and/or uncontrolled hypertension slightly worse renal function today Renal diet placed Encourage PO fluid intake Dr. Kim on consultation Lovenox decreased to 30 mg sc daily due to worsening renal function renal consult with Dr Kim appreciated 8. DVT prophylaxis Lovenox 30mg SC daily
--- NOTE | 2018-06-13 12:16 | CP.PCM.PN ---
Subjective - Date & Time of Evaluation Date of Evaluation: 06/13/18 Time of Evaluation: 12:15 - Subjective Subjective: Patient seen in the room, getting fed no sob/cp dense right HP continue current care Objective - Vital Signs/Intake and Output Vital Signs (last 24 hours): Temp Pulse Resp BP Pulse Ox 97.5 F L 60 18 139/60 96 06/13/18 07:23 06/13/18 08:21 06/13/18 07:23 06/13/18 08:21 06/13/18 07:23 - Medications Medications: Current Medications Albuterol (Ventolin Hfa 90 Mcg/Actuation (8 G)) 2 puff IH Q12 PRN PRN Reason: Shortness of Breath Last Admin: 06/04/18 08:34 Dose: 2 puff Allopurinol (Zyloprim) 100 mg PO DAILY [facility] Last Admin: 06/13/18 08:19 Dose: 100 mg Amlodipine Besylate (Norvasc) 10 mg PO DAILY [facility] Aspirin (Aspirin Chewable) 81 mg PO DAILY [facility] Last Admin: 06/13/18 08:19 Dose: 81 mg Atorvastatin Calcium (Lipitor) 40 mg PO DAILY@2100 [facility] Last Admin: 06/12/18 21:45 Dose: 40 mg Bacitracin (Bacitracin Oint) 1 applic TOP BID [facility] Last Admin: 06/13/18 08:21 Dose: 1 applic Carvedilol (Coreg) 25 mg PO Q12 [facility] Last Admin: 06/13/18 08:21 Dose: 25 mg Clopidogrel Bisulfate (Plavix) 75 mg PO DAILY [facility] Last Admin: 06/13/18 08:20 Dose: 75 mg Enoxaparin Sodium (Lovenox) 30 mg SC DAILY [facility] PRN Reason: Protocol Last Admin: 06/13/18 08:17 Dose: 30 mg Hydralazine HCl (Apresoline) 25 mg PO Q8 [facility] Last Admin: 06/13/18 06:01 Dose: 25 mg Insulin Detemir (Levemir) 15 units SC HS [facility] Last Admin: 06/12/18 21:46 Dose: 15 units Insulin Human Lispro (Humalog) 0 units SC [facility] PRN Reason: Protocol Last Admin: 06/13/18 06:30 Dose: Not Given Lactobacillus Acidophilus (Bacid Acidophilus) 1 cap PO BID [facility] Last Admin: 06/13/18 08:23 Dose: 1 cap Levetiracetam (Keppra) 500 mg PO Q12 [facility] Last Admin: 06/13/18 08:20 Dose: 500 mg Losartan Potassium (Cozaar) 50 mg PO DAILY [facility] Last Admin: 06/13/18 08:20 Dose: 50 mg Montelukast Sodium (Singulair) 10 mg PO HS [facility] Last Admin: 06/12/18 21:46 Dose: 10 mg Multivitamins/Minerals (Therapeutic-M Tab) 1 tab PO DAILY [facility] Last Admin: 06/13/18 08:18 Dose: 1 tab Nystatin (Nystatin Oral Susp) 5 ml PO QID [facility] Last Admin: 06/13/18 08:19 Dose: 5 ml Afjuf-2-Nzfu Ethyl Esters (Lovaza) 1 gm PO DAILY [facility] Last Admin: 06/13/18 08:18 Dose: 1 gm Pantoprazole Sodium (Protonix Ec Tab) 40 mg PO DAILY [facility] Last Admin: 06/13/18 08:20 Dose: 40 mg - Labs Labs: 06/13/18 05:15 06/13/18 05:15
[2018-06-13] MEDS: Insulin Detemir 100 Units/ml Inj SC SCH (21:55)
--- NOTE | 2018-06-13 23:03 | CP.PCM.PN ---
Subjective - Date & Time of Evaluation Date of Evaluation: 06/13/18 Time of Evaluation: 16:00 - Subjective Subjective: SEEN ON RENAL F/U ALERT AND ORIANTED GETTING PT .. FEELS MUCH BETTER Objective - Vital Signs/Intake and Output Vital Signs (last 24 hours): Temp Pulse Resp BP Pulse Ox 99.0 F 69 20 144/74 97 06/13/18 20:06 06/13/18 21:28 06/13/18 20:06 06/13/18 21:28 06/13/18 20:06 - Medications Medications: Current Medications Albuterol (Ventolin Hfa 90 Mcg/Actuation (8 G)) 2 puff IH Q12 PRN PRN Reason: Shortness of Breath Last Admin: 06/04/18 08:34 Dose: 2 puff Allopurinol (Zyloprim) 100 mg PO DAILY [facility] Last Admin: 06/13/18 08:19 Dose: 100 mg Amlodipine Besylate (Norvasc) 10 mg PO DAILY [facility] Aspirin (Aspirin Chewable) 81 mg PO DAILY [facility] Last Admin: 06/13/18 08:19 Dose: 81 mg Atorvastatin Calcium (Lipitor) 40 mg PO DAILY@2100 [facility] Last Admin: 06/13/18 21:28 Dose: 40 mg Bacitracin (Bacitracin Oint) 1 applic TOP BID [facility] Last Admin: 06/13/18 17:48 Dose: 1 applic Carvedilol (Coreg) 25 mg PO Q12 [facility] Last Admin: 06/13/18 21:28 Dose: 25 mg Clopidogrel Bisulfate (Plavix) 75 mg PO DAILY [facility] Last Admin: 06/13/18 08:20 Dose: 75 mg Enoxaparin Sodium (Lovenox) 30 mg SC DAILY [facility] PRN Reason: Protocol Last Admin: 06/13/18 08:17 Dose: 30 mg Hydralazine HCl (Apresoline) 25 mg PO Q8 [facility] Last Admin: 06/13/18 21:28 Dose: 25 mg Insulin Detemir (Levemir) 15 units SC HS [facility] Last Admin: 06/13/18 21:55 Dose: 15 units Insulin Human Lispro (Humalog) 0 units SC [facility] PRN Reason: Protocol Last Admin: 06/13/18 21:29 Dose: Not Given Lactobacillus Acidophilus (Bacid Acidophilus) 1 cap PO BID [facility] Last Admin: 06/13/18 17:50 Dose: 1 cap Levetiracetam (Keppra) 500 mg PO Q12 [facility] Last Admin: 06/13/18 21:29 Dose: 500 mg Losartan Potassium (Cozaar) 50 mg PO DAILY [facility] Last Admin: 06/13/18 08:20 Dose: 50 mg Montelukast Sodium (Singulair) 10 mg PO HS [facility] Last Admin: 06/12/18 21:46 Dose: 10 mg Multivitamins/Minerals (Therapeutic-M Tab) 1 tab PO DAILY [facility] Last Admin: 06/13/18 08:18 Dose: 1 tab Nystatin (Nystatin Oral Susp) 5 ml PO QID [facility] Last Admin: 06/13/18 21:29 Dose: 5 ml Azgkv-4-Qldq Ethyl Esters (Lovaza) 1 gm PO DAILY [facility] Last Admin: 06/13/18 08:18 Dose: 1 gm Pantoprazole Sodium (Protonix Ec Tab) 40 mg PO DAILY [facility] Last Admin: 06/13/18 08:20 Dose: 40 mg - Labs Labs: 06/13/18 05:15 06/13/18 05:15 Assessment and Plan - Assessment and Plan (Free Text) Assessment: CKD .. MILD WORSENING OF GFR .. LOSARTAN ? ANEMIA OF CKD .. H/H STABLE CVA .. ON PT MMP P : C/O CURRENT CARE CONSIDER D/C LOSARTAN IF WORSE RENAL FUNCTION
[2018-06-14] MEDS: Insulin Lispro (humaLOG) 100 Units/ml Inj SC SCH ×4 (06:38→21:40)
[2018-06-14 07:21] LABS: HEMOGLOBIN 10.6 g/dL (12.0-16.0); MEAN CELL VOLUME 91.6 fl (81.0-99.0); MEAN CORPUSCULAR HEMOGLOBIN 32.1 pg (27.0-31.0); MEAN CORPUSCULAR HGB CONC 35.1 g/dL (33.0-37.0); RBC 3.29 Mil/uL (3.80-5.20); RED CELL DISTRIBUTION WIDTH 14.2 % (11.5-14.5); WHITE BLOOD COUNT 7.6 K/uL (4.8-10.8)
[2018-06-14 07:27] LABS: CALCIUM 9.9 mg/dL (8.4-10.2)
[2018-06-14] MEDS: Enoxaparin 30 mg Syringe SC SCH (08:25)
[2018-06-14] MEDS: Nystatin 100,000 Units/ml Oral Susp 5 ml UD PO SCH ×4 (08:30→21:40)
[2018-06-14] MEDS: Bacitracin OINT 15GM TOP SCH ×2 (08:31→17:44)
[2018-06-14] MEDS: Pantoprazole 40 mg EC Tab PO SCH (08:32)
[2018-06-14] MEDS: Omega-3-Acid Ethyl Esters 1 GM Cap PO SCH (08:32)
[2018-06-14] MEDS: Lactobacillus Acidophilus 500 MU Cap PO SCH ×2 (08:33→17:42)
[2018-06-14] MEDS: Multivitamin With Minerals Tab PO SCH (09:00)
[2018-06-14] MEDS: Insulin Detemir 100 Units/ml Inj SC SCH (21:41)
[2018-06-15] MEDS: Insulin Lispro (humaLOG) 100 Units/ml Inj SC SCH ×4 (06:31→22:05)
[2018-06-15] MEDS: Bacitracin OINT 15GM TOP SCH ×2 (09:09→17:22)
[2018-06-15] MEDS: Lactobacillus Acidophilus 500 MU Cap PO SCH ×2 (09:09→17:18)
[2018-06-15] MEDS: Nystatin 100,000 Units/ml Oral Susp 5 ml UD PO SCH ×4 (09:11→22:00)
[2018-06-15] MEDS: levETIRAcetam 100 mg/ml (5ml) Oral Syringe PO SCH ×2 (09:11→21:57)
[2018-06-15] MEDS: Pantoprazole 40 mg Susp UD PO SCH (09:11)
[2018-06-15] MEDS: Omega-3-Acid Ethyl Esters 1 GM Cap PO SCH (09:11)
[2018-06-15] MEDS: Enoxaparin 30 mg Syringe SC SCH (09:11)
[2018-06-15] MEDS: Multi Vitamins 15 mL UD Oral Solution PO SCH (09:11)
[2018-06-15] MEDS: Pantoprazole 40 mg EC Tab PO SCH (09:13)
[2018-06-15] MEDS: Multivitamin With Minerals Tab PO SCH (09:13)
--- NOTE | 2018-06-15 21:45 | CP.PCM.PN ---
Subjective - Date & Time of Evaluation Date of Evaluation: 06/15/18 Time of Evaluation: 16:00 - Subjective Subjective: SEEN ON RENAL F/U ADALI MUELLER VSS RENAL FUNCTION WORSENED ON LOSARTAN Objective - Vital Signs/Intake and Output Vital Signs (last 24 hours): Temp Pulse Resp BP Pulse Ox 97.2 F L 71 20 146/64 98 06/15/18 20:00 06/15/18 20:00 06/15/18 20:00 06/15/18 20:00 06/15/18 20:00 - Medications Medications: Current Medications Albuterol (Ventolin Hfa 90 Mcg/Actuation (8 G)) 2 puff IH Q12 PRN PRN Reason: Shortness of Breath Last Admin: 06/04/18 08:34 Dose: 2 puff Allopurinol (Zyloprim) 100 mg PO DAILY [facility] Last Admin: 06/15/18 09:14 Dose: 100 mg Amlodipine Besylate (Norvasc) 10 mg PO DAILY [facility] Last Admin: 06/15/18 09:10 Dose: 10 mg Aspirin (Aspirin Chewable) 81 mg PO DAILY [facility] Last Admin: 06/15/18 09:09 Dose: 81 mg Atorvastatin Calcium (Lipitor) 40 mg PO DAILY@2100 [facility] Last Admin: 06/14/18 21:36 Dose: 40 mg Bacitracin (Bacitracin Oint) 1 applic TOP BID [facility] Last Admin: 06/15/18 17:22 Dose: 1 applic Carvedilol (Coreg) 25 mg PO Q12 [facility] Last Admin: 06/15/18 09:10 Dose: 25 mg Clopidogrel Bisulfate (Plavix) 75 mg PO DAILY [facility] Last Admin: 06/15/18 09:12 Dose: 75 mg Enoxaparin Sodium (Lovenox) 30 mg SC DAILY [facility] PRN Reason: Protocol Last Admin: 06/15/18 09:11 Dose: 30 mg Hydralazine HCl (Apresoline) 25 mg PO Q8 [facility] Last Admin: 06/15/18 13:10 Dose: 25 mg Insulin Detemir (Levemir) 15 units SC HS [facility] Last Admin: 06/14/18 21:41 Dose: 15 units Insulin Human Lispro (Humalog) 0 units SC ACHS [facility] PRN Reason: Protocol Last Admin: 06/15/18 16:17 Dose: Not Given Lactobacillus Acidophilus (Bacid Acidophilus) 1 cap PO BID [facility] Last Admin: 06/15/18 17:18 Dose: 1 cap Levetiracetam (Keppra) 500 mg PO Q12 [facility] Last Admin: 06/15/18 09:11 Dose: 500 mg Losartan Potassium (Cozaar) 50 mg PO DAILY [facility] Last Admin: 06/15/18 09:13 Dose: 50 mg Montelukast Sodium (Singulair) 10 mg PO HS [facility] Last Admin: 06/14/18 21:36 Dose: 10 mg Multivitamins/Vitamin C (Multi-Delyn Liquid) 15 ml PO DAILY [facility] Last Admin: 06/15/18 09:11 Dose: 15 ml Nystatin (Nystatin Oral Susp) 5 ml PO QID [facility] Last Admin: 06/15/18 17:18 Dose: 5 ml Qmrhh-9-Tcbx Ethyl Esters (Lovaza) 1 gm PO DAILY [facility] Last Admin: 06/15/18 09:11 Dose: 1 gm Pantoprazole Sodium (Protonix Susp) 40 mg PO DAILY@0630 [facility] Last Admin: 06/15/18 09:11 Dose: 40 mg - Labs Labs: 06/14/18 05:30 06/14/18 05:30 Assessment and Plan - Assessment and Plan (Free Text) Plan: CKD .. RENAL FUNCTION WORSENED ON LOSARTAN e GFR 38 -> 25 .. WILL D/C [place]AN ANEMIA OF CKD .. H/H STABLE CVA MMP P : D/C [place]ARTAN C/O PRESENT CARE
[2018-06-15] MEDS: Insulin Detemir 100 Units/ml Inj SC SCH (22:00)
[2018-06-16] MEDS: Pantoprazole 40 mg Susp UD PO SCH (06:25)
[2018-06-16] MEDS: Insulin Lispro (humaLOG) 100 Units/ml Inj SC SCH ×4 (06:58→21:46)
[2018-06-16] MEDS: Bacitracin OINT 15GM TOP SCH ×2 (08:36→16:59)
[2018-06-16] MEDS: levETIRAcetam 100 mg/ml (5ml) Oral Syringe PO SCH ×2 (08:36→21:37)
[2018-06-16] MEDS: Lactobacillus Acidophilus 500 MU Cap PO SCH (08:36)
[2018-06-16] MEDS: Multi Vitamins 15 mL UD Oral Solution PO SCH (08:36)
[2018-06-16] MEDS: Enoxaparin 30 mg Syringe SC SCH (08:37)
[2018-06-16] MEDS: Omega-3-Acid Ethyl Esters 1 GM Cap PO SCH (08:37)
[2018-06-16] MEDS: Nystatin 100,000 Units/ml Oral Susp 5 ml UD PO SCH ×4 (08:38→21:38)
--- NOTE | 2018-06-16 09:49 | CP.PCM.PN ---
Subjective - Date & Time of Evaluation Date of Evaluation: 06/16/18 Time of Evaluation: 09:49 - Subjective Subjective: Ms. Solo was seen and examined at the bedside. She is alert, oriented with her speech getting more clearer. She denies any headache, dizziness, nausea, or vomiting. She is able to follow simple commands, actively participating with her therapy. She request to be discharge a to home, but family will be unable to take care of her 24 hours/ 7 days a week. She remains with right facial droop, right upper extremity flaccidity, and lower extremities weakness. There was no untoward events overnight. Objective - Vital Signs/Intake and Output Vital Signs (last 24 hours): Temp Pulse Resp BP Pulse Ox 98.1 F 64 18 155/75 H 95 06/16/18 07:45 06/16/18 08:38 06/16/18 07:45 06/16/18 08:38 06/16/18 07:45 - Medications Medications: Current Medications Albuterol (Ventolin Hfa 90 Mcg/Actuation (8 G)) 2 puff IH Q12 PRN PRN Reason: Shortness of Breath Last Admin: 06/04/18 08:34 Dose: 2 puff Allopurinol (Zyloprim) 100 mg PO DAILY [facility] Last Admin: 06/16/18 08:38 Dose: 100 mg Amlodipine Besylate (Norvasc) 10 mg PO DAILY [facility] Last Admin: 06/16/18 08:37 Dose: 10 mg Aspirin (Aspirin Chewable) 81 mg PO DAILY [facility] Last Admin: 06/16/18 08:36 Dose: 81 mg Atorvastatin Calcium (Lipitor) 40 mg PO DAILY@2100 [facility] Last Admin: 06/15/18 21:57 Dose: 40 mg Bacitracin (Bacitracin Oint) 1 applic TOP BID [facility] Last Admin: 06/16/18 08:36 Dose: 1 applic Carvedilol (Coreg) 25 mg PO Q12 [facility] Last Admin: 06/16/18 08:38 Dose: 25 mg Clopidogrel Bisulfate (Plavix) 75 mg PO DAILY [facility] Last Admin: 06/16/18 08:38 Dose: 75 mg Enoxaparin Sodium (Lovenox) 30 mg SC DAILY [facility] PRN Reason: Protocol Last Admin: 06/16/18 08:37 Dose: 30 mg Hydralazine HCl (Apresoline) 25 mg PO Q8 [facility] Last Admin: 06/16/18 06:12 Dose: 25 mg Insulin Detemir (Levemir) 15 units SC HS [facility] Last Admin: 06/15/18 22:00 Dose: 15 units Insulin Human Lispro (Humalog) 0 units SC [facility] PRN Reason: Protocol Last Admin: 06/16/18 06:58 Dose: Not Given Lactobacillus Acidophilus (Bacid Acidophilus) 1 cap PO BID [facility] Last Admin: 06/16/18 08:36 Dose: 1 cap Levetiracetam (Keppra) 500 mg PO Q12 [facility] Last Admin: 06/16/18 08:36 Dose: 500 mg Montelukast Sodium (Singulair) 10 mg PO HS [facility] Last Admin: 06/15/18 21:57 Dose: 10 mg Multivitamins/Vitamin C (Multi-Delyn Liquid) 15 ml PO DAILY [facility] Last Admin: 06/16/18 08:36 Dose: 15 ml Nystatin (Nystatin Oral Susp) 5 ml PO QID [facility] Last Admin: 06/16/18 08:38 Dose: 5 ml [id number] Ethyl Esters (Lovaza) 1 gm PO DAILY [facility] Last Admin: 06/16/18 08:37 Dose: 1 gm Pantoprazole Sodium (Protonix Susp) 40 mg PO DAILY@0630 [facility] Last Admin: 06/16/18 06:25 Dose: 40 mg - Labs Labs: 06/14/18 05:30 06/14/18 05:30 - Constitutional Appears: No Acute Distress - Head Exam Head Exam: NORMAL INSPECTION - Eye Exam Pupil Exam: PERRL - Neurological Exam Neurological Exam: Alert, Awake, Oriented x3 Neuro motor strength exam: Left Upper Extremity: 5, Right Upper Extremity: 0, Left Lower Extremity: 5, Right Lower Extremity: 2/1 Additional comments: neurological unchanged from previous examination. Assessment and Plan (1) Ischemic stroke Assessment & Plan: Case discussed with Dr. Brumfield, Continue all current medical, physical, occupational, and speech therapies. Recommend hydration, keep head of bed elevated at least 30 degrees while in bed, blood pressure and glycemic control. Status: Acute
--- NOTE | 2018-06-16 13:42 | CP.PCM.PN ---
Subjective - Date & Time of Evaluation Date of Evaluation: 06/16/18 Time of Evaluation: 14:12 - Subjective Subjective: improving slowly wants to go home eventually no cp no sob working with PT eating drinking well Objective - Vital Signs/Intake and Output Vital Signs (last 24 hours): Temp Pulse Resp BP Pulse Ox 98.1 F 67 18 131/78 96 06/16/18 07:45 06/16/18 12:15 06/16/18 07:45 06/16/18 12:15 06/16/18 09:55 - Medications Medications: Current Medications Albuterol (Ventolin Hfa 90 Mcg/Actuation (8 G)) 2 puff IH Q12 PRN PRN Reason: Shortness of Breath Last Admin: 06/04/18 08:34 Dose: 2 puff Allopurinol (Zyloprim) 100 mg PO DAILY [facility] Last Admin: 06/16/18 08:38 Dose: 100 mg Amlodipine Besylate (Norvasc) 10 mg PO DAILY [facility] Last Admin: 06/16/18 08:37 Dose: 10 mg Aspirin (Aspirin Chewable) 81 mg PO DAILY [facility] Last Admin: 06/16/18 08:36 Dose: 81 mg Atorvastatin Calcium (Lipitor) 40 mg PO DAILY@2100 [facility] Last Admin: 06/15/18 21:57 Dose: 40 mg Bacitracin (Bacitracin Oint) 1 applic TOP BID [facility] Last Admin: 06/16/18 08:36 Dose: 1 applic Carvedilol (Coreg) 25 mg PO Q12 [facility] Last Admin: 06/16/18 08:38 Dose: 25 mg Clopidogrel Bisulfate (Plavix) 75 mg PO DAILY [facility] Last Admin: 06/16/18 08:38 Dose: 75 mg Enoxaparin Sodium (Lovenox) 30 mg SC DAILY [facility] PRN Reason: Protocol Last Admin: 06/16/18 08:37 Dose: 30 mg Hydralazine HCl (Apresoline) 25 mg PO Q6 [facility] Last Admin: 06/16/18 12:15 Dose: 25 mg Insulin Detemir (Levemir) 15 units SC HS [facility] Last Admin: 06/15/18 22:00 Dose: 15 units Insulin Human Lispro (Humalog) 0 units SC ACHS [facility] PRN Reason: Protocol Last Admin: 06/16/18 12:10 Dose: 2 unit Lactobacillus Acidophilus (Bacid Acidophilus) 1 cap PO BID [facility] Last Admin: 06/16/18 08:36 Dose: 1 cap Levetiracetam (Keppra) 500 mg PO Q12 [facility] Last Admin: 06/16/18 08:36 Dose: 500 mg Montelukast Sodium (Singulair) 10 mg PO HS [facility] Last Admin: 06/15/18 21:57 Dose: 10 mg Multivitamins/Vitamin C (Multi-Delyn Liquid) 15 ml PO DAILY [facility] Last Admin: 06/16/18 08:36 Dose: 15 ml Nystatin (Nystatin Oral Susp) 5 ml PO QID [facility] Last Admin: 06/16/18 12:11 Dose: 5 ml [id number] Ethyl Esters (Lovaza) 1 gm PO DAILY [facility] Last Admin: 06/16/18 08:37 Dose: 1 gm Pantoprazole Sodium (Protonix Susp) 40 mg PO DAILY@0630 [facility] Last Admin: 06/16/18 06:25 Dose: 40 mg - Labs Labs: 06/14/18 05:30 06/14/18 05:30 - Constitutional Appears: Well, Non-toxic - Eye Exam Eye Exam: Normal appearance - Respiratory Exam Respiratory Exam: Accessory Muscle Use, Clear to Ausculation Bilateral, NORMAL BREATHING PATTERN. absent: Wheezes - Cardiovascular Exam Cardiovascular Exam: REGULAR RHYTHM, +S1, +S2 - GI/Abdominal Exam GI & Abdominal Exam: Soft, Normal Bowel Sounds. absent: Tenderness - Neurological Exam Neurological Exam: Alert, Awake, Oriented x3. absent: CN II-XII Intact Additional comments: right sided facial assymetry - Psychiatric Exam Psychiatric exam: Normal Affect - Skin Skin Exam: Normal Color Assessment and Plan - Assessment and Plan (Free Text) Assessment: 67 yo female with history of RA, HTN HLD, DM2 and previous CVA was brought to the ER following a fall and right sided weakness accompanied with slurred speech. Code stroke was called and TPA administered. Initial CT scan did not show any significant findings. Patient was admitted in ICU where MRI done later showed large left MCA infarct. Hemorrhagic conversion also noted on the left basal ganglia. She was transferred to Acute Rehab for further management and therapy 1. Acute CVA, s/p TPA had hemorrhagic conversion continue PT/OT/ST continue ASA, Plavix, statin and Keppra 2. Hypertension BP stable continue Coreg, Norvasc and Hydralazine 3. Hypercholesterolemia continue Lipitor 4. Type 2 DM Lispro sliding scale with accuchecks BS controlled continue Levemir 15 units SC HS 5. Asthma, mild intermittent Continue Albuterol PRN for SOB chronic 7. CKD stage III likely due to diabetic nephropathy and/or uncontrolled hypertension slightly worse renal function today Renal diet placed Encourage PO fluid intake Dr. Kim on consultation Lovenox decreased to 30 mg sc daily due to worsening renal function renal consult with Dr Kim appreciated 8. DVT prophylaxis Lovenox 30mg SC daily
--- NOTE | 2018-06-16 19:45 | CP.PCM.PN ---
Subjective - Date & Time of Evaluation Date of Evaluation: 06/16/18 Time of Evaluation: 19:44 - Subjective Subjective: Patient seen in the room NAD doing ok ambulating 15' with WBQC and mod/max A team conf tomorrow, will clearly need the PERRY as planned Objective - Vital Signs/Intake and Output Vital Signs (last 24 hours): Temp Pulse Resp BP Pulse Ox 98.1 F 69 18 157/77 H 96 06/16/18 07:45 06/16/18 17:01 06/16/18 07:45 06/16/18 17:01 06/16/18 09:55 - Medications Medications: Current Medications Albuterol (Ventolin Hfa 90 Mcg/Actuation (8 G)) 2 puff IH Q12 PRN PRN Reason: Shortness of Breath Last Admin: 06/04/18 08:34 Dose: 2 puff Allopurinol (Zyloprim) 100 mg PO DAILY [facility] Last Admin: 06/16/18 08:38 Dose: 100 mg Amlodipine Besylate (Norvasc) 10 mg PO DAILY [facility] Last Admin: 06/16/18 08:37 Dose: 10 mg Aspirin (Aspirin Chewable) 81 mg PO DAILY [facility] Last Admin: 06/16/18 08:36 Dose: 81 mg Atorvastatin Calcium (Lipitor) 40 mg PO DAILY@2100 [facility] Last Admin: 06/15/18 21:57 Dose: 40 mg Bacitracin (Bacitracin Oint) 1 applic TOP BID [facility] Last Admin: 06/16/18 16:59 Dose: 1 applic Carvedilol (Coreg) 25 mg PO Q12 [facility] Last Admin: 06/16/18 08:38 Dose: 25 mg Clopidogrel Bisulfate (Plavix) 75 mg PO DAILY [facility] Last Admin: 06/16/18 08:38 Dose: 75 mg Enoxaparin Sodium (Lovenox) 30 mg SC DAILY [facility] PRN Reason: Protocol Last Admin: 06/16/18 08:37 Dose: 30 mg Hydralazine HCl (Apresoline) 25 mg PO Q6 [facility] Last Admin: 06/16/18 17:01 Dose: 25 mg Insulin Detemir (Levemir) 15 units SC HS [facility] Last Admin: 06/15/18 22:00 Dose: 15 units Insulin Human Lispro (Humalog) 0 units SC ACHS [facility] PRN Reason: Protocol Last Admin: 06/16/18 16:58 Dose: 1 unit Levetiracetam (Keppra) 500 mg PO Q12 [facility] Last Admin: 06/16/18 08:36 Dose: 500 mg Montelukast Sodium (Singulair) 10 mg PO HS [facility] Last Admin: 06/15/18 21:57 Dose: 10 mg Multivitamins/Vitamin C (Multi-Delyn Liquid) 15 ml PO DAILY [facility] Last Admin: 06/16/18 08:36 Dose: 15 ml Nystatin (Nystatin Oral Susp) 5 ml PO QID [facility] Last Admin: 06/16/18 16:59 Dose: 5 ml [id number] Ethyl Esters (Lovaza) 1 gm PO DAILY [facility] Last Admin: 06/16/18 08:37 Dose: 1 gm Pantoprazole Sodium (Protonix Susp) 40 mg PO DAILY@0630 [facility] Last Admin: 06/16/18 06:25 Dose: 40 mg - Labs Labs: 06/14/18 05:30 06/14/18 05:30
[2018-06-16] MEDS: Insulin Detemir 100 Units/ml Inj SC SCH (21:38)
[2018-06-17] MEDS: Pantoprazole 40 mg Susp UD PO SCH (05:31)
[2018-06-17] MEDS: Insulin Lispro (humaLOG) 100 Units/ml Inj SC SCH ×4 (06:34→21:34)
[2018-06-17 06:35] LABS: HEMOGLOBIN 10.1 g/dL (12.0-16.0); MEAN CELL VOLUME 92.3 fl (81.0-99.0); MEAN CORPUSCULAR HEMOGLOBIN 31.9 pg (27.0-31.0); MEAN CORPUSCULAR HGB CONC 34.6 g/dL (33.0-37.0); RBC 3.18 Mil/uL (3.80-5.20); RED CELL DISTRIBUTION WIDTH 14.8 % (11.5-14.5); WHITE BLOOD COUNT 7.6 K/uL (4.8-10.8)
[2018-06-17 06:42] LABS: CALCIUM 9.8 mg/dL (8.4-10.2)
[2018-06-17] MEDS: levETIRAcetam 100 mg/ml (5ml) Oral Syringe PO SCH ×2 (08:10→21:33)
[2018-06-17] MEDS: Nystatin 100,000 Units/ml Oral Susp 5 ml UD PO SCH ×4 (08:10→21:33)
[2018-06-17] MEDS: Bacitracin OINT 15GM TOP SCH (08:10)
[2018-06-17] MEDS: Enoxaparin 30 mg Syringe SC SCH (08:10)
[2018-06-17] MEDS: Multi Vitamins 15 mL UD Oral Solution PO SCH (08:12)
[2018-06-17] MEDS: Omega-3-Acid Ethyl Esters 1 GM Cap PO SCH (08:12)
--- NOTE | 2018-06-17 13:20 | PSY.TMCNF ---
Nursing - Vital Signs Vital Signs (Last 8 hours): Vital Signs 06/17/18 06/17/18 06/17/18 05:24 08:11 08:12 Temperature Pulse Rate 70 72 72 Respiratory Rate Blood Pressure 148/81 148/83 148/83 06/17/18 06/17/18 06/17/18 09:00 10:00 12:57 Temperature 97.9 F Pulse Rate 72 72 64 Respiratory 20 Rate Blood Pressure 148/83 148/83 135/74 Pain: 0 - Precautions: Precautions: Fall Prevention, Aspiration, Seizure - Medications/Other Issues Comment: Safety - Consults Comment: Dr Teixeira,Dr Brumfield,Dr Kim, - Wound Right Elbow Wound Type: Abrasion Wound Bed Greatest Portion: Blanched/Dull Periwound: Intact Wound Drainage Amount: None Wound Drainage Odor: None/Absent Wound General Appearance: Clean/Dry Wound Dressing Status: Changed Dressing Changed: Yes Wound Packing Type: Gauze Pads Wound Secondary Dressing Type: Gauze Roll/Wrap Comment: bacitracin dressing applied as ordered - Toileting Toileting: Dependent - Bladder Management Bladder Pattern: Incontinent Voiding Method: Bedpan, Diaper Bladder Management: Moderate Assistance Frequency of Accidents: less than5 - Bowel Management Bowel Pattern: Incontinent Comment: less than 5 Bowel Management: Dependent Frequency of Accidents: 1 - Transfers Transfers: Moderate Assistance - ADL's ADL's: Moderate Assistance - Pain Management Comments: Denies pain - Patient/Family Teaching Comments: post cva ,seizure precaution ,aspiration precaution ,fall and safety medication teachings - Goals/Time Frame Comments: as per multidiciplinary plan of care - Provider Provider: Kenton myles Physical Therapy - Bed Mobility Bed Mobility: Moderate Assistance, Maximum Assistance - Transfers Wheelchair to Mat: Moderate Assistance, Maximum Assistance Sit to Stand: Moderate Assistance, Maximum Assistance Comment: stand pivot transfer max A x 1/mod A x 2. sit to stand max A x 1 progressed to mod A x 1 with VCs for hand placement - Ambulation Level of Assistance: Moderate Assistance, Maximum Assistance Distance (ft.): 15 Assistive Devices: Wide base quad cane Orthoses: GivMohr RUE and DF naomi wrap to RLE Comment: with WBQC in LUE, max a x 1 with chair follow, mirror feedback for upright stance, max assist for weight shift, advancement of RLE and stabilization at knee for extension - Stair Negotiation Stairs: Level of Assistance: Not Tested - Standing Balance Static Stand: Moderate Assistance Dynamic Stand: Maximal Assistance - Pain Pain (assessed during therapy session): 0 - Insight/Carryover Insight/Carryover: Fair - Patient/Family Education Comment: discussed plan of care, progress, sequencing for transfers and gait, safety, use of AD - Assessment/Plan Assessment: Alexus Solo presents with 1.) mild-moderate dysarthria characterized by R facial weakness resulting in impaired articulatory precision and intelligibility for increased length/complexity of verbal productions; 2.) mild-moderate receptive/expressive aphasia characterized by impaired direction following, ability to answer more complex yes/no and open ended questions, and impaired word retrieval; 3.) moderate cognitive deficits characterized by impaired temporal orientation, short-term recall, problem solving, and insight; and 4.) mild-moderate oral dysphagia characterized by R facial droop with inconsistent anterior spillage of thin liquids (though significantly reduced since start of tx) and impaired mastication and oral clearance of solids with intermittent R oral pocketing of solids; no overt s/s aspiration on current diet , though pt remains at risk for aspiration secondary to oral deficits. Pt's diet has been advanced to finely chopped solids and thin liquids; maintain aspiration precautions; 1:1 supervision with meals to enforce pt compliance with safe swallow strategies. Pt would benefit from continued speech and dysphagia tx with VitalStim (NMES) modality 3-5x/week for improved swallow function and communicative effectiveness. Barriers to learning include cognitive /physical deficits. - Goals Timeframe: 3 weeks Goals: Sit < > supine wit min A. Min A for all functional transfers. Pt will ambulate 100 ft with WBQC min A. Pt will negotiate 8 steps with handrail and min A - Provider License Number: [id number] Occupational Therapy - Arousal/Attention/Orientation Patient Orientation: Person - ADL/IADL Self Feeding: Supervision, Verbal Cues, Set-up Help Grooming: Verbal Cues, Set-up Help, Contact Guard, Minimal Assistance Bathing-Upper Extremity: Verbal Cues, Set-up Help, Moderate Assistance Bathing-Lower Extremity: Verbal Cues, Set-up Help, Maximum Assistance, Dependent Dressing-Upper Extremity: Verbal Cues, Set-up Help, Moderate Assistance Dressing-Lower Extremity: Verbal Cues, Set-up Help, Maximum Assistance, Dependent - Sitting Balance Static Sitting: Contact Guard Assist Dynamic Sitting: Reaches across midline, Reaches out of base of support, Reaches within base of support, Moderate Assistance Comment: seated unsupported - Transfers Wheelchair to Bed Transfers: Verbal Cues, Set-up Help, Moderate Assistance Toilet Transfers: Verbal Cues, Set-up Help, Moderate Assistance - Wheelchair Management Level of Assistance: Dependent - Upper Extremity Status Right Upper Extremity Comment: PROM IN WFLS, but no AROM noted at this time-- trace when attend to task Left Upper Extremity Comment: AROM is WFLs, strength at least 4/5 unable to complete formal assessment due to impaired cognition-based on functional movements during purposeful tasks - Pain Pain (assessed during therapy session): 0 - Insight/Carryover Insight/Carryover: Fair - Patient/Family Education Comment: discussed plan of care, progress, sequencing for transfers and gait, safety, use of AD - Assessment/Plan Assessment: Alexus oSlo presents with 1.) mild-moderate dysarthria characterized by R facial weakness resulting in impaired articulatory precision and intelligibility for increased length/complexity of verbal productions; 2.) mild-moderate receptive/expressive aphasia characterized by impaired direction following, ability to answer more complex yes/no and open ended questions, and impaired word retrieval; 3.) moderate cognitive deficits characterized by impaired temporal orientation, short-term recall, problem solving, and insight; and 4.) mild-moderate oral dysphagia characterized by R facial droop with inconsistent anterior spillage of thin liquids (though significantly reduced since start of tx) and impaired mastication and oral clearance of solids with intermittent R oral pocketing of solids; no overt s/s aspiration on current diet , though pt remains at risk for aspiration secondary to oral deficits. Pt's diet has been advanced to finely chopped solids and thin liquids; maintain aspiration precautions; 1:1 supervision with meals to enforce pt compliance with safe swallow strategies. Pt would benefit from continued speech and dysphagia tx with VitalStim (NMES) modality 3-5x/week for improved swallow function and communicative effectiveness. Barriers to learning include cognitive /physical deficits. - Goals Timeframe: 3 weeks Goals: Sit < > supine wit min A. Min A for all functional transfers. Pt will ambulate 100 ft with WBQC min A. Pt will negotiate 8 steps with handrail and min A - Provider Therapist: Joanna Martinez, OTR/L Speech Therapy - Consult Information Patient on Program: Yes Medical Diagnosis: CVA Treatment Diagnosis: -mild-moderate dysarthria. -mild-moderate receptive/ expressive aphasia. -moderate cognitive deficits. -mild-moderate oral dysphagia - Assessment Expressive Language Impairment: Moderate Comment: mild-moderate Receptive Language Impairment: Moderate Comment: mild-moderate Problem Solving Impairment: Mild Memory Impairment: Moderate Speech/Articulation Impairment: Moderate Comment: mild-moderate Dysphagia/Swallowing Impairment: Moderate Comment: mild-moderate oral dysphagia - Plan Assessment: Alexus Solo presents with 1.) mild-moderate dysarthria characterized by R facial weakness resulting in impaired articulatory precision and intelligibility for increased length/complexity of verbal productions; 2.) mild-moderate receptive/expressive aphasia characterized by impaired direction following, ability to answer more complex yes/no and open ended questions, and impaired word retrieval; 3.) moderate cognitive deficits characterized by impaired temporal orientation, short-term recall, problem solving, and insight; and 4.) mild-moderate oral dysphagia characterized by R facial droop with inconsistent anterior spillage of thin liquids (though significantly reduced since start of tx) and impaired mastication and oral clearance of solids with intermittent R oral pocketing of solids; no overt s/s aspiration on current diet , though pt remains at risk for aspiration secondary to oral deficits. Pt's diet has been advanced to finely chopped solids and thin liquids; maintain aspiration precautions; 1:1 supervision with meals to enforce pt compliance with safe swallow strategies. Pt would benefit from continued speech and dysphagia tx with VitalStim (NMES) modality 3-5x/week for improved swallow function and communicative effectiveness. Barriers to learning include cognitive /physical deficits. Plan: Continue Dysphagia Therapy, Continue Speech/Language Therapy Frequency: 3-5 times per week Duration: 1 week Goals/Timeframe: Please see progress note dated 06/16/18 for updated goals/POC Recommendations: -Speech and dysphagia tx 3-5x/week with VitalStim. -Finely chopped solids with thin liquids - Provider Therapist: Emani Tee License Number: [id number] Recreational Therapy - Participation Participation: Participates in Individual and/or Group Sessions - Attendance Attendance: 3-5 times per week - Activities Leisure Activities: Cards and Games - Socialization Level of Socialization: Initiates/interacts with caregivers but not with peer, Responds freely, but does not initiate - Assessment Assessment/Plan: Alexus Solo presents with 1.) mild-moderate dysarthria characterized by R facial weakness resulting in impaired articulatory precision and intelligibility for increased length/complexity of verbal productions; 2.) mild-moderate receptive/expressive aphasia characterized by impaired direction following, ability to answer more complex yes/no and open ended questions, and impaired word retrieval; 3.) moderate cognitive deficits characterized by impaired temporal orientation, short-term recall, problem solving, and insight; and 4.) mild-moderate oral dysphagia characterized by R facial droop with inconsistent anterior spillage of thin liquids (though significantly reduced since start of tx) and impaired mastication and oral clearance of solids with intermittent R oral pocketing of solids; no overt s/s aspiration on current diet , though pt remains at risk for aspiration secondary to oral deficits. Pt's diet has been advanced to finely chopped solids and thin liquids; maintain aspiration precautions; 1:1 supervision with meals to enforce pt compliance with safe swallow strategies. Pt would benefit from continued speech and dysphagia tx with VitalStim (NMES) modality 3-5x/week for improved swallow function and communicative effectiveness. Barriers to learning include cognitive /physical deficits. - Provider Therapist: Tabby Sin, TRUCK SALES REPRESENTATIVE #[id number] Nutrition - Current Diet Current Diet/ Supplement/ Feedings: renal non-dialysis moderate consistent CHO mech altered(finely chopped). thin liquids - Appetite Percent Meal Consumed: 75-100% - Comments Comments: post cva ,seizure precaution ,aspiration precaution ,fall and safety medication teachings - Assessment/Goals/Time Frame Assessment/Goals/Time Frame: Safety - Provider Provider: Maddie Barber RD Case Management - Psychosocial Assessment Support Systems: John Elena (nephew)- [phone] Psychological Interventions/Needs: Patient is alert and oriented with intermittent confusion and forgetfulness Discharge Concerns: Patient requiring mod-maxA for functional mobility, incontinent of bowel and bladder, on modified diet (puree), continues to present with dysarthria and exp/medical receptionist biller. aphasia Patient/Family Meeting: CM met with patient/nephew and rehab team. Discussion held via certified Bahraini speaking finisher fine diamond dies Emani Yuen as patient is primarily Bahraini speaking. Intervention/Goal/Outcome:: 1. Plan: PERRY as patient continues to require significant hands on assist, continues to remain incontinent and with aphasia and dysarthria- [facility]st choice [facility] as nephew lives close by. 2. Tentative discharge date: 06/26. 3. continued stay auth, LAD: 06/10, udpates to be faxed to insurance today. 4. continued emotional support. - Discharge Plan Discharge Plan: Subacute residential Services: [facility] - Provider Provider: MONSE Landry, [employer] DEPARTMENT CHIEF LIBRARIAN License Number: [id number] Rehabilitation Plan - Treatment Plan Treatment Plan: Physical Therapy, Occupational Therapy, Speech, Dietary, Patient /Family Education - Discharge Plan Estimated Date of Discharge: 06/26/18 Discharge to: Subacute
--- NOTE | 2018-06-17 14:02 | CP.PCM.PN ---
Subjective - Date & Time of Evaluation Date of Evaluation: 06/17/18 Time of Evaluation: 14:01 - Subjective Subjective: Patient seen in the room and doing ok denies sob/cp denies fever no joint pain little right UE/LE motion, dense right HP continue current care Objective - Vital Signs/Intake and Output Vital Signs (last 24 hours): Temp Pulse Resp BP Pulse Ox 97.9 F 64 20 135/74 96 06/17/18 09:00 06/17/18 12:57 06/17/18 09:00 06/17/18 12:57 06/16/18 20:52 - Medications Medications: Current Medications Albuterol (Ventolin Hfa 90 Mcg/Actuation (8 G)) 2 puff IH Q12 PRN PRN Reason: Shortness of Breath Last Admin: 06/04/18 08:34 Dose: 2 puff Allopurinol (Zyloprim) 100 mg PO DAILY [facility] Last Admin: 06/17/18 08:11 Dose: 100 mg Amlodipine Besylate (Norvasc) 10 mg PO DAILY [facility] Last Admin: 06/17/18 08:12 Dose: 10 mg Aspirin (Aspirin Chewable) 81 mg PO DAILY [facility] Last Admin: 06/17/18 08:11 Dose: 81 mg Atorvastatin Calcium (Lipitor) 40 mg PO DAILY@2100 [facility] Last Admin: 06/16/18 21:37 Dose: 40 mg Bacitracin (Bacitracin Oint) 1 applic TOP BID [facility] Last Admin: 06/17/18 08:10 Dose: 1 applic Carvedilol (Coreg) 25 mg PO Q12 [facility] Last Admin: 06/17/18 08:11 Dose: 25 mg Clopidogrel Bisulfate (Plavix) 75 mg PO DAILY [facility] Last Admin: 06/17/18 08:12 Dose: 75 mg Enoxaparin Sodium (Lovenox) 30 mg SC DAILY [facility] PRN Reason: Protocol Last Admin: 06/17/18 08:10 Dose: 30 mg Hydralazine HCl (Apresoline) 25 mg PO Q6 [facility] Last Admin: 06/17/18 12:57 Dose: 25 mg Insulin Detemir (Levemir) 15 units SC HS [facility] Last Admin: 06/16/18 21:38 Dose: 15 units Insulin Human Lispro (Humalog) 0 units SC ACHS [facility] PRN Reason: Protocol Last Admin: 06/17/18 12:00 Dose: 1 unit Levetiracetam (Keppra) 500 mg PO Q12 [facility] Last Admin: 06/17/18 08:10 Dose: 500 mg Montelukast Sodium (Singulair) 10 mg PO HS [facility] Last Admin: 06/16/18 21:37 Dose: 10 mg Multivitamins/Vitamin C (Multi-Delyn Liquid) 15 ml PO DAILY [facility] Last Admin: 06/17/18 08:12 Dose: 15 ml Nystatin (Nystatin Oral Susp) 5 ml PO QID [facility] Last Admin: 06/17/18 12:58 Dose: 5 ml [id number] Ethyl Esters (Lovaza) 1 gm PO DAILY [facility] Last Admin: 06/17/18 08:12 Dose: 1 gm Pantoprazole Sodium (Protonix Susp) 40 mg PO DAILY@0630 [facility] Last Admin: 06/17/18 05:31 Dose: 40 mg - Labs Labs: 06/17/18 05:20 06/17/18 05:20
[2018-06-17] MEDS: Insulin Detemir 100 Units/ml Inj SC SCH (21:33)
[2018-06-18] MEDS: Pantoprazole 40 mg Susp UD PO SCH (05:37)
[2018-06-18] MEDS: Insulin Lispro (humaLOG) 100 Units/ml Inj SC SCH ×4 (06:31→21:21)
[2018-06-18] MEDS: Nystatin 100,000 Units/ml Oral Susp 5 ml UD PO SCH ×4 (09:11→21:19)
[2018-06-18] MEDS: levETIRAcetam 100 mg/ml (5ml) Oral Syringe PO SCH ×2 (09:12→21:21)
[2018-06-18] MEDS: Multi Vitamins 15 mL UD Oral Solution PO SCH (09:12)
[2018-06-18] MEDS: Omega-3-Acid Ethyl Esters 1 GM Cap PO SCH (09:13)
[2018-06-18] MEDS: Enoxaparin 30 mg Syringe SC SCH (09:13)
--- NOTE | 2018-06-18 10:32 | CP.PCM.PN ---
Subjective - Date & Time of Evaluation Date of Evaluation: 06/18/18 Time of Evaluation: 10:32 - Subjective Subjective: Ms. Solo was seen and examined at the bedside. She is alert, oriented with her speech getting more clearer. She denies any headache, dizziness, nausea, or vomiting. She is able to follow simple commands, actively participating with her therapy with minimal movement of the left lower extremity. She remains with right facial droop, right upper extremity flaccidity, and lower extremities weakness. There was no untoward events overnight. Objective - Vital Signs/Intake and Output Vital Signs (last 24 hours): Temp Pulse Resp BP Pulse Ox 97.7 F 73 22 138/69 96 06/18/18 08:44 06/18/18 09:13 06/18/18 08:44 06/18/18 09:13 06/18/18 08:44 - Medications Medications: Current Medications Albuterol (Ventolin Hfa 90 Mcg/Actuation (8 G)) 2 puff Q12 PRN PRN Reason: Shortness of Breath Last Admin: 06/04/18 08:34 Dose: 2 puff Allopurinol (Zyloprim) 100 mg PO DAILY [facility] Last Admin: 06/18/18 09:12 Dose: 100 mg Amlodipine Besylate (Norvasc) 10 mg PO DAILY [facility] Last Admin: 06/18/18 09:12 Dose: 10 mg Aspirin (Aspirin Chewable) 81 mg PO DAILY [facility] Last Admin: 06/18/18 09:13 Dose: 81 mg Atorvastatin Calcium (Lipitor) 40 mg PO DAILY@2100 [facility] Last Admin: 06/17/18 21:32 Dose: 40 mg Carvedilol (Coreg) 25 mg PO Q12 [facility] Last Admin: 06/18/18 09:13 Dose: 25 mg Clopidogrel Bisulfate (Plavix) 75 mg PO DAILY [facility] Last Admin: 06/18/18 09:12 Dose: 75 mg Enoxaparin Sodium (Lovenox) 30 mg SC DAILY [facility] PRN Reason: Protocol Last Admin: 06/18/18 09:13 Dose: 30 mg Hydralazine HCl (Apresoline) 25 mg PO Q6 [facility] Last Admin: 06/18/18 05:38 Dose: 25 mg Insulin Detemir (Levemir) 15 units SC [facility] Last Admin: 06/17/18 21:33 Dose: 15 units Insulin Human Lispro (Humalog) 0 units SC ACHS [facility] PRN Reason: Protocol Last Admin: 06/18/18 06:31 Dose: Not Given Levetiracetam (Keppra) 500 mg PO Q12 [facility] Last Admin: 06/18/18 09:12 Dose: 500 mg Montelukast Sodium (Singulair) 10 mg PO HS [facility] Last Admin: 06/17/18 21:32 Dose: 10 mg Multivitamins/Vitamin C (Multi-Delyn Liquid) 15 ml PO DAILY [facility] Last Admin: 06/18/18 09:12 Dose: 15 ml Nystatin (Nystatin Oral Susp) 5 ml PO QID [facility] Last Admin: 06/18/18 09:11 Dose: 5 ml Yuyee-0-Vynb Ethyl Esters (Lovaza) 1 gm PO DAILY [facility] Last Admin: 06/18/18 09:13 Dose: 1 gm Pantoprazole Sodium (Protonix Susp) 40 mg PO DAILY@0630 [facility] Last Admin: 06/18/18 05:37 Dose: 40 mg - Labs Labs: 06/17/18 05:20 06/17/18 05:20 - Constitutional Appears: No Acute Distress - Head Exam Head Exam: NORMAL INSPECTION - Eye Exam Pupil Exam: PERRL - Neurological Exam Neurological Exam: Alert, Awake Neuro motor strength exam: Left Upper Extremity: 5, Right Upper Extremity: 0, Left Lower Extremity: 5, Right Lower Extremity: 2/1 Additional comments: Neurological unchanged from previous examination. Assessment and Plan (1) Ischemic stroke Assessment & Plan: Case discussed with Dr. Brumfield, Continue all current medical, physical, occupational, and speech therapies. Recommend hydration, keep head of bed elevated at least 30 degrees while in bed, blood pressure and glycemic control. Status: Acute
--- NOTE | 2018-06-18 15:04 | CP.PCM.PN ---
Subjective - Date & Time of Evaluation Date of Evaluation: 06/18/18 Time of Evaluation: 15:04 - Subjective Subjective: improving slowly wants to go home eventually no cp no sob working with PT eating drinking well Objective - Vital Signs/Intake and Output Vital Signs (last 24 hours): Temp Pulse Resp BP Pulse Ox 97.7 F 62 22 131/70 96 06/18/18 08:44 06/18/18 12:34 06/18/18 08:44 06/18/18 12:34 06/18/18 08:44 - Medications Medications: Current Medications Albuterol (Ventolin Hfa 90 Mcg/Actuation (8 G)) 2 puff IH Q12 PRN PRN Reason: Shortness of Breath Last Admin: 06/04/18 08:34 Dose: 2 puff Allopurinol (Zyloprim) 100 mg PO DAILY [facility] Last Admin: 06/18/18 09:12 Dose: 100 mg Amlodipine Besylate (Norvasc) 10 mg PO DAILY [facility] Last Admin: 06/18/18 09:12 Dose: 10 mg Aspirin (Aspirin Chewable) 81 mg PO DAILY [facility] Last Admin: 06/18/18 09:13 Dose: 81 mg Atorvastatin Calcium (Lipitor) 40 mg PO DAILY@2100 [facility] Last Admin: 06/17/18 21:32 Dose: 40 mg Carvedilol (Coreg) 25 mg PO Q12 [facility] Last Admin: 06/18/18 09:13 Dose: 25 mg Clopidogrel Bisulfate (Plavix) 75 mg PO DAILY [facility] Last Admin: 06/18/18 09:12 Dose: 75 mg Enoxaparin Sodium (Lovenox) 30 mg SC DAILY [facility] PRN Reason: Protocol Last Admin: 06/18/18 09:13 Dose: 30 mg Hydralazine HCl (Apresoline) 25 mg PO Q6 [facility] Last Admin: 06/18/18 12:34 Dose: 25 mg Insulin Detemir (Levemir) 15 units SC HS [facility] Last Admin: 06/17/18 21:33 Dose: 15 units Insulin Human Lispro (Humalog) 0 units SC ACHS [facility] PRN Reason: Protocol Last Admin: 06/18/18 12:33 Dose: 1 unit Levetiracetam (Keppra) 500 mg PO Q12 [facility] Last Admin: 06/18/18 09:12 Dose: 500 mg Montelukast Sodium (Singulair) 10 mg PO HS [facility] Last Admin: 06/17/18 21:32 Dose: 10 mg Multivitamins/Vitamin C (Multi-Delyn Liquid) 15 ml PO DAILY [facility] Last Admin: 06/18/18 09:12 Dose: 15 ml Nystatin (Nystatin Oral Susp) 5 ml PO QID [facility] Last Admin: 06/18/18 12:32 Dose: 5 ml Dsplp-[id number] Ethyl Esters (Lovaza) 1 gm PO DAILY [facility] Last Admin: 06/18/18 09:13 Dose: 1 gm Pantoprazole Sodium (Protonix Susp) 40 mg PO DAILY@0630 [facility] Last Admin: 06/18/18 05:37 Dose: 40 mg - Labs Labs: 06/17/18 05:20 06/17/18 05:20 - Additional Findings Additional findings: - Constitutional Appears: Well, Non-toxic - Eye Exam Eye Exam: Normal appearance - Respiratory Exam Respiratory Exam: Accessory Muscle Use, Clear to Ausculation Bilateral, NORMAL BREATHING PATTERN. absent: Wheezes - Cardiovascular Exam Cardiovascular Exam: REGULAR RHYTHM, +S1, +S2 - GI/Abdominal Exam GI & Abdominal Exam: Soft, Normal Bowel Sounds. absent: Tenderness - Neurological Exam Neurological Exam: Alert, Awake, Oriented x3. absent: CN II-XII Intact Additional comments: right sided facial assymetry Speech impairment - Psychiatric Exam Psychiatric exam: Normal Affect - Skin Skin Exam: Normal Color Assessment and Plan - Assessment and Plan (Free Text) Assessment: 67 yo female with history of RA, HTN HLD, DM2 and previous CVA was brought to the ER following a fall and right sided weakness accompanied with slurred speech. Code stroke was called and TPA administered. Initial CT scan did not show any significant findings. Patient was admitted in ICU where MRI done later showed large left MCA infarct. Hemorrhagic conversion also noted on the left basal ganglia. She was transferred to Acute Rehab for further management and therapy 1. Acute CVA, s/p TPA had hemorrhagic conversion continue PT/OT/ST continue ASA, Plavix, statin and Keppra 2. Hypertension BP stable continue Coreg, Norvasc and Hydralazine 3. Hypercholesterolemia continue Lipitor 4. Type 2 DM Lispro sliding scale with accuchecks BS controlled continue Levemir 15 units SC HS 5. Asthma, mild intermittent Continue Albuterol PRN for SOB chronic 7. CKD stage III likely due to diabetic nephropathy and/or uncontrolled hypertension slightly worse renal function today Renal diet placed Encourage PO fluid intake Dr. Kim on consultation Lovenox decreased to 30 mg sc daily due to worsening renal function renal consult with Dr iKm appreciated 8. DVT prophylaxis Lovenox 30mg SC daily
[2018-06-18] MEDS: Insulin Detemir 100 Units/ml Inj SC SCH (21:19)
[2018-06-19] MEDS: Pantoprazole 40 mg Susp UD PO SCH (06:07)
[2018-06-19] MEDS: Insulin Lispro (humaLOG) 100 Units/ml Inj SC SCH ×4 (07:37→22:16)
[2018-06-19] MEDS: Omega-3-Acid Ethyl Esters 1 GM Cap PO SCH (08:40)
[2018-06-19] MEDS: Nystatin 100,000 Units/ml Oral Susp 5 ml UD PO SCH ×4 (08:40→21:52)
[2018-06-19] MEDS: Enoxaparin 30 mg Syringe SC SCH (08:41)
[2018-06-19] MEDS: Multi Vitamins 15 mL UD Oral Solution PO SCH (08:42)
[2018-06-19] MEDS: levETIRAcetam 100 mg/ml (5ml) Oral Syringe PO SCH ×2 (08:42→21:52)
--- NOTE | 2018-06-19 11:16 | CP.PCM.PN ---
Subjective - Date & Time of Evaluation Date of Evaluation: 06/19/18 Time of Evaluation: 11:14 - Subjective Subjective: Ms. Solo was seen and examined during recreational therapy. She is alert, oriented with her speech getting more clearer. She denies any headache, dizziness, nausea, or vomiting. She is able to follow simple commands, actively participating with her therapy with minimal movement of the left lower extremity. She remains with right facial droop, right upper extremity flaccidity, and lower extremities weakness. There was no untoward events overnight. Objective - Vital Signs/Intake and Output Vital Signs (last 24 hours): Temp Pulse Resp BP Pulse Ox 97.7 F 68 20 135/71 94 L 06/19/18 08:02 06/19/18 08:41 06/19/18 08:02 06/19/18 08:41 06/19/18 08:02 - Medications Medications: Current Medications Albuterol (Ventolin Hfa 90 Mcg/Actuation (8 G)) 2 puff Q12 PRN PRN Reason: Shortness of Breath Last Admin: 06/04/18 08:34 Dose: 2 puff Allopurinol (Zyloprim) 100 mg PO DAILY [facility] Last Admin: 06/19/18 08:41 Dose: 100 mg Amlodipine Besylate (Norvasc) 10 mg PO DAILY [facility] Last Admin: 06/19/18 08:41 Dose: 10 mg Aspirin (Aspirin Chewable) 81 mg PO DAILY [facility] Last Admin: 06/19/18 08:41 Dose: 81 mg Atorvastatin Calcium (Lipitor) 40 mg PO DAILY@2100 [facility] Last Admin: 06/18/18 21:18 Dose: 40 mg Carvedilol (Coreg) 25 mg PO Q12 [facility] Last Admin: 06/19/18 08:38 Dose: 25 mg Clopidogrel Bisulfate (Plavix) 75 mg PO DAILY [facility] Last Admin: 06/19/18 08:41 Dose: 75 mg Enoxaparin Sodium (Lovenox) 30 mg SC DAILY [facility] PRN Reason: Protocol Last Admin: 06/19/18 08:41 Dose: 30 mg Hydralazine HCl (Apresoline) 25 mg PO Q6 [facility] Last Admin: 06/19/18 06:07 Dose: 25 mg Insulin Detemir (Levemir) 15 units SC [facility] Last Admin: 06/18/18 21:19 Dose: 15 units Insulin Human Lispro (Humalog) 0 units SC ACHS [facility] PRN Reason: Protocol Last Admin: 06/19/18 07:37 Dose: Not Given Levetiracetam (Keppra) 500 mg PO Q12 [facility] Last Admin: 06/19/18 08:42 Dose: 500 mg Montelukast Sodium (Singulair) 10 mg PO HS [facility] Last Admin: 06/18/18 21:19 Dose: 10 mg Multivitamins/Vitamin C (Multi-Delyn Liquid) 15 ml PO DAILY [facility] Last Admin: 06/19/18 08:42 Dose: 15 ml Nystatin (Nystatin Oral Susp) 5 ml PO QID [facility] Last Admin: 06/19/18 08:40 Dose: 5 ml Ajoio-6-Dyoe Ethyl Esters (Lovaza) 1 gm PO DAILY [facility] Last Admin: 06/19/18 08:40 Dose: 1 gm Pantoprazole Sodium (Protonix Susp) 40 mg PO DAILY@0630 [facility] Last Admin: 06/19/18 06:07 Dose: 40 mg - Labs Labs: 06/17/18 05:20 06/17/18 05:20 - Constitutional Appears: No Acute Distress - Head Exam Head Exam: NORMAL INSPECTION - Neurological Exam Neurological Exam: Alert, Awake, Oriented x3 Neuro motor strength exam: Left Upper Extremity: 5, Right Upper Extremity: 0, Left Lower Extremity: 5, Right Lower Extremity: 2/1 Additional comments: neurological unchanged from previous examination. Assessment and Plan (1) Ischemic stroke Assessment & Plan: Case discussed with Dr. Brumfield, Continue all current medical, physical, occupational, and speech therapies. Recommend hydration, keep head of bed elevated at least 30 degrees while in bed, blood pressure and glycemic control. Status: Acute
--- NOTE | 2018-06-19 18:27 | CP.PCM.PN ---
Subjective - Date & Time of Evaluation Date of Evaluation: 06/19/18 Time of Evaluation: 18:26 - Subjective Subjective: Patient seen in the room, doing well denies sob/cp not much neurological recovery but thanks to very good PT/OT she is making functional gains still will need PERRY prior to consideration of being discharged home. continue current care Objective - Vital Signs/Intake and Output Vital Signs (last 24 hours): Temp Pulse Resp BP Pulse Ox 97.7 F 64 20 154/75 H 94 L 06/19/18 08:02 06/19/18 17:20 06/19/18 08:02 06/19/18 17:20 06/19/18 08:02 - Medications Medications: Current Medications Albuterol (Ventolin Hfa 90 Mcg/Actuation (8 G)) 2 puff IH Q12 PRN PRN Reason: Shortness of Breath Last Admin: 06/04/18 08:34 Dose: 2 puff Allopurinol (Zyloprim) 100 mg PO DAILY [facility] Last Admin: 06/19/18 08:41 Dose: 100 mg Amlodipine Besylate (Norvasc) 10 mg PO DAILY [facility] Last Admin: 06/19/18 08:41 Dose: 10 mg Aspirin (Aspirin Chewable) 81 mg PO DAILY [facility] Last Admin: 06/19/18 08:41 Dose: 81 mg Atorvastatin Calcium (Lipitor) 40 mg PO DAILY@2100 [facility] Last Admin: 06/18/18 21:18 Dose: 40 mg Carvedilol (Coreg) 25 mg PO Q12 [facility] Last Admin: 06/19/18 08:38 Dose: 25 mg Clopidogrel Bisulfate (Plavix) 75 mg PO DAILY [facility] Last Admin: 06/19/18 08:41 Dose: 75 mg Enoxaparin Sodium (Lovenox) 30 mg SC DAILY [facility] PRN Reason: Protocol Last Admin: 06/19/18 08:41 Dose: 30 mg Hydralazine HCl (Apresoline) 25 mg PO Q6 [facility] Last Admin: 06/19/18 17:20 Dose: 25 mg Insulin Detemir (Levemir) 15 units SC HS [facility] Last Admin: 06/18/18 21:19 Dose: 15 units Insulin Human Lispro (Humalog) 0 units SC ACHS [facility] PRN Reason: Protocol Last Admin: 06/19/18 16:38 Dose: Not Given Levetiracetam (Keppra) 500 mg PO Q12 [facility] Last Admin: 06/19/18 08:42 Dose: 500 mg Montelukast Sodium (Singulair) 10 mg PO HS [facility] Last Admin: 06/18/18 21:19 Dose: 10 mg Multivitamins/Vitamin C (Multi-Delyn Liquid) 15 ml PO DAILY [facility] Last Admin: 06/19/18 08:42 Dose: 15 ml Nystatin (Nystatin Oral Susp) 5 ml PO QID [facility] Last Admin: 06/19/18 17:21 Dose: 5 ml [id number] Ethyl Esters (Lovaza) 1 gm PO DAILY [facility] Last Admin: 06/19/18 08:40 Dose: 1 gm Pantoprazole Sodium (Protonix Susp) 40 mg PO DAILY@0630 [facility] Last Admin: 06/19/18 06:07 Dose: 40 mg - Labs Labs: 06/17/18 05:20 06/17/18 05:20
[2018-06-19] MEDS: Insulin Detemir 100 Units/ml Inj SC SCH (22:15)
--- NOTE | 2018-06-20 00:27 | CP.PCM.PN ---
Subjective - Date & Time of Evaluation Date of Evaluation: 06/19/18 Time of Evaluation: 16:00 - Subjective Subjective: SEEN ON RENAL F/U GETTING BETTER VSS Objective - Vital Signs/Intake and Output Vital Signs (last 24 hours): Temp Pulse Resp BP Pulse Ox 97.7 F 66 20 145/71 96 06/19/18 19:58 06/20/18 00:04 06/19/18 19:58 06/20/18 00:04 06/19/18 19:58 - Medications Medications: Current Medications Albuterol (Ventolin Hfa 90 Mcg/Actuation (8 G)) 2 puff IH Q12 PRN PRN Reason: Shortness of Breath Last Admin: 06/04/18 08:34 Dose: 2 puff Allopurinol (Zyloprim) 100 mg PO DAILY [facility] Last Admin: 06/19/18 08:41 Dose: 100 mg Amlodipine Besylate (Norvasc) 10 mg PO DAILY [facility] Last Admin: 06/19/18 08:41 Dose: 10 mg Aspirin (Aspirin Chewable) 81 mg PO DAILY [facility] Last Admin: 06/19/18 08:41 Dose: 81 mg Atorvastatin Calcium (Lipitor) 40 mg PO DAILY@2100 [facility] Last Admin: 06/19/18 21:52 Dose: 40 mg Carvedilol (Coreg) 25 mg PO Q12 [facility] Last Admin: 06/19/18 21:52 Dose: 25 mg Clopidogrel Bisulfate (Plavix) 75 mg PO DAILY [facility] Last Admin: 06/19/18 08:41 Dose: 75 mg Enoxaparin Sodium (Lovenox) 30 mg SC DAILY [facility] PRN Reason: Protocol Last Admin: 06/19/18 08:41 Dose: 30 mg Hydralazine HCl (Apresoline) 25 mg PO Q6 [facility] Last Admin: 06/20/18 00:04 Dose: 25 mg Insulin Detemir (Levemir) 15 units SC [facility] Last Admin: 06/19/18 22:15 Dose: 15 units Insulin Human Lispro (Humalog) 0 units SC [facility] PRN Reason: Protocol Last Admin: 06/19/18 22:16 Dose: Not Given Levetiracetam (Keppra) 500 mg PO Q12 [facility] Last Admin: 06/19/18 21:52 Dose: 500 mg Montelukast Sodium (Singulair) 10 mg PO [facility] Last Admin: 06/19/18 21:52 Dose: 10 mg Multivitamins/Vitamin C (Multi-Delyn Liquid) 15 ml PO DAILY [facility] Last Admin: 06/19/18 08:42 Dose: 15 ml Nystatin (Nystatin Oral Susp) 5 ml PO QID [facility] Last Admin: 06/19/18 21:52 Dose: 5 ml [id number] Ethyl Esters (Lovaza) 1 gm PO DAILY [facility] Last Admin: 06/19/18 08:40 Dose: 1 gm Pantoprazole Sodium (Protonix Susp) 40 mg PO DAILY@0630 [facility] Last Admin: 06/19/18 06:07 Dose: 40 mg - Labs Labs: 06/17/18 05:20 06/17/18 05:20 Assessment and Plan - Assessment and Plan (Free Text) Assessment: A ON CKD .. LISE WAS D/C ..WILL CHECK RENAL FUNCTION IN AM ANEMIA OF CKD .. H/H STABLE CVA .. MMP P : C/O CURRENT MEDS C/O PRESENT MANAGEMENT BMP IN AM .. WILL F/U ON RENAL FUNCTION
[2018-06-20] MEDS: Pantoprazole 40 mg Susp UD PO SCH (06:14)
[2018-06-20 06:21] LABS: HEMOGLOBIN 10.3 g/dL (12.0-16.0); MEAN CELL VOLUME 92.2 fl (81.0-99.0); MEAN CORPUSCULAR HEMOGLOBIN 31.9 pg (27.0-31.0); MEAN CORPUSCULAR HGB CONC 34.6 g/dL (33.0-37.0); RBC 3.24 Mil/uL (3.80-5.20); RED CELL DISTRIBUTION WIDTH 14.6 % (11.5-14.5); WHITE BLOOD COUNT 6.9 K/uL (4.8-10.8)
[2018-06-20 06:29] LABS: CALCIUM 9.8 mg/dL (8.4-10.2)
[2018-06-20] MEDS: Insulin Lispro (humaLOG) 100 Units/ml Inj SC SCH ×4 (07:30→22:01)
[2018-06-20] MEDS: Enoxaparin 30 mg Syringe SC SCH (08:43)
[2018-06-20] MEDS: Nystatin 100,000 Units/ml Oral Susp 5 ml UD PO SCH ×4 (08:44→22:00)
[2018-06-20] MEDS: Omega-3-Acid Ethyl Esters 1 GM Cap PO SCH (08:44)
[2018-06-20] MEDS: levETIRAcetam 100 mg/ml (5ml) Oral Syringe PO SCH ×2 (08:44→21:59)
[2018-06-20] MEDS: Multi Vitamins 15 mL UD Oral Solution PO SCH (08:45)
--- NOTE | 2018-06-20 10:28 | CP.PCM.PN ---
Subjective - Date & Time of Evaluation Date of Evaluation: 06/20/18 Time of Evaluation: 10:28 - Subjective Subjective: Ms. Solo was seen and examined during recreational therapy. She is alert, oriented with her speech getting more clearer. She denies any headache, dizziness, nausea, or vomiting. She verbalize of feeling sad with her current situation and her impending discharge to a subacute facility.She answer questions in a monotonous voice. She is able to follow simple commands, actively participating with her therapy with minimal movement of the left lower extremity. She remains with right facial droop, right upper extremity flaccidity, and lower extremities weakness. There was no untoward events overnight. Objective - Vital Signs/Intake and Output Vital Signs (last 24 hours): Temp Pulse Resp BP Pulse Ox 97.6 F 91 H 21 148/77 97 06/20/18 08:27 06/20/18 08:45 06/20/18 08:27 06/20/18 08:45 06/20/18 08:27 - Medications Medications: Current Medications Albuterol (Ventolin Hfa 90 Mcg/Actuation (8 G)) 2 puff IH Q12 PRN PRN Reason: Shortness of Breath Last Admin: 06/04/18 08:34 Dose: 2 puff Allopurinol (Zyloprim) 100 mg PO DAILY [facility] Last Admin: 06/20/18 08:44 Dose: 100 mg Amlodipine Besylate (Norvasc) 10 mg PO DAILY [facility] Last Admin: 06/20/18 08:45 Dose: 10 mg Aspirin (Aspirin Chewable) 81 mg PO DAILY [facility] Last Admin: 06/20/18 08:44 Dose: 81 mg Atorvastatin Calcium (Lipitor) 40 mg PO DAILY@2100 [facility] Last Admin: 06/19/18 21:52 Dose: 40 mg Carvedilol (Coreg) 25 mg PO Q12 [facility] Last Admin: 06/20/18 08:45 Dose: 25 mg Clopidogrel Bisulfate (Plavix) 75 mg PO DAILY [facility] Last Admin: 06/20/18 08:45 Dose: 75 mg Enoxaparin Sodium (Lovenox) 30 mg SC DAILY [facility] PRN Reason: Protocol Last Admin: 06/20/18 08:43 Dose: 30 mg Hydralazine HCl (Apresoline) 25 mg PO Q6 [facility] Last Admin: 06/20/18 06:13 Dose: 25 mg Insulin Detemir (Levemir) 15 units SC [facility] Last Admin: 06/19/18 22:15 Dose: 15 units Insulin Human Lispro (Humalog) 0 units SC [facility] PRN Reason: Protocol Last Admin: 06/20/18 07:30 Dose: Not Given Levetiracetam (Keppra) 500 mg PO Q12 [facility] Last Admin: 06/20/18 08:44 Dose: 500 mg Montelukast Sodium (Singulair) 10 mg PO [facility] Last Admin: 06/19/18 21:52 Dose: 10 mg Multivitamins/Vitamin C (Multi-Delyn Liquid) 15 ml PO DAILY [facility] Last Admin: 06/20/18 08:45 Dose: 15 ml Nystatin (Nystatin Oral Susp) 5 ml PO QID [facility] Last Admin: 06/20/18 08:44 Dose: 5 ml Qmupj-1-[id number] Ethyl Esters (Lovaza) 1 gm PO DAILY [facility] Last Admin: 06/20/18 08:44 Dose: 1 gm Pantoprazole Sodium (Protonix Susp) 40 mg PO DAILY@0630 [facility] Last Admin: 06/20/18 06:14 Dose: 40 mg - Labs Labs: 06/20/18 05:20 06/20/18 05:20 - Constitutional Appears: No Acute Distress - Head Exam Head Exam: NORMAL INSPECTION - Eye Exam Pupil Exam: PERRL - Neurological Exam Neurological Exam: Alert, Awake, Oriented x3 Neuro motor strength exam: Left Upper Extremity: 5, Right Upper Extremity: 0, Left Lower Extremity: 5, Right Lower Extremity: 2/1 Additional comments: neurological unchanged from previous examination. Assessment and Plan (1) Ischemic stroke Assessment & Plan: Case discussed with Dr. Brumfield, Continue all current medical, physical, occupational, and speech therapies. Recommend psychiatry consult for depression , hydration, keep head of bed elevated at least 30 degrees while in bed, blood pressure and glycemic control. Status: Acute
--- NOTE | 2018-06-20 12:41 | CP.PCM.PN ---
Subjective - Date & Time of Evaluation Date of Evaluation: 06/20/18 Time of Evaluation: 10:20 - Subjective Subjective: Patient seen and examined. Blue sad about condition and her leaving soon for [facility]. Denied any other complaint. Objective - Vital Signs/Intake and Output Vital Signs (last 24 hours): Temp Pulse Resp BP Pulse Ox 97.6 F 91 H 21 148/77 97 06/20/18 08:27 06/20/18 08:45 06/20/18 08:27 06/20/18 08:45 06/20/18 08:27 - Medications Medications: Current Medications Albuterol (Ventolin Hfa 90 Mcg/Actuation (8 G)) 2 puff IH Q12 PRN PRN Reason: Shortness of Breath Last Admin: 06/04/18 08:34 Dose: 2 puff Allopurinol (Zyloprim) 100 mg PO DAILY [facility] Last Admin: 06/20/18 08:44 Dose: 100 mg Amlodipine Besylate (Norvasc) 10 mg PO DAILY [facility] Last Admin: 06/20/18 08:45 Dose: 10 mg Aspirin (Aspirin Chewable) 81 mg PO DAILY [facility] Last Admin: 06/20/18 08:44 Dose: 81 mg Atorvastatin Calcium (Lipitor) 40 mg PO DAILY@2100 [facility] Last Admin: 06/19/18 21:52 Dose: 40 mg Carvedilol (Coreg) 25 mg PO Q12 [facility] Last Admin: 06/20/18 08:45 Dose: 25 mg Clopidogrel Bisulfate (Plavix) 75 mg PO DAILY [facility] Last Admin: 06/20/18 08:45 Dose: 75 mg Enoxaparin Sodium (Lovenox) 30 mg SC DAILY [facility] PRN Reason: Protocol Last Admin: 06/20/18 08:43 Dose: 30 mg Hydralazine HCl (Apresoline) 25 mg PO Q6 [facility] Last Admin: 06/20/18 06:13 Dose: 25 mg Insulin Detemir (Levemir) 15 units SC HS [facility] Last Admin: 06/19/18 22:15 Dose: 15 units Insulin Human Lispro (Humalog) 0 units SC [facility] PRN Reason: Protocol Last Admin: 06/20/18 07:30 Dose: Not Given Levetiracetam (Keppra) 500 mg PO Q12 [facility] Last Admin: 06/20/18 08:44 Dose: 500 mg Montelukast Sodium (Singulair) 10 mg PO HS [facility] Last Admin: 06/19/18 21:52 Dose: 10 mg Multivitamins/Vitamin C (Multi-Delyn Liquid) 15 ml PO DAILY [facility] Last Admin: 06/20/18 08:45 Dose: 15 ml Nystatin (Nystatin Oral Susp) 5 ml PO QID [facility] Last Admin: 06/20/18 08:44 Dose: 5 ml [id number]-[id number] Ethyl Esters (Lovaza) 1 gm PO DAILY [facility] Last Admin: 06/20/18 08:44 Dose: 1 gm Pantoprazole Sodium (Protonix Susp) 40 mg PO DAILY@0630 [facility] Last Admin: 06/20/18 06:14 Dose: 40 mg - Labs Labs: 06/20/18 05:20 06/20/18 05:20 - Constitutional Appears: No Acute Distress - Head Exam Head Exam: ATRAUMATIC - Eye Exam Eye Exam: absent: Scleral icterus - ENT Exam ENT Exam: Mucous Membranes Moist - Neck Exam Neck Exam: absent: Meningismus - Respiratory Exam Respiratory Exam: absent: Rales, Rhonchi, Wheezes, Respiratory Distress - Cardiovascular Exam Cardiovascular Exam: REGULAR RHYTHM, +S1, +S2 - GI/Abdominal Exam GI & Abdominal Exam: Soft. absent: Tenderness - Rectal Exam Rectal Exam: Deferred - Back Exam Back Exam: NORMAL INSPECTION - Neurological Exam Neurological Exam: Alert, Oriented x3 - Psychiatric Exam Psychiatric exam: Normal Affect - Skin Skin Exam: Dry, Intact Assessment and Plan - Assessment and Plan (Free Text) Assessment: 67 yo female with history of RA, HTN HLD, DM2 and previous CVA was brought to the ER following a fall and right sided weakness accompanied with slurred speech. Code stroke was called and TPA administered. Initial CT scan did not show any significant findings. Patient was admitted in ICU where MRI done later showed large left MCA infarct. Hemorrhagic conversion also noted on the left basal ganglia. She was later transferred to Acute Rehab for further management and therapy. 1. Acute CVA, s/p TPA had hemorrhagic conversion continue PT/OT/ST continue ASA, statin and Keppra more alert today 2. Hypertension BP stable off Clonidine continue Coreg, Norvasc and Hydralazine 3. Hypercholesterolemia cont Lipitor 4. Type 2 DM BS controlled on Levemir 15 units SC HS plus Lispro coverage 5. Asthma, mild intermittent Continue Albuterol PRN for SOB chronic 7. CKD stage III likely due to diabetic nephropathy and/or uncontrolled hypertension renal function improving BMP in am 8. DVT prophylaxis Lovenox 30mg SC daily
--- NOTE | 2018-06-20 13:32 | CP.PCM.PN ---
Subjective - Date & Time of Evaluation Date of Evaluation: 06/20/18 Time of Evaluation: 13:31 - Subjective Subjective: Patient seen in the room dense right HP no UE motion right facial droop continue current care Objective - Vital Signs/Intake and Output Vital Signs (last 24 hours): Temp Pulse Resp BP Pulse Ox 97.6 F 68 21 120/80 97 06/20/18 08:27 06/20/18 12:39 06/20/18 08:27 06/20/18 12:39 06/20/18 08:27 - Medications Medications: Current Medications Albuterol (Ventolin Hfa 90 Mcg/Actuation (8 G)) 2 puff IH Q12 PRN PRN Reason: Shortness of Breath Last Admin: 06/04/18 08:34 Dose: 2 puff Allopurinol (Zyloprim) 100 mg PO DAILY [facility] Last Admin: 06/20/18 08:44 Dose: 100 mg Amlodipine Besylate (Norvasc) 10 mg PO DAILY [facility] Last Admin: 06/20/18 08:45 Dose: 10 mg Aspirin (Aspirin Chewable) 81 mg PO DAILY [facility] Last Admin: 06/20/18 08:44 Dose: 81 mg Atorvastatin Calcium (Lipitor) 40 mg PO DAILY@2100 [facility] Last Admin: 06/19/18 21:52 Dose: 40 mg Carvedilol (Coreg) 25 mg PO Q12 [facility] Last Admin: 06/20/18 08:45 Dose: 25 mg Clopidogrel Bisulfate (Plavix) 75 mg PO DAILY [facility] Last Admin: 06/20/18 08:45 Dose: 75 mg Enoxaparin Sodium (Lovenox) 30 mg SC DAILY [facility] PRN Reason: Protocol Last Admin: 06/20/18 08:43 Dose: 30 mg Hydralazine HCl (Apresoline) 25 mg PO Q6 [facility] Last Admin: 06/20/18 12:39 Dose: 25 mg Insulin Detemir (Levemir) 15 units SC HS [facility] Last Admin: 06/19/18 22:15 Dose: 15 units Insulin Human Lispro (Humalog) 0 units SC ACHS [facility] PRN Reason: Protocol Last Admin: 06/20/18 11:30 Dose: 3 unit Levetiracetam (Keppra) 500 mg PO Q12 [facility] Last Admin: 06/20/18 08:44 Dose: 500 mg Montelukast Sodium (Singulair) 10 mg PO HS [facility] Last Admin: 06/19/18 21:52 Dose: 10 mg Multivitamins/Vitamin C (Multi-Delyn Liquid) 15 ml PO DAILY [facility] Last Admin: 06/20/18 08:45 Dose: 15 ml Nystatin (Nystatin Oral Susp) 5 ml PO QID [facility] Last Admin: 06/20/18 12:40 Dose: 5 ml Bouzr-[id number]-[id number] Ethyl Esters (Lovaza) 1 gm PO DAILY [facility] Last Admin: 06/20/18 08:44 Dose: 1 gm Pantoprazole Sodium (Protonix Susp) 40 mg PO DAILY@0630 [facility] Last Admin: 06/20/18 06:14 Dose: 40 mg - Labs Labs: 06/20/18 05:20 06/20/18 05:20
--- NOTE | 2018-06-20 14:35 | CP.PCM.PN ---
Subjective - Date & Time of Evaluation Date of Evaluation: 06/20/18 Time of Evaluation: 13:00 - Subjective Subjective: SEEN ON RENAL F/U FEELS IMPROVIMG RENAL FUNCTION GETTING BETTER AFTER D/C LOSARTAN Objective - Vital Signs/Intake and Output Vital Signs (last 24 hours): Temp Pulse Resp BP Pulse Ox 97.6 F 68 21 120/80 97 06/20/18 08:27 06/20/18 12:39 06/20/18 08:27 06/20/18 12:39 06/20/18 08:27 - Medications Medications: Current Medications Albuterol (Ventolin Hfa 90 Mcg/Actuation (8 G)) 2 puff IH Q12 PRN PRN Reason: Shortness of Breath Last Admin: 06/04/18 08:34 Dose: 2 puff Allopurinol (Zyloprim) 100 mg PO DAILY [facility] Last Admin: 06/20/18 08:44 Dose: 100 mg Amlodipine Besylate (Norvasc) 10 mg PO DAILY [facility] Last Admin: 06/20/18 08:45 Dose: 10 mg Aspirin (Aspirin Chewable) 81 mg PO DAILY [facility] Last Admin: 06/20/18 08:44 Dose: 81 mg Atorvastatin Calcium (Lipitor) 40 mg PO DAILY@2100 [facility] Last Admin: 06/19/18 21:52 Dose: 40 mg Carvedilol (Coreg) 25 mg PO Q12 [facility] Last Admin: 06/20/18 08:45 Dose: 25 mg Clopidogrel Bisulfate (Plavix) 75 mg PO DAILY [facility] Last Admin: 06/20/18 08:45 Dose: 75 mg Enoxaparin Sodium (Lovenox) 30 mg SC DAILY [facility] PRN Reason: Protocol Last Admin: 06/20/18 08:43 Dose: 30 mg Hydralazine HCl (Apresoline) 25 mg PO Q6 [facility] Last Admin: 06/20/18 12:39 Dose: 25 mg Insulin Detemir (Levemir) 15 units SC HS [facility] Last Admin: 06/19/18 22:15 Dose: 15 units Insulin Human Lispro (Humalog) 0 units SC ACHS [facility] PRN Reason: Protocol Last Admin: 06/20/18 11:30 Dose: 3 unit Levetiracetam (Keppra) 500 mg PO Q12 [facility] Last Admin: 06/20/18 08:44 Dose: 500 mg Montelukast Sodium (Singulair) 10 mg PO HS [facility] Last Admin: 06/19/18 21:52 Dose: 10 mg Multivitamins/Vitamin C (Multi-Delyn Liquid) 15 ml PO DAILY [facility] Last Admin: 06/20/18 08:45 Dose: 15 ml Nystatin (Nystatin Oral Susp) 5 ml PO QID [facility] Last Admin: 06/20/18 12:40 Dose: 5 ml Manzl-3-Juak Ethyl Esters (Lovaza) 1 gm PO DAILY [facility] Last Admin: 06/20/18 08:44 Dose: 1 gm Pantoprazole Sodium (Protonix Susp) 40 mg PO DAILY@0630 [facility] Last Admin: 06/20/18 06:14 Dose: 40 mg - Labs Labs: 06/20/18 05:20 06/20/18 05:20 Assessment and Plan - Assessment and Plan (Free Text) Assessment: A ON CKD .. RENAL FUNCTION BETTER .. KEEP LOSARTAN OFF ANEMIA OF CKD .. H/H STABLE CVA .. ON PT OT ST MMP p ; C/O CURRENT CARE C/O PRESENT MEDS
--- NOTE | 2018-06-20 16:35 | CP.PCM.CON ---
History of Present Illness - History of Present Illness History of Present Illness: consult requested as pt was noted by staff to be depressed 67 yo female with history of RA, HTN HLD, DM2 and previous CVA was brought to the ER following a fall and right sided weakness accompanied with slurred speech. pt was diagnosed with stroke pt currently receiving physical therapy, on evaluation , pt reported feeling down and sad due to her current medical condition, low energy at times, no reported changes in sleep or appetite , denied any current suicidal or homicidal ideation denied psychotic symptoms Past Patient History - Infectious Disease Hx of Infectious Diseases: None - Tetanus Immunizations Tetanus Immunization: Unknown - Past Medical History & Family History Past Medical History?: Yes - Past Social History Smoking Status: Heavy Smoker > 10 Cigarettes Daily Chewing Tobacco Use: No Cigar Use: No Alcohol: None Drugs: Denies Home Situation {Lives}: With Family - CARDIAC Hx Hypercholesterolemia: Yes Hx Hypertension: Yes - PULMONARY Hx Respiratory Disorders: Yes Hx Asthma: Yes - NEUROLOGICAL HX Cerebrovascular Accident: Yes (Hx. CVA 2016) - HEENT Hx HEENT Problems: No Other/Comment: wear glasses for reading - RENAL Hx Chronic Kidney Disease: Yes Other/Comment: Hx. CKD stage 3 - ENDOCRINE/METABOLIC Hx Diabetes Mellitus Type 2: Yes - HEMATOLOGICAL/ONCOLOGICAL Hx Blood Disorders: No - INTEGUMENTARY Hx Dermatological Problems: No - MUSCULOSKELETAL/RHEUMATOLOGICAL Hx Rheumatoid Arthritis: Yes - GASTROINTESTINAL Hx Gastrointestinal Disorders: No - GENITOURINARY/GYNECOLOGICAL Hx Genitourinary Disorders: No - PSYCHIATRIC Hx Substance Use: No - SURGICAL HISTORY Hx Surgeries: Yes Hx Hysterectomy: Yes Hx Orthopedic Surgery: Yes (B/L foot) - ANESTHESIA Hx Anesthesia: Yes Hx Anesthesia Reactions: No Hx Malignant Hyperthermia: No Meds Allergies/Adverse Reactions: Allergies Allergy/AdvReac Type Severity Reaction Status Date / Time No Known Allergies Allergy Verified 07/04/17 10:02 - Medications Medications: Current Medications Albuterol (Ventolin Hfa 90 Mcg/Actuation (8 G)) 2 puff IH Q12 PRN PRN Reason: Shortness of Breath Last Admin: 06/04/18 08:34 Dose: 2 puff Allopurinol (Zyloprim) 100 mg PO DAILY [facility] Last Admin: 06/20/18 08:44 Dose: 100 mg Amlodipine Besylate (Norvasc) 10 mg PO DAILY [facility] Last Admin: 06/20/18 08:45 Dose: 10 mg Aspirin (Aspirin Chewable) 81 mg PO DAILY [facility] Last Admin: 06/20/18 08:44 Dose: 81 mg Atorvastatin Calcium (Lipitor) 40 mg PO DAILY@2100 [facility] Last Admin: 06/19/18 21:52 Dose: 40 mg Carvedilol (Coreg) 25 mg PO Q12 [facility] Last Admin: 06/20/18 08:45 Dose: 25 mg Clopidogrel Bisulfate (Plavix) 75 mg PO DAILY [facility] Last Admin: 06/20/18 08:45 Dose: 75 mg Enoxaparin Sodium (Lovenox) 30 mg SC DAILY [facility] PRN Reason: Protocol Last Admin: 06/20/18 08:43 Dose: 30 mg Hydralazine HCl (Apresoline) 25 mg PO Q6 [facility] Last Admin: 06/20/18 12:39 Dose: 25 mg Insulin Detemir (Levemir) 15 units SC [facility] Last Admin: 06/19/18 22:15 Dose: 15 units Insulin Human Lispro (Humalog) 0 units SC [facility] PRN Reason: Protocol Last Admin: 06/20/18 11:30 Dose: 3 unit Levetiracetam (Keppra) 500 mg PO Q12 [facility] Last Admin: 06/20/18 08:44 Dose: 500 mg Montelukast Sodium (Singulair) 10 mg PO [facility] Last Admin: 06/19/18 21:52 Dose: 10 mg Multivitamins/Vitamin C (Multi-Delyn Liquid) 15 ml PO DAILY [facility] Last Admin: 06/20/18 08:45 Dose: 15 ml Nystatin (Nystatin Oral Susp) 5 ml PO QID [facility] Last Admin: 06/20/18 12:40 Dose: 5 ml Bimjw-8-[id number] Ethyl Esters (Lovaza) 1 gm PO DAILY [facility] Last Admin: 06/20/18 08:44 Dose: 1 gm Pantoprazole Sodium (Protonix Susp) 40 mg PO DAILY@0630 [facility] Last Admin: 06/20/18 06:14 Dose: 40 mg Physical Exam - Psychiatric Exam Additional comments: pt seen on a wheel chair, speech slurred, cooperative mood sad affect constricted, denied any current suicidal or homicidal ideation denied perceptual disturbances, alert awake oriented to person and place Results - Vital Signs Recent Vital Signs: Last Vital Signs Temp 97.6 F 06/20/18 08:27 Pulse 68 06/20/18 12:39 Resp 21 06/20/18 08:27 BP 120/80 06/20/18 12:39 Pulse Ox 97 06/20/18 08:27 - Labs Result Diagrams: 06/20/18 05:20 06/20/18 05:20 Labs: Laboratory Results - last 24 hr 06/19/18 06/20/18 06/20/18 20:52 05:20 05:20 WBC 6.9 RBC 3.24 L Hgb 10.3 L Hct 29.8 L MCV 92.2 MCH 31.9 H MCHC 34.6 RDW 14.6 H Plt Count 418 H Sodium 139 Potassium 3.8 Chloride 99 Carbon Dioxide 29 Anion Gap 15 BUN 40 H Creatinine 1.7 H Est GFR ( Amer) 36 Est GFR (Non-Af Amer) 30 POC Glucose (mg/dL) 139 H Random Glucose 131 H Calcium 9.8 06/20/18 06/20/18 06:11 11:45 WBC RBC Hgb Hct MCV MCH MCHC RDW Plt Count Sodium Potassium Chloride Carbon Dioxide Anion Gap BUN Creatinine Est GFR ( Amer) Est GFR (Non-Af Amer) POC Glucose (mg/dL) 131 H 218 H Random Glucose Calcium Assessment & Plan - Assessment and Plan (Free Text) Assessment: mood disorder due to medical condition with depressive features Plan: start zoloft 12.5mg daily
[2018-06-20] MEDS: Insulin Detemir 100 Units/ml Inj SC SCH (22:02)
[2018-06-21 06:42] LABS: CALCIUM 10.1 mg/dL (8.4-10.2)
[2018-06-21] MEDS: Insulin Lispro (humaLOG) 100 Units/ml Inj SC SCH ×4 (07:12→21:10)
[2018-06-21] MEDS: Pantoprazole 40 mg Susp UD PO SCH (07:37)
[2018-06-21] MEDS: Enoxaparin 30 mg Syringe SC SCH (08:28)
[2018-06-21] MEDS: Nystatin 100,000 Units/ml Oral Susp 5 ml UD PO SCH ×4 (08:28→21:00)
[2018-06-21] MEDS: Omega-3-Acid Ethyl Esters 1 GM Cap PO SCH (08:28)
[2018-06-21] MEDS: Multi Vitamins 15 mL UD Oral Solution PO SCH (08:29)
[2018-06-21] MEDS: levETIRAcetam 100 mg/ml (5ml) Oral Syringe PO SCH ×2 (08:31→20:50)
--- NOTE | 2018-06-21 13:47 | CP.PCM.PN ---
Subjective - Date & Time of Evaluation Date of Evaluation: 06/21/18 Time of Evaluation: 13:46 - Subjective Subjective: Patient seen in the room, doing ok no distress denies pain slow improvement with therapies continue current care Objective - Vital Signs/Intake and Output Vital Signs (last 24 hours): Temp Pulse Resp BP Pulse Ox 97.2 F L 62 18 142/77 97 06/21/18 08:02 06/21/18 08:30 06/21/18 08:02 06/21/18 08:30 06/21/18 08:02 - Medications Medications: Current Medications Albuterol (Ventolin Hfa 90 Mcg/Actuation (8 G)) 2 puff IH Q12 PRN PRN Reason: Shortness of Breath Last Admin: 06/04/18 08:34 Dose: 2 puff Allopurinol (Zyloprim) 100 mg PO DAILY [facility] Last Admin: 06/21/18 08:30 Dose: 100 mg Amlodipine Besylate (Norvasc) 10 mg PO DAILY [facility] Last Admin: 06/21/18 08:30 Dose: 10 mg Aspirin (Aspirin Chewable) 81 mg PO DAILY [facility] Last Admin: 06/21/18 08:29 Dose: 81 mg Atorvastatin Calcium (Lipitor) 40 mg PO DAILY@2100 [facility] Last Admin: 06/20/18 22:01 Dose: 40 mg Carvedilol (Coreg) 25 mg PO Q12 [facility] Last Admin: 06/21/18 08:29 Dose: 25 mg Clopidogrel Bisulfate (Plavix) 75 mg PO DAILY [facility] Last Admin: 06/21/18 08:30 Dose: 75 mg Enoxaparin Sodium (Lovenox) 30 mg SC DAILY [facility] PRN Reason: Protocol Last Admin: 06/21/18 08:28 Dose: 30 mg Hydralazine HCl (Apresoline) 25 mg PO Q6 [facility] Last Admin: 06/21/18 06:06 Dose: 25 mg Insulin Detemir (Levemir) 15 units SC HS [facility] Last Admin: 06/20/18 22:02 Dose: 15 units Insulin Human Lispro (Humalog) 0 units SC [facility] PRN Reason: Protocol Last Admin: 06/21/18 07:12 Dose: Not Given Levetiracetam (Keppra) 500 mg PO Q12 [facility] Last Admin: 06/21/18 08:31 Dose: 500 mg Montelukast Sodium (Singulair) 10 mg PO HS [facility] Last Admin: 06/20/18 22:00 Dose: 10 mg Multivitamins/Vitamin C (Multi-Delyn Liquid) 15 ml PO DAILY [facility] Last Admin: 06/21/18 08:29 Dose: 15 ml Nystatin (Nystatin Oral Susp) 5 ml PO QID [facility] Last Admin: 06/21/18 08:28 Dose: 5 ml Hufie-7-Nnvj Ethyl Esters (Lovaza) 1 gm PO DAILY [facility] Last Admin: 06/21/18 08:28 Dose: 1 gm Pantoprazole Sodium (Protonix Susp) 40 mg PO DAILY@0630 [facility] Last Admin: 06/21/18 07:37 Dose: 40 mg - Labs Labs: 06/20/18 05:20 06/21/18 05:30
[2018-06-21] MEDS: Insulin Detemir 100 Units/ml Inj SC SCH (21:53)
[2018-06-22] MEDS: Pantoprazole 40 mg Susp UD PO SCH (05:43)
[2018-06-22] MEDS: Insulin Lispro (humaLOG) 100 Units/ml Inj SC SCH ×4 (06:30→21:00)
[2018-06-22] MEDS: Multi Vitamins 15 mL UD Oral Solution PO SCH (09:20)
[2018-06-22] MEDS: levETIRAcetam 100 mg/ml (5ml) Oral Syringe PO SCH ×2 (09:20→20:14)
[2018-06-22] MEDS: Omega-3-Acid Ethyl Esters 1 GM Cap PO SCH (09:20)
[2018-06-22] MEDS: Nystatin 100,000 Units/ml Oral Susp 5 ml UD PO SCH ×4 (09:21→22:06)
[2018-06-22] MEDS: Enoxaparin 30 mg Syringe SC SCH (09:22)
[2018-06-22] MEDS: Insulin Detemir 100 Units/ml Inj SC SCH (22:05)
[2018-06-23] MEDS: Pantoprazole 40 mg Susp UD PO SCH (06:16)
[2018-06-23 06:28] LABS: HEMOGLOBIN 10.5 g/dL (12.0-16.0); MEAN CELL VOLUME 92.7 fl (81.0-99.0); MEAN CORPUSCULAR HEMOGLOBIN 31.7 pg (27.0-31.0); MEAN CORPUSCULAR HGB CONC 34.2 g/dL (33.0-37.0); RBC 3.3 Mil/uL (3.80-5.20); RED CELL DISTRIBUTION WIDTH 14.7 % (11.5-14.5); WHITE BLOOD COUNT 6.8 K/uL (4.8-10.8)
[2018-06-23] MEDS: Insulin Lispro (humaLOG) 100 Units/ml Inj SC SCH ×4 (06:32→21:00)
[2018-06-23] MEDS: Omega-3-Acid Ethyl Esters 1 GM Cap PO SCH (08:32)
[2018-06-23] MEDS: levETIRAcetam 100 mg/ml (5ml) Oral Syringe PO SCH ×2 (08:32→21:35)
[2018-06-23] MEDS: Nystatin 100,000 Units/ml Oral Susp 5 ml UD PO SCH (08:33)
[2018-06-23] MEDS: Multi Vitamins 15 mL UD Oral Solution PO SCH (08:33)
[2018-06-23] MEDS: Enoxaparin 30 mg Syringe SC SCH (08:33)
--- NOTE | 2018-06-23 11:19 | CP.PCM.PN ---
Subjective - Date & Time of Evaluation Date of Evaluation: 06/23/18 Time of Evaluation: 11:19 - Subjective Subjective: Ms. Solo was seen and examined during recreational therapy. She is alert, oriented with her speech getting more clearer. She denies any headache, dizziness, nausea, or vomiting. She verbalize of feeling excited to be going to another facility this week. She is able to follow simple commands, actively participating with her therapy with minimal movement of the left lower extremity. She remains with right facial droop, right upper extremity flaccidity , and lower extremities weakness. There was no untoward events overnight. Objective - Vital Signs/Intake and Output Vital Signs (last 24 hours): Temp Pulse Resp BP Pulse Ox 97.9 F 69 19 154/87 H 96 06/23/18 08:42 06/23/18 08:42 06/23/18 08:42 06/23/18 08:42 06/23/18 08:42 - Medications Medications: Current Medications Albuterol (Ventolin Hfa 90 Mcg/Actuation (8 G)) 2 puff Q12 PRN PRN Reason: Shortness of Breath Last Admin: 06/04/18 08:34 Dose: 2 puff Allopurinol (Zyloprim) 100 mg PO DAILY [facility] Last Admin: 06/23/18 08:33 Dose: 100 mg Amlodipine Besylate (Norvasc) 10 mg PO DAILY [facility] Last Admin: 06/23/18 08:33 Dose: 10 mg Aspirin (Aspirin Chewable) 81 mg PO DAILY [facility] Last Admin: 06/23/18 08:32 Dose: 81 mg Atorvastatin Calcium (Lipitor) 40 mg PO DAILY@2100 [facility] Last Admin: 06/22/18 20:15 Dose: 40 mg Carvedilol (Coreg) 25 mg PO Q12 [facility] Last Admin: 06/23/18 08:32 Dose: 25 mg Clopidogrel Bisulfate (Plavix) 75 mg PO DAILY [facility] Last Admin: 06/23/18 08:33 Dose: 75 mg Enoxaparin Sodium (Lovenox) 30 mg SC DAILY [facility] PRN Reason: Protocol Last Admin: 06/23/18 08:33 Dose: 30 mg Hydralazine HCl (Apresoline) 25 mg PO Q6 [facility] Last Admin: 06/23/18 06:15 Dose: 25 mg Insulin Detemir (Levemir) 15 units SC [facility] Last Admin: 06/22/18 22:05 Dose: 15 units Insulin Human Lispro (Humalog) 0 units SC ACHS [facility] PRN Reason: Protocol Last Admin: 06/23/18 06:32 Dose: Not Given Levetiracetam (Keppra) 500 mg PO Q12 [facility] Last Admin: 06/23/18 08:32 Dose: 500 mg Montelukast Sodium (Singulair) 10 mg PO HS [facility] Last Admin: 06/22/18 22:06 Dose: 10 mg Multivitamins/Vitamin C (Multi-Delyn Liquid) 15 ml PO DAILY [facility] Last Admin: 06/23/18 08:33 Dose: 15 ml Nystatin (Nystatin Oral Susp) 5 ml PO QID [facility] Last Admin: 06/23/18 08:33 Dose: 5 ml Vtyid-1-Vtfr Ethyl Esters (Lovaza) 1 gm PO DAILY [facility] Last Admin: 06/23/18 08:32 Dose: 1 gm Pantoprazole Sodium (Protonix Susp) 40 mg PO DAILY@0630 [facility] Last Admin: 06/23/18 06:16 Dose: 40 mg - Labs Labs: 06/23/18 05:00 06/23/18 05:00 - Constitutional Appears: No Acute Distress - Head Exam Head Exam: NORMAL INSPECTION - Eye Exam Pupil Exam: PERRL - Neurological Exam Neurological Exam: Alert, Awake, Oriented x3 Neuro motor strength exam: Left Upper Extremity: 5, Right Upper Extremity: 0, Left Lower Extremity: 5, Right Lower Extremity: 2/1 Additional comments: neurological unchanged from previous examination. Assessment and Plan (1) Ischemic stroke Assessment & Plan: Continue all current medical, physical, occupational, and speech therapies. Recommend psychiatry consult for depression, hydration, keep head of bed elevated at least 30 degrees while in bed, follow up with an outpatient neurologist post discharge from subacute rehab, blood pressure and glycemic control. Status: Acute
--- NOTE | 2018-06-23 16:26 | CP.PCM.PN ---
Subjective - Date & Time of Evaluation Date of Evaluation: 06/23/18 Time of Evaluation: 12:00 - Subjective Subjective: Patient seen and examined at bedside during speech therapy. Appears to be depressed. Leaving soon for [place]. No new complaints. Cooperative with therapies. Objective - Vital Signs/Intake and Output Vital Signs (last 24 hours): Temp Pulse Resp BP Pulse Ox 97.9 F 72 19 130/68 96 06/23/18 08:42 06/23/18 12:31 06/23/18 08:42 06/23/18 12:31 06/23/18 08:42 - Medications Medications: Current Medications Albuterol (Ventolin Hfa 90 Mcg/Actuation (8 G)) 2 puff IH Q12 PRN PRN Reason: Shortness of Breath Last Admin: 06/04/18 08:34 Dose: 2 puff Allopurinol (Zyloprim) 100 mg PO DAILY [facility] Last Admin: 06/23/18 08:33 Dose: 100 mg Amlodipine Besylate (Norvasc) 10 mg PO DAILY [facility] Last Admin: 06/23/18 08:33 Dose: 10 mg Aspirin (Aspirin Chewable) 81 mg PO DAILY [facility] Last Admin: 06/23/18 08:32 Dose: 81 mg Atorvastatin Calcium (Lipitor) 40 mg PO DAILY@2100 [facility] Last Admin: 06/22/18 20:15 Dose: 40 mg Carvedilol (Coreg) 25 mg PO Q12 [facility] Last Admin: 06/23/18 08:32 Dose: 25 mg Clopidogrel Bisulfate (Plavix) 75 mg PO DAILY [facility] Last Admin: 06/23/18 08:33 Dose: 75 mg Enoxaparin Sodium (Lovenox) 30 mg SC DAILY [facility] PRN Reason: Protocol Last Admin: 06/23/18 08:33 Dose: 30 mg Hydralazine HCl (Apresoline) 25 mg PO Q6 [facility] Last Admin: 06/23/18 12:31 Dose: 25 mg Insulin Detemir (Levemir) 15 units SC HS [facility] Last Admin: 06/22/18 22:05 Dose: 15 units Insulin Human Lispro (Humalog) 0 units SC ACHS [facility] PRN Reason: Protocol Last Admin: 06/23/18 12:31 Dose: 3 unit Levetiracetam (Keppra) 500 mg PO Q12 [facility] Last Admin: 06/23/18 08:32 Dose: 500 mg Montelukast Sodium (Singulair) 10 mg PO HS [facility] Last Admin: 06/22/18 22:06 Dose: 10 mg Multivitamins/Vitamin C (Multi-Delyn Liquid) 15 ml PO DAILY [facility] Last Admin: 06/23/18 08:33 Dose: 15 ml Vieay-8-Nbrr Ethyl Esters (Lovaza) 1 gm PO DAILY [facility] Last Admin: 06/23/18 08:32 Dose: 1 gm Pantoprazole Sodium (Protonix Susp) 40 mg PO DAILY@0630 [facility] Last Admin: 06/23/18 06:16 Dose: 40 mg Sertraline HCl (Zoloft) 12.5 mg PO DAILY [facility] Last Admin: 06/23/18 13:53 Dose: 12.5 mg - Labs Labs: 06/23/18 05:00 06/23/18 05:00 - Additional Findings Additional findings: Physical exam: Constitutional- cooperative, awake, alert Head- NCAT, PERRL Eye- PERRL, EOMI ENT- normal exam, MMM. Neck- normal inspection, supple, no JVD Respiratory- CTAB, no wheezes rales rhonchi Cardiovascular- RRR, +S1, +S2 no MRG GI/Abdominal- normal bowel sounds, soft, no mass, no hsm Skin- warm, dry Extremities Exam- normal capillary refill, normal inspection Neurological Exam- alert, awake, oriented Psych- normal mood, normal affect Assessment and Plan - Assessment and Plan (Free Text) Plan: 67 yo female with history of RA, HTN HLD, DM2 and previous CVA was brought to the ER following a fall and right sided weakness accompanied with slurred speech. Code stroke was called and TPA administered. Initial CT scan did not show any significant findings. Patient was admitted in ICU where MRI done later showed large left MCA infarct. Hemorrhagic conversion also noted on the left basal ganglia. She was later transferred to Acute Rehab for further management and therapy. 1. Acute CVA, s/p TPA had hemorrhagic conversion continue PT/OT/ST continue ASA, statin and Keppra more alert today 2. Hypertension BP stable off Clonidine continue Coreg, Norvasc and Hydralazine 3. Hypercholesterolemia cont Lipitor 4. Type 2 DM BS controlled on Levemir 15 units SC HS plus Lispro coverage 5. Asthma, mild intermittent Continue Albuterol PRN for SOB chronic 7. CKD stage III likely due to diabetic nephropathy and/or uncontrolled hypertension renal function improving BMP in am 8. DVT prophylaxis Lovenox 30mg SC daily
--- NOTE | 2018-06-23 18:38 | CP.PCM.PN ---
Subjective - Date & Time of Evaluation Date of Evaluation: 06/23/18 Time of Evaluation: 18:38 - Subjective Subjective: Patient seen in the room denies sob/cp no fever dense right HP with no significant return to this point set for going to [facility] later this week Objective - Vital Signs/Intake and Output Vital Signs (last 24 hours): Temp Pulse Resp BP Pulse Ox 97.9 F 72 19 139/77 96 06/23/18 08:42 06/23/18 17:25 06/23/18 08:42 06/23/18 17:25 06/23/18 08:42 - Medications Medications: Current Medications Albuterol (Ventolin Hfa 90 Mcg/Actuation (8 G)) 2 puff IH Q12 PRN PRN Reason: Shortness of Breath Last Admin: 06/04/18 08:34 Dose: 2 puff Allopurinol (Zyloprim) 100 mg PO DAILY [facility] Last Admin: 06/23/18 08:33 Dose: 100 mg Amlodipine Besylate (Norvasc) 10 mg PO DAILY [facility] Last Admin: 06/23/18 08:33 Dose: 10 mg Aspirin (Aspirin Chewable) 81 mg PO DAILY [facility] Last Admin: 06/23/18 08:32 Dose: 81 mg Atorvastatin Calcium (Lipitor) 40 mg PO DAILY@2100 [facility] Last Admin: 06/22/18 20:15 Dose: 40 mg Carvedilol (Coreg) 25 mg PO Q12 [facility] Last Admin: 06/23/18 08:32 Dose: 25 mg Clopidogrel Bisulfate (Plavix) 75 mg PO DAILY [facility] Last Admin: 06/23/18 08:33 Dose: 75 mg Enoxaparin Sodium (Lovenox) 30 mg SC DAILY [facility] PRN Reason: Protocol Last Admin: 06/23/18 08:33 Dose: 30 mg Hydralazine HCl (Apresoline) 25 mg PO Q6 [facility] Last Admin: 06/23/18 17:25 Dose: 25 mg Insulin Detemir (Levemir) 15 units SC HS [facility] Last Admin: 06/22/18 22:05 Dose: 15 units Insulin Human Lispro (Humalog) 0 units SC ACHS [facility] PRN Reason: Protocol Last Admin: 06/23/18 16:41 Dose: Not Given Levetiracetam (Keppra) 500 mg PO Q12 [facility] Last Admin: 06/23/18 08:32 Dose: 500 mg Montelukast Sodium (Singulair) 10 mg PO HS [facility] Last Admin: 06/22/18 22:06 Dose: 10 mg Multivitamins/Vitamin C (Multi-Delyn Liquid) 15 ml PO DAILY [facility] Last Admin: 06/23/18 08:33 Dose: 15 ml Ymgdi-2-Bvra Ethyl Esters (Lovaza) 1 gm PO DAILY [facility] Last Admin: 06/23/18 08:32 Dose: 1 gm Pantoprazole Sodium (Protonix Susp) 40 mg PO DAILY@0630 [facility] Last Admin: 06/23/18 06:16 Dose: 40 mg Sertraline HCl (Zoloft) 12.5 mg PO DAILY [facility] Last Admin: 06/23/18 13:53 Dose: 12.5 mg - Labs Labs: 06/23/18 05:00 06/23/18 05:00
[2018-06-23] MEDS: Insulin Detemir 100 Units/ml Inj SC SCH (21:37)
--- NOTE | 2018-06-23 23:10 | CP.PCM.PN ---
Subjective - Date & Time of Evaluation Date of Evaluation: 06/23/18 Time of Evaluation: 16:00 - Subjective Subjective: SEEN ON RENAL F/U VSS RENAL FUNCTION IMPROVING DRADUALLY .. OFF [place] FEELS IMPROVED Objective - Vital Signs/Intake and Output Vital Signs (last 24 hours): Temp Pulse Resp BP Pulse Ox 97.4 F L 77 20 167/88 H 96 06/23/18 20:00 06/23/18 21:34 06/23/18 20:00 06/23/18 21:34 06/23/18 20:00 - Medications Medications: Current Medications Albuterol (Ventolin Hfa 90 Mcg/Actuation (8 G)) 2 puff IH Q12 PRN PRN Reason: Shortness of Breath Last Admin: 06/04/18 08:34 Dose: 2 puff Allopurinol (Zyloprim) 100 mg PO DAILY [facility] Last Admin: 06/23/18 08:33 Dose: 100 mg Amlodipine Besylate (Norvasc) 10 mg PO DAILY [facility] Last Admin: 06/23/18 08:33 Dose: 10 mg Aspirin (Aspirin Chewable) 81 mg PO DAILY [facility] Last Admin: 06/23/18 08:32 Dose: 81 mg Atorvastatin Calcium (Lipitor) 40 mg PO DAILY@2100 [facility] Last Admin: 06/23/18 21:35 Dose: 40 mg Carvedilol (Coreg) 25 mg PO Q12 [facility] Last Admin: 06/23/18 21:34 Dose: 25 mg Clopidogrel Bisulfate (Plavix) 75 mg PO DAILY [facility] Last Admin: 06/23/18 08:33 Dose: 75 mg Enoxaparin Sodium (Lovenox) 30 mg SC DAILY [facility] PRN Reason: Protocol Last Admin: 06/23/18 08:33 Dose: 30 mg Hydralazine HCl (Apresoline) 25 mg PO Q6 [facility] Last Admin: 06/23/18 17:25 Dose: 25 mg Insulin Detemir (Levemir) [address] [facility] Last Admin: 06/23/18 21:37 Dose: 15 units Insulin Human Lispro (Humalog) 0 units SC [facility] PRN Reason: Protocol Last Admin: 06/23/18 21:00 Dose: Not Given Levetiracetam (Keppra) 500 mg PO Q12 [facility] Last Admin: 06/23/18 21:35 Dose: 500 mg Montelukast Sodium (Singulair) 10 mg PO HS [facility] Last Admin: 06/23/18 21:35 Dose: 10 mg Multivitamins/Vitamin C (Multi-Delyn Liquid) 15 ml PO DAILY [facility] Last Admin: 06/23/18 08:33 Dose: 15 ml Wzrpn-[id number] Ethyl Esters (Lovaza) 1 gm PO DAILY [facility] Last Admin: 06/23/18 08:32 Dose: 1 gm Pantoprazole Sodium (Protonix Susp) 40 mg PO DAILY@0630 [facility] Last Admin: 06/23/18 06:16 Dose: 40 mg Sertraline HCl (Zoloft) 12.5 mg PO DAILY [facility] Last Admin: 06/23/18 13:53 Dose: 12.5 mg - Labs Labs: 06/23/18 05:00 06/23/18 05:00 Assessment and Plan - Assessment and Plan (Free Text) Assessment: CKD .. RENAL FUNCTION SEEMS TO BE STABLE ANEMIA OF CKD .. H/H STABLE CVA MMP P : C/O CURRENT MEDS C/O CURRENT MANAGEMENT
[2018-06-24] MEDS: Pantoprazole 40 mg Susp UD PO SCH (06:18)
[2018-06-24] MEDS: Insulin Lispro (humaLOG) 100 Units/ml Inj SC SCH ×4 (06:30→21:17)
[2018-06-24] MEDS: levETIRAcetam 100 mg/ml (5ml) Oral Syringe PO SCH ×2 (08:42→21:17)
[2018-06-24] MEDS: Multi Vitamins 15 mL UD Oral Solution PO SCH (08:44)
[2018-06-24] MEDS: Enoxaparin 30 mg Syringe SC SCH (08:44)
[2018-06-24] MEDS: Omega-3-Acid Ethyl Esters 1 GM Cap PO SCH (08:44)
--- NOTE | 2018-06-24 13:18 | PSY.TMCNF ---
Nursing - Vital Signs Vital Signs (Last 8 hours): Vital Signs 06/24/18 06/24/18 06/24/18 06:17 08:42 08:45 Temperature Pulse Rate 73 78 78 Respiratory Rate Blood Pressure 154/80 H 157/87 H 157/82 H O2 Sat by Pulse Oximetry 06/24/18 06/24/18 08:46 12:14 Temperature 97.3 F L Pulse Rate 78 62 Respiratory 19 Rate Blood Pressure 157/82 H 137/81 O2 Sat by Pulse 95 Oximetry Pain: 0 - Precautions: Precautions: Fall Prevention, Aspiration, Seizure - Medications/Other Issues Comment: Pt at moderate nutritional risk. goals: 1: Tolerate diet and consume > 75% of meals.( met, continue). 2: Maintain wt within 2-3 lbs. of current wt.( partially met, continue). Follow-up due on 06/30/2018 - Consults Comment: Dr Teixeira,Dr Brumfield,Dr Kim, - Wound Right Elbow Wound Type: Abrasion Wound Bed Greatest Portion: Blanched/Dull Periwound: Intact Wound Drainage Amount: None Wound Drainage Odor: None/Absent Wound General Appearance: Clean/Dry Wound Dressing Status: Changed Dressing Changed: Yes Wound Packing Type: Gauze Pads Wound Secondary Dressing Type: Gauze Roll/Wrap Comment: bacitracin dressing applied as ordered - Toileting Toileting: Dependent - Bladder Management Bladder Pattern: Incontinent Voiding Method: Toilet, Bedpan, Diaper - Bowel Management Bowel Pattern: Incontinent Comment: less than 5 Bowel Management: Dependent Frequency of Accidents: 1 - Transfers Transfers: Moderate Assistance - ADL's ADL's: Moderate Assistance - Pain Management Comments: Denies pain - Patient/Family Teaching Comments: post cva ,seizure precaution ,aspiration precaution ,fall and safety medication teachings - Goals/Time Frame Comments: as per multidiciplinary plan of care - Provider Provider: Kenton myles Physical Therapy - Bed Mobility Bed Mobility: Moderate Assistance, Maximum Assistance - Transfers Wheelchair to Mat: Moderate Assistance, Maximum Assistance Sit to Stand: Minimal Assistance, Moderate Assistance - Ambulation Level of Assistance: Moderate Assistance, Maximum Assistance Distance (ft.): 25 Assistive Devices: Wide base quad cane Orthoses: RUE giv-lawrence. RLE DF wrap Comment: -level surface, 25 feet with max A for RLE progression and stability. -VCs for sequencing, working to progress to reciprocal. -improved trunk control noted with continued cues for safety and sequencing. -close WC follow - Stair Negotiation Stairs: Level of Assistance: Not Tested - Standing Balance Static Stand: Moderate Assistance Dynamic Stand: Maximal Assistance - Pain Pain (assessed during therapy session): 0 Comment: denies pain - Insight/Carryover Insight/Carryover: Fair - Patient/Family Education Comment: therapy schedule, safety, POC, mobility, stroke recovery, use of DME, use of call coon for safety, transfers, participation in therapy tasks - Assessment/Plan Assessment: Patient continues to make slow progress in therapy. Pt continues to require mod to max A for all mobility but has improved arousal and improved tolerance to activities during therapies. Patient continues to present with lack of RLE volitional control but today PT notes clonus at distal RLE. Pt benefit from rest breaks during therapy and cueing for safety. PT recommends discharge to [facility] to continue addressing skilled rehab needs s/p CVA prior to community discharge. - Goals Timeframe: 7 days Goals: -supine to/from sit with min A. -SPT with mod A to both R and L. -sit to/from stand with min A. -ambulate 50 feet with WBQC with mod A. -asc/desc 2 6inch steps with single rail with max A - Provider License Number: [id number] Occupational Therapy - Arousal/Attention/Orientation Patient Orientation: Person - ADL/IADL Self Feeding: Supervision, Verbal Cues, Set-up Help Grooming: Verbal Cues, Set-up Help, Contact Guard, Minimal Assistance Bathing-Upper Extremity: Verbal Cues, Set-up Help, Moderate Assistance Bathing-Lower Extremity: Verbal Cues, Set-up Help, Maximum Assistance, Dependent Dressing-Upper Extremity: Verbal Cues, Set-up Help, Moderate Assistance Dressing-Lower Extremity: Verbal Cues, Set-up Help, Maximum Assistance, Dependent - Sitting Balance Static Sitting: Supervision Dynamic Sitting: Reaches across midline, Reaches out of base of support, Reaches within base of support, Minimal Assistance Comment: seated unsupported - Transfers Wheelchair to Bed Transfers: Verbal Cues, Set-up Help, Moderate Assistance, Maximum Assistance Toilet Transfers: Verbal Cues, Set-up Help, Moderate Assistance Comment: shower transfers: moderate asssist - Wheelchair Management Level of Assistance: Verbal Cues, Set-up Help, Moderate Assistance Distance (ft.): 150 - Upper Extremity Status Right Upper Extremity Comment: PROM IN WFLS, but no AROM noted at this time-- trace when attend to task Left Upper Extremity Comment: AROM is WFLs, strength at least 4+/5 unable to complete formal assessment due to impaired cognition-based on functional movements during purposeful tasks - Pain Pain (assessed during therapy session): 0 Comment: denies pain - Insight/Carryover Insight/Carryover: Fair - Patient/Family Education Comment: therapy schedule, safety, POC, mobility, stroke recovery, use of DME, use of call coon for safety, transfers, participation in therapy tasks - Assessment/Plan Assessment: Patient continues to make slow progress in therapy. Pt continues to require mod to max A for all mobility but has improved arousal and improved tolerance to activities during therapies. Patient continues to present with lack of RLE volitional control but today PT notes clonus at distal RLE. Pt benefit from rest breaks during therapy and cueing for safety. PT recommends discharge to [facility] to continue addressing skilled rehab needs s/p CVA prior to community discharge. - Goals Timeframe: 7 days Goals: -supine to/from sit with min A. -SPT with mod A to both R and L. -sit to/from stand with min A. -ambulate 50 feet with WBQC with mod A. -asc/desc 2 6inch steps with single rail with max A - Provider Therapist: Joanna Martinez, OTR/L Speech Therapy - Consult Information Patient on Program: Yes Medical Diagnosis: CVA Treatment Diagnosis: -mild dysarthria. -mild receptive/expressive aphasia. - mild-moderate cognitive deficits. -mild oral dysphagia - Assessment Expressive Language Impairment: Mild Receptive Language Impairment: Mild Memory Impairment: Mild Speech/Articulation Impairment: Mild Dysphagia/Swallowing Impairment: Mild - Plan Assessment: Patient continues to make slow progress in therapy. Pt continues to require mod to max A for all mobility but has improved arousal and improved tolerance to activities during therapies. Patient continues to present with lack of RLE volitional control but today PT notes clonus at distal RLE. Pt benefit from rest breaks during therapy and cueing for safety. PT recommends discharge to [facility] to continue addressing skilled rehab needs s/p CVA prior to community discharge. - Provider Therapist: Emani Tee License Number: [id number] Recreational Therapy - Participation Participation: Participates in Individual and/or Group Sessions - Attendance Attendance: 3-5 times per week - Activities Leisure Activities: Cards and Games - Socialization Level of Socialization: Initiates/interacts with caregivers but not with peer, Responds freely, but does not initiate - Diversional Time Diversional Time: television - Assessment Assessment/Plan: Patient continues to make slow progress in therapy. Pt continues to require mod to max A for all mobility but has improved arousal and improved tolerance to activities during therapies. Patient continues to present with lack of RLE volitional control but today PT notes clonus at distal RLE. Pt benefit from rest breaks during therapy and cueing for safety. PT recommends discharge to [facility] to continue addressing skilled rehab needs s/p CVA prior to community discharge. - Provider Therapist: Tabby Sin, AGRICULTURAL SCIENTIST #[id number] Nutrition - Current Diet Current Diet/ Supplement/ Feedings: renal non-dialysis moderate consistent CHO mech altered(finely chopped). thin liquids - Appetite Percent Meal Consumed: 75-100% - Comments Comments: post cva ,seizure precaution ,aspiration precaution ,fall and safety medication teachings - Assessment/Goals/Time Frame Assessment/Goals/Time Frame: Pt at moderate nutritional risk. goals: 1: Tolerate diet and consume >75% of meals.( met, continue). 2: Maintain wt within 2-3 lbs. of current wt.(partially met, continue). Follow-up due on - Provider Provider: Maddie Barber RD Case Management - Psychosocial Assessment Support Systems: John Elena (nephew) [phone] Psychological Interventions/Needs: Patient is alert and oriented with intermittent confusion and forgetfulness Discharge Concerns: Patient requiring mod-maxA for functional mobility, incontinent of bowel and bladder, on modified diet (puree), continues to present with dysarthria and exp/medical reception. aphasia Patient/Family Meeting: CM met with patient/nephew and rehab team. Discussion held via certified Hungarian speaking blow down helper Emani Yuen as patient is primarily Hungarian speaking. Intervention/Goal/Outcome:: 1. Plan: [facility] as patient continues to require significant hands on assist, continues to remain incontinent and with aphasia and dysarthria- 1st choice is [facility] as nephew lives close by. 2. Tentative discharge date: 06/26. 3. continued stay auth, LAD: 06/22, udpates to be faxed to insurance on 06/23. 4. continued emotional support. - Discharge Plan Discharge Plan: Subacute care - Provider Provider: MONSE Landry, SYSTEMS PROTECTION TECHNICIAN License Number: [id number] Rehabilitation Plan - Treatment Plan Treatment Plan: Physical Therapy, Occupational Therapy, Speech, Dietary, Patient /Family Education - Discharge Plan Estimated Date of Discharge: 06/26/18 Discharge to: Subacute
--- NOTE | 2018-06-24 13:58 | CP.PCM.PN ---
Subjective - Date & Time of Evaluation Date of Evaluation: 06/24/18 Time of Evaluation: 13:57 - Subjective Subjective: Patient seen in the room no significant change dense right HP set for d/c to [facility] Objective - Vital Signs/Intake and Output Vital Signs (last 24 hours): Temp Pulse Resp BP Pulse Ox 97.3 F L 62 19 137/81 95 06/24/18 08:46 06/24/18 12:14 06/24/18 08:46 06/24/18 12:14 06/24/18 08:46 - Medications Medications: Current Medications Albuterol (Ventolin Hfa 90 Mcg/Actuation (8 G)) 2 puff IH Q12 PRN PRN Reason: Shortness of Breath Last Admin: 06/04/18 08:34 Dose: 2 puff Allopurinol (Zyloprim) 100 mg PO DAILY [facility] Last Admin: 06/24/18 08:43 Dose: 100 mg Amlodipine Besylate (Norvasc) 10 mg PO DAILY [facility] Last Admin: 06/24/18 08:45 Dose: 10 mg Aspirin (Aspirin Chewable) 81 mg PO DAILY [facility] Last Admin: 06/24/18 08:43 Dose: 81 mg Atorvastatin Calcium (Lipitor) 40 mg PO DAILY@2100 [facility] Last Admin: 06/23/18 21:35 Dose: 40 mg Carvedilol (Coreg) 25 mg PO Q12 [facility] Last Admin: 06/24/18 08:42 Dose: 25 mg Clopidogrel Bisulfate (Plavix) 75 mg PO DAILY [facility] Last Admin: 06/24/18 08:45 Dose: 75 mg Enoxaparin Sodium (Lovenox) 30 mg SC DAILY [facility] PRN Reason: Protocol Last Admin: 06/24/18 08:44 Dose: 30 mg Hydralazine HCl (Apresoline) 25 mg PO Q6 [facility] Last Admin: 06/24/18 12:14 Dose: 25 mg Insulin Detemir (Levemir) 15 units SC [facility] Last Admin: 06/23/18 21:37 Dose: 15 units Insulin Human Lispro (Humalog) 0 units SC [facility] PRN Reason: Protocol Last Admin: 06/24/18 12:15 Dose: 2 unit Levetiracetam (Keppra) 500 mg PO Q12 [facility] Last Admin: 06/24/18 08:42 Dose: 500 mg Montelukast Sodium (Singulair) 10 mg PO HS [facility] Last Admin: 06/23/18 21:35 Dose: 10 mg Multivitamins/Vitamin C (Multi-Delyn Liquid) 15 ml PO DAILY [facility] Last Admin: 06/24/18 08:44 Dose: 15 ml Detux-9-Ttcf Ethyl Esters (Lovaza) 1 gm PO DAILY [facility] Last Admin: 06/24/18 08:44 Dose: 1 gm Pantoprazole Sodium (Protonix Susp) 40 mg PO DAILY@0630 [facility] Last Admin: 06/24/18 06:18 Dose: 40 mg Sertraline HCl (Zoloft) 12.5 mg PO DAILY [facility] Last Admin: 06/24/18 08:46 Dose: 12.5 mg - Labs Labs: 06/23/18 05:00 06/23/18 05:00
[2018-06-24] MEDS: Insulin Detemir 100 Units/ml Inj SC SCH (21:17)
[2018-06-25] MEDS: Pantoprazole 40 mg Susp UD PO SCH (05:57)
[2018-06-25] MEDS: Insulin Lispro (humaLOG) 100 Units/ml Inj SC SCH ×4 (07:34→21:56)
[2018-06-25] MEDS: Enoxaparin 30 mg Syringe SC SCH (10:07)
[2018-06-25] MEDS: Omega-3-Acid Ethyl Esters 1 GM Cap PO SCH (10:07)
[2018-06-25] MEDS: levETIRAcetam 100 mg/ml (5ml) Oral Syringe PO SCH ×2 (10:07→21:49)
[2018-06-25] MEDS: Multi Vitamins 15 mL UD Oral Solution PO SCH (10:07)
[2018-06-25] MEDS: Insulin Detemir 100 Units/ml Inj SC SCH (21:59)
[2018-06-26] MEDS: Pantoprazole 40 mg Susp UD PO SCH (05:59)
[2018-06-26] MEDS: Insulin Lispro (humaLOG) 100 Units/ml Inj SC SCH ×4 (07:13→21:00)
[2018-06-26 07:58] LABS: HEMOGLOBIN 10.6 g/dL (12.0-16.0); MEAN CELL VOLUME 91.7 fl (81.0-99.0); MEAN CORPUSCULAR HEMOGLOBIN 32.3 pg (27.0-31.0); MEAN CORPUSCULAR HGB CONC 35.2 g/dL (33.0-37.0); RBC 3.29 Mil/uL (3.80-5.20); RED CELL DISTRIBUTION WIDTH 14.9 % (11.5-14.5); WHITE BLOOD COUNT 7.1 K/uL (4.8-10.8)
[2018-06-26] MEDS: levETIRAcetam 100 mg/ml (5ml) Oral Syringe PO SCH ×2 (08:40→20:23)
[2018-06-26] MEDS: Enoxaparin 30 mg Syringe SC SCH (08:41)
[2018-06-26] MEDS: Multi Vitamins 15 mL UD Oral Solution PO SCH (08:42)
[2018-06-26] MEDS: Omega-3-Acid Ethyl Esters 1 GM Cap PO SCH (08:42)
--- NOTE | 2018-06-26 17:26 | CP.PCM.PN ---
Subjective - Date & Time of Evaluation Date of Evaluation: 06/26/18 Time of Evaluation: 17:24 - Subjective Subjective: Patient seen in the room. It is not clear why she was denied for PERRY. She is requiring a 2 person transfer. She has not made excellent gains but has made some slow progress and is getting some tone back which hopefully will help with progress. I think that a trial of further PERRY is warranted for Alexus and at the same time I am concerned on the safety of her nephew being able to transfer her. He will have a session tomorrow to determine his abilities Objective - Vital Signs/Intake and Output Vital Signs (last 24 hours): Temp Pulse Resp BP Pulse Ox 97.9 F 69 19 140/79 99 06/26/18 08:13 06/26/18 17:12 06/26/18 08:13 06/26/18 17:12 06/26/18 08:13 - Medications Medications: Current Medications Albuterol (Ventolin Hfa 90 Mcg/Actuation (8 G)) 2 puff IH Q12 PRN PRN Reason: Shortness of Breath Last Admin: 06/04/18 08:34 Dose: 2 puff Allopurinol (Zyloprim) 100 mg PO DAILY [facility] Last Admin: 06/26/18 08:43 Dose: 100 mg Amlodipine Besylate (Norvasc) 10 mg PO DAILY [facility] Last Admin: 06/26/18 08:43 Dose: 10 mg Aspirin (Aspirin Chewable) 81 mg PO DAILY [facility] Last Admin: 06/26/18 08:41 Dose: 81 mg Atorvastatin Calcium (Lipitor) 40 mg PO DAILY@2100 [facility] Last Admin: 06/25/18 21:49 Dose: 40 mg Carvedilol (Coreg) 25 mg PO Q12 [facility] Last Admin: 06/26/18 08:41 Dose: 25 mg Clopidogrel Bisulfate (Plavix) 75 mg PO DAILY [facility] Last Admin: 06/26/18 08:40 Dose: 75 mg Enoxaparin Sodium (Lovenox) 30 mg SC DAILY [facility] PRN Reason: Protocol Last Admin: 06/26/18 08:41 Dose: 30 mg Hydralazine HCl (Apresoline) 25 mg PO Q6 [facility] Last Admin: 06/26/18 17:12 Dose: 25 mg Insulin Detemir (Levemir) 15 units SC [facility] Last Admin: 06/25/18 21:59 Dose: 15 units Insulin Human Lispro (Humalog) 0 units SC ACHS [facility] PRN Reason: Protocol Last Admin: 06/26/18 17:10 Dose: Not Given Levetiracetam (Keppra) 500 mg PO Q12 [facility] Last Admin: 06/26/18 08:40 Dose: 500 mg Montelukast Sodium (Singulair) 10 mg PO HS [facility] Last Admin: 06/25/18 21:49 Dose: 10 mg Multivitamins/Vitamin C (Multi-Delyn Liquid) 15 ml PO DAILY [facility] Last Admin: 06/26/18 08:42 Dose: 15 ml Xqbnw-4-Dalo Ethyl Esters (Lovaza) 1 gm PO DAILY [facility] Last Admin: 06/26/18 08:42 Dose: 1 gm Pantoprazole Sodium (Protonix Susp) 40 mg PO DAILY@0630 [facility] Last Admin: 06/26/18 05:59 Dose: 40 mg Sertraline HCl (Zoloft) 12.5 mg PO DAILY [facility] Last Admin: 06/26/18 08:40 Dose: 12.5 mg - Labs Labs: 06/26/18 07:45 06/26/18 07:45
[2018-06-26] MEDS: Insulin Detemir 100 Units/ml Inj SC SCH (21:19)
[2018-06-27] MEDS: Pantoprazole 40 mg Susp UD PO SCH (06:27)
[2018-06-27] MEDS: Insulin Lispro (humaLOG) 100 Units/ml Inj SC SCH ×4 (06:30→21:00)
[2018-06-27] MEDS: levETIRAcetam 100 mg/ml (5ml) Oral Syringe PO SCH ×2 (08:10→20:25)
[2018-06-27] MEDS: Multi Vitamins 15 mL UD Oral Solution PO SCH (08:10)
[2018-06-27] MEDS: Omega-3-Acid Ethyl Esters 1 GM Cap PO SCH (08:11)
[2018-06-27] MEDS: Enoxaparin 30 mg Syringe SC SCH (08:11)
--- NOTE | 2018-06-27 19:10 | CP.PCM.PN ---
Subjective - Date & Time of Evaluation Date of Evaluation: 06/27/18 Time of Evaluation: 12:20 - Subjective Subjective: Patient seen and examined. Denied any complaint Objective - Vital Signs/Intake and Output Vital Signs (last 24 hours): Temp Pulse Resp BP Pulse Ox 98.1 F 70 18 145/85 100 06/27/18 08:01 06/27/18 17:04 06/27/18 08:01 06/27/18 17:04 06/27/18 08:01 - Medications Medications: Current Medications Albuterol (Ventolin Hfa 90 Mcg/Actuation (8 G)) 2 puff IH Q12 PRN PRN Reason: Shortness of Breath Last Admin: 06/04/18 08:34 Dose: 2 puff Allopurinol (Zyloprim) 100 mg PO DAILY [facility] Last Admin: 06/27/18 08:11 Dose: 100 mg Amlodipine Besylate (Norvasc) 10 mg PO DAILY [facility] Last Admin: 06/27/18 08:11 Dose: 10 mg Aspirin (Aspirin Chewable) 81 mg PO DAILY [facility] Last Admin: 06/27/18 08:11 Dose: 81 mg Atorvastatin Calcium (Lipitor) 40 mg PO DAILY@2100 [facility] Last Admin: 06/26/18 20:23 Dose: 40 mg Carvedilol (Coreg) 25 mg PO Q12 [facility] Last Admin: 06/27/18 08:11 Dose: 25 mg Clopidogrel Bisulfate (Plavix) 75 mg PO DAILY [facility] Last Admin: 06/27/18 08:10 Dose: 75 mg Enoxaparin Sodium (Lovenox) 30 mg SC DAILY [facility] PRN Reason: Protocol Last Admin: 06/27/18 08:11 Dose: 30 mg Hydralazine HCl (Apresoline) 25 mg PO Q6 [facility] Last Admin: 06/27/18 17:04 Dose: 25 mg Insulin Detemir (Levemir) 15 units SC [facility] Last Admin: 06/26/18 21:19 Dose: 15 units Insulin Human Lispro (Humalog) 0 units SC [facility] PRN Reason: Protocol Last Admin: 06/27/18 16:48 Dose: Not Given Levetiracetam (Keppra) 500 mg PO Q12 [facility] Last Admin: 06/27/18 08:10 Dose: 500 mg Montelukast Sodium (Singulair) 10 mg PO [facility] Last Admin: 06/26/18 21:18 Dose: 10 mg Multivitamins/Vitamin C (Multi-Delyn Liquid) 15 ml PO DAILY [facility] Last Admin: 06/27/18 08:10 Dose: 15 ml Udjhy-3-Drim Ethyl Esters (Lovaza) 1 gm PO DAILY [facility] Last Admin: 06/27/18 08:11 Dose: 1 gm Pantoprazole Sodium (Protonix Susp) 40 mg PO DAILY@0630 [facility] Last Admin: 06/27/18 06:27 Dose: 40 mg Sertraline HCl (Zoloft) 12.5 mg PO DAILY [facility] Last Admin: 06/27/18 08:10 Dose: 12.5 mg - Labs Labs: 06/26/18 07:45 06/26/18 07:45 - Constitutional Appears: No Acute Distress - Head Exam Head Exam: ATRAUMATIC - Eye Exam Eye Exam: absent: Scleral icterus - ENT Exam ENT Exam: Mucous Membranes Moist - Neck Exam Neck Exam: absent: Meningismus - Respiratory Exam Respiratory Exam: absent: Rales, Rhonchi, Wheezes, Respiratory Distress - Cardiovascular Exam Cardiovascular Exam: REGULAR RHYTHM, +S1, +S2 - GI/Abdominal Exam GI & Abdominal Exam: Soft. absent: Tenderness - Rectal Exam Rectal Exam: Deferred - Neurological Exam Neurological Exam: Alert, Oriented x3 - Psychiatric Exam Psychiatric exam: Normal Affect - Skin Skin Exam: Dry, Intact Assessment and Plan - Assessment and Plan (Free Text) Assessment: 67 yo female with history of RA, HTN HLD, DM2 and previous CVA was brought to the ER following a fall and right sided weakness accompanied with slurred speech. Code stroke was called and TPA administered. Initial CT scan did not show any significant findings. Patient was admitted in ICU where MRI done later showed large left MCA infarct. Hemorrhagic conversion also noted on the left basal ganglia. She was later transferred to Acute Rehab for further management and therapy. 1. Acute CVA, s/p TPA had hemorrhagic conversion continue PT/OT/ST continue ASA, statin and Keppra need continuation of therapy in [facility] 2. Hypertension BP stable continue Coreg, Norvasc and Hydralazine 3. Hypercholesterolemia cont Lipitor 4. Type 2 DM BS relatively controlled on Levemir 15 units SC HS plus Lispro coverage 5. Asthma, mild intermittent Continue Albuterol PRN for SOB chronic 7. CKD stage III likely due to diabetic nephropathy and/or uncontrolled hypertension renal function improving BMP in am 8. DVT prophylaxis Lovenox 30mg SC daily
[2018-06-27] MEDS: Insulin Detemir 100 Units/ml Inj SC SCH (21:47)
[2018-06-28] MEDS: Pantoprazole 40 mg Susp UD PO SCH (06:20)
[2018-06-28] MEDS: Insulin Lispro (humaLOG) 100 Units/ml Inj SC SCH ×4 (06:30→21:08)
[2018-06-28] MEDS: Omega-3-Acid Ethyl Esters 1 GM Cap PO SCH (08:20)
[2018-06-28] MEDS: Enoxaparin 30 mg Syringe SC SCH (08:21)
[2018-06-28] MEDS: levETIRAcetam 100 mg/ml (5ml) Oral Syringe PO SCH ×2 (08:21→21:05)
[2018-06-28] MEDS: Multi Vitamins 15 mL UD Oral Solution PO SCH (08:21)
[2018-06-28 12:17] VITALS: RESP 20
[2018-06-28] MEDS: Insulin Detemir 100 Units/ml Inj SC SCH (21:20)
[2018-06-29] MEDS: Pantoprazole 40 mg Susp UD PO SCH (06:32)
[2018-06-29] MEDS: Insulin Lispro (humaLOG) 100 Units/ml Inj SC SCH ×4 (06:45→21:39)
[2018-06-29 07:06] LABS: HEMOGLOBIN 10.6 g/dL (12.0-16.0); MEAN CELL VOLUME 92.1 fl (81.0-99.0); MEAN CORPUSCULAR HEMOGLOBIN 31.8 pg (27.0-31.0); MEAN CORPUSCULAR HGB CONC 34.5 g/dL (33.0-37.0); RBC 3.34 Mil/uL (3.80-5.20); RED CELL DISTRIBUTION WIDTH 14.6 % (11.5-14.5); WHITE BLOOD COUNT 6.9 K/uL (4.8-10.8)
[2018-06-29] MEDS: Multi Vitamins 15 mL UD Oral Solution PO SCH (08:30)
[2018-06-29] MEDS: Omega-3-Acid Ethyl Esters 1 GM Cap PO SCH (08:30)
[2018-06-29] MEDS: Enoxaparin 30 mg Syringe SC SCH (08:31)
[2018-06-29] MEDS: levETIRAcetam 100 mg/ml (5ml) Oral Syringe PO SCH ×2 (08:31→21:37)
[2018-06-29] MEDS: Insulin Detemir 100 Units/ml Inj SC SCH (21:40)
[2018-06-29 23:06] VITALS: O2SAT 96
[2018-06-30] MEDS ORDERED: Pantoprazole 40 mg Susp UD PO SCH (06:30)
[2018-06-30] MEDS: Insulin Lispro (humaLOG) 100 Units/ml Inj SC SCH ×2 (06:31→12:15)
[2018-06-30] MEDS: levETIRAcetam 100 mg/ml (5ml) Oral Syringe PO SCH (08:39)
[2018-06-30] MEDS: Omega-3-Acid Ethyl Esters 1 GM Cap PO SCH (08:40)
[2018-06-30] MEDS: Enoxaparin 30 mg Syringe SC SCH (08:40)
[2018-06-30] MEDS ORDERED: Multi Vitamins 15 mL UD Oral Solution PO SCH (09:00)
[2018-06-30 09:05] VITALS: TEMP 98.7
--- NOTE | 2018-06-30 09:33 | CP.PCM.PN ---
Subjective - Date & Time of Evaluation Date of Evaluation: 06/30/18 Time of Evaluation: 09:33 Objective - Vital Signs/Intake and Output Vital Signs (last 24 hours): Temp Pulse Resp BP Pulse Ox 98.7 F 73 20 152/74 H 96 06/30/18 09:04 06/30/18 09:04 06/30/18 09:04 06/30/18 09:04 06/30/18 09:04 - Medications Medications: Current Medications Albuterol (Ventolin Hfa 90 Mcg/Actuation (8 G)) 2 puff IH Q12 PRN PRN Reason: Shortness of Breath Last Admin: 06/04/18 08:34 Dose: 2 puff Allopurinol (Zyloprim) 100 mg PO DAILY [facility] Last Admin: 06/30/18 08:42 Dose: 100 mg Amlodipine Besylate (Norvasc) 10 mg PO DAILY [facility] Last Admin: 06/30/18 08:39 Dose: 10 mg Aspirin (Aspirin Chewable) 81 mg PO DAILY [facility] Last Admin: 06/30/18 08:41 Dose: 81 mg Atorvastatin Calcium (Lipitor) 40 mg PO DAILY@2100 [facility] Last Admin: 06/29/18 21:38 Dose: 40 mg Carvedilol (Coreg) 25 mg PO Q12 [facility] Last Admin: 06/30/18 08:41 Dose: 25 mg Clopidogrel Bisulfate (Plavix) 75 mg PO DAILY [facility] Last Admin: 06/30/18 08:39 Dose: 75 mg Enoxaparin Sodium (Lovenox) 30 mg SC DAILY [facility] PRN Reason: Protocol Last Admin: 06/30/18 08:40 Dose: 30 mg Hydralazine HCl (Apresoline) 25 mg PO Q6 [facility] Last Admin: 06/30/18 05:42 Dose: 25 mg Insulin Detemir (Levemir) 15 units SC [facility] Last Admin: 06/29/18 21:40 Dose: 15 units Insulin Human Lispro (Humalog) 0 units SC [facility] PRN Reason: Protocol Last Admin: 06/30/18 06:31 Dose: Not Given Levetiracetam (Keppra) 500 mg PO Q12 [facility] Last Admin: 06/30/18 08:39 Dose: 500 mg Montelukast Sodium (Singulair) 10 mg PO [facility] Last Admin: 06/29/18 21:37 Dose: 10 mg Multivitamins/Vitamin C (Multi-Delyn Liquid) 15 ml PO DAILY [facility] Last Admin: 06/30/18 08:41 Dose: 15 ml Nrdiq-8-Xyjr Ethyl Esters (Lovaza) 1 gm PO DAILY [facility] Last Admin: 06/30/18 08:40 Dose: 1 gm Pantoprazole Sodium (Protonix Susp) 40 mg PO DAILY@0630 [facility] Last Admin: 06/30/18 05:43 Dose: 40 mg Sertraline HCl (Zoloft) 12.5 mg PO DAILY [facility] Last Admin: 06/30/18 08:40 Dose: 12.5 mg - Labs Labs: 06/29/18 05:20 06/29/18 05:20 Assessment and Plan - Assessment and Plan (Free Text) Plan: 67 yo female with history of RA, HTN HLD, DM2 and previous CVA was brought to the ER following a fall and right sided weakness accompanied with slurred speech. Code stroke was called and TPA administered. Initial CT scan did not show any significant findings. Patient was admitted in ICU where MRI done later showed large left MCA infarct. Hemorrhagic conversion also noted on the left basal ganglia. She was later transferred to Acute Rehab for further management and therapy. 1. Acute CVA, s/p TPA had hemorrhagic conversion continue PT/OT/ST continue ASA, statin and Keppra need continuation of therapy in [facility] 2. Hypertension BP stable continue Coreg, Norvasc and Hydralazine 3. Hypercholesterolemia cont Lipitor 4. Type 2 DM BS relatively controlled on Levemir 15 units SC HS plus Lispro coverage 5. Asthma, mild intermittent Continue Albuterol PRN for SOB chronic 7. CKD stage III likely due to diabetic nephropathy and/or uncontrolled hypertension renal function improving BMP in am 8. DVT prophylaxis Lovenox 30mg SC daily
--- NOTE | 2018-06-30 10:45 | CP.PCM.DIS ---
Provider - Provider Date of Admission: 06/02/18 18:54 Attending physician: Elias Breen MD Time Spent in preparation of Discharge (in minutes): 30 Diagnosis - Discharge Diagnosis (1) Ischemic stroke Status: Acute Hospital Course - Lab Results Lab Results: Micro Results 06/03/18 14:59 Blood-Venous Blood Culture - Final NO GROWTH AFTER 5 DAYS 06/03/18 14:59 Blood-Venous Gram Stain - Final TEST NOT PERFORMED 06/03/18 14:59 Blood-Venous Blood Culture - Final NO GROWTH AFTER 5 DAYS 06/03/18 14:59 Blood-Venous Gram Stain - Final TEST NOT PERFORMED 06/03/18 16:33 Urine,Catheterized Urine Culture - Final Escherichia Coli Most Recent Lab Values WBC 6.9 K/uL (4.8-10.8) 06/29/18 05:20 RBC 3.34 Mil/uL (3.80-5.20) L 06/29/18 05:20 Hgb 10.6 g/dL (12.0-16.0) L 06/29/18 05:20 Hct 30.7 % (34.0-47.0) L 06/29/18 05:20 MCV 92.1 fl (81.0-99.0) 06/29/18 05:20 MCH 31.8 pg (27.0-31.0) H 06/29/18 05:20 MCHC 34.5 g/dL (33.0-37.0) 06/29/18 05:20 RDW 14.6 % (11.5-14.5) H 06/29/18 05:20 Plt Count 385 K/uL (130-400) 06/29/18 05:20 MPV 7.9 fl (7.2-11.7) 06/04/18 05:10 Neut % (Auto) 74.0 % (50.0-75.0) 06/04/18 05:10 Lymph % (Auto) 14.3 % (20.0-40.0) L 06/04/18 05:10 [place] % (Auto) 9.6 % (0.0-10.0) 06/04/18 05:10 Eos % (Auto) 1.5 % (0.0-4.0) 06/04/18 05:10 Baso % (Auto) 0.6 % (0.0-2.0) 06/04/18 05:10 Neut # (Auto) 10.8 K/uL (1.8-7.0) H 06/04/18 05:10 Lymph # (Auto) 2.1 K/uL (1.0-4.3) 06/04/18 05:10 [place] # (Auto) 1.4 K/uL (0.0-0.8) H 06/04/18 05:10 Eos # (Auto) 0.2 K/uL (0.0-0.7) 06/04/18 05:10 Baso # (Auto) 0.1 K/uL (0.0-0.2) 06/04/18 05:10 Sodium 140 mmol/l (132-148) 06/29/18 05:20 Potassium 3.8 MMOL/L (3.6-5.0) 06/29/18 05:20 Chloride 98 mmol/L (98-107) 06/29/18 05:20 Carbon Dioxide 29 mmol/L (22-30) 06/29/18 05:20 Anion Gap 17 (10-20) 06/29/18 05:20 BUN 44 mg/dl (7-17) H 06/29/18 05:20 Creatinine 1.9 mg/dl (0.7-1.2) H 06/29/18 05:20 Est GFR ( Amer) 32 06/29/18 05:20 Est GFR (Non-Af Amer) 27 06/29/18 05:20 POC Glucose (mg/dL) 116 mg/dL (65-110) H 06/29/18 20:51 Random Glucose 120 mg/dL (65-105) H 06/29/18 05:20 Calcium 10.0 mg/dL (8.4-10.2) 06/29/18 05:20 Urine Color Yellow (YELLOW) 06/03/18 16:33 Urine Clarity Turbid (Clear) 06/03/18 16:33 Urine pH 6.0 (5.0-8.0) 06/03/18 16:33 Ur Specific [place] 1.013 (1.003-1.030) 06/03/18 16:33 Urine Protein 100 mg/dL (NEGATIVE) 06/03/18 16:33 Urine Glucose (UA) Neg mg/dL (Normal) 06/03/18 16:33 Urine Ketones Negative mg/dL (NEGATIVE) 06/03/18 16:33 Urine Blood Moderate (NEGATIVE) 06/03/18 16:33 Urine Nitrate Negative (NEGATIVE) 06/03/18 16:33 Urine Bilirubin Negative (NEGATIVE) 06/03/18 16:33 Urine Urobilinogen 0.2-1.0 mg/dL (0.2-1.0) 06/03/18 16:33 Ur Leukocyte Esterase Large Jennifer/uL (Negative) 06/03/18 16:33 Urine RBC (Auto) 32 /hpf (0-3) H 06/03/18 16:33 Urine WBC Clumps (Auto) Many /hpf (NONE) H 06/03/18 16:33 Urine Microscopic WBC 362 /hpf (0-5) H 06/03/18 16:33 Ur Squamous Epith Cells 4 /hpf (0-5) 06/03/18 16:33 - Hospital Course Hospital Course: 67 yo female with history of RA, HTN HLD, DM2 and previous CVA was brought to the ER following a fall and right sided weakness accompanied with slurred speech. Code stroke was called and TPA administered. Initial CT scan did not show any significant findings. Patient was admitted in ICU where MRI done later showed large left MCA infarct. Hemorrhagic conversion also noted on the left basal ganglia. She was later transferred to Acute Rehab for further management and therapy. Pt tolerate physical therapy well, stable now for discharge home. Course by problem as below. HD stable, NAD. Follow up with PCP and Neuro as outpatient in one week. 1. Acute CVA, s/p TPA had hemorrhagic conversion continue PT/OT/ST continue ASA, statin and Keppra no PERYR, denied by insurance 2. Hypertension BP stable continue Coreg, Norvasc and Hydralazine 3. Hypercholesterolemia cont Lipitor 4. Type 2 DM BS relatively controlled on Levemir 15 units SC HS plus Lispro coverage 5. Asthma, mild intermittent Continue Albuterol PRN for SOB chronic 7. CKD stage III likely due to diabetic nephropathy and/or uncontrolled hypertension renal function improving BMP in am 8. DVT prophylaxis Lovenox 30mg SC daily Discharge Exam - Head Exam Head Exam: ATRAUMATIC, NORMOCEPHALIC - Eye Exam Eye Exam: EOMI, Normal appearance, PERRL Pupil Exam: NORMAL ACCOMODATION - ENT Exam ENT Exam: Mucous Membranes Moist, Normal Oropharynx - Respiratory Exam Respiratory Exam: Clear to PA & Lateral, NORMAL BREATHING PATTERN - Cardiovascular Exam Cardiovascular Exam: RRR, +S1, +S2 - GI/Abdominal Exam GI & Abdominal Exam: Normal Bowel Sounds, Soft. absent: Mass, Tenderness - Extremities Exam Extremities exam: normal capillary refill, pedal pulses present - Back Exam Back exam: absent: paraspinal tenderness, rash noted - Neurological Exam Neurological exam: Alert, Reflexes Normal - Psychiatric Exam Psychiatric exam: Normal Affect, Normal Mood - Skin Skin Exam: Dry, Warm Discharge Plan - Follow Up Plan Condition: GOOD Disposition: HOME/ ROUTINE Instructions: Insulin Detemir, Left-Side Stroke (DC), Allopurinol, Amlodipine, Aspirin, Atorvastatin, Carvedilol, Clopidogrel, [place]-3 Fatty Acids, Hydralazine , Levetiracetam, Montelukast, Pantoprazole, Sertraline, Going Home on Blood Thinners
[2018-06-30 12:30] VITALS: BP 141/76; PULSE 68
--- NOTE | 2018-07-18 09:00 | CP.PCM.DIS ---
Provider - Provider Date of Admission: 06/02/18 18:54 Attending physician: Elias Breen MD Time Spent in preparation of Discharge (in minutes): 5 Pen Tender Discharge Summary Discharge date: 06/30/18 - Review of Plan of Care Physical Therapy: Fail to Attain Occupational Therapy: Fail to Attain Recreational Therapy: Fail to Attain Speech Therapy: Fail to Attain - Goal Attainment Ambulation: Fail to Attain Status on discharge: 10-25 Feet Assistive device: Rolling Walker Level of assistance: Moderate Assistance ADL: Fail to Attain Level of assistance: Moderate Assistance Transfer: Fail to Attain Level of assistance: Moderate Assistance Speech Comprehension: Mild Impairment Expression: Mild Impairment - Plan for patients rehabilitation in the Subacute facility (weeks): 12 Hospital Course - Lab Results Lab Results: Micro Results 06/03/18 14:59 Blood-Venous Blood Culture - Final NO GROWTH AFTER 5 DAYS 06/03/18 14:59 Blood-Venous Gram Stain - Final TEST NOT PERFORMED 06/03/18 14:59 Blood-Venous Blood Culture - Final NO GROWTH AFTER 5 DAYS 06/03/18 14:59 Blood-Venous Gram Stain - Final TEST NOT PERFORMED 06/03/18 16:33 Urine,Catheterized Urine Culture - Final Escherichia Coli Most Recent Lab Values WBC 6.9 K/uL (4.8-10.8) 06/29/18 05:20 RBC 3.34 Mil/uL (3.80-5.20) L 06/29/18 05:20 Hgb 10.6 g/dL (12.0-16.0) L 06/29/18 05:20 Hct 30.7 % (34.0-47.0) L 06/29/18 05:20 MCV 92.1 fl (81.0-99.0) 06/29/18 05:20 MCH 31.8 pg (27.0-31.0) H 06/29/18 05:20 MCHC 34.5 g/dL (33.0-37.0) 06/29/18 05:20 RDW 14.6 % (11.5-14.5) H 06/29/18 05:20 Plt Count 385 K/uL (130-400) 06/29/18 05:20 MPV 7.9 fl (7.2-11.7) 06/04/18 05:10 Neut % (Auto) 74.0 % (50.0-75.0) 06/04/18 05:10 Lymph % (Auto) 14.3 % (20.0-40.0) L 06/04/18 05:10 [place] % (Auto) 9.6 % (0.0-10.0) 06/04/18 05:10 Eos % (Auto) 1.5 % (0.0-4.0) 06/04/18 05:10 Baso % (Auto) 0.6 % (0.0-2.0) 06/04/18 05:10 Neut # (Auto) 10.8 K/uL (1.8-7.0) H 06/04/18 05:10 Lymph # (Auto) 2.1 K/uL (1.0-4.3) 06/04/18 05:10 [place] # (Auto) 1.4 K/uL (0.0-0.8) H 06/04/18 05:10 Eos # (Auto) 0.2 K/uL (0.0-0.7) 06/04/18 05:10 Baso # (Auto) 0.1 K/uL (0.0-0.2) 06/04/18 05:10 Sodium 140 mmol/l (132-148) 06/29/18 05:20 Potassium 3.8 MMOL/L (3.6-5.0) 06/29/18 05:20 Chloride 98 mmol/L (98-107) 06/29/18 05:20 Carbon Dioxide 29 mmol/L (22-30) 06/29/18 05:20 Anion Gap 17 (10-20) 06/29/18 05:20 BUN 44 mg/dl (7-17) H 06/29/18 05:20 Creatinine 1.9 mg/dl (0.7-1.2) H 06/29/18 05:20 Est GFR ( Amer) 32 06/29/18 05:20 Est GFR (Non-Af Amer) 27 06/29/18 05:20 POC Glucose (mg/dL) 147 mg/dL (65-110) H 06/30/18 12:25 Random Glucose 120 mg/dL (65-105) H 06/29/18 05:20 Calcium 10.0 mg/dL (8.4-10.2) 06/29/18 05:20 Urine Color Yellow (YELLOW) 06/03/18 16:33 Urine Clarity Turbid (Clear) 06/03/18 16:33 Urine pH 6.0 (5.0-8.0) 06/03/18 16:33 Ur Specific [place] 1.013 (1.003-1.030) 06/03/18 16:33 Urine Protein 100 mg/dL (NEGATIVE) 06/03/18 16:33 Urine Glucose (UA) Neg mg/dL (Normal) 06/03/18 16:33 Urine Ketones Negative mg/dL (NEGATIVE) 06/03/18 16:33 Urine Blood Moderate (NEGATIVE) 06/03/18 16:33 Urine Nitrate Negative (NEGATIVE) 06/03/18 16:33 Urine Bilirubin Negative (NEGATIVE) 06/03/18 16:33 Urine Urobilinogen 0.2-1.0 mg/dL (0.2-1.0) 06/03/18 16:33 Ur Leukocyte Esterase Large [place]/uL (Negative) 06/03/18 16:33 Urine RBC (Auto) 32 /hpf (0-3) H 06/03/18 16:33 Urine WBC Clumps (Auto) Many /hpf (NONE) H 06/03/18 16:33 Urine Microscopic WBC 362 /hpf (0-5) H 06/03/18 16:33 Ur Squamous Epith Cells 4 /hpf (0-5) 06/03/18 16:33 Discharge Exam - Head Exam Head Exam: ATRAUMATIC, NORMOCEPHALIC Discharge Plan - Discharge Medications Prescriptions: Albuterol HFA [Ventolin HFA 90 mcg/actuation (8 g)] 2 puff IH Q12 PRN #1 inhaler PRN Reason: Shortness Of Breath Allopurinol [Zyloprim] 100 mg PO DAILY #30 tab amLODIPine [Norvasc] 10 mg PO DAILY #30 tab Aspirin [Aspirin Chewable] 81 mg PO DAILY #30 chew Atorvastatin [Lipitor] 40 mg PO DAILY #30 tab levETIRAcetam [Keppra] 500 mg PO Q12 #30 tab Montelukast [Singulair] 10 mg PO HS #30 tab Dpnaq-5-Cisu Ethyl Esters 1 GM [Lovaza] 1 gm PO DAILY #30 sgl - Follow Up Plan Condition: GOOD Disposition: DISCHARGED TO HOME CARE Instructions: Insulin Detemir, Left-Side Stroke (DC), Allopurinol, Amlodipine, Aspirin, Atorvastatin, Carvedilol, Clopidogrel, [place]-3 Fatty Acids, Hydralazine , Levetiracetam, Montelukast, Pantoprazole, Sertraline, Going Home on Blood Thinners
== END 2018-06-30 15:30 | disposition home health service (06) | DRG 57 ==
PROC: F07Z9FZ Gait Training/Functional Ambulation Treatment using Assistive, Adaptive, Supportive or Protective Equipment (ICD-10-PCS; principal; 2018-06-02)
PROC: F06Z6MZ Communicative/Cognitive Integration Skills Treatment using Augmentative / Alternative Communication Equipment (ICD-10-PCS; 2018-06-02)
PROC: F07L6FZ Therapeutic Exercise Treatment of Musculoskeletal System - Lower Back / Lower Extremity using Assistive, Adaptive, Supportive or Protective Equipment (ICD-10-PCS; 2018-06-03)
PROC: F08Z4FZ Home Management Treatment using Assistive, Adaptive, Supportive or Protective Equipment (ICD-10-PCS; 2018-06-03)
DX: I69.151 Hemiplegia and hemiparesis following nontraumatic intracerebral hemorrhage affecting right dominant side (principal); N39.0 Urinary tract infection, site not specified; I69.192 Facial weakness following nontraumatic intracerebral hemorrhage; I69.128 Other speech and language deficits following nontraumatic intracerebral hemorrhage; F06.31 Mood disorder due to known physiological condition with depressive features; B96.20 Unspecified Escherichia coli [E. coli] as the cause of diseases classified elsewhere; E11.22 Type 2 diabetes mellitus with diabetic chronic kidney disease; I12.9 Hypertensive chronic kidney disease with stage 1 through stage 4 chronic kidney disease, or unspecified chronic kidney disease; N18.3 Chronic kidney disease, stage 3 (moderate); D63.1 Anemia in chronic kidney disease; J45.20 Mild intermittent asthma, uncomplicated; E78.5 Hyperlipidemia, unspecified; E78.00 Pure hypercholesterolemia, unspecified; M06.9 Rheumatoid arthritis, unspecified; F17.210 Nicotine dependence, cigarettes, uncomplicated; Z79.4 Long term (current) use of insulin; Z79.02 Long term (current) use of antithrombotics/antiplatelets; Z79.82 Long term (current) use of aspirin; Z90.710 Acquired absence of both cervix and uterus